=== PATIENT | male | born 1930 | race Caucasian/White ===

== ENCOUNTER → 2016-05-24 | Outpatient (CLI) | payer BC ==
[2016-05-24 13:31] LABS: ESTIMATED AVERAGE GLUCOSE 186 mg/dl; HA1C FLAG Normal (Normal)
== END | disposition home or self-care (01) ==
LOC: C.LABPBG 11:45
PROVIDERS: ATTEND Internal Medicine
DX: E11.9 Type 2 diabetes mellitus without complications (principal)

== ENCOUNTER → 2016-12-04 | Outpatient (CLI) | payer BC ==
[2016-12-04 18:36] LABS: LYME DISEASE AB IGG NEG (NEG); LYME DISEASE AB IGM NEG (NEG)
== END | disposition home or self-care (01) ==
LOC: C.LABPBG 13:01
PROVIDERS: ATTEND Internal Medicine
DX: M79.1 Myalgia (principal)

== ENCOUNTER → 2017-05-14 | Outpatient (CLI) | payer BC ==
[2017-05-14 18:06] LABS: BASO % 0.2 %; BASO ABS # 0.02 K/uL (0-0.2); EOS % 1.2 %; EOS ABS # 0.13 K/uL (0-0.5); HEMOGLOBIN 9.5 g/dL (14.0-18.0); IG# 0.04 K/uL (0.00-0.02); LYMPH % 16.3 %; LYMPH ABS # 1.81 K/uL (1.2-3.4); MEAN CELL VOLUME 82.9 fL (80-100); MEAN CORPUSCULAR HEMOGLOBIN 26.2 pg (25-34); MEAN CORPUSCULAR HGB CONC 31.7 g/dl (32-36); MEAN PLATELET VOLUME 11.5 fL (7.4-10.4); MONO % 10.9 %; MONO ABS # 1.21 K/uL (0.11-0.59); NEUT ABS # 7.92 K/uL (1.4-6.5); PLATELET COUNT 577 K/uL (130-400); RED CELL DISTRIBUTION WIDTH CV 15.7 % (11.5-14.5); RED CELL DISTRIBUTION WIDTH SD 48.1 fL (36.4-46.3); WHITE BLOOD COUNT 11.13 K/uL (4.8-10.8)
[2017-05-14 18:07] LABS: ALBUMIN 2.2 gm/dl (3.4-5.0); ALT/SGPT 36 U/L (12-78); AST/SGOT 30 U/L (15-37); BLOOD UREA NITROGEN 25 mg/dl (7-18); CALCIUM 8.5 mg/dl (8.5-10.1); CARBON DIOXIDE 22 mmol/L (21-32); CHOLESTEROL 91 mg/dl (0-200); CREATININE 1.99 mg/dl (0.60-1.40); GLUCOSE 260 mg/dl (70-99); POTASSIUM 4.5 mmol/L (3.5-5.1); SODIUM 137 mmol/L (136-145)
[2017-05-14 18:17] LABS: ALKALINE PHOSPHATASE 196 U/L (45-117); LDL CHOLESTEROL CALCULATED 6 mg/dl; TOTAL PROTEIN 7.2 gm/dl (6.4-8.2)
[2017-05-14 18:51] LABS: HEMOGLOBIN A1C 10.2 % (4.5-5.6)
== END | disposition home or self-care (01) ==
LOC: C.LABPBG 15:14
PROVIDERS: ATTEND Internal Medicine
DX: E11.22 Type 2 diabetes mellitus with diabetic chronic kidney disease (principal); I12.9 Hypertensive chronic kidney disease with stage 1 through stage 4 chronic kidney disease, or unspecified chronic kidney disease; N18.3 Chronic kidney disease, stage 3 (moderate); E78.5 Hyperlipidemia, unspecified; E03.9 Hypothyroidism, unspecified; N63.0 Unspecified lump in unspecified breast; H91.90 Unspecified hearing loss, unspecified ear

== ENCOUNTER → 2017-05-16 | Outpatient (CLI) | payer BC ==
[2017-05-16 17:24] LABS: BASO % 0.5 %; BASO ABS # 0.06 K/uL (0-0.2); EOS % 1.6 %; EOS ABS # 0.19 K/uL (0-0.5); HEMATOCRIT 30.1 % (42-52); HEMOGLOBIN 9.4 g/dL (14.0-18.0); IG# 0.04 K/uL (0.00-0.02); LYMPH % 21.2 %; LYMPH ABS # 2.58 K/uL (1.2-3.4); MEAN CELL VOLUME 82.9 fL (80-100); MEAN CORPUSCULAR HEMOGLOBIN 25.9 pg (25-34); MEAN CORPUSCULAR HGB CONC 31.2 g/dl (32-36); MEAN PLATELET VOLUME 11.4 fL (7.4-10.4); MONO % 8.6 %; MONO ABS # 1.04 K/uL (0.11-0.59); NEUT % 67.8 %; NEUT ABS # 8.25 K/uL (1.4-6.5); PLATELET COUNT 510 K/uL (130-400); RED CELL DISTRIBUTION WIDTH CV 15.7 % (11.5-14.5); RED CELL DISTRIBUTION WIDTH SD 47.8 fL (36.4-46.3); WHITE BLOOD COUNT 12.16 K/uL (4.8-10.8)
[2017-05-16 17:37] LABS: TRANSFERRIN 264 mg/dl (200-360)
== END | disposition home or self-care (01) ==
LOC: C.LABPBG 13:50
PROVIDERS: ATTEND Internal Medicine
DX: R63.4 Abnormal weight loss (principal); D64.9 Anemia, unspecified; R63.0 Anorexia

== ENCOUNTER → 2017-07-04 | Outpatient (CLI) | payer BC ==
[~2017-07-04] MED LIST: ASPI81TA28 PO; FERR325T18 PO; GLIP5TAB3 PO; LEVO50TA6 PO; LOSA50TA6 PO; LPT40 PO; METF-384 PO; PRLSR20 PO; SITA100T3 PO
[2017-07-04 12:54] LABS: BASO % 0.2 %; BASO ABS # 0.02 K/uL (0-0.2); HEMATOCRIT 28.6 % (42-52); IG# 0.03 K/uL (0.00-0.02); LYMPH % 18.3 %; LYMPH ABS # 1.81 K/uL (1.2-3.4); MEAN CELL VOLUME 80.3 fL (80-100); MEAN CORPUSCULAR HEMOGLOBIN 25.3 pg (25-34); MEAN CORPUSCULAR HGB CONC 31.5 g/dl (32-36); MEAN PLATELET VOLUME 10.9 fL (7.4-10.4); MONO % 11.4 %; MONO ABS # 1.13 K/uL (0.11-0.59); NEUT % 68.8 %; NEUT ABS # 6.81 K/uL (1.4-6.5); PLATELET COUNT 411 K/uL (130-400); RED CELL DISTRIBUTION WIDTH CV 16.1 % (11.5-14.5); RED CELL DISTRIBUTION WIDTH SD 47.5 fL (36.4-46.3)
== END | disposition home or self-care (01) ==
LOC: C.LABPBG 10:54
PROVIDERS: ATTEND Internal Medicine
DX: R63.0 Anorexia (principal); D64.9 Anemia, unspecified

== ENCOUNTER 2017-07-09 13:47 | Inpatient (IN) | payer BC, OTHER ==
[~2017-07-09] VITALS: Ht 182.9 cm; Wt 87.9 kg
--- NOTE | 2017-07-09 14:22 | DIAGNOSTIC IMAGING REPORT ---
SINGLE VIEW CHEST CLINICAL HISTORY: Generalized weakness. FINDINGS: An AP, portable, upright chest radiograph is compared to study dated 11/01/2007. The examination is degraded by portable technique and patient rotation. The heart is enlarged and there is atherosclerotic calcification of the thoracic aorta. There is evidence of congestive failure. Small pleural effusions are identified and there is bibasilar atelectasis. No pneumothorax is seen. The skeletal structures are osteopenic. Advanced arthritic change is seen in the shoulders and thoracic spine. IMPRESSION: 1. Cardiomegaly with evidence of congestive failure. 2. Small pleural effusions. Electronically signed by: Ignacio Cordero M.D. 07/09/2017 2:21 PM Dictated Date/Time: 07/09/2017 2:20 PM
[2017-07-09 14:45] LABS: BASO % 0.2 %; BASO ABS # 0.02 K/uL (0-0.2); EOS % 0.8 %; EOS ABS # 0.08 K/uL (0-0.5); HEMOGLOBIN 8.7 g/dL (14.0-18.0); IG# 0.03 K/uL (0.00-0.02); LYMPH % 14.3 %; LYMPH ABS # 1.41 K/uL (1.2-3.4); MEAN CELL VOLUME 79.6 fL (80-100); MEAN CORPUSCULAR HEMOGLOBIN 25.7 pg (25-34); MEAN CORPUSCULAR HGB CONC 32.2 g/dl (32-36); MEAN PLATELET VOLUME 10.5 fL (7.4-10.4); MONO % 8.1 %; NEUT % 76.3 %; NEUT ABS # 7.54 K/uL (1.4-6.5); PLATELET COUNT 415 K/uL (130-400); RED CELL DISTRIBUTION WIDTH CV 15.9 % (11.5-14.5); RED CELL DISTRIBUTION WIDTH SD 46.8 fL (36.4-46.3); WHITE BLOOD COUNT 9.88 K/uL (4.8-10.8)
[2017-07-09 14:57] LABS: PTT PATIENT 26.9 SECONDS (21.0-31.0)
[2017-07-09] MEDS ORDERED: GLIP5TAB3 PO (15:11)
[2017-07-09] MEDS ORDERED: LPT40 PO (15:11)
[2017-07-09] MEDS ORDERED: ASPI81TA28 PO (15:11)
[2017-07-09] MEDS ORDERED: FERR325T18 PO (15:11)
[2017-07-09 15:13] LABS: ALBUMIN 2.4 gm/dl (3.4-5.0); CALCIUM 8.5 mg/dl (8.5-10.1); CREATININE 2.36 mg/dl (0.60-1.40); POTASSIUM 5.1 mmol/L (3.5-5.1)
[2017-07-09] MEDS ORDERED: METF-384 PO (15:13)
[2017-07-09] MEDS ORDERED: LEVO50TA6 PO (15:13)
[2017-07-09] MEDS ORDERED: PRLSR20 PO (15:13)
[2017-07-09] MEDS ORDERED: LOSA50TA6 PO (15:13)
[2017-07-09] MEDS ORDERED: SITA100T3 PO (15:13)
[2017-07-09] MEDS ORDERED: FUROSEMIDE 40 MG/4 ML VIAL IV STA (16:51)
[2017-07-09] MEDS ORDERED: MAGNESIUM SULFATE 1GM / D5W 1 GM in PREMIXED IN D5W 100 ML IV ONE (17:00)
[2017-07-09] MEDS ORDERED: ACETAMINOPHEN 325 MG TAB PO PRN (17:00)
[2017-07-09] MEDS ORDERED: NITROGLYCERIN 0.4 MG SL PER TAB CHARGE SL PRN (17:00)
[2017-07-09] MEDS ORDERED: POLYETHYLENE (MIRALAX) 17 GM PACK PO PRN (17:00)
[2017-07-09] MEDS ORDERED: MoRPHine SULFATE 2 MG/ML CARP IV PRN (17:00)
[2017-07-09] MEDS ORDERED: ONDANSETRON INJ 2 MG/ML 2 ML VIAL IV PRN (17:00)
[2017-07-09] MEDS ORDERED: ALUMINUM/MAGNESIUM/SIMETH (MAALOX MAX) 30 ML UDC PO PRN (17:00)
[2017-07-09] MEDS ORDERED: MAGNESIUM HYDROXIDE SUSP 30 ML UDC PO PRN (17:00)
[2017-07-09] MEDS ORDERED: HydrALAZINE HCL 20 MG/ML VIAL IV. PRN (17:15)
[2017-07-09] MEDS ORDERED: PHARMACY GLYCEMIC MGMT CONSULT PRN (17:17)
--- NOTE | 2017-07-09 17:19 | History and Physical ---
History & Physical Date & Time of Service: Jul 09, 2017 at 17:03 Chief Complaint: Blood Count Low - Fluid-Kidneys Primary Care Physician: Fred Wilder M.D. History of Present Illness Source: patient, family, clinic records, hospital records Patient is a pleasant 87 y/o male, with PMHx of T2DM, HTN, HLD, hypothyroidism, and GERD, who presented to the ED because of abnormal labs at PCP office. Per patient, he was anemic and his PCP thought he was fluid overloaded. He notes worsening SOB w/ activity and increased bilateral lower extremity edema over the last 1 week. Patient denies any fever, chills, sweats, lightheadedness, dizziness, vision changes, CP, palpitations, wheezing, cough, abdominal pain, nausea, vomiting, diarrhea, urinary symptoms, melena, numbness/tingling, weakness, muscle/joint pain, anxiety/depression, active bleeding, or new skin discoloration/changes. Past Medical/Surgical History HLD T2DM HTN GERD hypothyroidism s/p L hip replacement Family History COPD Social History Smoking Status: Never Smoker Alcohol Use: none Drug Use: none Immunizations History of Influenza Vaccine: Yes Influenza Vaccine Date: May 02, 2007 History of Tetanus Vaccine?: Unknown History of Pneumococcal: Unknown History of Hepatitis B Vaccine: Unknown Allergies Coded Allergies: No Known Allergies (Verified , 07/09/17) Home Medications Scheduled Aspirin (Aspirin Ec), 81 MG PO QAM Atorvastatin (Lipitor), 40 MG PO QAM Ferrous Gluconate (Ferrous Gluconate), 324 MG PO QAM Glipizide (Glucotrol), 5 MG PO BID Levothyroxine Sodium (Levothyroxine Sodium), 1 TAB PO QAM Losartan Potassium (Cozaar), 50 MG PO QAM Metformin Hcl (Glucophage), 1,000 MG PO BID Omeprazole (Prilosec), 40 MG PO QAM Sitagliptin Phosphate (Januvia), 100 MG PO QAM Physical Exam Vital Signs Date Time Temp Pulse Resp B/P (MAP) Pulse Ox O2 Delivery O2 Flow Rate FiO2 07/09/17 16:19 108 18 135/70 97 Room Air 07/09/17 15:08 97 16 95 Room Air 07/09/17 14:43 108 07/09/17 14:39 94 Room Air 07/09/17 13:53 36.5 116 20 161/74 97 Room Air General Appearance: no apparent distress Head: normocephalic, atraumatic Eyes: normal inspection, PERRL ENT: + pertinent finding ([place]) Neck: supple Respiratory/Chest: no respiratory distress, no accessory muscle use, + crackles (bilateral lung bases ) Cardiovascular: regular rate, rhythm Abdomen/GI: normal bowel sounds, non tender, soft Back: normal inspection Extremities/Musculoskelatal: no calf tenderness, + swelling (+1 pitting edema of bilateral lower extremities ) Neurologic/Psych: alert, normal mood/affect, oriented x 3 Skin: normal color, warm/dry, no rash Diagnostics Laboratory Results Results Past 24 Hours Test 07/09/17 14:19 Range/Units White Blood Count 9.88 4.8-10.8 K/uL Red Blood Count 3.39 4.7-6.1 M/uL Hemoglobin 8.7 14.0-18.0 g/dL Hematocrit 27.0 42-52 % Mean Corpuscular Volume 79.6 80-100 fL Mean Corpuscular Hemoglobin 25.7 25-34 pg Mean Corpuscular Hemoglobin Concent 32.2 32-36 g/dl Platelet Count 415 130-400 K/uL Mean Platelet Volume 10.5 7.4-10.4 fL Neutrophils (%) (Auto) 76.3 % Lymphocytes (%) (Auto) 14.3 % Monocytes (%) (Auto) 8.1 % Eosinophils (%) (Auto) 0.8 % Basophils (%) (Auto) 0.2 % Neutrophils # (Auto) 7.54 1.4-6.5 K/uL Lymphocytes # (Auto) 1.41 1.2-3.4 K/uL Monocytes # (Auto) 0.80 0.11-0.59 K/uL Eosinophils # (Auto) 0.08 0-0.5 K/uL Basophils # (Auto) 0.02 0-0.2 K/uL RDW Standard Deviation 46.8 36.4-46.3 fL RDW Coefficient of Variation 15.9 11.5-14.5 % Immature Granulocyte % (Auto) 0.3 % Immature Granulocyte # (Auto) 0.03 0.00-0.02 K/uL Hypochromasia PRESENT Microcytosis PRESENT Prothrombin Time 10.6 9.0-12.0 SECONDS Prothromb Time International Ratio 1.0 0.9-1.1 Activated Partial Thromboplast Time 26.9 21.0-31.0 SECONDS Partial Thromboplastin Ratio 1.0 Sodium Level 133 136-145 mmol/L Potassium Level 5.1 3.5-5.1 mmol/L Chloride Level 101 98-107 mmol/L Carbon Dioxide Level 24 21-32 mmol/L Anion Gap 8.0 3-11 mmol/L Blood Urea Nitrogen 41 7-18 mg/dl Creatinine 2.36 0.60-1.40 mg/dl Est Creatinine Clear Calc Drug Dose 24.0 ml/min Estimated GFR () 27.8 Estimated GFR (Non- 24.0 BUN/Creatinine Ratio 17.3 10-20 Random Glucose 369 70-99 mg/dl Calcium Level 8.5 8.5-10.1 mg/dl Magnesium Level 1.6 1.8-2.4 mg/dl Total Bilirubin 0.4 0.2-1 mg/dl Direct Bilirubin 0.1 0-0.2 mg/dl Aspartate Amino Transf (AST/SGOT) 44 15-37 U/L Alanine Aminotransferase (ALT/SGPT) 45 12-78 U/L Alkaline Phosphatase 177 45-117 U/L Troponin I 0.078 0-0.045 ng/ml Pro-B-Type Natriuretic Peptide 8681 0-1800 pg/ml Total Protein 7.0 6.4-8.2 gm/dl Albumin 2.4 3.4-5.0 gm/dl Lipase 346 73-393 U/L Beta-Hydroxybutyric Acid 1.46 0.2-2.81 mg/dL Thyroid Stimulating Hormone (TSH) 5.560 0.300-4.500 uIu/ml Diagnostic Radiology SINGLE VIEW CHEST CLINICAL HISTORY: Generalized weakness. FINDINGS: An AP, portable, upright chest radiograph is compared to study dated 11/01/2007. The examination is degraded by portable technique and patient rotation. The heart is enlarged and there is atherosclerotic calcification of the thoracic aorta. There is evidence of congestive failure. Small pleural effusions are identified and there is bibasilar atelectasis. No pneumothorax is seen. The skeletal structures are osteopenic. Advanced arthritic change is seen in the shoulders and thoracic spine. IMPRESSION: 1. Cardiomegaly with evidence of congestive failure. 2. Small pleural effusions. Electronically signed by: Ignacio Cordero M.D. 07/09/2017 2:21 PM Dictated Date/Time: 07/09/2017 2:20 PM The status of this report is Signed. Draft = Not yet reviewed or approved by Radiologist. Signed = Reviewed and approved by Radiologist. EKG HANNA ALEXANDRE ID:[id number] 09-JUL-2017 14:39:01 [facility] Sinus tachycardia Nonspecific T wave abnormality Abnormal ECG When compared with ECG of 01-NOV-2007 18:50, Nonspecific T wave abnormality now evident in Lateral leads Confirmed by KENYATTA ORTIZ ([id number]) on 07/09/2017 4:20:30 PM 25mm/s 10mm/mV 150Hz 8.0 SP2 12SL 241 SURAJ: 10 Referred by: Referred Self Confirmed By: KENYATTA De La Vega. rate 109 BPM IA interval 170 ms QRS duration 84 ms QT/QTc 344/463 ms P-R-T axes 82 3 87 1930 (87 yr) Male Room:[facility] Loc:15 Education Reviewer:KYLAH CABRAL Test ind: Impression Assessment and Plan Patient is a pleasant 87 y/o male, with PMHx of T2DM, HTN, HLD, hypothyroidism, and GERD, who presented to the ED because of abnormal labs at PCP office. 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: - IV Lasix as above - Hold nephrotoxic agents and renally dose medications as appropriate - Follow PRP Hyponatremia, likely secondary to fluid overload: IV Lasix as above and follow PRP T2DM- hgbA1c 10.2% in 05/2017: - Hold Glipizide, Metformin and Januvia - Lantus 10 u x1 now - BSG ACHS and ISS - Pharmacy consulted for glycemic management Hypomagnesemia: - IV Mag 1 gm x1 now - Follow mag level and replace PRN Hypothyroidism- TSH 5.5: - Continue Synthroid - Repeat/follow-up outpatient in 6-8 weeks Acute on chronic iron deficient anemia, ?secondary to dilutional: - Follow H&H and transfuse PRN for hgb < 7.0-8.0 - Hold ASA - Continue Iron supplement - B12 and iron panel reviewed from 05/2017 - Check stool Hemoccult HLD: Continue Lipitor GERD: Protonix daily- resume Prilosec at discharge DVT prophylaxis: TEDs/SCDS; hold chemical anticoagulation due to anemia Code status: LEVEL I, FULL Dispo: From home- PT/OT and CM consulted Resuscitation Status VTE Prophylaxis Will order VTE Prophylaxis: Yes
--- NOTE | 2017-07-09 17:22 | Pharmacy Progress Note ---
Glycemic: Assessment & Plan Date of Service Jul 09, 2017. Assessment & Plan REPORTED HOME DIABETES MEDS: * glipizide 5mg po BID * metformin 1g po BID * Januvia 100mg po daily IN-PATIENT DIABETES REGIMEN: * Hold oral home diabetes agents * Basal insulin: Agree with Lantus 10 units x 1, will re-eval 07/10/17 with regards to new orders. * Correctional Insulin: Novolog Correction per scale ACHS Goal Range: Low 140 mg/dL - High 180 mg/dL Correction Factor: 35 mg/dL/unit * Prandial insulin: Per carb ratio of 1 unit per 15 grams CHO consumed Pharmacy will continue to monitor patient daily and write orders per [facility] inpatient glycemic control protocol. Thanks. * Please note that the plan above was derived based on current level of insulin resistance and hospital stress. These recommendations are appropriate for inpatient admission only. Plan of care upon discharge will need to be reassessed to avoid potential outpatient hypo/hyperglycemia.
[2017-07-09 18:00] VITALS: BP 132/80; PULSE 95; TEMP 36.6; BMI 26.8
[2017-07-09] MEDS: INSULIN ASPART 100 UNITS/ML 3 ML PEN SC SCH ×2 (18:42→22:32)
[2017-07-09] MEDS ORDERED: INSULIN GLARGINE SOLOSTAR 100 UNITS/ML 3 ML PEN SC ONE (19:00)
--- NOTE | 2017-07-09 19:13 | EMERGENCY ROOM VISIT NOTE ---
History Report prepared by [place]: Violeta Hernandez Under the Supervision of: Dr. Jovan Byrne M.D. First contact with patient: 13:58 Chief Complaint: REFERRED BY DOCTOR Stated Complaint: BLOOD COUNT LOW - FLUID-KIDNEYS History of Present Illness The patient is a 87 year old male who presents to the Emergency Room with complaints of abnormal labs as he came here at the recommendation of Dr. Jones , his PCP, who he saw today. He had blood work done, and his hemoglobin was at 90 and they were concerned there was fluid build-up. The pt says he feels fine and he has no complaints. His son notes he does not seen as peppy as usual which is abnormal. The swelling in his ankles has lasted for a week. He has never had any swelling in the past. He has had a cough for about three months with brown, green mucus. His son also reports that he was anemic with a level of 8.7. Pt denies LOC, headache, fevers, chills, diaphoresis, visual changes, neck pain, chest pain, breathing difficulties, nausea, vomiting, abdominal pain , back pain, melena, hematochezia, urinary symptoms, numbness, weakness, lymphadenopathy, rash, or other complaints. 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 Jones today Position: other (global) Quality: other (abnormal labs) Associated Symptoms: + cough Review of Systems See HPI for pertinent positives and negatives. A total of ten systems were reviewed and were otherwise negative. Past Medical & Surgical Medical Problems: (1) CHF exacerbation Family History Family history omitted secondary to patient's age. Social History Smoking Status: Unknown if Ever Smoked Smokeless Tobacco Use: Unknown Current/Historical Medications Scheduled Aspirin (Aspirin Ec), 81 MG PO QAM Atorvastatin (Lipitor), 40 MG PO QAM Ferrous Gluconate (Ferrous Gluconate), 324 MG PO QAM Glipizide (Glucotrol), 5 MG PO BID Levothyroxine Sodium (Levothyroxine Sodium), 1 TAB PO QAM Losartan Potassium (Cozaar), 50 MG PO QAM Metformin Hcl (Glucophage), 1,000 MG PO BID Omeprazole (Prilosec), 40 MG PO QAM Sitagliptin Phosphate (Januvia), 100 MG PO QAM Allergies Coded Allergies: No Known Allergies (Verified , 07/09/17) Physical Exam Vital Signs Date Time Temp Pulse Resp B/P (MAP) Pulse Ox O2 Delivery O2 Flow Rate FiO2 07/09/17 16:19 108 18 135/70 97 Room Air 07/09/17 15:08 97 16 95 Room Air 07/09/17 14:43 108 07/09/17 14:39 94 Room Air 07/09/17 13:53 36.5 116 20 161/74 97 Room Air Physical Exam GENERAL: Awake, alert, tired-appearing, in no distress HENT: Normocephalic, atraumatic. Oropharynx unremarkable. EYES: Normal conjunctiva. Sclera non-icteric. NECK: Supple. No nuchal rigidity. FROM. No masses. RESPIRATORY: Clear to auscultation. No wheezes. CARDIAC: Tachycardic rate. Normal rhythm. No murmurs. No rubs. Extremities warm and well perfused. Pulses equal. No JVD. GI: Soft, non-distended. No tenderness to palpation. No rebound or guarding. No masses. RECTAL: Deferred. MUSCULOSKELETAL: Atraumatic. Chest examination reveals no tenderness. The back is symmetrical on inspection without obvious abnormality. There is no CVA tenderness to palpation. No joint edema. LOWER EXTREMITIES: 2+ Lower Extremity edema NEURO: Normal sensorium. No sensory or motor deficits noted. SKIN: No rash or jaundice noted. Medical Decision & Procedures ER Provider Diagnostic Interpretation: Radiology results as stated below per my review and radiologist interpretation: SINGLE VIEW CHEST CLINICAL HISTORY: Generalized weakness. FINDINGS: An AP, portable, upright chest radiograph is compared to study dated 11/01/2007. The examination is degraded by portable technique and patient rotation. The heart is enlarged and there is atherosclerotic calcification of the thoracic aorta. There is evidence of congestive failure. Small pleural effusions are identified and there is bibasilar atelectasis. No pneumothorax is seen. The skeletal structures are osteopenic. Advanced arthritic change is seen in the shoulders and thoracic spine. IMPRESSION: 1. Cardiomegaly with evidence of congestive failure. 2. Small pleural effusions. Electronically signed by: Ignacio Cordero M.D. 07/09/2017 2:21 PM Dictated Date/Time: 07/09/2017 2:20 PM Laboratory Results 07/09/17 14:19 Red Blood Count 3.39, Mean Corpuscular Volume 79.6, Mean Corpuscular Hemoglobin 25.7, Mean Corpuscular Hemoglobin Concent 32.2, Mean Platelet Volume 10.5, Neutrophils (%) (Auto) 76.3, Lymphocytes (%) (Auto) 14.3, Monocytes (%) (Auto) 8.1, Eosinophils (%) (Auto) 0.8, Basophils (%) (Auto) 0.2, Neutrophils # (Auto) 7.54, Lymphocytes # (Auto) 1.41, Monocytes # (Auto) 0.80, Eosinophils # (Auto) 0.08, Basophils # (Auto) 0.02 07/09/17 14:19 Test 07/09/17 14:19 White Blood Count 9.88 K/uL (4.8-10.8) Red Blood Count 3.39 M/uL (4.7-6.1) Hemoglobin 8.7 g/dL (14.0-18.0) Hematocrit 27.0 % (42-52) Mean Corpuscular Volume 79.6 fL (80-100) Mean Corpuscular Hemoglobin 25.7 pg (25-34) Mean Corpuscular Hemoglobin Concent 32.2 g/dl (32-36) Platelet Count 415 K/uL (130-400) Mean Platelet Volume 10.5 fL (7.4-10.4) Neutrophils (%) (Auto) 76.3 % Lymphocytes (%) (Auto) 14.3 % Monocytes (%) (Auto) 8.1 % Eosinophils (%) (Auto) 0.8 % Basophils (%) (Auto) 0.2 % Neutrophils # (Auto) 7.54 K/uL (1.4-6.5) Lymphocytes # (Auto) 1.41 K/uL (1.2-3.4) Monocytes # (Auto) 0.80 K/uL (0.11-0.59) Eosinophils # (Auto) 0.08 K/uL (0-0.5) Basophils # (Auto) 0.02 K/uL (0-0.2) RDW Standard Deviation 46.8 fL (36.4-46.3) RDW Coefficient of Variation 15.9 % (11.5-14.5) Immature Granulocyte % (Auto) 0.3 % Immature Granulocyte # (Auto) 0.03 K/uL (0.00-0.02) Hypochromasia PRESENT Microcytosis PRESENT Prothrombin Time 10.6 SECONDS (9.0-12.0) Prothromb Time International Ratio 1.0 (0.9-1.1) Activated Partial Thromboplast Time 26.9 SECONDS (21.0-31.0) Partial Thromboplastin Ratio 1.0 Anion Gap 8.0 mmol/L (3-11) Est Creatinine Clear Calc Drug Dose 24.0 ml/min Estimated GFR () 27.8 Estimated GFR (Non- 24.0 BUN/Creatinine Ratio 17.3 (10-20) Calcium Level 8.5 mg/dl (8.5-10.1) Magnesium Level 1.6 mg/dl (1.8-2.4) Total Bilirubin 0.4 mg/dl (0.2-1) Direct Bilirubin 0.1 mg/dl (0-0.2) Aspartate Amino Transf (AST/SGOT) 44 U/L (15-37) Alanine Aminotransferase (ALT/SGPT) 45 U/L (12-78) Alkaline Phosphatase 177 U/L (45-117) Troponin I 0.078 ng/ml (0-0.045) Pro-B-Type Natriuretic Peptide 8681 pg/ml (0-1800) Total Protein 7.0 gm/dl (6.4-8.2) Albumin 2.4 gm/dl (3.4-5.0) Lipase 346 U/L (73-393) Beta-Hydroxybutyric Acid 1.46 mg/dL (0.2-2.81) Thyroid Stimulating Hormone (TSH) 5.560 uIu/ml (0.300-4.500) Laboratory results reviewed by me Medications Administered Medications (Trade) Dose Ordered Sig/Bg Route Start Time Stop Time Status Last Admin Dose Admin Furosemide (Lasix Inj) 40 mg NOW STAT IV 07/09/17 16:51 07/09/17 16:52 DC 07/09/17 17:03 40 MG Magnesium Sulfate 1 gm/Prmx 100 ml @ 100 mls/hr NOW ONCE IV 07/09/17 17:00 07/09/17 18:11 DC 07/09/17 18:43 100 MLS/HR ED Course 1500: The patient was evaluated in room A11. A complete history and physical exam was performed. 1625: Discussed the patient's case. The patient will be evaluated for further treatment and disposition by Dr. Leonard [facility] Hospitalist. Medical Decision Triage Nursing notes reviewed. The patient's presentation and history were concerning for leg swelling and anemia Etiologies such as anemia, CHF, metabolic, infection, hypo/hyperglycemia, electrolyte abnormalities, cardiac sources, intracerebral event, toxicologic, neurologic, as well as others were entertained. The patient was evaluated. He had moderate swelling in the lower extremities. Blood work was obtained. He was found to have a worsening anemia. He states outpatient Hemoccult testing was negative. He has not had any black or bloody stools. Patient's chest x-ray was concerning for CHF. His BNP is elevated. He has acute kidney injury. The patient was given a dose of IV Lasix. His troponin is mildly elevated. This is difficult to interpret in light of his renal insufficiency. As this CHF is new onset for him further management in the hospital is appropriate. Consultation was made with internal medicine. The patient was evaluated for further management. Medication Reconcilliation Current Medication List: was personally reviewed by me Blood Pressure Screening Patient's blood pressure: Elevated blood pressure Blood pressure disposition: Referred to PCP Consults Time Called: 1620 Consulting Physician: Dr. Leonard [facility] Hospitalist Returned Call: 1625 He will further evaluate the patient. Impression Primary Impression: CHF (congestive heart failure) Additional Impression: Anemia Scribe Attestation The scribe's documentation has been prepared under my direction and personally reviewed by me in its entirety. I confirm that the note above accurately reflects all work, treatment, procedures, and medical decision making performed by me. Departure Information Dispostion Being Evaluated By Hospitalist (Dr. Leonard, [facility] Hospitalist) Referrals Fred Wilder M.D. (PCP) Patient Instructions My [facility] Problem Qualifiers
[2017-07-09 19:51] LABS: HEMATOCRIT 27.4 % (42-52); HEMOGLOBIN 8.5 g/dL (14.0-18.0)
[2017-07-09] MEDS ORDERED: MAGNESIUM SULFATE 1GM / D5W 1 GM in PREMIXED IN D5W 100 ML IV STA (22:51)
[2017-07-09] MEDS ORDERED: NURSING VERBAL MED ORDER ONE (23:00)
[2017-07-09 23:06] LABS: CALCIUM 8.6 mg/dl (8.5-10.1); CREATININE 2.49 mg/dl (0.60-1.40); POTASSIUM 5.1 mmol/L (3.5-5.1)
[2017-07-09] MEDS: METOPROLOL TARTRATE 25 MG TAB PO SCH (23:12)
[2017-07-09 23:38] VITALS: BP 118/62; PULSE 95; TEMP 36.6; O2SAT 97
[2017-07-10] VITALS (9 sets, daily range): BP systolic 110–133; BP diastolic 65–79; PULSE 69–87; TEMP 36.2–36.5; O2SAT 94–98; Ht 182.9 cm; Wt 87.9 kg
[2017-07-10] MEDS: LEVOTHYROXINE 50 MCG TAB PO SCH (05:58)
[2017-07-10 06:06] LABS: HEMATOCRIT 27.1 % (42-52); HEMOGLOBIN 8.7 g/dL (14.0-18.0); MEAN CORPUSCULAR HEMOGLOBIN 25.4 pg (25-34); MEAN CORPUSCULAR HGB CONC 32.1 g/dl (32-36); MEAN PLATELET VOLUME 10.2 fL (7.4-10.4); PLATELET COUNT 441 K/uL (130-400); RED CELL DISTRIBUTION WIDTH CV 16.1 % (11.5-14.5); RED CELL DISTRIBUTION WIDTH SD 46.6 fL (36.4-46.3); WHITE BLOOD COUNT 11.07 K/uL (4.8-10.8)
[2017-07-10 06:44] LABS: BLOOD UREA NITROGEN 42 mg/dl (7-18); CALCIUM 8.5 mg/dl (8.5-10.1); CARBON DIOXIDE 25 mmol/L (21-32); GLUCOSE 185 mg/dl (70-99); POTASSIUM 5.6 mmol/L (3.5-5.1); SODIUM 134 mmol/L (136-145)
[2017-07-10 06:50] LABS: CKMB 1.8 ng/ml (0.5-3.6)
[2017-07-10] MEDS: METOPROLOL TARTRATE 25 MG TAB PO SCH ×2 (08:32→20:07)
[2017-07-10] MEDS: ATORVASTATIN 40 MG TAB PO SCH (08:33)
[2017-07-10] MEDS: FERROUS GLUCONATE 324 MG TAB PO SCH (08:33)
[2017-07-10] MEDS: PANTOprazole SOD 40 MG TAB PO SCH (08:33)
[2017-07-10] MEDS: INSULIN ASPART 100 UNITS/ML 3 ML PEN SC SCH ×4 (08:36→20:09)
[2017-07-10] MEDS: INSULIN GLARGINE SOLOSTAR 100 UNITS/ML 3 ML PEN SC SCH ×2 (08:37→20:09)
[2017-07-10] MEDS ORDERED: FUROSEMIDE INJ 40 MG in SYRINGE 0 ML IV SCH (09:00)
[2017-07-10] MEDS ORDERED: SODIUM POLYST. SULF SUSP 15G/60ML PO ONE (09:15)
[2017-07-10] MEDS ORDERED: CALCIUM GLUCONATE 10% 1,000 MG in SODIUM CHLORIDE 0.9% 50ML 50 ML IV ONE (09:45)
[2017-07-10] MEDS ORDERED: INSULIN GLARGINE SOLOSTAR 100 UNITS/ML 3 ML PEN SC ONE (12:00)
--- NOTE | 2017-07-10 12:06 | Nephrology Consultation ---
Nephrology Consultation Date & Providers Date of Consultation: Jul 10, 2017. Primary Care Provider: Fred Wilder M.D. Referring Provider: Reason for Consultation Evaluation and management for acute kidney injury with history of chronic kidney disease. History of Present Illness Mr. Lowe is a 87-year-old gentlemen with past medical history significant for stage 3 chronic kidney disease, hypertension, dyslipidemia, diabetes type 2 with history of high grade proteinuria admitted to the hospital with anemia, acute kidney injury and CHF exacerbation. Nephrology consult was requested for further management. Electronic medical records including labs and imaging are reviewed in detail during patient's visit. Patient's son Joe was at bedside during the visit. Recently he was seen by his primary care provider for anemia and had further workup. Yesterday he was advised to come to the emergency room as because of abnormal lab values. He was also having worsening shortness of breath with exertion and bilateral lower extremity edema for last 1 week. Patient denied any prior history of lower extremity edema or problem with fluid overload. He was not on any diuretics at home. He denied any episode of fever, chills, diarrhea, vomiting. Denies any episode of dizziness or lightheadedness. On admission his creatinine was 2.5 which stayed stable on repeat check this morning. Potassium was elevated at 5.6. He was on lisinopril 20 milligram daily at home. He was started on Lasix 40 milligram IV twice a day, shortness of breath and lower extremity edema improve since admission. He has history of iron deficiency anemia, hemoglobin stable, FOBT was ordered for further evaluation. Has stage 3 chronic kidney disease baseline creatinine has been 1.6-1.7, with high-grade proteinuria most likely secondary to diabetic nephropathy. No prior renal ultrasound available. Prior urinalysis showed 3+ proteinuria and microscopic hematuria. Denies any history of nephrolithiasis. Denies any voiding symptoms, dysuria hematuria recently. Denies any chronic pain or NSAID use. He he is a nonsmoker, no family history of chronic kidney disease. Has diabetes, seems to be poorly-controlled. Hypertension, seems well controlled. No history of coronary artery disease or prior history of CHF. Allergies Coded Allergies: No Known Allergies (Verified , 07/09/17) Inpatient Medications Current Inpatient Medications Medications (Trade) Dose Ordered Sig/Bg Route Start Time Stop Time Status Last Admin Dose Admin Acetaminophen (Tylenol Tab) 650 mg Q4H PRN PO 3/5/18 17:00 08/08/17 16:59 Al Hydrox/Mg Hydrox/Simethicone (Maalox Max Susp) 15 ml Q4H PRN PO 07/09/17 17:00 08/08/17 16:59 Magnesium Hydroxide (Milk Of Magnesia Susp) 30 ml Q12H PRN PO 07/09/17 17:00 08/08/17 16:59 Ondansetron HCl (Zofran Inj) 4 mg Q6H PRN IV 07/09/17 17:00 08/08/17 16:59 Nitroglycerin (Nitrostat Tab) 0.4 mg UD PRN SL 07/09/17 17:00 08/08/17 16:59 Morphine Sulfate (MoRPHine SULFATE INJ) 2 mg Q30M PRN IV 07/09/17 17:00 07/23/17 16:59 Polyethylene (Miralax Powder Packet) 17 gm DAILY PRN PO 07/09/17 17:00 08/08/17 16:59 Furosemide 40 mg/ Syringe 4 ml @ 4 mls/min BID17 IV 07/10/17 09:00 08/09/17 08:59 07/10/17 08:32 4 MLS/MIN Atorvastatin Calcium (Lipitor Tab) 40 mg QAM PO 07/10/17 09:00 08/09/17 08:59 07/10/17 08:33 40 MG Ferrous Gluconate (Ferrous Gluconate Tab) 324 mg QAM PO 07/10/17 09:00 08/09/17 08:59 07/10/17 08:33 324 MG Levothyroxine Sodium (Synthroid Tab) 50 mcg DAILYBB PO 07/10/17 06:00 08/09/17 06:59 07/10/17 05:58 50 MCG Pantoprazole Sodium (Protonix Tab) 40 mg QAM PO 07/10/17 09:00 08/09/17 08:59 07/10/17 08:33 40 MG Insulin Aspart (novoLOG ASPART) SLIDING SCALE G... ACHS SC 07/09/17 18:00 08/08/17 17:59 07/10/17 08:36 5 UNITS Miscellaneous Information (Consult Glycemic Management Pharmacy) 1 ea UD PRN N/A 07/09/17 17:17 08/08/17 17:16 Hydralazine HCl (HydrALAZINE INJ) 10 mg Q6H PRN IV. 07/09/17 17:15 08/08/17 17:14 Metoprolol Tartrate (Lopressor Tab) 25 mg BID PO 07/09/17 23:00 08/08/17 22:59 07/10/17 08:32 25 MG Insulin Glargine (Lantus Solostar Pen) 10 units BID SC 07/10/17 09:00 08/09/17 08:59 07/10/17 08:37 10 UNITS Family History No family history chronic kidney disease or end-stage renal disease. Mom had history of nephrolithiasis. Social History Smoking Status: Unknown if Ever Smoked Smokeless Tobacco Use: Unknown Alcohol Use: none Drug Use: none Review of Systems A complete review of systems was performed. Pertinent positives are noted above. All other systems are negative. Physical Exam Date Time Temp Pulse Resp B/P (MAP) Pulse Ox O2 Delivery O2 Flow Rate FiO2 07/10/17 08:00 94 Room Air 07/10/17 07:46 36.3 87 20 127/79 (95) 94 Room Air 07/10/17 04:04 36.2 84 18 122/75 (91) 96 Room Air 07/10/17 04:00 Room Air 07/10/17 00:00 Room Air 07/09/17 23:38 36.6 95 17 118/62 (80) 97 Room Air 07/09/17 20:00 Room Air 07/09/17 18:08 101 18 124/76 96 07/09/17 18:00 36.6 95 16 132/80 Room Air 07/09/17 16:19 108 18 135/70 97 Room Air 07/09/17 15:08 97 16 95 Room Air 07/09/17 14:43 108 07/09/17 14:39 94 Room Air 07/09/17 13:53 36.5 116 20 161/74 97 Room Air GENERAL: Elderly male, AAA x 3, pleasant, healthy-appearing, not in any distress. HEENT: Atraumatic, normocephalic. NECK: Supple, no JVD, no carotid bruit appreciated. ENT: No sinus tenderness MOUTH and THROAT: Moist oral mucosa, no oral ulcer or pharyngeal erythema RESPIRATORY: Normal breathing efforts, no accessory muscle use, clear to auscultation bilaterally, no wheezes or rales. CARDIOVASCULAR: S1, S2 normal, rate rhythm regular. ABDOMEN: Soft, nontender, positive bowel sound. MUSCULOSKELETAL: No CVA tenderness. No joint swelling, erythema or tenderness. Normal range of motion. SKIN: No skin rash EXTREMITY: 1+ bilateral lower extremity edema NEURO: No gross focal neurological deficit, speech fluent. PSYCHIATRY: Normal mood and judgment Laboratory Results Last 24 Hours Test 07/09/17 14:19 07/09/17 18:14 07/09/17 19:43 07/09/17 19:52 White Blood Count 9.88 K/uL Red Blood Count 3.39 M/uL Hemoglobin 8.7 g/dL 8.5 g/dL Hematocrit 27.0 % 27.4 % Mean Corpuscular Volume 79.6 fL Mean Corpuscular Hemoglobin 25.7 pg Mean Corpuscular Hemoglobin Concent 32.2 g/dl Platelet Count 415 K/uL Mean Platelet Volume 10.5 fL Neutrophils (%) (Auto) 76.3 % Lymphocytes (%) (Auto) 14.3 % Monocytes (%) (Auto) 8.1 % Eosinophils (%) (Auto) 0.8 % Basophils (%) (Auto) 0.2 % Neutrophils # (Auto) 7.54 K/uL Lymphocytes # (Auto) 1.41 K/uL Monocytes # (Auto) 0.80 K/uL Eosinophils # (Auto) 0.08 K/uL Basophils # (Auto) 0.02 K/uL RDW Standard Deviation 46.8 fL RDW Coefficient of Variation 15.9 % Immature Granulocyte % (Auto) 0.3 % Immature Granulocyte # (Auto) 0.03 K/uL Hypochromasia PRESENT Microcytosis PRESENT Prothrombin Time 10.6 SECONDS Prothromb Time International Ratio 1.0 Activated Partial Thromboplast Time 26.9 SECONDS Partial Thromboplastin Ratio 1.0 Sodium Level 133 mmol/L Potassium Level 5.1 mmol/L Chloride Level 101 mmol/L Carbon Dioxide Level 24 mmol/L Anion Gap 8.0 mmol/L Blood Urea Nitrogen 41 mg/dl Creatinine 2.36 mg/dl Est Creatinine Clear Calc Drug Dose 24.0 ml/min Estimated GFR () 27.8 Estimated GFR (Non- 24.0 BUN/Creatinine Ratio 17.3 Random Glucose 369 mg/dl Calcium Level 8.5 mg/dl Magnesium Level 1.6 mg/dl Total Bilirubin 0.4 mg/dl Direct Bilirubin 0.1 mg/dl Aspartate Amino Transf (AST/SGOT) 44 U/L Alanine Aminotransferase (ALT/SGPT) 45 U/L Alkaline Phosphatase 177 U/L Troponin I 0.078 ng/ml Pro-B-Type Natriuretic Peptide 8681 pg/ml Total Protein 7.0 gm/dl Albumin 2.4 gm/dl Lipase 346 U/L Beta-Hydroxybutyric Acid 1.46 mg/dL Thyroid Stimulating Hormone (TSH) 5.560 uIu/ml Bedside Glucose 344 mg/dl 303 mg/dl Test 07/09/17 21:46 07/09/17 22:57 07/10/17 05:57 07/10/17 06:56 Sodium Level 135 mmol/L 134 mmol/L Potassium Level 5.1 mmol/L 5.6 mmol/L Chloride Level 102 mmol/L 102 mmol/L Carbon Dioxide Level 25 mmol/L 25 mmol/L Anion Gap 8.0 mmol/L 7.0 mmol/L Blood Urea Nitrogen 43 mg/dl 42 mg/dl Creatinine 2.49 mg/dl 2.50 mg/dl Est Creatinine Clear Calc Drug Dose 23.4 ml/min 23.3 ml/min Estimated GFR () 26.1 26.0 Estimated GFR (Non- 22.5 22.4 BUN/Creatinine Ratio 17.2 16.9 Random Glucose 206 mg/dl 185 mg/dl Calcium Level 8.6 mg/dl 8.5 mg/dl Magnesium Level 2.0 mg/dl 2.2 mg/dl Creatine Kinase MB 2.0 ng/ml 1.8 ng/ml Creatine Kinase MB Ratio Troponin I 0.082 ng/ml 0.076 ng/ml Urine Color YELLOW Urine Appearance CLEAR Urine pH 5.5 Urine Specific [place] 1.010 Urine Protein 2+ Urine Glucose (UA) 1+ Urine Ketones NEG Urine Occult Blood 3+ Urine Nitrite NEG Urine Bilirubin NEG Urine Urobilinogen NEG Urine Leukocyte Esterase NEG Urine WBC (Auto) 1-5 /hpf Urine RBC (Auto) >30 /hpf Urine Hyaline Casts (Auto) 1-5 /lpf Urine Epithelial Cells (Auto) 10-20 /lpf Urine Bacteria (Auto) NEG White Blood Count 11.07 K/uL Red Blood Count 3.43 M/uL Hemoglobin 8.7 g/dL Hematocrit 27.1 % Mean Corpuscular Volume 79.0 fL Mean Corpuscular Hemoglobin 25.4 pg Mean Corpuscular Hemoglobin Concent 32.1 g/dl RDW Standard Deviation 46.6 fL RDW Coefficient of Variation 16.1 % Platelet Count 441 K/uL Mean Platelet Volume 10.2 fL Bedside Glucose 192 mg/dl Test 07/10/17 11:24 07/10/17 11:49 Bedside Glucose 253 mg/dl Impression (1) Acute kidney injury (2) CKD stage 3 due to type 2 diabetes mellitus (3) Proteinuria (4) Hyperkalemia (5) Anemia (6) Microscopic hematuria Mr. lowe is a 87-year-old gentlemen with past medical history significant for hypertension, diabetes, stage 3 chronic kidney disease and high-grade proteinuria admitted to the hospital with anemia, acute kidney injury and volume overload possibly due to CHF exacerbation. He has baseline stage 3 chronic kidney disease baseline creatinine 1.6-1.7 with high-grade proteinuria secondary to diabetic nephropathy. On admission creatinine was 5.6 which remained stable. Also has hyperkalemia, was on lisinopril which was on hold. Started on Lasix 40 IV twice a day and lower extremity edema improved. Has history of iron deficiency before, hemoglobin stable, currently FOBT pending. Recommendations --continue to hold lisinopril for now, repeat potassium this afternoon --renal diet --will get renal ultrasound --monitor renal function with daily renal panel --suggest switching Lasix to 40 milligram orally twice a day as creatinine currently off baseline and volume status seems to have rapidly improved with IV diuretics --start on Venofer 200 milligram IV for total 5 doses while patient is getting GI evaluation for iron deficiency anemia Thank you for allowing me to participate in your patient's care. It was a pleasure to see Mr. Lowe
[2017-07-10] MEDS ORDERED: IRON SUCROSE INJ 200 MG in SODIUM CHLORIDE 0.9% 100ML 100 ML IV SCH (12:30)
--- NOTE | 2017-07-10 12:52 | ECHOCARDIOGRAM REPORT ---
*NOTICE TO RECEIVING DEMOCRAT AGENCY This information is strictly Confidential and protected under [place] law. [place] law prohibits you from making any further disclosure of this information unless further disclosure is expressly permitted by the written consent of the person to whom it pertains or is authorized by law. A general authorization for the release of medical or other information is not sufficient for this purpose. Hospital accepts no responsibility if the information is made available to any other person, INCLUDING THE PATIENT. Interpretation Summary * Name: HANNA ALEXANDRE Study Date: 07/10/2017 07:02 AM BP: 127/79 mmHg * Patient Location: C.2T\S\E217\S\1 HR: 87 * : 1930 (M/d/yyyy) Gender: Male Height: 72 in * Age: 87 yrs Ethnicity: CA Weight: 166 lb * Ordering Physician: Jena Villegas * Referring Physician: Self, Referred * Performed By: Stephanie Cabrera RDCS * * Reason For Study: CHF * BSA: 2.0 m2 * -- Conclusions -- * Left ventricular systolic function is normal. * No regional wall motion abnormalities noted. * Ejection Fraction = 55-60%. * Moderate left ventricular hypertrophy. * Type 1 diastolic dysfunction. * There is mild mitral regurgitation. * There is mild tricuspid regurgitation. Procedure Details * A complete two-dimensional transthoracic echocardiogram was performed (2D, M-mode, Doppler and color flow Doppler). * A contrast injection of Definity was performed to improve assessment of LV function. * Contrast was injected into an intravenous site in the left arm. * One vial of Definity ultrasound contrast was diluted in normal saline to a total volume of 10 ml. A total of '1' ml of solution was administered during imaging. * Lot # [id number] of Definity utilized for procedure. * Expiration date 1 JUN 25. * The attending nurse who injected the contrast agent was DONAL MARTIN RN. Left Ventricle * The left ventricle is normal in size. * There is moderate concentric left ventricular hypertrophy. * Ejection Fraction = 55-60%. * Left ventricular systolic function is normal. * No regional wall motion abnormalities noted. Right Ventricle * The right ventricle is not well visualized. * The right ventricular systolic function is normal as assessed by tricuspid annular plane systolic excursion (TAPSE) (normal >1.5 cm). Atria * The left atrium is mildly dilated. * Right atrium not well visualized. * No ASD detected; PFO is not assessed. Mitral Valve * The mitral valve is grossly normal. * There is no mitral valve stenosis. * There is mild mitral regurgitation. Tricuspid Valve * The tricuspid valve is not well visualized, but is grossly normal. * There is no tricuspid stenosis. * There is mild tricuspid regurgitation. Aortic Valve * The aortic valve is not well visualized. * The aortic valve opens well. * Aortic valve sclerosis mild, without significant aortic valvular stenosis. * There is no significant aortic regurgitation. Pulmonic Valve * The pulmonary valve is not well seen, but the Doppler examination is normal without significant regurgitation or stenosis. Great Vessels * Borderline aortic root dilatation. * The pulmonary is not well visualized. Pericardium/Pleural * There is no pericardial effusion. Great Vessels * Normal inferior vena cava size and collapsability with sniff indicates a normal right atrial pressure of 3 mmHg Left Ventricular Diastolic Function * Grade I diastolic dysfunction, (abnormal relaxation pattern). MMode 2D Measurements and Calculations IVSd 1.1 cm IVSs 1.8 cm LVIDd 4.5 cm LVIDs 3.2 cm LVPWd 1.3 cm LVPWs 1.8 cm IVS/LVPW 0.79 FS 28.8 % EDV(Teich) 91.9 ml ESV(Teich) 40.8 ml EF(Teich) 55.6 % EDV(cubed) 90.4 ml ESV(cubed) 32.6 ml EF(cubed) 64.0 % % IVS thick 64.9 % % LVPW thick 35.8 % LV mass(C)d 198.2 grams LV mass(C)dI 100.7 grams/m\S\2 LV mass(C)s 232.0 grams LV mass(C)sI 117.9 grams/m\S\2 SV(Teich) 51.1 ml SI(Teich) 26.0 ml/m\S\2 SV(cubed) 57.9 ml SI(cubed) 29.4 ml/m\S\2 LVAd ap4 35.7 cm\S\2 LVLd ap4 9.5 cm EDV(MOD-sp4) 111.2 ml EDV(sp4-el) 114.5 ml LVAs ap4 22.5 cm\S\2 LVLs ap4 7.7 cm ESV(MOD-sp4) 56.4 ml ESV(sp4-el) 55.9 ml EF(MOD-sp4) 49.3 % EF(sp4-el) 51.2 % LVAd ap2 32.8 cm\S\2 LVLd ap2 8.9 cm EDV(MOD-sp2) 95.9 ml EDV(sp2-el) 102.3 ml LVAs ap2 20.5 cm\S\2 LVLs ap2 7.2 cm ESV(MOD-sp2) 48.5 ml ESV(sp2-el) 49.8 ml EF(MOD-sp2) 49.4 % EF(sp2-el) 51.3 % LVLd %diff -6.20 % EDV(MOD-bp) 104.9 ml LVLs %diff -7.15 % ESV(MOD-bp) 53.3 ml EF(MOD-bp) 49.2 % SV(MOD-sp4) 54.8 ml SI(MOD-sp4) 27.8 ml/m\S\2 SV(MOD-sp2) 47.4 ml SI(MOD-sp2) 24.1 ml/m\S\2 SV(MOD-bp) 51.6 ml SI(MOD-bp) 26.2 ml/m\S\2 SV(sp4-el) 58.6 ml SI(sp4-el) 29.7 ml/m\S\2 SV(sp2-el) 52.5 ml SI(sp2-el) 26.7 ml/m\S\2 Doppler Measurements and Calculations MV E max jefferson 94.9 cm/sec MV A max jefferson 55.5 cm/sec MV E/A 1.7 MV dec time 0.19 sec Ao V2 max 92.9 cm/sec Ao max PG 3.4 mmHg Ao max PG (full) 1.3 mmHg LV V1 max PG 2.2 mmHg LV V1 max 73.4 cm/sec TR max jefferson 303.6 cm/sec
[2017-07-10 13:00] LABS: CREATININE 2.55 mg/dl (0.60-1.40); POTASSIUM 5.4 mmol/L (3.5-5.1)
--- NOTE | 2017-07-10 13:28 | Pharmacy Progress Note ---
Pharmacy Glycemic Short Note 2 Date of Service Jul 10, 2017. OUTPATIENT ANTIDIABETIC REGIMEN: * glipizide 5 mg PO BID, metformin 1 gm PO BID, Januvia 100 mg PO qAM * HbA1C = 10.2% on 05/14/17 ASSESSMENT: * Mr Menjivar is an 87 y/o M with a PMH of HTN, HLD, GERD, hypothyroidism, and poorly controlled type 2 diabetes (according to Elements of Diabetes Care Scoring Scale Mr Menjivar's goal HbA1C is 7.6-8.0%). Mr Menjivar is admitted for new onset CHF. His blood sugar on admission was 369 mg/dL. He was given Novolog and 10 units of Lantus. * This morning the patient's blood sugar was 192 mg/dL. Initiated patient on weight-based stress of 1-2 Lantus or 10 units twice daily (approximately 0.2 units/kg) plus weight-based stress of ~2 Novolog dosing. Gave patient additional 10 units this morning for total of 20 units of Lantus in order to "load" Lantus for patient. This will achieve steady state faster and allow for more rapid titration without the risk for hypoglycemia. Utilized goal of 110- 140 mg/dL current but okay with blood sugars closer to 150-160 mg/dL for this patient based upon A1C. * Pt is maintained on oral antidiabetic agents as an outpatient * Oral agents are not recommended for inpatient use d/t drug interactions, changing PO intake, and difficulty titrating for acute hyper/hypoglycemia. ADA recommends re-initiating outpatient oral agents 1-2 days prior to discharge if/ when appropriate if they were held on admission. * Will hold oral agents for admission and utilize SQ basal bolus insulin regimen which is the recommended regimen for inpatient glycemic control. * Will initiate weight based insulin dosing for insulin sam patient and titrate based on BSG trends. PLAN FOR INPATIENT GLYCEMIC CONTROL: * Hold outpatient oral diabetes medications * Basal insulin * Lantus 10 units SQ BID (gave 20 units this morning) * Bolus insulin * NovoLog per scale ACHS or Q6hrs while NPO * Goal Range: Low 110 mg/dL - High 140 mg/dL * Correction Factor: 25 mg/dL/unit * Nutritional / Prandial insulin per carb ratio of 1 unit per 8 grams CHO consumed
--- NOTE | 2017-07-10 13:31 | CARDIOLOGY CONSULTATION ---
DATE OF CONSULTATION: 07/10/2017 PERTINENT HISTORY: Mr. Menjivar is an 87-year-old white male admitted yesterday with decompensated congestive heart failure. This consultation was ordered to assist in his management. The patient was in his usual state of health until approximately 1 week prior to admission. The patient began to note exertional dyspnea and progressive lower extremity edema. At no time did he experience PND or orthopnea. He also denies palpitations and exertional chest pain. The patient presented to Dr. Sauer's office and was sent directly to the Emergency Room for further care. The patient admits to noncompliance with a low salt diet. He "eats lots of canned soup." The patient has never known of a cardiac event. 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 Currently, the patient is resting comfortably in bed without complaints. PAST MEDICAL HISTORY: 1. Diastolic CHF - July 2017. 2. Hypertension. 3. Moderate left ventricular hypertrophy. 4. Diastolic dysfunction. 5. Mild mitral regurgitation. 6. Mild tricuspid regurgitation. 7. Hypertension. 8. Hypercholesterolemia. 9. Diabetes mellitus. 10. Chronic renal failure. 11. GERD. 12. Left total hip replacement. 13. Hypothyroidism. MEDICATIONS: 1. Lopressor 25 mg b.i.d. 2. Lasix 40 mg IV b.i.d. 3. Lipitor 40 mg at bedtime. 4. Synthroid 0.05 mg daily. 5. Protonix 40 mg per day. 6. Iron sulfate 324 mg daily. 7. Lantus 10 units b.i.d. ALLERGIES: None. SOCIAL HISTORY: The patient is and lives with his . He is the primary caregiver as she has Alzheimer disease. Does not use tobacco or alcohol. FAMILY HISTORY: Mother at 96 from "old age." Father at age 68 from emphysema. No early coronary artery disease. REVIEW OF SYSTEMS: A 10-point review of systems was negative except for that described above. PHYSICAL EXAMINATION: GENERAL: This is a well-developed, well-nourished white male, in no acute distress. VITAL SIGNS: Blood pressure is 115/68 with a regular pulse of 77. Respiratory rate is 20. The patient is afebrile at 36.3 degrees Celsius. Saturations 94% on room air. HEENT: Negative. NECK: Supple with full carotid upstrokes. There are no carotid bruits. Jugular venous pressure is 10 cm water at 90 degrees. There is no thyromegaly. CARDIOVASCULAR: Reveals a regular rhythm with normal S1, S2. Heart sounds are distant. No obvious murmurs. LUNGS: Note decreased breath sounds at the bases but no rales, rhonchi, or wheezes. ABDOMEN: Benign without bruits. EXTREMITIES: Reveal intact radial artery pulses bilaterally. 2+ pitting edema is seen to the knees bilaterally. DATA: CBC notes hemoglobin of 8.7, hematocrit 27.1, white count 11.07, and platelet count 441,000. Electrolytes note a sodium of 134, potassium 5.6, chloride 102, bicarb 25, BUN 42, creatinine 2.5, glucose 185. Magnesium level normal at 2.0. Troponin I level mildly elevated at 0.078 with followup values of 0.082 and 0.076. BNP is elevated at 8681. TSH level is elevated at 5.56. Echocardiogram notes normal left ventricular systolic function with an ejection fraction of 55-60%. There are no wall motion abnormalities. There is evidence of moderate left ventricular hypertrophy and diastolic dysfunction. There is mild mitral and tricuspid regurgitation. EKG notes normal sinus rhythm and nonspecific T-wave abnormality. Chest x-ray notes cardiomegaly and evidence of congestive heart failure. IMPRESSION: Mr. Tay was admitted with acute diastolic congestive heart failure. Suspect this may be secondary to dietary indiscretion with salt in the face of his moderate left ventricular hypertrophy and diastolic dysfunction. We have discussed the importance of a salt-restricted diet. Agree with aggressive diuresis at this time. PLAN: 1. Agree with intravenous diuretics. 2. Continue other cardiac medications. 3. Further recommendations depending on his clinical course.
[2017-07-10] MEDS ORDERED: SODIUM POLYST. SULF SUSP 15G/60ML PO STA (13:56)
--- NOTE | 2017-07-10 15:25 | Progress Note ---
Subjective Date of Service: Jul 10, 2017. Subjective Pt evaluation today including: conversation w/ patient, conversation w/ family , physical exam, lab review, review of studies, conversation w/ admissions consultant, review of inpatient medication list Pain: no pain PO Intake: adequate Voiding: no voiding problems patient feeling better, breathing well, wanted to go home updated son at the bedside discussed the case with Dr. Rankin and Dr. Morris reviewed echo results, normal EF, diastolic dysfunction reviewed labs, Cr up to 2.55 from 2.5, K was 5.6 this AM, down to 5.4 this afternoon Problem List Medical Problems: (1) Anemia Status: Acute (2) CHF (congestive heart failure) Status: Acute Review of Systems Constitutional: + weakness, + fatigue Cardiac: + edema All Other Systems: Reviewed and Negative Medications Current Inpatient Medications Medications (Trade) Dose Ordered Sig/Bg Route Start Time Stop Time Status Last Admin Dose Admin Acetaminophen (Tylenol Tab) 650 mg Q4H PRN PO 07/09/17 17:00 08/08/17 16:59 Al Hydrox/Mg Hydrox/Simethicone (Maalox Max Susp) 15 ml Q4H PRN PO 07/09/17 17:00 08/08/17 16:59 Magnesium Hydroxide (Milk Of Magnesia Susp) 30 ml Q12H PRN PO 07/09/17 17:00 08/08/17 16:59 Ondansetron HCl (Zofran Inj) 4 mg Q6H PRN IV 07/09/17 17:00 08/08/17 16:59 Nitroglycerin (Nitrostat Tab) 0.4 mg UD PRN SL 07/09/17 17:00 08/08/17 16:59 Morphine Sulfate (MoRPHine SULFATE INJ) 2 mg Q30M PRN IV 07/09/17 17:00 07/23/17 16:59 Polyethylene (Miralax Powder Packet) 17 gm DAILY PRN PO 07/09/17 17:00 08/08/17 16:59 Furosemide 40 mg/ Syringe 4 ml @ 4 mls/min BID17 IV 07/10/17 09:00 08/09/17 08:59 07/10/17 08:32 4 MLS/MIN Atorvastatin Calcium (Lipitor Tab) 40 mg QAM PO 07/10/17 09:00 08/09/17 08:59 07/10/17 08:33 40 MG Ferrous Gluconate (Ferrous Gluconate Tab) 324 mg QAM PO 07/10/17 09:00 08/09/17 08:59 07/10/17 08:33 324 MG Levothyroxine Sodium (Synthroid Tab) 50 mcg DAILYBB PO 07/10/17 06:00 08/09/17 06:59 07/10/17 05:58 50 MCG Pantoprazole Sodium (Protonix Tab) 40 mg QAM PO 07/10/17 09:00 08/09/17 08:59 07/10/17 08:33 40 MG Insulin Aspart (novoLOG ASPART) SLIDING SCALE G... ACHS SC 07/09/17 18:00 08/08/17 17:59 07/10/17 13:24 8 UNITS Miscellaneous Information (Consult Glycemic Management Pharmacy) 1 ea UD PRN N/A 07/09/17 17:17 08/08/17 17:16 Hydralazine HCl (HydrALAZINE INJ) 10 mg Q6H PRN IV. 07/09/17 17:15 08/08/17 17:14 Metoprolol Tartrate (Lopressor Tab) 25 mg BID PO 07/09/17 23:00 08/08/17 22:59 07/10/17 08:32 25 MG Insulin Glargine (Lantus Solostar Pen) 10 units BID SC 07/10/17 09:00 08/09/17 08:59 07/10/17 08:37 10 UNITS Insulin Aspart (novoLOG ASPART) SLIDING SCALE G... TODAY@0200 [place] 07/11/17 02:00 07/11/17 02:01 Iron Sucrose 200 mg/Sodium Chloride 110 ml @ 420 mls/hr Q2D@0900 IV 07/10/17 12:30 07/18/17 09:16 07/10/17 13:24 420 MLS/HR Objective Vital Signs Date Time Temp Pulse Resp B/P (MAP) Pulse Ox O2 Delivery O2 Flow Rate FiO2 07/10/17 12:00 95 Room Air 07/10/17 11:52 36.3 77 20 115/68 (84) 94 Room Air 07/10/17 08:00 94 Room Air 07/10/17 07:46 36.3 87 20 127/79 (95) 94 Room Air 07/10/17 04:04 36.2 84 18 122/75 (91) 96 Room Air 07/10/17 04:00 Room Air 07/10/17 00:00 Room Air 07/09/17 23:38 36.6 95 17 118/62 (80) 97 Room Air 07/09/17 20:00 Room Air 07/09/17 18:08 101 18 124/76 96 07/09/17 18:00 36.6 95 16 132/80 Room Air 07/09/17 16:19 108 18 135/70 97 Room Air Physical Exam General Appearance: WD/WN, no apparent distress Eyes: normal inspection, EOMI, sclerae normal ENT: normal ENT inspection, hearing grossly normal, pharynx normal Neck: supple, no adenopathy, no JVD, trachea midline Respiratory/Chest: chest non-tender, lungs clear, normal breath sounds, no respiratory distress, no accessory muscle use Cardiovascular: regular rate, rhythm, no gallop, no JVD, no murmur Abdomen: normal bowel sounds, non tender, soft, no organomegaly Extremities: normal range of motion, non-tender, normal inspection, no calf tenderness, normal capillary refill, pelvis stable, + pedal edema 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, no motor/sensory deficits, alert, normal mood/affect, oriented x 3 Skin: normal color, warm/dry, no rash Laboratory Results Last 24 Hours Test 07/09/17 18:14 07/09/17 19:43 07/09/17 19:52 07/09/17 21:46 Bedside Glucose 344 mg/dl 303 mg/dl Hemoglobin 8.5 g/dL Hematocrit 27.4 % Sodium Level 135 mmol/L Potassium Level 5.1 mmol/L Chloride Level 102 mmol/L Carbon Dioxide Level 25 mmol/L Anion Gap 8.0 mmol/L Blood Urea Nitrogen 43 mg/dl Creatinine 2.49 mg/dl Est Creatinine Clear Calc Drug Dose 23.4 ml/min Estimated GFR () 26.1 Estimated GFR (Non- 22.5 BUN/Creatinine Ratio 17.2 Random Glucose 206 mg/dl Calcium Level 8.6 mg/dl Magnesium Level 2.0 mg/dl Creatine Kinase MB 2.0 ng/ml Creatine Kinase MB Ratio Troponin I 0.082 ng/ml Test 07/09/17 22:57 07/10/17 05:57 07/10/17 06:56 07/10/17 11:24 Urine Color YELLOW Urine Appearance CLEAR Urine pH 5.5 Urine Specific Watson 1.010 Urine Protein 2+ Urine Glucose (UA) 1+ Urine Ketones NEG Urine Occult Blood 3+ Urine Nitrite NEG Urine Bilirubin NEG Urine Urobilinogen NEG Urine Leukocyte Esterase NEG Urine WBC (Auto) 1-5 /hpf Urine RBC (Auto) >30 /hpf Urine Hyaline Casts (Auto) 1-5 /lpf Urine Epithelial Cells (Auto) 10-20 /lpf Urine Bacteria (Auto) NEG White Blood Count 11.07 K/uL Red Blood Count 3.43 M/uL Hemoglobin 8.7 g/dL Hematocrit 27.1 % Mean Corpuscular Volume 79.0 fL Mean Corpuscular Hemoglobin 25.4 pg Mean Corpuscular Hemoglobin Concent 32.1 g/dl RDW Standard Deviation 46.6 fL RDW Coefficient of Variation 16.1 % Platelet Count 441 K/uL Mean Platelet Volume 10.2 fL Sodium Level 134 mmol/L Potassium Level 5.6 mmol/L Chloride Level 102 mmol/L Carbon Dioxide Level 25 mmol/L Anion Gap 7.0 mmol/L Blood Urea Nitrogen 42 mg/dl Creatinine 2.50 mg/dl Est Creatinine Clear Calc Drug Dose 23.3 ml/min Estimated GFR () 26.0 Estimated GFR (Non- 22.4 BUN/Creatinine Ratio 16.9 Random Glucose 185 mg/dl Calcium Level 8.5 mg/dl Magnesium Level 2.2 mg/dl Creatine Kinase MB 1.8 ng/ml Creatine Kinase MB Ratio Troponin I 0.076 ng/ml Bedside Glucose 192 mg/dl 253 mg/dl Test 07/10/17 11:49 07/10/17 12:10 Sodium Level 132 mmol/L Potassium Level 5.4 mmol/L Chloride Level 101 mmol/L Carbon Dioxide Level 23 mmol/L Anion Gap 8.0 mmol/L Blood Urea Nitrogen 45 mg/dl Creatinine 2.55 mg/dl Est Creatinine Clear Calc Drug Dose 22.8 ml/min Estimated GFR () 25.4 Estimated GFR (Non- 21.9 BUN/Creatinine Ratio 17.8 Random Glucose 255 mg/dl Calcium Level 9.0 mg/dl Stool Occult Blood NEGATIVE Assessment and Plan Patient is a pleasant 87 y/o male, with PMHx of T2DM, HTN, HLD, hypothyroidism, and GERD, who presented to the ED because of abnormal labs at PCP office. Acute on chronic diastolic heart failure improved with diureses, breathing well on room air still with a lot of peripheral edema, but no JVD, no hepatojugular reflex Cr up slightly to 2.55, will change Lasix to 40mg PO BID from IV appreciate recommendations from Dr. 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 consulted Dr. Rankin, appreciate recommendations holding Lisinopril continue Lasix 40mg PO BID Hyperkalemia: up to 5.6 this AM from 5.1, likely from poor renal function treat with Lasix, Kayexalate and Calcium gluconate receiving insulin due to hyperglycemia which will also help repeat in the AM, keep on tele Hyponatremia, stable at 132, will continue to monitor T2DM- hgbA1c 10.2% in 05/2017: - Hold Glipizide, Metformin and Januvia due to MARGY on CKD continue Lantus and Novolog SS sugars better controlled but not great, will tighten coverage Hypomagnesemia: resolved with IV replacement Hypothyroidism- TSH 5.5: - Continue Synthroid - Repeat/follow-up outpatient in 6-8 weeks Acute on chronic iron deficient anemia, ?secondary to dilutional: Hb low but stable, no need for transfusion treating with Venofer could be due to CKD as well HLD: Continue Lipitor GERD: Protonix daily- resume Prilosec at discharge DVT prophylaxis: TEDs/SCDS; hold chemical anticoagulation due to anemia Code status: LEVEL I, FULL PT/OT consults keep on tele, repeat labs tomorrow
--- NOTE | 2017-07-10 15:40 | DIAGNOSTIC IMAGING REPORT ---
(RENAL)RETROPERITON COMP HISTORY: Hematuria fish, hematuria COMPARISON: None. FINDINGS: Horseshoe kidney. Maximum dimension 17 x 6 cm. No evidence for hydronephrosis. Several small cysts in the right lateral aspect of the kidney, with a dominant 14 x 7 cm cyst or cystic structure in the region of the left flank. Note is made of multiple hypoechoic nodules within the liver highly suggestive of metastatic change. IMPRESSION: 1. Horseshoe kidney. 2. Multiple renal cysts with a large septated cyst within the left flank measuring 14 x 7 cm. 3. Multiple liver nodules highly suspect for metastatic disease. The above report was generated using voice recognition software. It may contain grammatical, syntax or spelling errors. Electronically signed by: Tera Liu M.D. 07/10/2017 3:39 PM Dictated Date/Time: 07/10/2017 3:36 PM
[2017-07-10] MEDS: FUROSEMIDE 40 MG TAB PO SCH (17:19)
[2017-07-11] MEDS ORDERED: INSULIN ASPART 100 UNITS/ML 3 ML PEN SC SCH (02:00)
[2017-07-11 02:50] VITALS: BP 123/67; PULSE 86; TEMP 36.3; O2SAT 97
[2017-07-11] MEDS: LEVOTHYROXINE 50 MCG TAB PO SCH (06:01)
[2017-07-11 06:08] LABS: HEMATOCRIT 28.2 % (42-52); MEAN CELL VOLUME 78.3 fL (80-100); MEAN CORPUSCULAR HGB CONC 31.9 g/dl (32-36); PLATELET COUNT 510 K/uL (130-400); RED CELL DISTRIBUTION WIDTH CV 16.2 % (11.5-14.5); RED CELL DISTRIBUTION WIDTH SD 46.6 fL (36.4-46.3); WHITE BLOOD COUNT 11.72 K/uL (4.8-10.8)
[2017-07-11 06:46] LABS: CALCIUM 8.7 mg/dl (8.5-10.1); CREATININE 2.68 mg/dl (0.60-1.40); POTASSIUM 4.4 mmol/L (3.5-5.1)
[2017-07-11 07:18] VITALS: BP 140/85; PULSE 90; TEMP 36.5; O2SAT 98
[2017-07-11] MEDS: METOPROLOL TARTRATE 25 MG TAB PO SCH (07:46)
[2017-07-11] MEDS: PANTOprazole SOD 40 MG TAB PO SCH (07:46)
[2017-07-11] MEDS: FUROSEMIDE 40 MG TAB PO SCH (07:47)
[2017-07-11] MEDS: ATORVASTATIN 40 MG TAB PO SCH (07:47)
[2017-07-11] MEDS: INSULIN GLARGINE SOLOSTAR 100 UNITS/ML 3 ML PEN SC SCH (08:03)
[2017-07-11] MEDS: INSULIN ASPART 100 UNITS/ML 3 ML PEN SC SCH (08:04)
[2017-07-11] MEDS: FERROUS GLUCONATE 324 MG TAB PO SCH (09:09)
[2017-07-11] MEDS ORDERED: SITA50TA3 PO (10:12)
[2017-07-11] MEDS ORDERED: LPR25 PO (10:12)
[2017-07-11] MEDS ORDERED: FURO-85 PO (10:12)
[2017-07-11 10:14] VITALS: BP 140/85; PULSE 90; TEMP 36.5; O2SAT 98
--- NOTE | 2017-07-11 10:20 | Discharge Instructions ---
Discharge Instructions Date of Service Jul 11, 2017. Admission Reason for Admission: Acute renal failure on CKD, acute diastolic HF Discharge Discharge Diagnosis / Problem: Acute renal failure on CKD, acute diastolic HF Discharge Goals Goal(s): Decrease discomfort, Improve function, Diagnostic testing (CT scan chest and abdomen/pelvis) Activity Recommendations Activity Limitations: resume your previous activity . Instructions / Follow-Up Instructions / Follow-Up Medications: - METOPROLOL: take 25mg twice a day, this is for blood pressure control since Losartan stopped - LASIX: 20mg once daily, to help you urinate - JANUVIA: dose decreased to 50mg due to renal function Metformin, Glipizide, Losartan stopped because of worsening kidney function Acute renal failure on chronic kidney disease as we discussed, your kidney numbers are higher than they had been in the past Cr today is 2.68, up from 2.[address] Rankin (kidney doctor) recommends taking Lasix 20mg daily you need to get lab work on Sunday and then next Sunday with results to Dr. Wilder and Dr. Rankin Acute diastolic heart failure: resolved with Lasix Dr. Morris recommends metoprolol for blood pressure control Liver nodules: as we discussed, you were found to have liver nodules on renal ultrasound findings are concerning for cancer ideally you need to have a CT scan of the chest, abdomen and pelvis test would be better if you could have IV contrast, renal function needs to be better for that follow up with Dr. Wilder to discuss getting a CT scan as outpatient for further evaluation FOLLOW UP - Dr. Wilder next week, my nurse navigator Patti will help you schedule this appointment, will contact you need lab work on Sunday and then Sunday, take script with you Current Hospital Diet Patient's current hospital diet: Diabetes Type 2 Diet, Low Sodium Diet (2gm Na) , Low Potassium Diet (2g K) Discharge Diet Recommended Diet: Diabetes Type 2 Diet Pending Studies Studies pending at discharge: no Laboratory Results Hemoglobin A1c Test 05/14/17 15:23 Range/Units Estimated Average Glucose 246 mg/dl Hemoglobin A1c 10.2 H 4.5-5.6 % Lipid Panel Test 05/14/17 15:23 Range/Units Triglycerides Level 140 0-150 mg/dl Cholesterol Level 91 0-200 mg/dl HDL Cholesterol 57 mg/dl Cholesterol/HDL Ratio 1.6 LDL Cholesterol, Calculated 6 mg/dl Medical Emergencies . Who to Call and When: Medical Emergencies: If at any time you feel your situation is an emergency, please call 911 immediately. . Non-Emergent Contact Non-Emergency issues call your: Primary Care Provider Call Non-Emergent contact if: you have any medication questions . . "Provider Documentation" section prepared by Da Ron. . [place] Drug Monitoring Program Search Results: no issues identified
--- NOTE | 2017-07-11 10:42 | CARDIOLOGY PROGRESS NOTE ---
DATE: 07/11/2017 SUBJECTIVE: Mr. Menjivar is resting comfortably at the bedside without complaints of chest pain or dyspnea. He is anxious for hospital discharge. His cardiac condition was discussed at length with his son who was at the bedside. OBJECTIVE: VITAL SIGNS: Blood pressure 140/85 with a regular pulse of 90. Respiratory rate is 20 and the patient is afebrile at 36.5 degrees centigrade. Saturation 90% on room air. NECK: Supple with full carotid upstrokes. No obvious bruits. Jugular venous pressure is approximately 8 cm of water at 90 degrees. CARDIOVASCULAR: Reveals a regular rhythm with normal S1 and S2. Heart sounds are distant. No obvious murmurs. No S3. LUNGS: Decreased breath sounds at the bases but no rales, rhonchi, or wheeze. ABDOMEN: Soft without bruits. EXTREMITIES: Reveal intact radial artery pulse bilaterally. 1+ pretibial edema is noted. LABORATORY DATA: CBC notes hemoglobin of 9.7, hematocrit 28.2, white count 11.72, platelet count 510,000. Electrolytes note a sodium of 136, potassium 4.4, chloride 103, bicarbonate 23, BUN 49, creatinine 2.68, glucose 98. Renal ultrasound noted a horseshoe kidney. There are multiple renal cysts. Liver had numerous nodules suspicious for metastatic disease. IMPRESSION AND PLAN: 1. Acute on chronic diastolic congestive heart failure -- has improved with the use of intravenous diuretics. May be transitioned to oral dosing as per Dr. Rankin. 2. Hypertension -- with moderate left ventricular hypertrophy and evidence of diastolic dysfunction. 3. Valvular heart disease -- with mild mitral and tricuspid regurgitation. 4. Hypercholesterolemia. 5. Diabetes mellitus. 6. Chronic renal insufficiency -- per Dr. Rankin. 7. Liver abnormality -- workup per Dr. Ron.
--- NOTE | 2017-07-11 10:50 | Nephrology Progress Note ---
Nephrology Progress Note Date of Service Jul 11, 2017. Chief Complaint F/U for acute kidney injury with history of chronic kidney disease. Subjective Mr. lowe was seen and examined in his room this morning. Has been otherwise feeling fine and just wants to go home. Denies any shortness of breath or chest pain. Continues to have some lower extremity edema. His hemoglobin remained low at 9.0. Creatinine worsened to 2.7. Had ultrasound yesterday showing horseshoe kidney, no postrenal obstruction however there was concerning of nodularity in liver suggestive of metastatic disease. Review of Systems A complete review of systems was performed. Pertinent positives are noted above. All other systems are negative. Vital Signs Last 8 Hrs Date Time Temp Pulse Resp B/P (MAP) Pulse Ox O2 Delivery O2 Flow Rate FiO2 07/11/17 07:18 36.5 90 20 140/85 (103) 98 Room Air 07/11/17 07:00 Room Air 07/11/17 04:00 Room Air 07/11/17 02:50 36.3 86 20 123/67 (85) 97 Room Air Last Recorded Weight Weight (Kilograms): 87.900 Physical Exam GENERAL: Elderly male , AAA x 3, pleasant, healthy-appearing, not in any distress. NECK: Supple, no JVD. RESPIRATORY: Normal breathing efforts, no accessory muscle use, clear to auscultation bilaterally, no wheezes or rales. CARDIOVASCULAR: S1, S2 normal, rate rhythm regular. EXTREMITY: 1+ lower extremity edema NEURO: speech fluent. PSYCHIATRY: Normal mood and judgment Family History No family history chronic kidney disease or end-stage renal disease. Mom had history of nephrolithiasis. Social History Smokeless Tobacco Use: Unknown Alcohol Use: none Drug Use: none Laboratory Results Past 24 Hours 07/11/17 05:59 07/10/17 11:49 07/11/17 05:59 Test 07/10/17 11:24 07/10/17 11:49 07/10/17 12:10 07/10/17 16:21 Bedside Glucose 253 mg/dl (70-99) 229 mg/dl (70-99) Anion Gap 8.0 mmol/L (3-11) Est Creatinine Clear Calc Drug Dose 22.8 ml/min Estimated GFR () 25.4 Estimated GFR (Non- 21.9 BUN/Creatinine Ratio 17.8 (10-20) Calcium Level 9.0 mg/dl (8.5-10.1) Stool Occult Blood NEGATIVE (NEGATIVE) Test 07/10/17 20:05 07/11/17 02:53 07/11/17 05:59 07/11/17 06:30 Bedside Glucose 235 mg/dl (70-99) 112 mg/dl (70-99) 106 mg/dl (70-99) Red Blood Count 3.60 M/uL (4.7-6.1) Mean Corpuscular Volume 78.3 fL (80-100) Mean Corpuscular Hemoglobin 25.0 pg (25-34) Mean Corpuscular Hemoglobin Concent 31.9 g/dl (32-36) RDW Standard Deviation 46.6 fL (36.4-46.3) RDW Coefficient of Variation 16.2 % (11.5-14.5) Mean Platelet Volume 10.0 fL (7.4-10.4) Anion Gap 10.0 mmol/L (3-11) Est Creatinine Clear Calc Drug Dose 21.7 ml/min Estimated GFR () 23.9 Estimated GFR (Non- 20.6 BUN/Creatinine Ratio 18.4 (10-20) Calcium Level 8.7 mg/dl (8.5-10.1) Allergies Coded Allergies: No Known Allergies (Verified , 07/09/17) Medications Current Inpatient Medications Medications (Trade) Dose Ordered Sig/Bg Route Start Time Stop Time Status Last Admin Dose Admin Acetaminophen (Tylenol Tab) 650 mg Q4H PRN PO 07/09/17 17:00 08/08/17 16:59 Al Hydrox/Mg Hydrox/Simethicone (Maalox Max Susp) 15 ml Q4H PRN PO 07/09/17 17:00 08/08/17 16:59 Magnesium Hydroxide (Milk Of Magnesia Susp) 30 ml Q12H PRN PO 07/09/17 17:00 08/08/17 16:59 Ondansetron HCl (Zofran Inj) 4 mg Q6H PRN IV 07/09/17 17:00 08/08/17 16:59 Nitroglycerin (Nitrostat Tab) 0.4 mg UD PRN SL 07/09/17 17:00 08/08/17 16:59 Morphine Sulfate (MoRPHine SULFATE INJ) 2 mg Q30M PRN IV 07/09/17 17:00 07/23/17 16:59 Polyethylene (Miralax Powder Packet) 17 gm DAILY PRN PO 07/09/17 17:00 08/08/17 16:59 Atorvastatin Calcium (Lipitor Tab) 40 mg QAM PO 07/10/17 09:00 08/09/17 08:59 07/11/17 07:47 40 MG Ferrous Gluconate (Ferrous Gluconate Tab) 324 mg QAM PO 07/10/17 09:00 08/09/17 08:59 07/10/17 08:33 324 MG Levothyroxine Sodium (Synthroid Tab) 50 mcg DAILYBB PO 07/10/17 06:00 08/09/17 06:59 07/11/17 06:01 50 MCG Pantoprazole Sodium (Protonix Tab) 40 mg QAM PO 07/10/17 09:00 08/09/17 08:59 07/11/17 07:46 40 MG Insulin Aspart (novoLOG ASPART) SLIDING SCALE G... ACHS SC 07/09/17 18:00 08/08/17 17:59 07/11/17 08:04 4 UNITS Miscellaneous Information (Consult Glycemic Management Pharmacy) 1 ea UD PRN N/A 07/09/17 17:17 08/08/17 17:16 Hydralazine HCl (HydrALAZINE INJ) 10 mg Q6H PRN IV. 07/09/17 17:15 08/08/17 17:14 Metoprolol Tartrate (Lopressor Tab) 25 mg BID PO 07/09/17 23:00 08/08/17 22:59 07/11/17 07:46 25 MG Insulin Glargine (Lantus Solostar Pen) 10 units BID SC 07/10/17 09:00 08/09/17 08:59 07/11/17 08:03 10 UNITS Iron Sucrose 200 mg/Sodium Chloride 110 ml @ 420 mls/hr Q2D@0900 IV 07/10/17 12:30 07/18/17 09:16 07/10/17 13:24 420 MLS/HR Furosemide (Lasix Tab) 40 mg BID17 PO 07/10/17 17:00 08/09/17 16:59 07/11/17 07:47 40 MG Impression (1) Acute kidney injury (2) CKD stage 3 due to type 2 diabetes mellitus (3) Proteinuria (4) Hyperkalemia (5) Anemia (6) Microscopic hematuria Mr. lowe is a 87-year-old gentlemen with past medical history significant for hypertension, diabetes, stage 3 chronic kidney disease and high-grade proteinuria admitted to the hospital with anemia, acute kidney injury and volume overload possibly due to CHF exacerbation. He has baseline stage 3 chronic kidney disease baseline creatinine 1.6-1.7 with high-grade proteinuria secondary to diabetic nephropathy. On admission creatinine was 5.6 which remained stable. Also has hyperkalemia, was on lisinopril which was on hold. Started on Lasix 40 IV twice a day and lower extremity edema improved. Has history of iron deficiency before, hemoglobin stable, currently FOBT pending. Recommendations --Renal function slightly worsened today, electrolyte remain acceptable --discontinue IV Lasix, start on Lasix 20 milligram orally once a day --patient will need workup at least noncontrast CT chest abdomen pelvis for further evaluation for any possible primary malignancy. And also since renal function worsening and he will need further workup for GI recommended patient continue to stay in hospital but patient clearly expressed that he just wants to go home. Talked to Dr. Ron will try to discuss with patient about staying in hospital --will follow while in hospital however if patient gets discharged he will need close monitoring of his renal function, at least renal panel in next 1-2 days
--- NOTE | 2017-07-11 13:04 | Pharmacy Progress Note ---
Pharmacy Glycemic Short Note 2 Date of Service Jul 11, 2017. OUTPATIENT ANTIDIABETIC REGIMEN: * glipizide 5 mg PO BID, metformin 1 gm PO BID, Januvia 100 mg PO qAM * HbA1C = 10.2% on 05/14/17 ASSESSMENT: * Mr Menjivar is an 87 y/o M with a PMH of HTN, HLD, GERD, hypothyroidism, and poorly controlled type 2 diabetes (according to Elements of Diabetes Care Scoring Scale Mr Menjivar's goal HbA1C is 7.6-8.0%). Mr Menjivar is admitted for new onset CHF. Yesterday, the patient's blood sugars were [phone] and at 0200 112 mg/dL. The patient received 56 units of insulin with 30 units of basal (patient was "loaded" on Lantus yesterday morning). Expect patient to require around 45-50 units per day. * This morning the patient's blood sugar was 106 mg/dL. Continue current regimen. Blood sugars trended downwards yesterday throughout the day slightly. Loosen Novolog to between weight-based stress of 1 and 2. * Pt is maintained on oral antidiabetic agents as an outpatient * Oral agents are not recommended for inpatient use d/t drug interactions, changing PO intake, and difficulty titrating for acute hyper/hypoglycemia. ADA recommends re-initiating outpatient oral agents 1-2 days prior to discharge if/ when appropriate if they were held on admission. * Will hold oral agents for admission and utilize SQ basal bolus insulin regimen which is the recommended regimen for inpatient glycemic control. * Will initiate weight based insulin dosing for insulin sam patient and titrate based on BSG trends. PLAN FOR INPATIENT GLYCEMIC CONTROL: * Hold outpatient oral diabetes medications (patient also in MARGY) * Basal insulin * Lantus 10 units SQ BID * Bolus insulin * NovoLog per scale ACHS or Q6hrs while NPO * Goal Range: Low 110 mg/dL - High 140 mg/dL * Correction Factor: 30 mg/dL/unit * Nutritional / Prandial insulin per carb ratio of 1 unit per 10 grams CHO consumed RECOMMENDATIONS FOR DISCHARGE * Mr Menjivar has poorly controlled diabetes on three oral agents. Recommend initiation of insulin * Lantus 10 units twice daily or 20 units daily * d/c glipizide (not recommended in renal dysfunction, elderly, and those on insulin due to increased risk of hypoglycemcia) * d/c metformin with eGFR below 30 mL/min * can continue Januvia but requires renal dose adjustment - 25 mg daily for eGFR below 30 mL/min
--- NOTE | 2017-07-12 08:50 | Discharge Summary ---
Discharge Summary Date of Service Jul 11, 2017. Discharge Summary Admission Date: Jul 09, 2017 at 17:03 Discharge Date: Jul 11, 2017 Discharge Disposition: Home Principal Diagnosis: MARGY on CKD stage III Problems/Secondary Diagnoses: Acute on chronic diastolic heart failure Liver nodules DM type II with hyperglycemia Immunizations: Have You Had Influenza Vaccine: Yes Influenza Vaccine Date: May 02, 2007 History of Tetanus Vaccine?: Unknown History of Pneumococcal: Unknown History of Hepatitis B Vaccine: Unknown Procedures: none Consultations: Nephrology Cardiology Medication Reconciliation New Medications: Furosemide (Lasix) 20 Mg Tab 1 TAB PO DAILY for 30 Days, #30 TAB 3 Refills Sitagliptin (Januvia) 50 Mg Tab 50 MG PO DAILY for 30 Days, #30 TAB 1 Refill Metoprolol Tartrate (Lopressor) 25 Mg Tab 25 MG PO BID, #60 TAB 1 Refill Continued Medications: Aspirin (Aspirin Ec) 81 Mg Tab 81 MG PO QAM Atorvastatin (Lipitor) 40 Mg Tab 40 MG PO QAM Ferrous Gluconate (Ferrous Gluconate) 324 Mg Tab 324 MG PO QAM Levothyroxine Sodium (Levothyroxine Sodium) 50 Mcg Tab 1 TAB PO QAM Omeprazole (Prilosec) 20 Mg Capcr 40 MG PO QAM Discontinued Medications: Glipizide (Glucotrol) 5 Mg Tab 5 MG PO BID Losartan Potassium (Cozaar) 50 Mg Tab 50 MG PO QAM Metformin Hcl (Glucophage) 1,000 Mg Tab 1000 MG PO BID Sitagliptin Phosphate (Januvia) 100 Mg Tab 100 MG PO QAM Discharge Exam Patient anxious to leave, did not want to stay any longer, shouting from his room in the morning. Dr. Rankin discussed with he and his son that his renal function was worse and that he should stay for further monitoring, but he refused. I had a long discussion with he and his son about his renal function and also the finding of liver nodules on the renal US. I discussed that he should have further imaging with a CT scan of his chest and abdomen/pelvis but would be ideal to be done with contrast which he cannot do right now due to renal function. He was eating well, breathing comfortably. I reviewed labs, Hb stable. Stressed the importance of following up with Dr. Wilder for repeat lab work and to discuss CT scan of chest and A/P. His son was present for the conversation, said he would help make sure his father followed up. Review of Systems: Constitutional: No fever, No chills, No sweats, No weight loss, No weakness , No fatigue, No problem reported Eyes: No worsening of vision, No eye pain, No redness, No discharge, No diplopia, No problem reported ENT: No hearing loss, No unusual epistaxis, No nasal symptoms, No sore throat, No tinnitus, No dental problems, No trouble swallowing, No problem reported Respiratory: No cough, No sputum, No wheezing, No shortness of breath, No dyspnea on exertion, No dyspnea at rest, No hemoptysis, No problem reported Cardiovascular: + edema (mild edema), No chest pain, No orthopnea, No PND, No claudication, No palpitations, No problem reported Abdomen: No pain, No nausea, No vomiting, No diarrhea, No constipation, No GI bleeding, No problem reported Musculoskeletal: No joint pain, No muscle pain, No swelling, No calf pain, No problem reported Genitourinary - Male: No hematuria, No dysuria, No urinary frequency, No urinary urgency Neurologic: No memory loss, No paralysis, No weakness, No numbness/tingling , No vertigo, No balance problems, No problem reported Psychiatric: No depression symptoms, No anhedonism, No anxiety, No insomnia , No substance abuse, No problem reported Endocrine: No fatigue, No excessive thirst, No excessive urination, No problem reported Hematologic / Lymphatic: No abnormal bleeding/bruising, No clotting problems , No swollen lymph nodes, No night sweats, No problem reported Integumentary: No rash, No itch, No new/changing skin lesions, No color change, No bleeding, No problem reported Physical Exam: General Appearance: WD/WN, no apparent distress Eyes: normal inspection, EOMI, sclerae normal ENT: normal ENT inspection, hearing grossly normal, pharynx normal Neck: supple, no adenopathy, no JVD, trachea midline Respiratory/Chest: chest non-tender, lungs clear, normal breath sounds, no respiratory distress, no accessory muscle use Cardiovascular: regular rate, rhythm, no gallop, no JVD, no murmur, normal peripheral pulses Abdomen / GI: normal bowel sounds, non tender, soft, no organomegaly Extremities: normal inspection, no calf tenderness, normal capillary refill , normal range of motion, non-tender, pelvis stable, + pedal edema (bilaterally , mild) 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 Acute on chronic diastolic heart failure resolved with diuresis, breathing well on room air for two days still with mild peripheral edema, but no JVD, no hepatojugular reflex Cr up to 2.68, will change Lasix to 20mg daily per nephrology recommendation appreciate recommendations from Dr. Morris echo shows preserved EF, + diastolic dysfunction monitor weights and I/O's patient will follow up with Dr. 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 Rankin recommends repeating BMP on Sunday and Sunday results will go to Dr. Wilder and Dr. Rankin stopped Losartan stopped Metformin, Glipizide and adjusted Januvia Hyperkalemia: resolved with Lasix and Kayexalate K was 4.4 on the day of discharge no longer taking Losartan which will help prevent K from rising on Lasix 20mg daily Liver nodules: found incidentally on renal US radiologist stated that these were concerning for metastatic disease patient has not had any weight loss he has never had a colonoscopy for screening purposes, denies changes in bowels, dark stools recommend that patient get a CT chest and abdomen/pelvis for work up ideally this would be with IV contrast which he cannot have currently if renal function would not improve then he could have CT without contrast instructed patient and his son to follow up closely with Dr. Wilder to discuss this finding and further work up Hyponatremia, resolved at 136 T2DM- hgbA1c 10.2% in 05/2017: - Hold Glipizide and Metformin due to MARGY on CKD will continue Januvia at 50mg instructed patient to follow low carb diet he was not interested in taking insulin Hypomagnesemia: resolved with IV replacement Hypothyroidism- TSH 5.5: - Continue Synthroid - Repeat/follow-up outpatient in 6-8 weeks Acute on chronic iron deficient anemia, ?secondary to dilutional: Hb low but stable, actually trending up at 9.0 treated with two doses of Venofer while here continue Ferrous Sulfate d/c to home with labs on Thursday 07/13 and Sunday 07/16, follow up next week with Dr. Wilder Total Time Spent: Greater than 30 minutes This includes examination of the patient, discharge planning, medication reconciliation, and communication with other providers. Discharge Instructions Please refer to the electronic Patient Visit Report (Discharge Instructions) for additional information. Follow-Up Dr. Fred Wilder next week Dr. Rankin in [address] Morris in 4 weeks Additional Copies To Dru Morris M.D.; Fred Wilder M.D.; Ciara Rankin MD
== END 2017-07-11 10:45 | disposition home or self-care (01) | DRG 291 ==
LOC: C.EDB 13:49 → C.2T 17:03 → ENRESERV 17:27
PROVIDERS: ADMIT Internal Medicine Sports Medicine; ATTEND Internal Medicine
DX: I13.0 Hypertensive heart and chronic kidney disease with heart failure and stage 1 through stage 4 chronic kidney disease, or unspecified chronic kidney disease (principal); I50.31 Acute diastolic (congestive) heart failure; N17.9 Acute kidney failure, unspecified; N18.4 Chronic kidney disease, stage 4 (severe); E87.1 Hypo-osmolality and hyponatremia; E83.42 Hypomagnesemia; D64.9 Anemia, unspecified; E11.9 Type 2 diabetes mellitus without complications; E03.9 Hypothyroidism, unspecified; E78.5 Hyperlipidemia, unspecified; Z96.642 Presence of left artificial hip joint; Z79.82 Long term (current) use of aspirin

== ENCOUNTER → 2017-07-13 | Outpatient (CLI) | payer BC ==
[~2017-07-13] MED LIST changes: +AMIO200T4 PO; +APIX1TAB PO; +B-COCAP20 PO; +CRD200 PO; +DEXAMETHASONE SOD INJ 4 MG/ML VIAL ONE; +ELQ25 PO; +FENTANYL CITRATE INJ 50 MCG/1 ML 2 ML VIAL ONE; +FURO-85 PO; -GLIP5TAB3 PO; +GLYCOPYRROLATE INJ 0.2 MG/ML VIAL ONE; +INSDGIPEN SC; +INSUMIS14 SUBD; +LIDOCAINE HCL 2% 2 ML VIAL (20MG/ML) ONE; -LOSA50TA6 PO; +LPR25 PO; +LSX20 PO; +MCRK20 PO; -METF-384 PO; +METO25TA56 PO; +NEOSTIGMINE METHYLSULFATE 5 MG/5 ML SYR ONE; +ONDANSETRON INJ 2 MG/ML 2 ML VIAL ONE; +PHEN-1043 PO; +POTA20TA16 PO; +PROPOFOL IV EMULSION 10 MG/ML 20 ML VIAL IV ONE; +ROCURONIUM BROMIDE 10 MG/ML 5 ML VIAL IV ONE; -SITA100T3 PO; +SITA50TA3 PO; +SUCCINYLCHOLINE CHLORIDE 20 MG/ML 10 ML VIAL IV ONE; +VANC5CAP PO
[2017-07-13 16:56] LABS: HEMATOCRIT 28.1 % (42-52); HEMOGLOBIN 8.9 g/dL (14.0-18.0); MEAN CELL VOLUME 79.8 fL (80-100); MEAN CORPUSCULAR HEMOGLOBIN 25.3 pg (25-34); MEAN CORPUSCULAR HGB CONC 31.7 g/dl (32-36); PLATELET COUNT 488 K/uL (130-400); RED CELL DISTRIBUTION WIDTH CV 16.5 % (11.5-14.5); RED CELL DISTRIBUTION WIDTH SD 47.6 fL (36.4-46.3); WHITE BLOOD COUNT 14.63 K/uL (4.8-10.8)
[2017-07-13 17:30] LABS: BLOOD UREA NITROGEN 59 mg/dl (7-18); CALCIUM 8.2 mg/dl (8.5-10.1); CARBON DIOXIDE 22 mmol/L (21-32); CREATININE 3.25 mg/dl (0.60-1.40); GLUCOSE 492 mg/dl (70-99); PHOSPHORUS 3.9 mg/dl (2.5-4.9); POTASSIUM 4.7 mmol/L (3.5-5.1); SODIUM 127 mmol/L (136-145)
== END | disposition home or self-care (01) ==
LOC: C.LABPBG 14:09
PROVIDERS: ATTEND Internal Medicine
DX: N17.9 Acute kidney failure, unspecified (principal); N18.9 Chronic kidney disease, unspecified; D64.9 Anemia, unspecified

== ENCOUNTER 2017-07-15 07:54 | Inpatient (IN) | payer BC, OTHER ==
[~2017-07-15] VITALS: Ht 182.9 cm; Wt 95.3 kg
[~2017-07-15 07:54] MED LIST changes: -AMIO200T4 PO; -APIX1TAB PO; -B-COCAP20 PO; -CRD200 PO; -DEXAMETHASONE SOD INJ 4 MG/ML VIAL ONE; -ELQ25 PO; -FENTANYL CITRATE INJ 50 MCG/1 ML 2 ML VIAL ONE; -GLYCOPYRROLATE INJ 0.2 MG/ML VIAL ONE; -INSDGIPEN SC; -INSUMIS14 SUBD; -LIDOCAINE HCL 2% 2 ML VIAL (20MG/ML) ONE; -LSX20 PO; -MCRK20 PO; -METO25TA56 PO; -NEOSTIGMINE METHYLSULFATE 5 MG/5 ML SYR ONE; -ONDANSETRON INJ 2 MG/ML 2 ML VIAL ONE; -PHEN-1043 PO; -POTA20TA16 PO; -PROPOFOL IV EMULSION 10 MG/ML 20 ML VIAL IV ONE; -ROCURONIUM BROMIDE 10 MG/ML 5 ML VIAL IV ONE; -SUCCINYLCHOLINE CHLORIDE 20 MG/ML 10 ML VIAL IV ONE; -VANC5CAP PO
[2017-07-15] MEDS ORDERED: ONDANSETRON INJ 2 MG/ML 2 ML VIAL IV PRN (10:00)
[2017-07-15] MEDS ORDERED: ACETAMINOPHEN 325 MG TAB PO PRN (10:00)
[2017-07-15] MEDS ORDERED: INSULIN ASPART 100 UNITS/ML 3 ML PEN SC SCH (11:00)
[2017-07-15 12:34] LABS: BASO % 0.1 %; BASO ABS # 0.01 K/uL (0-0.2); EOS % 0.1 %; EOS ABS # 0.01 K/uL (0-0.5); HEMATOCRIT 26.6 % (42-52); HEMOGLOBIN 8.7 g/dL (14.0-18.0); IG# 0.04 K/uL (0.00-0.02); LYMPH % 6.4 %; LYMPH ABS # 0.94 K/uL (1.2-3.4); MEAN CORPUSCULAR HEMOGLOBIN 25.5 pg (25-34); MEAN CORPUSCULAR HGB CONC 32.7 g/dl (32-36); MEAN PLATELET VOLUME 10.1 fL (7.4-10.4); MONO % 11.7 %; MONO ABS # 1.72 K/uL (0.11-0.59); NEUT % 81.4 %; NEUT ABS # 11.98 K/uL (1.4-6.5); PLATELET COUNT 376 K/uL (130-400); RED CELL DISTRIBUTION WIDTH CV 16.8 % (11.5-14.5); RED CELL DISTRIBUTION WIDTH SD 45.2 fL (36.4-46.3)
[2017-07-15] MEDS ORDERED: GLUCOSE 10 TABS/TUBE PO PRN (12:45)
[2017-07-15] MEDS ORDERED: GLUCOSE 40% GEL 15 GM TUBE PO PRN (12:45)
[2017-07-15] MEDS ORDERED: GLUCAGON FOR INJ 1 MG VIAL SQ PRN (12:45)
[2017-07-15] MEDS ORDERED: DEXTROSE 50% 50 ML SYR IV PRN (12:45)
[2017-07-15] MEDS ORDERED: METOPROLOL TARTRATE 1 MG/ML VIAL IV STA (12:49)
[2017-07-15] MEDS ORDERED: METOPROLOL TARTRATE 25 MG TAB PO STA (12:49)
[2017-07-15] MEDS ORDERED: SODIUM CHLORIDE 0.9% 500ML 500 ML IV SCH (13:00)
[2017-07-15] MEDS ORDERED: INSULIN PROTOCOL GOAL RANGE ONE (13:00)
[2017-07-15] MEDS ORDERED: MODERATE STRESS LEVEL ONE (13:00)
[2017-07-15 13:07] LABS: INR 1.1 (0.9-1.1); PTT PATIENT 29.4 SECONDS (21.0-31.0)
[2017-07-15] MEDS ORDERED: INSULIN IV INFUSION PROTOCOL STA (13:10)
[2017-07-15 13:25] LABS: BLOOD UREA NITROGEN 49 mg/dl (7-18); CREATININE 2.66 mg/dl (0.60-1.40)
[2017-07-15 13:26] LABS: CALCIUM 8.4 mg/dl (8.5-10.1); CARBON DIOXIDE 23 mmol/L (21-32); POTASSIUM 4.3 mmol/L (3.5-5.1); SODIUM 129 mmol/L (136-145)
[2017-07-15 13:27] LABS: GLUCOSE 513 mg/dl (70-99)
[2017-07-15 13:42] LABS: PHOSPHORUS 2.5 mg/dl (2.5-4.9)
[2017-07-15] MEDS: INSULIN ASPART 100 UNITS/ML 3 ML PEN SC SCH ×3 (13:52→21:00)
[2017-07-15] MEDS ORDERED: INSULIN HUMAN REGULAR IV BOLUS 2 UNIT in SYRINGE 0 ML IV ONE (14:00)
[2017-07-15] MEDS ORDERED: NURSING VERBAL MED ORDER ONE ×2 (14:00→18:45)
[2017-07-15] MEDS ORDERED: NURSING DECISION MEDICATION ORDER SCH (14:00)
[2017-07-15 14:01] VITALS: BP 135/81; PULSE 110; TEMP 36.8; O2SAT 96; BMI 26.9
[2017-07-15] MEDS: INSULIN REGULAR 250 UNITS in SODIUM CHLORIDE 0.9% 250ML 250 ML IV SCH ×6 (14:07→21:14)
[2017-07-15 14:19] VITALS: BP 117/65; PULSE 123
[2017-07-15] MEDS: NSS + 20MEQ KCL 1000ML 1,000 ML IV SCH (15:06)
[2017-07-15] MEDS: HEPARIN 25,000 UNIT/500ML D5W 500 ML IV PRN (16:12)
[2017-07-15 16:22] LABS: INR 1.1 (0.9-1.1); PTT PATIENT 29.5 SECONDS (21.0-31.0)
[2017-07-15 16:34] LABS: CREATININE 2.89 mg/dl (0.60-1.40); POTASSIUM 4.4 mmol/L (3.5-5.1)
[2017-07-15 16:35] LABS: CALCIUM 8.2 mg/dl (8.5-10.1)
--- NOTE | 2017-07-15 17:45 | Nephrology Consultation ---
Nephrology Consultation Date & Providers Date of Consultation: Jul 15, 2017. Primary Care Provider: Fred Wilder M.D. Referring Provider: Reason for Consultation MARGY/CKD History of Present Illness Mr. Jasvir Menjivar is an 87-year-old male with CKD. Baseline creatinine has been approximately 1.7 mg/dL. Mr. Menjivar was recently admitted to [facility] from July 07 - with acute on chronic diastolic CHF and MARGY. Medial history is notable for diabetes mellitus, hypothyroidism, hypertension and CKD. 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 Mr. Menjivar initially presented to his PCP on July 09 with anemia and edema. He noted high dietary sodium intake. The patient was admitted and placed on IV diuretics. Creatinine was 2.3 mg/dL on admission. 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 Multiple liver nodules suspicious for metastatic disease were also appreciated. UA revealed 2+ protein, >30 RBC and no WBC's. TTE documented diastolic dysfunction without significant valvular heart disease. The patient responded well to IV diuretics. He was discharged with a creatinine of 2.6 mg/dL. Losartan was held at the time of discharge. The patient returned home. He noted decreased appetite. He was feeling weak. Repeat laboratory studies revealed worsening renal function. He was readmitted. Mr. Menjivar denies any urinary complaints. Plan of care was discussed with Dr. Ron. Records from the inpatient and outpatient EHR were reviewed in detail. On admission, laboratory studies are notable for a creatinine of 2.6 mg/dL, hyponatremia and significant hyperglycemia. Past Medical/Surgical History Medical: DM, hemoglobin A1c 10.2 in May. Maintained on Januvia and glipizide as outpatient. Hypothyroidism Hypertension CKD III-IV (baseline creatinine 1.7 mg/dL) Diastolic CHF Chronic anemia Surgical: None reported Allergies Coded Allergies: No Known Allergies (Verified , 07/09/17) Inpatient Medications Current Inpatient Medications Medications (Trade) Dose Ordered Sig/Bg Route Start Time Stop Time Status Last Admin Dose Admin Acetaminophen (Tylenol Tab) 650 mg Q4H PRN PO 07/15/17 10:00 08/14/17 09:59 Ondansetron HCl (Zofran Inj) 4 mg Q6H PRN IV 07/15/17 10:00 08/14/17 09:59 Aspirin (Ecotrin Tab) 81 mg QAM PO 07/16/17 09:00 08/15/17 08:59 Atorvastatin Calcium (Lipitor Tab) 40 mg QAM PO 07/16/17 09:00 08/15/17 08:59 Ferrous Gluconate (Ferrous Gluconate Tab) 324 mg QAM PO 07/16/17 09:00 08/15/17 08:59 Levothyroxine Sodium (Synthroid Tab) 50 mcg DAILYBB PO 07/16/17 06:30 08/15/17 06:29 Metoprolol Tartrate (Lopressor Tab) 25 mg BID PO 07/15/17 21:00 08/14/17 20:59 Pantoprazole Sodium (Protonix Tab) 40 mg QAM PO 07/16/17 09:00 08/15/17 08:59 Glucose (Glucose 40% Gel) 15-30 GRAMS 15 GRAMS... UD PRN PO 07/15/17 12:45 08/14/17 12:44 Glucose (Glucose Chew Tab) 4-8 Tablets 4 Tabl... UD PRN PO 07/15/17 12:45 08/14/17 12:44 Dextrose (Dextrose 50% 50ML Syringe) 25-50ML OF 50% DW IV FOR... UD PRN IV 07/15/17 12:45 08/14/17 12:44 Glucagon (Glucagon Inj) 1 mg UD PRN SQ 07/15/17 12:45 08/14/17 12:44 Insulin Aspart (novoLOG ASPART) SLIDING SCALE [facility] 07/15/17 13:00 08/14/17 12:59 07/15/17 13:52 3 UNITS Insulin Human Regular 250 units/ Sodium Chloride 252.5 ml @ 0 mls/hr Q24H IV 07/15/17 14:00 08/14/17 13:59 07/15/17 16:13 3.1 MLS/HR Potassium Chloride/Sodium Chloride 1,000 ml @ 100 mls/hr Q10H IV 07/15/17 14:15 08/14/17 14:14 07/15/17 15:06 100 MLS/HR Metoprolol Tartrate (Lopressor Iv) 5 mg Q6H PRN IV 07/15/17 15:30 08/14/17 15:29 Heparin Sodium/ Dextrose 500 ml @ 30 mls/hr [id number] PRN IV 07/15/17 15:45 4/10/18 15:44 07/15/17 16:12 30 MLS/HR Social History Smoking Status: Unknown if Ever Smoked Drug Use: none Review of Systems A complete review of systems was performed. Pertinent positives are noted above. All other systems are negative. Physical Exam Date Time Temp Pulse Resp B/P (MAP) Pulse Ox O2 Delivery O2 Flow Rate FiO2 07/15/17 16:00 Room Air 07/15/17 14:19 123 117/65 (82) 07/15/17 14:01 36.8 110 18 135/81 96 Room Air 07/15/17 13:17 142 141/90 General Appearance: WD/WN, no apparent distress Head: normocephalic, atraumatic Eyes: normal inspection, sclerae normal ENT: normal ENT inspection, pharynx normal Neck: supple, no JVD Respiratory/Chest: lungs clear, no respiratory distress, no accessory muscle use Cardiovascular: no gallop, + tachycardia Abdomen/GI: non tender, soft Extremities/Musculoskelatal: normal inspection, no pedal edema Neurologic/Psych: alert, normal mood/affect Skin: normal color Laboratory Results Last 24 Hours Test 07/15/17 12:24 07/15/17 12:28 07/15/17 12:30 07/15/17 12:46 White Blood Count 14.70 K/uL Red Blood Count 3.41 M/uL Hemoglobin 8.7 g/dL Hematocrit 26.6 % Mean Corpuscular Volume 78.0 fL Mean Corpuscular Hemoglobin 25.5 pg Mean Corpuscular Hemoglobin Concent 32.7 g/dl Platelet Count 376 K/uL Mean Platelet Volume 10.1 fL Neutrophils (%) (Auto) 81.4 % Lymphocytes (%) (Auto) 6.4 % Monocytes (%) (Auto) 11.7 % Eosinophils (%) (Auto) 0.1 % Basophils (%) (Auto) 0.1 % Neutrophils # (Auto) 11.98 K/uL Lymphocytes # (Auto) 0.94 K/uL Monocytes # (Auto) 1.72 K/uL Eosinophils # (Auto) 0.01 K/uL Basophils # (Auto) 0.01 K/uL RDW Standard Deviation 45.2 fL RDW Coefficient of Variation 16.8 % Immature Granulocyte % (Auto) 0.3 % Immature Granulocyte # (Auto) 0.04 K/uL Hypersegmented Polys OCCASIONAL Red Blood Cell Morphology Unremarkable Sodium Level 129 mmol/L Potassium Level 4.3 mmol/L Chloride Level 96 mmol/L Carbon Dioxide Level 23 mmol/L Anion Gap 10.3 mmol/L Blood Urea Nitrogen 49 mg/dl Creatinine 2.66 mg/dl Estimated GFR () 24.1 Estimated GFR (Non- 20.8 BUN/Creatinine Ratio 18.4 Random Glucose 513 mg/dl Calcium Level 8.4 mg/dl Phosphorus Level 2.5 mg/dl Magnesium Level 1.9 mg/dl Troponin I 0.116 ng/ml Beta-Hydroxybutyric Acid 2.57 mg/dL Bedside Glucose 531 mg/dl 568 mg/dl Prothrombin Time 11.6 SECONDS Prothromb Time International Ratio 1.1 Activated Partial Thromboplast Time 29.4 SECONDS Partial Thromboplastin Ratio 1.1 Test 07/15/17 15:03 07/15/17 16:00 07/15/17 16:06 Bedside Glucose 491 mg/dl 431 mg/dl Prothrombin Time 11.8 SECONDS Prothromb Time International Ratio 1.1 Activated Partial Thromboplast Time 29.5 SECONDS Partial Thromboplastin Ratio 1.1 Sodium Level 131 mmol/L Potassium Level 4.4 mmol/L Chloride Level 96 mmol/L Carbon Dioxide Level 27 mmol/L Anion Gap 8.0 mmol/L Blood Urea Nitrogen 50 mg/dl Creatinine 2.89 mg/dl Est Creatinine Clear Calc Drug Dose 20.1 ml/min Estimated GFR () 21.8 Estimated GFR (Non- 18.8 BUN/Creatinine Ratio 17.3 Random Glucose 414 mg/dl Calcium Level 8.2 mg/dl Beta-Hydroxybutyric Acid 1.05 mg/dL Impression (1) Acute kidney injury (2) CKD stage 3 due to type 2 diabetes mellitus (3) Anemia (4) Proteinuria (5) Microscopic hematuria (6) CHF exacerbation (7) Hyperglycemia Mr. Jasvir Menjivar is an 87-year-old male with CKD, diabetes mellitus, hypertension, hypothyroidism and diastolic CHF. Jasvir was admitted with hyperglycemia and MARGY. He was recently admitted to [facility] with acute diastolic CHF. Metabolic profile is notable for hyponatremia related to his hyperosmolar state. He is being treated with IV insulin gtt. ARB is being held. Creatinine has improved since Sunday. Metabolic profile is otherwise acceptable. Renal US was reviewed today. Follow up non contrast CT scan has been ordered. 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 Anemia is notable for stable hemoglobin and no signs of active blood loss. Iron profile will be checked with AM labs. Recommendations MARGY: -- Consistent with underlying ATN with early signs of renal recovery -- Document I/O's -- Hold Losartan -- Maintain even to slightly negative fluid balance -- Repeat metabolic profile tomorrow AM -- Repeat UA/microscopy -- BP and volume status currently acceptable Hyponatremia: -- Secondary to hyperglycemia Hyperglycemia: -- Insulin gtt and management per primary service Microscopic hematuria: -- Non contrast CT pending -- Repeat urine studies CKD: -- Outpatient follow up with Dr. Rankin Diastolic CHF: -- Volume status currently acceptable -- Furosemide as needed to maintain even to slightly negative fluid balance
[2017-07-15] MEDS: METOPROLOL TARTRATE 1 MG/ML VIAL IV PRN (18:51)
[2017-07-15] MEDS: METOPROLOL TARTRATE 25 MG TAB PO SCH (18:52)
[2017-07-15 20:05] VITALS: BP 106/66; PULSE 104; TEMP 36.6; O2SAT 98
[2017-07-15] MEDS ORDERED: HEPARIN SOD 5000 UNIT/0.5 ML CARP SQ SCH (21:00)
--- NOTE | 2017-07-15 22:06 | History and Physical ---
History & Physical Date & Time of Service: Jul 15, 2017 at 15:20 Chief Complaint: Acute Kidney Injury, Hyperglycemia Primary Care Physician: Fred Wilder M.D. History of Present Illness Source: patient, family, hospital records 87 yo male with history of CKD stage III (previous baseline 1.7) as well as DM type II, chronic diastolic heart failure, anemia who was just discharged to home on 07/11/17 after hospitalization for acute on chronic diastolic heart failure and worsening renal function with Cr up to 2.68. He also had hyperglycemia initially on that admission, likely from poor compliance. A renal US showed normal kidneys but incidentally showed liver nodules. Patient wanted to go home on 07/11/17 despite the advice to stay in the hospital due to worsening renal function. He agreed to get labs as outpatient. On 07/13 he had routine labs that showed his Cr was up to 3.2 and Na was 127, glucose was 490. I reviewed results in the AM on 07/14 and called the patient's son to ask him to return to the hospital. The patient agreed to come in on 07/15 for further treatment and work up. Since leaving the hospital he has been eating and drinking well. Only complaint was some vague abdominal pain this morning, so he did not eat breakfast and did not take his medications. No shortness of breath, no chest pain. His initial vitals showed a HR of 130-140's. He denied palpitations. EKG showed atrial fibrillation with RVR. He and his son denied a history of atrial fibrillation. He had not noticed any palpitations. He did not recall any polyuria or polydipsia since leaving the hospital. Reviewed labs and EKG at time of admission. Discussed plan with pharmacy. Discussed findings and plan with patient's family Past Medical/Surgical History HLD T2DM HTN GERD hypothyroidism CKD stage III s/p L hip replacement Family History COPD DM Social History Smoking Status: Unknown if Ever Smoked Alcohol Use: none Drug Use: none Marital Status: Housing status: lives with family Occupational Status: retired Immunizations History of Influenza Vaccine: Yes Influenza Vaccine Date: May 02, 2007 History of Tetanus Vaccine?: Unknown History of Pneumococcal: Unknown History of Hepatitis B Vaccine: Unknown Allergies Coded Allergies: No Known Allergies (Verified , 07/09/17) Home Medications Scheduled Aspirin (Aspirin Ec), 81 MG PO QAM Atorvastatin (Lipitor), 40 MG PO QAM Ferrous Gluconate (Ferrous Gluconate), 324 MG PO QAM Furosemide (Lasix), 1 TAB PO DAILY Levothyroxine Sodium (Levothyroxine Sodium), 1 TAB PO QAM Metoprolol Tartrate (Lopressor), 25 MG PO BID Omeprazole (Prilosec), 40 MG PO QAM Sitagliptin (Januvia), 50 MG PO DAILY Review of Systems Constitutional: + weakness, + fatigue, No fever, No chills, No sweats, No weight loss Eyes: No worsening of vision, No eye pain, No redness, No discharge, No diplopia, No problem reported ENT: No hearing loss, No unusual epistaxis, No nasal symptoms, No sore throat, No tinnitus, No dental problems, No trouble swallowing, No problem reported Respiratory: No cough, No sputum, No wheezing, No shortness of breath, No dyspnea on exertion, No dyspnea at rest, No hemoptysis, No problem reported Cardiovascular: + edema, No chest pain, No orthopnea, No PND, No claudication, No palpitations, No problem reported Abdomen: + pain (vague), No nausea, No vomiting, No diarrhea, No constipation, No GI bleeding, No problem reported Musculoskeletal: No joint pain, No muscle pain, No swelling, No calf pain, No problem reported Genitourinary - Male: No hematuria, No dysuria, No urinary frequency, No urinary urgency, No urinary hesitancy, No urinary retention Neurologic: + weakness, No memory loss, No paralysis, No numbness/tingling, No vertigo, No balance problems, No problem reported Psychiatric: No depression symptoms, No anhedonism, No anxiety, No insomnia, No substance abuse, No problem reported Endocrine: No fatigue, No excessive thirst, No excessive urination, No problem reported Hematologic / Lymphatic: No abnormal bleeding/bruising, No clotting problems, No swollen lymph nodes, No night sweats, No problem reported Integumentary: No rash, No itch, No new/changing skin lesions, No color change , No bleeding, No problem reported Allergic / Immunologic: No environmental allergies, No seasonal allergies, No pet sensitivities, No food allergies, No hives, No frequent infections, No poor healing, No prolonged convalescence, No problem reported Physical Exam Vital Signs Date Time Temp Pulse Resp B/P (MAP) Pulse Ox O2 Delivery O2 Flow Rate FiO2 07/15/17 14:19 123 117/65 (82) 07/15/17 14:01 36.8 110 18 135/81 96 Room Air 07/15/17 13:17 142 141/90 General Appearance: WD/WN, no apparent distress Head: normocephalic, atraumatic Eyes: normal inspection, EOMI, sclerae normal ENT: normal ENT inspection, pharynx normal, + pertinent finding (hard of hearing) Neck: supple, no adenopathy, no JVD, trachea midline Respiratory/Chest: chest non-tender, lungs clear, normal breath sounds, no respiratory distress, no accessory muscle use Cardiovascular: no gallop, no JVD, no murmur, normal peripheral pulses, + tachycardia, + irregularly irregular Abdomen/GI: normal bowel sounds, non tender, soft, no organomegaly Back: normal inspection, no CVA tenderness, no muscle spasm, normal range of motion Extremities/Musculoskelatal: normal inspection, no calf tenderness, normal capillary refill, normal range of motion, pelvis stable, + pedal edema Neurologic/Psych: thermal cutter helper II-XII nml as tested, no motor/sensory deficits, alert, normal mood/affect, normal reflexes, oriented x 3 Skin: normal color, warm/dry, no rash Diagnostics Laboratory Results Results Past 24 Hours Test 07/15/17 12:24 07/15/17 12:28 07/15/17 12:30 07/15/17 12:46 Range/Units White Blood Count 14.70 4.8-10.8 K/uL Red Blood Count 3.41 4.7-6.1 M/uL Hemoglobin 8.7 14.0-18.0 g/dL Hematocrit 26.6 42-52 % Mean Corpuscular Volume 78.0 80-100 fL Mean Corpuscular Hemoglobin 25.5 25-34 pg Mean Corpuscular Hemoglobin Concent 32.7 32-36 g/dl Platelet Count 376 130-400 K/uL Mean Platelet Volume 10.1 7.4-10.4 fL Neutrophils (%) (Auto) 81.4 % Lymphocytes (%) (Auto) 6.4 % Monocytes (%) (Auto) 11.7 % Eosinophils (%) (Auto) 0.1 % Basophils (%) (Auto) 0.1 % Neutrophils # (Auto) 11.98 1.4-6.5 K/uL Lymphocytes # (Auto) 0.94 1.2-3.4 K/uL Monocytes # (Auto) 1.72 0.11-0.59 K/uL Eosinophils # (Auto) 0.01 0-0.5 K/uL Basophils # (Auto) 0.01 0-0.2 K/uL RDW Standard Deviation 45.2 36.4-46.3 fL RDW Coefficient of Variation 16.8 11.5-14.5 % Immature Granulocyte % (Auto) 0.3 % Immature Granulocyte # (Auto) 0.04 0.00-0.02 K/uL Hypersegmented Polys OCCASIONAL Red Blood Cell Morphology Unremarkable Sodium Level 129 136-145 mmol/L Potassium Level 4.3 3.5-5.1 mmol/L Chloride Level 96 98-107 mmol/L Carbon Dioxide Level 23 21-32 mmol/L Anion Gap 10.3 3-11 mmol/L Blood Urea Nitrogen 49 7-18 mg/dl Creatinine 2.66 0.60-1.40 mg/dl Estimated GFR () 24.1 Estimated GFR (Non- 20.8 BUN/Creatinine Ratio 18.4 10-20 Random Glucose 513 70-99 mg/dl Calcium Level 8.4 8.5-10.1 mg/dl Phosphorus Level 2.5 2.5-4.9 mg/dl Magnesium Level 1.9 1.8-2.4 mg/dl Troponin I 0.116 0-0.045 ng/ml Beta-Hydroxybutyric Acid 2.57 0.2-2.81 mg/dL Bedside Glucose 531 568 70-99 mg/dl Prothrombin Time 11.6 9.0-12.0 SECONDS Prothromb Time International Ratio 1.1 0.9-1.1 Activated Partial Thromboplast Time 29.4 21.0-31.0 SECONDS Partial Thromboplastin Ratio 1.1 Test 07/15/17 15:03 Range/Units Bedside Glucose 491 70-99 mg/dl EKG atrial fibrillation with RVR, no ST or TW changes to suggest ischemia Impression Assessment and Plan 87 yo male with MARGY on CKD, DM type II with hyperglycemia, no DKA, new onset atrial fibrillation with RVR - New onset atrial fibrillation with RVR asymptomatic when HR in the 140's HR improved with Lopressor 5mg IV and Lopressor 25mg PO x 1 continue Lopressor 25mg BID, with 5mg IV q6 PRN for HR >120 echo was performed on 07/10 that showed normal EF, no structural disease will anticoagulate with heparin drip with renal function, cannot use Lovenox, Eliquis 2.5mg BID could be considered on discharge however, has h/o anemia, never had colonoscopy in his life want to make sure he does not bleed before committing to Eliquis consult cardiology - DM type II with hyperglycemia, no DKA treat with insulin infusion today, plan to convert to Lantus and Novolog per pharmacy discussed with patient and family that Metformin, Glipizide and Januvia will likely no longer be options with renal function will need to prepare to use insulin on discharge NSS with 20mEq K at 100cc/hr - MARGY on CKD stage III (1.7 baseline) Cr is 2.6 today, actually a little better than 3.2 two days ago consult nephrology renal US last admission showed normal kidneys electrolytes stable - Pseudohyponatremia: due to hyperglycemia, should resolve with correction of sugars - Chronic diastolic HF: holding on Lasix 20mg PO daily slightly dry from the hyperglycemia NSS at 100cc/hr, monitor for volume overload - Liver nodules: found incidentally on renal US from last admission will check a non-contrast CT chest and abd/pelvis tomorrow AM - Leukocytosis: 14K today, has been at 14K for a few days no signs of infection, continue to monitor perhaps related to liver nodules if lymphoma is diagnosis? - Anemia, iron deficiency continue Ferrous sulfate patient has never had a screening colonoscopy, no h/o melena DVT prophylaxis: on heparin gtt 60 minutes spent on this admission Advanced Directives Existing Living Will: Yes Existing Power of Roofer: Yes Resuscitation Status Full Code VTE Prophylaxis Will order VTE Prophylaxis: Yes Social Service Consult >80 yr.& Lives Alone Additional Copies To Fred Wilder M.D.
[2017-07-15 22:39] LABS: PTT PATIENT 39.4 SECONDS (21.0-31.0)
[2017-07-15 23:31] VITALS: BP 117/62; PULSE 114; TEMP 36.8; O2SAT 93
[2017-07-16] VITALS (8 sets, daily range): BP systolic 109–121; BP diastolic 52–86; PULSE 96–132; TEMP 36.4–37; O2SAT 94–96; BMI 27.0
[2017-07-16] MEDS ORDERED: HEPARIN IV BOLUS 7,000 UNIT in SYRINGE 0 ML IV ONE (00:30)
[2017-07-16] MEDS: HEPARIN 25,000 UNIT/500ML D5W 500 ML IV PRN ×3 (00:36→23:19)
[2017-07-16] MEDS: NSS + 20MEQ KCL 1000ML 1,000 ML IV SCH ×3 (00:38→21:03)
[2017-07-16] MEDS: INSULIN REGULAR 250 UNITS in SODIUM CHLORIDE 0.9% 250ML 250 ML IV SCH ×8 (03:57→15:05)
[2017-07-16] MEDS: METOPROLOL TARTRATE 1 MG/ML VIAL IV PRN (05:05)
[2017-07-16] MEDS: LEVOTHYROXINE 50 MCG TAB PO SCH (05:26)
[2017-07-16 06:54] LABS: BASO % 0.2 %; BASO ABS # 0.02 K/uL (0-0.2); EOS % 0.6 %; EOS ABS # 0.07 K/uL (0-0.5); HEMOGLOBIN 8.8 g/dL (14.0-18.0); IG# 0.03 K/uL (0.00-0.02); LYMPH % 11.3 %; LYMPH ABS # 1.36 K/uL (1.2-3.4); MEAN CELL VOLUME 79.2 fL (80-100); MEAN CORPUSCULAR HEMOGLOBIN 25.8 pg (25-34); MEAN CORPUSCULAR HGB CONC 32.6 g/dl (32-36); MEAN PLATELET VOLUME 10.7 fL (7.4-10.4); MONO % 10.8 %; NEUT % 76.9 %; NEUT ABS # 9.29 K/uL (1.4-6.5); PLATELET COUNT 407 K/uL (130-400); WHITE BLOOD COUNT 12.07 K/uL (4.8-10.8)
[2017-07-16 07:11] LABS: CALCIUM 8.3 mg/dl (8.5-10.1); CREATININE 2.6 mg/dl (0.60-1.40); POTASSIUM 4.3 mmol/L (3.5-5.1)
[2017-07-16 07:16] LABS: PHOSPHORUS 2.8 mg/dl (2.5-4.9)
[2017-07-16 07:23] LABS: PTT PATIENT 61.9 SECONDS (21.0-31.0)
[2017-07-16 08:03] LABS: HEMOGLOBIN A1C 10.1 % (4.5-5.6)
[2017-07-16] MEDS: METOPROLOL TARTRATE 25 MG TAB PO SCH ×2 (08:12→21:11)
[2017-07-16] MEDS: PANTOprazole SOD 40 MG TAB PO SCH (08:13)
[2017-07-16] MEDS: ATORVASTATIN 40 MG TAB PO SCH (08:13)
[2017-07-16] MEDS: INSULIN ASPART 100 UNITS/ML 3 ML PEN SC SCH ×4 (08:13→21:08)
[2017-07-16] MEDS: FERROUS GLUCONATE 324 MG TAB PO SCH (08:13)
[2017-07-16] MEDS: ASPIRIN 81 MG ECTAB PO SCH (08:13)
--- NOTE | 2017-07-16 09:53 | DIAGNOSTIC IMAGING REPORT ---
(CHEST) THORAX WITHOUT CT DOSE: HISTORY: Liver nodules Liver nodules on US, work up etiology TECHNIQUE: Multiaxial CT images of the chest were performed without contrast. A dose lowering technique was utilized adhering to the principles of ALARA. COMPARISON: Ultrasound 07/10/2017 FINDINGS: Limited study due to the absence of intravenous contrast enhancement. Pleural effusion. Small left pleural effusion. Atherosclerotic change thoracic aorta. Possible right infrahilar nodularity. Minimal interstitial change at both lung bases. Multinodular appearing liver. IMPRESSION: 1. Limited study due to the absence of intravenous contrast enhancement. 2. Bilateral pleural effusions. 3. Potential right infrahilar nodularity/mass. 4. Multinodular liver The above report was generated using voice recognition software. It may contain grammatical, syntax or spelling errors. Electronically signed by: Tera Liu M.D. 07/16/2017 9:51 AM Dictated Date/Time: 07/16/2017 9:46 AM
--- NOTE | 2017-07-16 10:03 | DIAGNOSTIC IMAGING REPORT ---
CT OF THE ABDOMEN AND PELVIS WITHOUT CONTRAST CLINICAL HISTORY: Liver nodules on US. Acute kidney injury. COMPARISON STUDY: Renal ultrasound July 10, 2017. TECHNIQUE: Axial images of the abdomen and pelvis were obtained without IV contrast. Images were reviewed in the axial, sagittal, and coronal planes. A dose lowering technique was utilized adhering to the principles of ALARA. FINDINGS: The chest CT will be reported separately. Moderate to large and small left pleural effusions are noted with 4 cm masslike right lower lobe density shown on image 30 of 481. There are hyperdensities within the right lower lobe. Evaluation of the abdomen and pelvis suboptimal on this unenhanced examination. There are innumerable hypodense bilobar hepatic lesions. An index left hepatic lobe lesion measures approximately 4.1 cm. Liver surface is slightly nodular. There is trace perihepatic ascites. There is generalized anasarca. There is no evidence for a bowel obstruction. 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 There is marked atrophy of this renal moiety. Note is made of an indeterminate 1 cm intermediate attenuation nodule lateral to the right kidney. There is no evidence for a bowel obstruction. A left hip resurfacing is noted. There are fluid and fat-containing bilateral inguinal hernias. No pneumatosis, free air or portal venous gas is present. No pathologically enlarged abdominal or pelvic lymph nodes are noted. Note is made of numerous sclerotic skeletal lesions. An index 2.9 cm left iliac bone lesion is noted. There is no pathologic fracture. Sensitivity for detection mucosal lesions is diminished given CT technique. IMPRESSION: 1. Innumerable bilobar hepatic lesions highly suggestive of metastatic disease. Primary liver malignancy with satellite lesions could appear similar. 2. Numerous sclerotic bone metastases. 3. Indeterminate 4 cm mass-like right lower lobe density. 4. Moderate to large right and small left pleural effusions. 5. 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 Electronically signed by: Ian Owusu M.D. 07/16/2017 10:02 AM Dictated Date/Time: 07/16/2017 9:49 AM
[2017-07-16] MEDS ORDERED: PHARMACY GLYCEMIC MGMT CONSULT PRN (10:20)
--- NOTE | 2017-07-16 10:20 | CARDIOLOGY PROGRESS NOTE ---
DATE: 07/16/2017 SUBJECTIVE: Mr. Menjivar is resting comfortably in bed without complaints of chest pain, dyspnea, or palpitations. His son is at the bedside. We have discussed several options for managing his new onset atrial fibrillation. OBJECTIVE: VITAL SIGNS: Blood pressure 117/76 with an irregular pulse of 100-120. Respiratory rate is 20 and the patient is afebrile at 36.7 degrees Celsius. Saturation is 94% on room air. NECK: Supple with full carotid upstrokes. No carotid bruits. Jugular venous pressure is flat at 90 degrees. No thyromegaly. CARDIOVASCULAR: Reveals an irregular regular rhythm with distant heart sounds. No obvious murmurs. LUNGS: Clear without rales, rhonchi, or wheeze. ABDOMEN: Soft and nontender without bruits. EXTREMITIES: Reveal intact radial pulse bilaterally. Trace to 1+ pretibial edema is noted bilaterally. LABORATORY DATA: CBC notes hemoglobin 8.8, hematocrit 27.0, white count 12.07, and platelet count 407,000. Electrolytes note sodium 133, potassium 4.0, chloride 100, bicarbonate 23, BUN 49, creatinine 2.6, and glucose 143. Troponin I level mildly elevated at 0.116. Magnesium level normal at 1.8. PTT is 61.9. IMPRESSION AND PLAN: 1. New onset atrial fibrillation -- likely occurred following hospital discharge on July 11. All things considered, may be best to proceed with intravenous amiodarone to control heart rate and hopefully convert him to sinus rhythm. 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 2. Chronic diastolic congestive heart failure -- was admitted from July 09 through the with an acute exacerbation. Compensated at this time. 3. Hypertension -- with moderate LVH and diastolic dysfunction. 4. Mild mitral regurgitation. 5. Mild tricuspid regurgitation. 6. Hypercholesterolemia. 7. Diabetes mellitus. 8. Chronic renal failure. 9. Hypothyroidism. 10. Hepatic abnormality -- suspect metastatic lesions. Workup in progress.
[2017-07-16] MEDS ORDERED: INSULIN PROTOCOL GOAL RANGE ONE (10:30)
--- NOTE | 2017-07-16 10:51 | Nephrology Progress Note ---
Nephrology Progress Note Date of Service Jul 16, 2017. Chief Complaint MARGY/CKD Subjective Mr. Menjivar was resting comfortably in bed this morning. His son is at the bedside. Plan of care was discussed with the bedside nurse and with Dr. Morris. Blood noted in stool this morning. GI has been consulted. The patient feels well. He is tolerating IVF. Rate control for atrial fibrillation. Mr. Menjivar denies chest pain or palpitations. Review of Systems A complete review of systems was performed. Pertinent positives are noted above. All other systems are negative. Vital Signs Last 8 Hrs Date Time Temp Pulse Resp B/P (MAP) Pulse Ox O2 Delivery O2 Flow Rate FiO2 07/16/17 08:00 94 Room Air 07/16/17 07:02 36.7 129 20 117/76 (90) 94 Room Air 07/16/17 05:05 136 125/68 07/16/17 04:15 37.0 127 18 120/67 (84) 94 Room Air 07/16/17 04:00 Room Air Last Recorded Weight Weight (Kilograms): 90.400 Physical Exam General Appearance: no apparent distress, + thin, + pertinent finding (frail) Head: normocephalic, atraumatic Eyes: normal inspection, sclerae normal ENT: normal ENT inspection, pharynx normal Neck: supple, no JVD Respiratory/Chest: lungs clear, no respiratory distress, no accessory muscle use Cardiovascular: + tachycardia, + irregularly irregular Abdomen/GI: non tender, soft Extremities/Musculoskelatal: normal inspection, no pedal edema Neurologic/Psych: alert, normal mood/affect Social History Alcohol Use: none Drug Use: none Marital Status: Housing Status: lives with family Occupation: retired Laboratory Results Past 24 Hours 07/15/17 12:24 Red Blood Count 3.41, Mean Corpuscular Volume 78.0, Mean Corpuscular Hemoglobin 25.5, Mean Corpuscular Hemoglobin Concent 32.7, Mean Platelet Volume 10.1, Neutrophils (%) (Auto) 81.4, Lymphocytes (%) (Auto) 6.4, Monocytes (%) (Auto) 11.7, Eosinophils (%) (Auto) 0.1, Basophils (%) (Auto) 0.1, Neutrophils # (Auto ) 11.98, Lymphocytes # (Auto) 0.94, Monocytes # (Auto) 1.72, Eosinophils # (Auto ) 0.01, Basophils # (Auto) 0.01 07/16/17 06:30 Red Blood Count 3.41, Mean Corpuscular Volume 79.2, Mean Corpuscular Hemoglobin 25.8, Mean Corpuscular Hemoglobin Concent 32.6, Mean Platelet Volume 10.7, Neutrophils (%) (Auto) 76.9, Lymphocytes (%) (Auto) 11.3, Monocytes (%) (Auto) 10.8, Eosinophils (%) (Auto) 0.6, Basophils (%) (Auto) 0.2, Neutrophils # (Auto ) 9.29, Lymphocytes # (Auto) 1.36, Monocytes # (Auto) 1.30, Eosinophils # (Auto ) 0.07, Basophils # (Auto) 0.02 07/15/17 12:24 07/15/17 16:00 07/16/17 06:30 Test 07/15/17 12:24 07/15/17 12:28 07/15/17 12:30 07/15/17 12:46 White Blood Count 14.70 K/uL (4.8-10.8) Red Blood Count 3.41 M/uL (4.7-6.1) Hemoglobin 8.7 g/dL (14.0-18.0) Hematocrit 26.6 % (42-52) Mean Corpuscular Volume 78.0 fL (80-100) Mean Corpuscular Hemoglobin 25.5 pg (25-34) Mean Corpuscular Hemoglobin Concent 32.7 g/dl (32-36) Platelet Count 376 K/uL (130-400) Mean Platelet Volume 10.1 fL (7.4-10.4) Neutrophils (%) (Auto) 81.4 % Lymphocytes (%) (Auto) 6.4 % Monocytes (%) (Auto) 11.7 % Eosinophils (%) (Auto) 0.1 % Basophils (%) (Auto) 0.1 % Neutrophils # (Auto) 11.98 K/uL (1.4-6.5) Lymphocytes # (Auto) 0.94 K/uL (1.2-3.4) Monocytes # (Auto) 1.72 K/uL (0.11-0.59) Eosinophils # (Auto) 0.01 K/uL (0-0.5) Basophils # (Auto) 0.01 K/uL (0-0.2) RDW Standard Deviation 45.2 fL (36.4-46.3) RDW Coefficient of Variation 16.8 % (11.5-14.5) Immature Granulocyte % (Auto) 0.3 % Immature Granulocyte # (Auto) 0.04 K/uL (0.00-0.02) Hypersegmented Polys OCCASIONAL Red Blood Cell Morphology Unremarkable Anion Gap 10.3 mmol/L (3-11) Estimated GFR () 24.1 Estimated GFR (Non- 20.8 BUN/Creatinine Ratio 18.4 (10-20) Calcium Level 8.4 mg/dl (8.5-10.1) Phosphorus Level 2.5 mg/dl (2.5-4.9) Magnesium Level 1.9 mg/dl (1.8-2.4) Troponin I 0.116 ng/ml (0-0.045) Beta-Hydroxybutyric Acid 2.57 mg/dL (0.2-2.81) Bedside Glucose 531 mg/dl (70-99) 568 mg/dl (70-99) Prothrombin Time 11.6 SECONDS (9.0-12.0) Prothromb Time International Ratio 1.1 (0.9-1.1) Activated Partial Thromboplast Time 29.4 SECONDS (21.0-31.0) Partial Thromboplastin Ratio 1.1 Test 07/15/17 15:03 07/15/17 16:00 07/15/17 16:06 07/15/17 17:00 Bedside Glucose 491 mg/dl (70-99) 431 mg/dl (70-99) 357 mg/dl (70-99) Prothrombin Time 11.8 SECONDS (9.0-12.0) Prothromb Time International Ratio 1.1 (0.9-1.1) Activated Partial Thromboplast Time 29.5 SECONDS (21.0-31.0) Partial Thromboplastin Ratio 1.1 Anion Gap 8.0 mmol/L (3-11) Est Creatinine Clear Calc Drug Dose 20.1 ml/min Estimated GFR () 21.8 Estimated GFR (Non- 18.8 BUN/Creatinine Ratio 17.3 (10-20) Calcium Level 8.2 mg/dl (8.5-10.1) Beta-Hydroxybutyric Acid 1.05 mg/dL (0.2-2.81) Test 07/15/17 17:59 07/15/17 18:58 07/15/17 20:01 07/15/17 21:01 Bedside Glucose 365 mg/dl (70-99) 316 mg/dl (70-99) 268 mg/dl (70-99) 210 mg/dl (70-99) Test 07/15/17 21:55 07/15/17 21:59 07/15/17 23:03 07/15/17 23:40 Activated Partial Thromboplast Time 39.4 SECONDS (21.0-31.0) Partial Thromboplastin Ratio 1.5 Bedside Glucose 180 mg/dl (70-99) 124 mg/dl (70-99) 123 mg/dl (70-99) Test 07/16/17 00:50 07/16/17 02:18 07/16/17 02:52 07/16/17 03:07 Bedside Glucose 123 mg/dl (70-99) 98 mg/dl (70-99) 121 mg/dl (70-99) 122 mg/dl (70-99) Test 07/16/17 03:42 07/16/17 04:59 07/16/17 06:30 07/16/17 06:47 Bedside Glucose 150 mg/dl (70-99) 164 mg/dl (70-99) 146 mg/dl (70-99) White Blood Count 12.07 K/uL (4.8-10.8) Red Blood Count 3.41 M/uL (4.7-6.1) Hemoglobin 8.8 g/dL (14.0-18.0) Hematocrit 27.0 % (42-52) Mean Corpuscular Volume 79.2 fL (80-100) Mean Corpuscular Hemoglobin 25.8 pg (25-34) Mean Corpuscular Hemoglobin Concent 32.6 g/dl (32-36) Platelet Count 407 K/uL (130-400) Mean Platelet Volume 10.7 fL (7.4-10.4) Neutrophils (%) (Auto) 76.9 % Lymphocytes (%) (Auto) 11.3 % Monocytes (%) (Auto) 10.8 % Eosinophils (%) (Auto) 0.6 % Basophils (%) (Auto) 0.2 % Neutrophils # (Auto) 9.29 K/uL (1.4-6.5) Lymphocytes # (Auto) 1.36 K/uL (1.2-3.4) Monocytes # (Auto) 1.30 K/uL (0.11-0.59) Eosinophils # (Auto) 0.07 K/uL (0-0.5) Basophils # (Auto) 0.02 K/uL (0-0.2) RDW Standard Deviation 48.0 fL (36.4-46.3) RDW Coefficient of Variation 17.0 % (11.5-14.5) Immature Granulocyte % (Auto) 0.2 % Immature Granulocyte # (Auto) 0.03 K/uL (0.00-0.02) Hypersegmented Polys OCCASIONAL Large Platelets 1+ Activated Partial Thromboplast Time 61.9 SECONDS (21.0-31.0) Partial Thromboplastin Ratio 2.4 Anion Gap 10.0 mmol/L (3-11) Est Creatinine Clear Calc Drug Dose 22.4 ml/min Estimated GFR () 24.8 Estimated GFR (Non- 21.4 BUN/Creatinine Ratio 18.7 (10-20) Estimated Average Glucose 243 mg/dl Hemoglobin A1c 10.1 % (4.5-5.6) Calcium Level 8.3 mg/dl (8.5-10.1) Phosphorus Level 2.8 mg/dl (2.5-4.9) Magnesium Level 1.8 mg/dl (1.8-2.4) Iron Level 16 mcg/dl (35-175) Total Iron Binding Capacity 281 mcg/dl (250-450) Transferrin 207 mg/dl (200-360) Transferrin % Saturation 6 % (20-50) Ferritin 112.7 ng/ml (8.0-388.0) Test 07/16/17 08:00 07/16/17 08:47 07/16/17 10:02 07/16/17 10:05 Bedside Glucose 156 mg/dl (70-99) 150 mg/dl (70-99) 165 mg/dl (70-99) Stool Occult Blood NEGATIVE (NEGATIVE) Allergies Coded Allergies: No Known Allergies (Verified , 07/09/17) Medications Current Inpatient Medications Medications (Trade) Dose Ordered Sig/Bg Route Start Time Stop Time Status Last Admin Dose Admin Acetaminophen (Tylenol Tab) 650 mg Q4H PRN PO 07/15/17 10:00 08/14/17 09:59 Ondansetron HCl (Zofran Inj) 4 mg Q6H PRN IV 07/15/17 10:00 08/14/17 09:59 Aspirin (Ecotrin Tab) 81 mg QAM PO 07/16/17 09:00 08/15/17 08:59 07/16/17 08:13 81 MG Atorvastatin Calcium (Lipitor Tab) 40 mg QAM PO 07/16/17 09:00 08/15/17 08:59 07/16/17 08:13 40 MG Ferrous Gluconate (Ferrous Gluconate Tab) 324 mg QAM PO 07/16/17 09:00 08/15/17 08:59 07/16/17 08:13 324 MG Levothyroxine Sodium (Synthroid Tab) 50 mcg DAILYBB PO 07/16/17 06:30 08/15/17 06:29 Metoprolol Tartrate (Lopressor Tab) 25 mg BID PO 07/15/17 21:00 08/14/17 20:59 07/16/17 08:12 25 MG Pantoprazole Sodium (Protonix Tab) 40 mg QAM PO 07/16/17 09:00 08/15/17 08:59 07/16/17 08:13 40 MG Glucose (Glucose 40% Gel) 15-30 GRAMS 15 GRAMS... UD PRN PO 07/15/17 12:45 08/14/17 12:44 Glucose (Glucose Chew Tab) 4-8 Tablets 4 Tabl... UD PRN PO 07/15/17 12:45 08/14/17 12:44 Dextrose (Dextrose 50% 50ML Syringe) 25-50ML OF 50% DW IV FOR... UD PRN IV 07/15/17 12:45 08/14/17 12:44 Glucagon (Glucagon Inj) 1 mg UD PRN SQ 07/15/17 12:45 08/14/17 12:44 Insulin Aspart (novoLOG ASPART) SLIDING SCALE PCHS SC 07/15/17 13:00 08/14/17 12:59 07/15/17 17:17 5 UNITS Insulin Human Regular 250 units/ Sodium Chloride 252.5 ml @ 0 mls/hr Q24H IV 07/15/17 14:00 08/14/17 13:59 07/16/17 10:05 1 MLS/HR Potassium Chloride/Sodium Chloride 1,000 ml @ 100 mls/hr Q10H IV 07/15/17 14:15 08/14/17 14:14 07/16/17 10:09 100 MLS/HR Metoprolol Tartrate (Lopressor Iv) 5 mg Q6H PRN IV 07/15/17 15:30 08/14/17 15:29 07/16/17 05:05 5 MG Heparin Sodium/ Dextrose 500 ml @ 37 mls/hr [id number] PRN IV 07/15/17 15:45 08/14/17 15:44 07/16/17 08:11 37 MLS/HR Miscellaneous Information (Consult Glycemic Management Pharmacy) 1 ea UD PRN N/A 07/16/17 10:20 08/15/17 10:19 Impression (1) Acute kidney injury (2) CKD stage 3 due to type 2 diabetes mellitus (3) Anemia (4) Proteinuria (5) Microscopic hematuria (6) CHF exacerbation (7) Hyperglycemia Mr. Jasvir Menjivar is an 87-year-old male with CKD, diabetes mellitus, hypertension, hypothyroidism and diastolic CHF. Jasvir was admitted with hyperglycemia and MARGY. He was recently admitted to [facility] with acute diastolic CHF. Metabolic profile is notable for hyponatremia related to his hyperosmolar state. He has rapid atrial fibrillation and anemia with possible hematochezia. ARB is being held. Creatinine is stable at 2.6 mg/dL. Metabolic profile is otherwise acceptable. Renal US was reviewed today. Follow up non contrast CT scan has been ordered. 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 Iron profile consistent with DAMIAN. Venofer will be provided. Recommendations MARGY: -- Consistent with underlying ATN with early signs of renal recovery -- Document I/O's -- Hold Losartan -- Maintain even to slightly negative fluid balance -- Repeat metabolic profile tomorrow AM -- Repeat UA/microscopy pending -- BP and volume status currently acceptable Hyponatremia: -- Secondary to hyperglycemia and decreased EAV -- Improving Hyperglycemia: -- Insulin gtt and management per primary service Microscopic hematuria: -- Non contrast CT reviewed this AM -- Repeat urine studies pending CKD: -- Outpatient follow up with Dr. Rankin Diastolic CHF: -- Volume status currently acceptable -- May stop NaCl infusion when volume status appropriate -- Amiodarone started per cards for rhythm control Anemia: -- Iron deficiency noted -- If no plan for transfusion, consider starting venofer
[2017-07-16] MEDS ORDERED: INSULIN GLARGINE SOLOSTAR 100 UNITS/ML 3 ML PEN SC ONE (11:00)
--- NOTE | 2017-07-16 11:05 | Pharmacy Progress Note ---
Glycemic Control Intl Consult Date of Service Jul 16, 2017. Scope Glycemic Pharmacist consulted by Dr Leonard on 07/16/17 for glycemic control and to write orders per [facility] inpatient glycemic control protocol Objective Weight (Kilograms): 90.400 Accuchecks BSG (last 24hrs): Test 07/15/17 12:24 07/15/17 12:28 07/15/17 12:30 07/15/17 15:03 Random Glucose 513 mg/dl (70-99) Bedside Glucose 531 mg/dl (70-99) 568 mg/dl (70-99) 491 mg/dl (70-99) Test 07/15/17 16:00 07/15/17 16:06 07/15/17 17:00 07/15/17 17:59 Random Glucose 414 mg/dl (70-99) Bedside Glucose 431 mg/dl (70-99) 357 mg/dl (70-99) 365 mg/dl (70-99) Test 07/15/17 18:58 07/15/17 20:01 07/15/17 21:01 07/15/17 21:59 Bedside Glucose 316 mg/dl (70-99) 268 mg/dl (70-99) 210 mg/dl (70-99) 180 mg/dl (70-99) Test 07/15/17 23:03 07/15/17 23:40 07/16/17 00:50 07/16/17 02:18 Bedside Glucose 124 mg/dl (70-99) 123 mg/dl (70-99) 123 mg/dl (70-99) 98 mg/dl (70-99) Test 07/16/17 02:52 07/16/17 03:07 07/16/17 03:42 07/16/17 04:59 Bedside Glucose 121 mg/dl (70-99) 122 mg/dl (70-99) 150 mg/dl (70-99) 164 mg/dl (70-99) Test 07/16/17 06:30 07/16/17 06:47 07/16/17 08:00 07/16/17 08:47 Random Glucose 143 mg/dl (70-99) Bedside Glucose 146 mg/dl (70-99) 156 mg/dl (70-99) 150 mg/dl (70-99) Test 07/16/17 10:05 Bedside Glucose 165 mg/dl (70-99) Laboratory Data (last 24hrs) Test 07/15/17 12:24 07/15/17 16:00 07/16/17 06:30 Anion Gap 10.3 mmol/L 8.0 mmol/L 10.0 mmol/L BUN/Creatinine Ratio 18.4 17.3 18.7 Blood Urea Nitrogen 49 mg/dl 50 mg/dl 49 mg/dl Creatinine 2.66 mg/dl 2.89 mg/dl 2.60 mg/dl Potassium Level 4.3 mmol/L 4.4 mmol/L 4.3 mmol/L Sodium Level 129 mmol/L 131 mmol/L 133 mmol/L White Blood Count 14.70 K/uL 12.07 K/uL Red Blood Count 3.41 M/uL 3.41 M/uL Hemoglobin 8.7 g/dL 8.8 g/dL Hematocrit 26.6 % 27.0 % Mean Corpuscular Volume 78.0 fL 79.2 fL Mean Corpuscular Hemoglobin 25.5 pg 25.8 pg Mean Corpuscular Hemoglobin Concent 32.7 g/dl 32.6 g/dl Platelet Count 376 K/uL 407 K/uL Mean Platelet Volume 10.1 fL 10.7 fL Neutrophils (%) (Auto) 81.4 % 76.9 % Lymphocytes (%) (Auto) 6.4 % 11.3 % Monocytes (%) (Auto) 11.7 % 10.8 % Eosinophils (%) (Auto) 0.1 % 0.6 % Basophils (%) (Auto) 0.1 % 0.2 % Neutrophils # (Auto) 11.98 K/uL 9.29 K/uL Lymphocytes # (Auto) 0.94 K/uL 1.36 K/uL Monocytes # (Auto) 1.72 K/uL 1.30 K/uL Eosinophils # (Auto) 0.01 K/uL 0.07 K/uL Basophils # (Auto) 0.01 K/uL 0.02 K/uL Hemoglobin A1c 10.1 % HbA1c Test 07/16/17 06:30 Hemoglobin A1c 10.1 % (4.5-5.6) H Recent Pertinent Medications Outpatient Anti-diabetic Regimen: * Januvia 50mg PO daily * Was on 3 oral agents (Januvia, metformin, & glipizide) but regimen was changed at discharge on 07/13/17 secondary to renal function. Metformin & glipizide were stopped and dose of Januvia cut in half. No insulin started for stopped agents. The patient is currently receiving: * IV insulin infusion per protocol * Stable/average drip rate ~ 1 unit/hr this morning Assessment & Plan ASSESSMENT: * 87yo T2DM male with severe hyperglycemia on admission secondary to poor outpatient control and decreased outpatient antidiabetic regimen. * Pt initiated on IV insulin infusion per protocol on admission. Hyperglycemia resolved. Criteria met for transition to SQ basal bolus. * Stable IV insulin infusion rate is ~ 1 unit/hr. Pt NPO. Therefore, this dosing equates to estimated total basal dose. * Pt will need insulin at d/c for A1c >10% PLAN FOR INPATIENT GLYCEMIC CONTROL: * Transition off of IV insulin infusion per protocol * 1. Lower Goal Range from 150-250 mg/dl to 140 - 180 mg/dl * 2. Administer long acting basal insulin with Lantus 25 units SQ x 1 dose * 3. D/C IV Insulin Infusion when held per calculator or 6 hrs after first Lantus dose given, whichever happens sooner. * Holding outpatient oral diabetes medications * Basal insulin * Start daily dosing of Lantus 20-25 units SQ daily tomorrow AM. * Bolus insulin * NovoLog per scale ACHS or Q6hrs while NPO * Goal Range: Low 120 mg/dL - High 150 mg/dL * Correction Factor: 25 mg/dL/unit * Nutritional / Prandial insulin per carb ratio of 1 unit per 9 grams CHO consumed Looking ahead to discharge: * A1c = 10.1% 07/16/17 * Two of 3 oral agents stopped at last admission secondary to decreased renal function. Sq insulin will be needed at d/c to replace those oral agents * Goal A1c ~ 8-8.5% based on age/comorbidities per the elements of diabetes care scoring scale. * Pt may be able to continue Januvia 25 mg PO daily + once daily basal insulin {dose TBD based off of inpatient trends} * Please note that the plan above was derived based on current level of insulin resistance and hospital stress. These recommendations are appropriate for inpatient admission only. Plan of care upon discharge will need to be reassessed to avoid potential outpatient hypo/hyperglycemia. Thank you.
--- NOTE | 2017-07-16 11:08 | Progress Note ---
Subjective Date of Service: Jul 16, 2017. Subjective Pt evaluation today including: conversation w/ patient, conversation w/ family Was called by nrse as patient may have had blood in his stool. Patient is very pleasant, state that he is SOB and fatigued. [facility] and he was updated on his father's clinical picture. Patient of course was updated as well. Problem List Medical Problems: (1) Anemia Status: Acute (2) CHF (congestive heart failure) Status: Acute Review of Systems Constitutional: No fever, No chills Eyes: No worsening of vision ENT: + hearing loss Respiratory: + shortness of breath, No cough Cardiac: No chest pain Abdomen: No pain Neurologic: + memory loss Psychiatric: No depression symptoms Heme: + abnormal bleeding/bruising Endo: + fatigue Skin: No itch All Other Systems: Reviewed and Negative Objective Vital Signs Date Time Temp Pulse Resp B/P (MAP) Pulse Ox O2 Delivery O2 Flow Rate FiO2 07/16/17 08:00 94 Room Air 07/16/17 07:02 36.7 129 20 117/76 (90) 94 Room Air 07/16/17 05:05 136 125/68 07/16/17 04:15 37.0 127 18 120/67 (84) 94 Room Air 07/16/17 04:00 Room Air 07/16/17 00:05 Room Air 07/15/17 23:31 36.8 114 16 117/62 (80) 93 Room Air 07/15/17 20:05 Room Air 07/15/17 20:05 36.6 104 20 106/66 (79) 98 Room Air 07/15/17 18:51 156 113/70 07/15/17 16:00 Room Air 07/15/17 14:19 123 117/65 (82) 07/15/17 14:01 36.8 110 18 135/81 96 Room Air 07/15/17 13:17 142 141/90 Physical Exam Comments: General Appearance: WD/WN, no apparent distress Head: normocephalic, atraumatic Eyes: normal inspection, EOMI, sclerae normal ENT: normal ENT inspection, pharynx normal, + pertinent finding (hard of hearing) Neck: supple, no adenopathy, no JVD, trachea midline Respiratory/Chest: chest non-tender,bibasilar rales, normal breath sounds, no respiratory distress, no accessory muscle use Cardiovascular: no gallop, no JVD, no murmur, normal peripheral pulses, + tachycardia, + irregularly irregular Abdomen/GI: normal bowel sounds, non tender, soft, no organomegaly Back: normal inspection, no CVA tenderness, no muscle spasm, normal range of motion Extremities/Musculoskelatal: normal inspection, no calf tenderness, normal capillary refill, normal range of motion, pelvis stable, + pedal edema Neurologic/Psych: type mapper II-XII nml as tested, no motor/sensory deficits, alert, normal mood/affect, normal reflexes, oriented x 3 Skin: normal color, warm/dry, no rash Laboratory Results Last 24 Hours Test 07/15/17 12:24 07/15/17 12:28 07/15/17 12:30 07/15/17 12:46 White Blood Count 14.70 K/uL Red Blood Count 3.41 M/uL Hemoglobin 8.7 g/dL Hematocrit 26.6 % Mean Corpuscular Volume 78.0 fL Mean Corpuscular Hemoglobin 25.5 pg Mean Corpuscular Hemoglobin Concent 32.7 g/dl Platelet Count 376 K/uL Mean Platelet Volume 10.1 fL Neutrophils (%) (Auto) 81.4 % Lymphocytes (%) (Auto) 6.4 % Monocytes (%) (Auto) 11.7 % Eosinophils (%) (Auto) 0.1 % Basophils (%) (Auto) 0.1 % Neutrophils # (Auto) 11.98 K/uL Lymphocytes # (Auto) 0.94 K/uL Monocytes # (Auto) 1.72 K/uL Eosinophils # (Auto) 0.01 K/uL Basophils # (Auto) 0.01 K/uL RDW Standard Deviation 45.2 fL RDW Coefficient of Variation 16.8 % Immature Granulocyte % (Auto) 0.3 % Immature Granulocyte # (Auto) 0.04 K/uL Hypersegmented Polys OCCASIONAL Red Blood Cell Morphology Unremarkable Sodium Level 129 mmol/L Potassium Level 4.3 mmol/L Chloride Level 96 mmol/L Carbon Dioxide Level 23 mmol/L Anion Gap 10.3 mmol/L Blood Urea Nitrogen 49 mg/dl Creatinine 2.66 mg/dl Estimated GFR () 24.1 Estimated GFR (Non- 20.8 BUN/Creatinine Ratio 18.4 Random Glucose 513 mg/dl Calcium Level 8.4 mg/dl Phosphorus Level 2.5 mg/dl Magnesium Level 1.9 mg/dl Troponin I 0.116 ng/ml Beta-Hydroxybutyric Acid 2.57 mg/dL Bedside Glucose 531 mg/dl 568 mg/dl Prothrombin Time 11.6 SECONDS Prothromb Time International Ratio 1.1 Activated Partial Thromboplast Time 29.4 SECONDS Partial Thromboplastin Ratio 1.1 Test 07/15/17 15:03 07/15/17 16:00 07/15/17 16:06 07/15/17 17:00 Bedside Glucose 491 mg/dl 431 mg/dl 357 mg/dl Prothrombin Time 11.8 SECONDS Prothromb Time International Ratio 1.1 Activated Partial Thromboplast Time 29.5 SECONDS Partial Thromboplastin Ratio 1.1 Sodium Level 131 mmol/L Potassium Level 4.4 mmol/L Chloride Level 96 mmol/L Carbon Dioxide Level 27 mmol/L Anion Gap 8.0 mmol/L Blood Urea Nitrogen 50 mg/dl Creatinine 2.89 mg/dl Est Creatinine Clear Calc Drug Dose 20.1 ml/min Estimated GFR () 21.8 Estimated GFR (Non- 18.8 BUN/Creatinine Ratio 17.3 Random Glucose 414 mg/dl Calcium Level 8.2 mg/dl Beta-Hydroxybutyric Acid 1.05 mg/dL Test 07/15/17 17:59 07/15/17 18:58 07/15/17 20:01 07/15/17 21:01 Bedside Glucose 365 mg/dl 316 mg/dl 268 mg/dl 210 mg/dl Test 07/15/17 21:55 07/15/17 21:59 07/15/17 23:03 07/15/17 23:40 Activated Partial Thromboplast Time 39.4 SECONDS Partial Thromboplastin Ratio 1.5 Bedside Glucose 180 mg/dl 124 mg/dl 123 mg/dl Test 07/16/17 00:50 07/16/17 02:18 07/16/17 02:52 07/16/17 03:07 Bedside Glucose 123 mg/dl 98 mg/dl 121 mg/dl 122 mg/dl Test 07/16/17 03:42 07/16/17 04:59 07/16/17 06:30 07/16/17 06:47 Bedside Glucose 150 mg/dl 164 mg/dl 146 mg/dl White Blood Count 12.07 K/uL Red Blood Count 3.41 M/uL Hemoglobin 8.8 g/dL Hematocrit 27.0 % Mean Corpuscular Volume 79.2 fL Mean Corpuscular Hemoglobin 25.8 pg Mean Corpuscular Hemoglobin Concent 32.6 g/dl Platelet Count 407 K/uL Mean Platelet Volume 10.7 fL Neutrophils (%) (Auto) 76.9 % Lymphocytes (%) (Auto) 11.3 % Monocytes (%) (Auto) 10.8 % Eosinophils (%) (Auto) 0.6 % Basophils (%) (Auto) 0.2 % Neutrophils # (Auto) 9.29 K/uL Lymphocytes # (Auto) 1.36 K/uL Monocytes # (Auto) 1.30 K/uL Eosinophils # (Auto) 0.07 K/uL Basophils # (Auto) 0.02 K/uL RDW Standard Deviation 48.0 fL RDW Coefficient of Variation 17.0 % Immature Granulocyte % (Auto) 0.2 % Immature Granulocyte # (Auto) 0.03 K/uL Hypersegmented Polys OCCASIONAL Large Platelets 1+ Activated Partial Thromboplast Time 61.9 SECONDS Partial Thromboplastin Ratio 2.4 Sodium Level 133 mmol/L Potassium Level 4.3 mmol/L Chloride Level 100 mmol/L Carbon Dioxide Level 23 mmol/L Anion Gap 10.0 mmol/L Blood Urea Nitrogen 49 mg/dl Creatinine 2.60 mg/dl Est Creatinine Clear Calc Drug Dose 22.4 ml/min Estimated GFR () 24.8 Estimated GFR (Non- 21.4 BUN/Creatinine Ratio 18.7 Random Glucose 143 mg/dl Estimated Average Glucose 243 mg/dl Hemoglobin A1c 10.1 % Calcium Level 8.3 mg/dl Phosphorus Level 2.8 mg/dl Magnesium Level 1.8 mg/dl Iron Level 16 mcg/dl Total Iron Binding Capacity 281 mcg/dl Transferrin 207 mg/dl Transferrin % Saturation 6 % Ferritin 112.7 ng/ml Test 07/16/17 08:00 07/16/17 08:47 07/16/17 10:02 07/16/17 10:05 Bedside Glucose 156 mg/dl 150 mg/dl 165 mg/dl Stool Occult Blood NEGATIVE Assessment and Plan 87 yo male with MARGY on CKD, DM type II with hyperglycemia, no DKA, new onset atrial fibrillation with RVR - New onset atrial fibrillation with RVR HR has been in the 90s to 110. Improved with beta tato continue Lopressor 25mg BID, with 5mg IV q6 PRN for HR >120 echo was performed on 07/10 that showed normal EF, no structural disease will anticoagulate with heparin drip with renal function, cannot use Lovenox, Eliquis 2.5mg BID could be considered on discharge however, has h/o anemia, never had colonoscopy in his life want to make sure he does not bleed before committing to Eliquis Awaiting cardiology input Anemia in the setting of possible GI bleed as patient had possible bloody stool. Patient has never had colonscopy. Patient also has spots on liver which may be metastatic cancer. consulted GI. Updated son and patient. will monitor H and H in afternoon. - DM type II with hyperglycemia, no DKA Converted drip to insulin long acting. discussed with patient and family that Metformin, Glipizide and Januvia will likely no longer be options with renal function will need to prepare to use insulin on discharge NSS with 20mEq K at 100cc/hr - MARGY on CKD stage III (1.7 baseline) Creatinine did not significantly change consulted nephrology renal US last admission showed normal kidneys electrolytes stable - Pseudohyponatremia: due to hyperglycemia, improved. - Chronic diastolic HF: holding on Lasix 20mg PO daily slightly dry from the hyperglycemia NSS at 100cc/hr, monitor for volume overload - Liver nodules:as statd above. likley metastatic disease. awaiting input from GI. - Leukocytosis: WBC improved to 12k. will monitor. - Anemia, iron deficiency continue Ferrous sulfate patient has never had a screening colonoscopy, no h/o melena Spent 50 minutes with patient.
[2017-07-16] MEDS ORDERED: IRON SUCROSE INJ 100 MG in SODIUM CHLORIDE 0.9% 100ML 100 ML IV SCH (13:00)
[2017-07-16 16:04] LABS: HEMATOCRIT 28.1 % (42-52)
[2017-07-16] MEDS ORDERED: DC IV INSULIN INFUSION ONE (17:00)
[2017-07-16 17:37] LABS: TOTAL PROTEIN 6.6 gm/dl (6.4-8.2)
--- NOTE | 2017-07-16 20:31 | GASTROINTESTINAL CONSULTATION ---
DATE OF CONSULTATION: 07/16/2017 REASON FOR CONSULTATION: Abdominal pain and liver lesion suggesting metastatic disease. HISTORY: The patient is an 87-year-old male who was recently hospitalized and discharged on 07/11/2017 after being hospitalized for renal insufficiency and heart failure. He had an ultrasound that showed some nodules in his liver and the patient insisted on going home but only to return when he had severe abdominal pain. CT scan noncontrast shows possible 4-5 cm mass in the left lobe of the liver, also maybe some lesions in his kidneys. The patient reports no rectal bleeding. He has never had a colonoscopy. GI consultation has been requested for colonoscopy. PAST MEDICAL HISTORY: Remarkable for hyperlipidemia, type 2 diabetes, hypertension, esophageal reflux, hypothyroidism, stage III kidney disease and left hip replacement. FAMILY HISTORY: Remarkable for COPD and diabetes. SOCIAL HISTORY: The patient is , lives with family, is retired. MEDICATIONS: Baby aspirin, Lipitor, iron gluconate, Lasix, levothyroxine, Lopressor, Prilosec and Januvia. ALLERGIES: None. REVIEW OF SYSTEMS: Remarkable for weakness, fatigue, hard of hearing, abdominal pain; the remainder is negative. PHYSICAL EXAMINATION: GENERAL: The patient is lying in bed, in no acute distress. VITAL SIGNS: Blood pressure is 117/65, pulse 100, O2 saturation on room air is 96%, temperature is 36.8. HEENT: Normal. LUNGS: Clear. HEART: Shows irregularly irregular rhythm. ABDOMEN: Shows an enlarged left lobe of the liver which is only slightly tender. LABORATORY STUDIES: Show white count of 14.7, hemoglobin 8.7, platelets 376,000. BUN 49, creatinine 2.66. IMPRESSION: The patient has an enlarged left lobe with possible metastatic disease. He has never had a colonoscopy. Plan on getting a liver profile and a CEA and scheduling him for a colonoscopy tomorrow for further evaluation. Dr. Turner will be covering tomorrow.
[2017-07-16] MEDS: LAVAGE SOLUTION 4000ML PO SCH (20:58)
[2017-07-17] VITALS (7 sets, daily range): BP systolic 106–139; BP diastolic 66–87; PULSE 102–123; TEMP 36.3–36.7; O2SAT 91–96; Ht 182.9 cm; Wt 95.3 kg
[2017-07-17] MEDS: NSS + 20MEQ KCL 1000ML 1,000 ML IV SCH ×2 (05:20→19:17)
[2017-07-17] MEDS: LEVOTHYROXINE 50 MCG TAB PO SCH (05:21)
[2017-07-17 07:02] LABS: PTT PATIENT 57.3 SECONDS (21.0-31.0)
[2017-07-17] MEDS: INSULIN ASPART 100 UNITS/ML 3 ML PEN SC SCH ×4 (07:53→20:56)
[2017-07-17] MEDS: LAVAGE SOLUTION 4000ML PO SCH (07:54)
[2017-07-17] MEDS: ATORVASTATIN 40 MG TAB PO SCH (07:54)
[2017-07-17] MEDS: PANTOprazole SOD 40 MG TAB PO SCH (07:54)
[2017-07-17] MEDS: ASPIRIN 81 MG ECTAB PO SCH (07:55)
[2017-07-17] MEDS: METOPROLOL TARTRATE 25 MG TAB PO SCH ×2 (07:55→21:47)
[2017-07-17] MEDS: FERROUS GLUCONATE 324 MG TAB PO SCH (07:55)
[2017-07-17] MEDS ORDERED: INSULIN GLARGINE SOLOSTAR 100 UNITS/ML 3 ML PEN SC SCH ×2 (08:00→09:00)
[2017-07-17 08:54] LABS: CALCIUM 8.2 mg/dl (8.5-10.1); CREATININE 2.49 mg/dl (0.60-1.40); PHOSPHORUS 3.2 mg/dl (2.5-4.9); POTASSIUM 4.2 mmol/L (3.5-5.1)
--- NOTE | 2017-07-17 09:18 | CARDIOLOGY PROGRESS NOTE ---
DATE: 07/17/2017 SUBJECTIVE: Mr. Menjivar is resting comfortably in bed without complaints of chest pain, dyspnea, or palpitations. OBJECTIVE: VITAL SIGNS: Blood pressure is 113/84 with an irregular pulse of 100-120. Respiratory rate is 18. The patient is afebrile at 36.3 degrees centigrade. Saturation 95% on room air. NECK: Supple with full carotid upstrokes. There are no carotid bruits. Jugular venous pressure is flat at 90 degrees. There is no thyromegaly. CARDIOVASCULAR: Reveals an irregularly irregular rhythm with distant heart sounds. No obvious murmurs. LUNGS: Clear without rales, rhonchi, or wheezes. ABDOMEN: Soft, nontender without bruits. EXTREMITIES: Reveal intact radial artery pulse bilaterally. Trace to 1+ pretibial edema is noted. LABORATORY DATA: Electrolytes note a sodium of 134, potassium 4.2, chloride 102, bicarb 23, BUN 48, creatinine 2.49, glucose 106. Telemetry monitoring notes atrial fibrillation with a rapid ventricular response. IMPRESSION AND PLAN: 1. New onset atrial fibrillation -- will start amiodarone loading hoping to at least control his ventricular response if not to convert him to sinus rhythm. 2. Chronic diastolic congestive heart failure -- seems compensated at this time. 3. Hypertension -- with moderate LVH and diastolic dysfunction. 4. Mild mitral regurgitation. 5. Mild tricuspid regurgitation. 6. Hypercholesterolemia. 7. Diabetes mellitus. 8. Chronic renal failure. 9. Hypothyroidism. 10. Hepatic abnormality -- suspect metastatic lesions. GI plans a colonoscopy for today.
--- NOTE | 2017-07-17 09:29 | Nephrology Progress Note ---
Nephrology Progress Note Date of Service Jul 17, 2017. Chief Complaint MARGY/CKD Subjective No acute events overnight. Jasvir feels well this morning. He denies shortness of breath. He denies chest pain or palpitations. He denies lightheadedness of dizziness. He is prepping for colonoscopy. No urinary complaints noted. Urine microscopy documented gross hematuria. Jasvir denies any gross hematuria or passage of clots. Review of Systems A complete review of systems was performed. Pertinent positives are noted above. All other systems are negative. Vital Signs Last 8 Hrs Date Time Temp Pulse Resp B/P (MAP) Pulse Ox O2 Delivery O2 Flow Rate FiO2 07/17/17 08:10 Room Air 07/17/17 07:48 36.3 122 18 113/84 (94) 95 07/17/17 04:23 36.5 118 24 106/66 (79) 91 Room Air 07/17/17 04:00 Room Air Last Recorded Weight Weight (Kilograms): 93.800 Physical Exam General Appearance: WD/WN, no apparent distress Head: normocephalic, atraumatic Eyes: normal inspection, sclerae normal ENT: normal ENT inspection, pharynx normal Neck: supple, no JVD Respiratory/Chest: lungs clear, no respiratory distress, no accessory muscle use Cardiovascular: + tachycardia, + irregularly irregular Abdomen/GI: non tender, soft Extremities/Musculoskelatal: normal inspection, no pedal edema Neurologic/Psych: alert, normal mood/affect Social History Alcohol Use: none Drug Use: none Marital Status: Housing Status: lives with family Occupation: retired Laboratory Results Past 24 Hours 07/16/17 15:41 07/17/17 06:14 Test 07/16/17 10:02 07/16/17 10:05 07/16/17 11:00 07/16/17 11:56 Stool Occult Blood NEGATIVE (NEGATIVE) Bedside Glucose 165 mg/dl (70-99) 153 mg/dl (70-99) 160 mg/dl (70-99) Test 07/16/17 14:03 07/16/17 15:00 07/16/17 16:00 07/16/17 16:48 Bedside Glucose 138 mg/dl (70-99) 123 mg/dl (70-99) 128 mg/dl (70-99) Total Bilirubin 0.5 mg/dl (0.2-1) Direct Bilirubin 0.2 mg/dl (0-0.2) Aspartate Amino Transf (AST/SGOT) 29 U/L (15-37) Alanine Aminotransferase (ALT/SGPT) 29 U/L (12-78) Alkaline Phosphatase 157 U/L (45-117) Total Protein 6.6 gm/dl (6.4-8.2) Albumin 2.0 gm/dl (3.4-5.0) Carcinoembryonic Antigen 1.1 ng/ml (0-2.5) Test 07/16/17 17:07 07/16/17 18:09 07/16/17 20:00 07/16/17 20:45 Bedside Glucose 130 mg/dl (70-99) 202 mg/dl (70-99) 154 mg/dl (70-99) Urine Color ORANGE Urine Appearance CLOUDY (CLEAR) Urine pH 5.0 (4.5-7.5) Urine Specific [place] 1.012 (1.000-1.030) Urine Protein 3+ (NEG) Urine Glucose (UA) TRACE (NEG) Urine Ketones NEG (NEG) Urine Occult Blood 3+ (NEG) Urine Nitrite NEG (NEG) Urine Bilirubin NEG (NEG) Urine Urobilinogen NEG (NEG) Urine Leukocyte Esterase SMALL (NEG) Urine WBC (Auto) 10-30 /hpf (0-5) Urine RBC (Auto) >30 /hpf (0-4) Urine Hyaline Casts (Auto) 1-5 /lpf (0-5) Urine Epithelial Cells (Auto) >30 /lpf (0-5) Urine Bacteria (Auto) 1+ (NEG) Urine Renal Epithelial Cells /lpf (0-5) Urine Pathogenic Casts 5-10 GRANULAR CASTS /lpf (0) Urine Yeast (Auto) (NONE PRSENT) Test 07/17/17 06:14 07/17/17 07:25 Activated Partial Thromboplast Time 57.3 SECONDS (21.0-31.0) Partial Thromboplastin Ratio 2.2 Anion Gap 9.0 mmol/L (3-11) Est Creatinine Clear Calc Drug Dose 25.3 ml/min Estimated GFR () 26.1 Estimated GFR (Non- 22.5 BUN/Creatinine Ratio 19.2 (10-20) Calcium Level 8.2 mg/dl (8.5-10.1) Phosphorus Level 3.2 mg/dl (2.5-4.9) Albumin 2.0 gm/dl (3.4-5.0) Bedside Glucose 106 mg/dl (70-99) Allergies Coded Allergies: No Known Allergies (Verified , 07/09/17) Medications Current Inpatient Medications Medications (Trade) Dose Ordered Sig/Bg Route Start Time Stop Time Status Last Admin Dose Admin Acetaminophen (Tylenol Tab) 650 mg Q4H PRN PO 07/15/17 10:00 08/14/17 09:59 Ondansetron HCl (Zofran Inj) 4 mg Q6H PRN IV 07/15/17 10:00 08/14/17 09:59 Aspirin (Ecotrin Tab) 81 mg QAM PO 07/16/17 09:00 08/15/17 08:59 07/17/17 07:55 81 MG Atorvastatin Calcium (Lipitor Tab) 40 mg QAM PO 07/16/17 09:00 08/15/17 08:59 07/17/17 07:54 40 MG Ferrous Gluconate (Ferrous Gluconate Tab) 324 mg QAM PO 07/16/17 09:00 08/15/17 08:59 07/17/17 07:55 324 MG Levothyroxine Sodium (Synthroid Tab) 50 mcg DAILYBB PO 07/16/17 06:30 08/15/17 06:29 07/17/17 05:21 50 MCG Metoprolol Tartrate (Lopressor Tab) 25 mg BID PO 07/15/17 21:00 08/14/17 20:59 07/17/17 07:55 25 MG Pantoprazole Sodium (Protonix Tab) 40 mg QAM PO 07/16/17 09:00 08/15/17 08:59 07/17/17 07:54 40 MG Glucose (Glucose 40% Gel) 15-30 GRAMS 15 GRAMS... UD PRN PO 07/15/17 12:45 08/14/17 12:44 Glucose (Glucose Chew Tab) 4-8 Tablets 4 Tabl... UD PRN PO 07/15/17 12:45 08/14/17 12:44 Dextrose (Dextrose 50% 50ML Syringe) 25-50ML OF 50% DW IV FOR... UD PRN IV 07/15/17 12:45 08/14/17 12:44 Glucagon (Glucagon Inj) 1 mg UD PRN SQ 07/15/17 12:45 08/14/17 12:44 Potassium Chloride/Sodium Chloride 1,000 ml @ 100 mls/hr Q10H IV 07/15/17 14:15 08/14/17 14:14 07/17/17 05:20 100 MLS/HR Metoprolol Tartrate (Lopressor Iv) 5 mg Q6H PRN IV 07/15/17 15:30 08/14/17 15:29 07/16/17 05:05 5 MG Heparin Sodium/ Dextrose 500 ml @ 37 mls/hr [id number] PRN IV 07/15/17 15:45 08/14/17 15:44 07/16/17 23:19 37 MLS/HR Miscellaneous Information (Consult Glycemic Management Pharmacy) 1 ea UD PRN N/A 07/16/17 10:20 08/15/17 10:19 Insulin Aspart (novoLOG ASPART) SLIDING SCALE If CARB RA... ACHS SC 07/16/17 11:00 08/15/17 10:59 07/16/17 21:08 1 UNITS Polyethylene Glycol/ Electrolytes (Golytely Soln) 8 dose TODAY@0800,2000 PO 07/16/17 20:00 07/17/17 11:00 07/17/17 07:54 8 DOSE Insulin Glargine (Lantus Solostar Pen) 15 units Tu@0800 SC 07/17/17 08:00 07/17/17 12:00 07/17/17 08:50 15 UNITS Insulin Glargine (Lantus Solostar Pen) 20 units DAILY SC 07/18/17 09:00 08/17/17 08:59 Amiodarone HCl (Cordarone Tab) 200 mg QID PO 07/17/17 09:00 08/16/17 08:59 UNV Impression (1) Acute kidney injury (2) CKD stage 3 due to type 2 diabetes mellitus (3) Anemia (4) Proteinuria (5) Microscopic hematuria (6) CHF exacerbation (7) Hyperglycemia Mr. Jasvir Menjivar is an 87-year-old male with CKD, diabetes mellitus, hypertension, hypothyroidism and diastolic CHF. Jasvir was admitted with hyperglycemia and MARGY. He was recently admitted to [facility] with acute diastolic CHF. He has rapid atrial fibrillation and anemia with possible hematochezia. ARB is being held. Creatinine is stable at 2.5 mg/dL. Metabolic profile is otherwise acceptable. 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 Follow up non contrast CT also reviewed. 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 Iron profile consistent with DAMIAN. Venofer will be provided. Recommendations MARGY: -- Consistent with underlying ATN (granular cast on microscopy) -- Document I/O's -- Hold Losartan -- Maintain even to slightly negative fluid balance -- Repeat metabolic profile tomorrow AM -- UA/micro reviewed this morning -- BP and volume status currently acceptable Hyponatremia: -- Secondary to hyperglycemia and decreased EAV -- Improving Hyperglycemia: -- Improved Hematuria: -- Non contrast CT reviewed this AM -- Will require urology follow up at discharge CKD: -- Outpatient follow up with Dr. Rankin Diastolic CHF: -- Volume status currently acceptable -- Management of atrial fibrillation per cardiology Anemia: -- Iron deficiency noted -- Venofer 200 mg daily x 5 days
--- NOTE | 2017-07-17 09:50 | Pharmacy Progress Note ---
Pharmacy Glycemic Short Note 2 Date of Service Jul 17, 2017. Outpatient Anti-diabetic Regimen: * Januvia 50mg PO daily * Was on 3 oral agents (Januvia, metformin, & glipizide) but regimen was changed at discharge on 07/13/17 secondary to renal function. Metformin & glipizide were stopped and dose of Januvia cut in half. No insulin started for stopped agents. Item Value Date Time Bedside Glucose 123 mg/dl H 07/16/17 0050 Bedside Glucose 98 mg/dl 07/16/17 0218 Bedside Glucose 121 mg/dl H 07/16/17 0252 Bedside Glucose 122 mg/dl H 07/16/17 0307 Bedside Glucose 150 mg/dl H 07/16/17 0342 Bedside Glucose 164 mg/dl H 07/16/17 0459 Bedside Glucose 146 mg/dl H 07/16/17 0647 Bedside Glucose 156 mg/dl H 07/16/17 0800 Bedside Glucose 150 mg/dl H 07/16/17 0847 Bedside Glucose 165 mg/dl H 07/16/17 1005 Bedside Glucose 153 mg/dl H 07/16/17 1100 Bedside Glucose 160 mg/dl H 07/16/17 1156 Bedside Glucose 138 mg/dl H 07/16/17 1403 Bedside Glucose 123 mg/dl H 07/16/17 1500 Bedside Glucose 128 mg/dl H 07/16/17 1600 Bedside Glucose 130 mg/dl H 07/16/17 1707 Bedside Glucose 202 mg/dl H 07/16/17 1809 Bedside Glucose 154 mg/dl H 07/16/17 2000 Item Value Date Time Bedside Glucose 106 mg/dl H 07/17/17 0725 ASSESSMENT: * 87yo T2DM male with severe hyperglycemia on admission secondary to poor outpatient control and decreased outpatient antidiabetic regimen after last admission/discharge. * Pt initiated on IV insulin infusion per protocol on admission and transitioned to SQ basal bolus insulin regimen when hyperglycemia resolved/ criteria met. * Based on IV insulin infusion rates while NPO, Pt was given Lantus 25 units SQ x 1 to transition off of insulin infusion. * BSGs adequate controlled yesterday with dosing. BSGs 123-202 mg/dl after Lantus * AM fasting BSG is 106 mg/dl this AM. This is slightly below goal range for patient based on age/co-morbidities. Will decrease basal insulin dosing to prevent hypo with repeated dosing. * Pt NPO therefore, have not been able to evaluate currently ordered carb coverage. Carb covered ordered is consistent with weight based dosing, therefore , will continue for now and titrate based on BSG trends. * Pt will need insulin at d/c for A1c >10% PLAN FOR INPATIENT GLYCEMIC CONTROL: * Hold outpatient oral diabetes medications * Basal insulin: Decrease dosing for below goal AM fasting BSG * Lantus 15 units SQ x 1 dose this AM while NPO for colonoscopy, then, * Lantus 20 units SQ daily starting tomorrow. * Bolus insulin: no change * NovoLog per scale ACHS or Q6hrs while NPO * Goal Range: Low 120 mg/dL - High 150 mg/dL * Correction Factor: 25 mg/dL/unit * Nutritional / Prandial insulin per carb ratio of 1 unit per 9 grams CHO consumed Looking ahead to discharge: * A1c = 10.1% 07/16/17 * Two of 3 oral agents stopped at last admission secondary to decreased renal function. Sq insulin will be needed at d/c to replace those oral agents * Goal A1c ~8.5% (eAG ~ 197 mg/dl) based on age/comorbidities per the elements of diabetes care scoring scale. * Pt may be able to continue Januvia 25 mg PO daily + once daily basal insulin {dose TBD based off of inpatient trends} to maintain BSG 150-250 mg/dl.
[2017-07-17] MEDS: AMIODARONE 200 MG TAB PO SCH ×4 (10:01→21:46)
[2017-07-17] MEDS ORDERED: NURSING VERBAL MED ORDER ONE ×2 (11:00→13:00)
[2017-07-17] MEDS: IRON SUCROSE INJ 200 MG in SODIUM CHLORIDE 0.9% 100ML 100 ML IV SCH (12:45)
[2017-07-17] MEDS: HEPARIN 25,000 UNIT/500ML D5W 500 ML IV PRN ×2 (16:39→22:06)
[2017-07-17 21:19] LABS: PTT PATIENT 71.4 SECONDS (21.0-31.0)
--- NOTE | 2017-07-17 22:25 | Progress Note ---
Subjective Date of Service: Jul 17, 2017. Subjective Pt evaluation today including: conversation w/ patient, physical exam Patient reports feeling well, no chest pain, nausea, vomiting, chest pain. Problem List Medical Problems: (1) Anemia Status: Acute (2) CHF (congestive heart failure) Status: Acute Review of Systems Constitutional: No fever, No chills ENT: No hearing loss Respiratory: No cough Cardiac: No chest pain Abdomen: No pain Musculoskeletal: No joint pain Neurologic: No memory loss Psychiatric: No depression symptoms Heme: No abnormal bleeding/bruising Endo: No fatigue Skin: No rash All Other Systems: Reviewed and Negative Medications Current Inpatient Medications Medications (Trade) Dose Ordered Sig/Bg Route Start Time Stop Time Status Last Admin Dose Admin Acetaminophen (Tylenol Tab) 650 mg Q4H PRN PO 07/15/17 10:00 08/14/17 09:59 Ondansetron HCl (Zofran Inj) 4 mg Q6H PRN IV 07/15/17 10:00 08/14/17 09:59 Aspirin (Ecotrin Tab) 81 mg QAM PO 07/16/17 09:00 08/15/17 08:59 07/17/17 07:55 81 MG Atorvastatin Calcium (Lipitor Tab) 40 mg QAM PO 07/16/17 09:00 08/15/17 08:59 07/17/17 07:54 40 MG Ferrous Gluconate (Ferrous Gluconate Tab) 324 mg QAM PO 07/16/17 09:00 08/15/17 08:59 07/17/17 07:55 324 MG Levothyroxine Sodium (Synthroid Tab) 50 mcg DAILYBB PO 07/16/17 06:30 08/15/17 06:29 07/17/17 05:21 50 MCG Metoprolol Tartrate (Lopressor Tab) 25 mg BID PO 07/15/17 21:00 08/14/17 20:59 07/17/17 21:47 25 MG Pantoprazole Sodium (Protonix Tab) 40 mg QAM PO 07/16/17 09:00 08/15/17 08:59 07/17/17 07:54 40 MG Glucose (Glucose 40% Gel) 15-30 GRAMS 15 GRAMS... UD PRN PO 07/15/17 12:45 08/14/17 12:44 Glucose (Glucose Chew Tab) 4-8 Tablets 4 Tabl... UD PRN PO 07/15/17 12:45 08/14/17 12:44 Dextrose (Dextrose 50% 50ML Syringe) 25-50ML OF 50% DW IV FOR... UD PRN IV 07/15/17 12:45 08/14/17 12:44 Glucagon (Glucagon Inj) 1 mg UD PRN SQ 07/15/17 12:45 08/14/17 12:44 Potassium Chloride/Sodium Chloride 1,000 ml @ 100 mls/hr Q10H IV 07/15/17 14:15 08/14/17 14:14 07/17/17 19:17 100 MLS/HR Metoprolol Tartrate (Lopressor Iv) 5 mg Q6H PRN IV 07/15/17 15:30 08/14/17 15:29 07/16/17 05:05 5 MG Heparin Sodium/ Dextrose 500 ml @ 35 mls/hr [id number] PRN IV 07/15/17 15:45 08/14/17 15:44 Future Hold 07/17/17 22:06 35 MLS/HR Miscellaneous Information (Consult Glycemic Management Pharmacy) 1 ea UD PRN N/A 07/16/17 10:20 08/15/17 10:19 Insulin Aspart (novoLOG ASPART) SLIDING SCALE If CARB RA... ACHS SC 07/16/17 11:00 08/15/17 10:59 07/17/17 17:49 10 UNITS Insulin Glargine (Lantus Solostar Pen) 20 units DAILY SC 07/18/17 09:00 08/17/17 08:59 Amiodarone HCl (Cordarone Tab) 200 mg QID PO 07/17/17 09:00 08/16/17 08:59 07/17/17 21:46 200 MG Iron Sucrose 200 mg/Sodium Chloride 110 ml @ 420 mls/hr DAILY@1300 IV 07/17/17 13:00 07/21/17 13:16 07/17/17 12:45 420 MLS/HR Objective Vital Signs Date Time Temp Pulse Resp B/P (MAP) Pulse Ox O2 Delivery O2 Flow Rate FiO2 07/17/17 20:22 36.3 117 20 139/79 (99) 94 Room Air 07/17/17 15:44 36.3 123 18 127/87 (100) 96 07/17/17 12:05 Room Air 07/17/17 08:10 Room Air 07/17/17 07:48 36.3 122 18 113/84 (94) 95 07/17/17 04:23 36.5 118 24 106/66 (79) 91 Room Air 07/17/17 04:00 Room Air 07/17/17 00:15 36.7 102 20 120/74 (89) 96 Room Air 07/17/17 00:00 Room Air Physical Exam Comments: General Appearance: WD/WN, no apparent distress Head: normocephalic, atraumatic Eyes: normal inspection, EOMI, sclerae normal ENT: normal ENT inspection, pharynx normal, + pertinent finding (hard of hearing) Neck: supple, no adenopathy, no JVD, trachea midline Respiratory/Chest: chest non-tender,bibasilar rales, normal breath sounds, no respiratory distress, no accessory muscle use Cardiovascular: no gallop, no JVD, no murmur, normal peripheral pulses, + tachycardia, + irregularly irregular Abdomen/GI: normal bowel sounds, non tender, soft, no organomegaly Back: normal inspection, no CVA tenderness, no muscle spasm, normal range of motion Extremities/Musculoskelatal: normal inspection, no calf tenderness, normal capillary refill, normal range of motion, pelvis stable, + pedal edema Neurologic/Psych: bog worker II-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 nml as tested, no motor/sensory deficits, alert, normal mood/affect, normal reflexes, oriented x 3 Skin: normal color, warm/dry, no rash Laboratory Results Last 24 Hours Test 07/17/17 06:14 07/17/17 07:25 07/17/17 11:43 07/17/17 16:25 Activated Partial Thromboplast Time 57.3 SECONDS Partial Thromboplastin Ratio 2.2 Sodium Level 134 mmol/L Potassium Level 4.2 mmol/L Chloride Level 102 mmol/L Carbon Dioxide Level 23 mmol/L Anion Gap 9.0 mmol/L Blood Urea Nitrogen 48 mg/dl Creatinine 2.49 mg/dl Est Creatinine Clear Calc Drug Dose 25.3 ml/min Estimated GFR () 26.1 Estimated GFR (Non- 22.5 BUN/Creatinine Ratio 19.2 Random Glucose 91 mg/dl Calcium Level 8.2 mg/dl Phosphorus Level 3.2 mg/dl Albumin 2.0 gm/dl Bedside Glucose 106 mg/dl 102 mg/dl 208 mg/dl Test 07/17/17 19:27 07/17/17 20:46 07/17/17 21:40 Activated Partial Thromboplast Time 71.4 SECONDS Partial Thromboplastin Ratio 2.7 Bedside Glucose 125 mg/dl Assessment and Plan 87 yo male with MARGY on CKD, DM type II with hyperglycemia, no DKA, new onset atrial fibrillation with RVR - New onset atrial fibrillation with RVR HR has remained tachycardic at rest. Will place on amiodarone Improved with beta tato continue Lopressor 25mg BID, with 5mg IV q6 PRN for HR >120 echo was performed on 07/10 that showed normal EF, no structural disease will anticoagulate with heparin drip with renal function, cannot use Lovenox, Eliquis 2.5mg BID could be considered on discharge however, has h/o anemia, never had colonoscopy in his life want to make sure he does not bleed before committing to Eliquis Awaiting cardiology input Anemia in the setting of possible GI bleed as patient had possible bloody stool. Patient has never had colonscopy. Patient also has spots on liver which may be metastatic cancer. consulted GI. Updated son and patient. will monitor H and H in afternoon. - DM type II with hyperglycemia, no DKA Converted drip to insulin long acting. discussed with patient and family that Metformin, Glipizide and Januvia will likely no longer be options with renal function will need to prepare to use insulin on discharge NSS with 20mEq K at 100cc/hr - MARGY on CKD stage III (1.7 baseline) Creatinine did not significantly change Consistent with underlying ATN (granular cast on microscopy) Hold losartan Maintain even to slightly negative fluid balance - Chronic diastolic HF: holding on Lasix 20mg PO daily slightly dry from the hyperglycemia NSS at 100cc/hr, monitor for volume overload - Liver nodules:as statd above. likley metastatic disease. Will get liver profile and a CEA will also obtain a colonscopy Hematuria: -- Non contrast CT reviewed this AM -- Will require urology follow up at discharge - Leukocytosis: WBC improved to 12k. will monitor. - Anemia, iron deficiency continue Ferrous sulfate patient has never had a screening colonoscopy, no h/o melena
--- NOTE | 2017-07-17 22:43 | GASTROENTEROLOGY PROGRESS NOTE ---
DATE: 07/17/2017 SUBJECTIVE: The chart reviewed, patient examined. The patient's family was present in the room today. The patient had initially been scheduled for colonoscopy today by Dr. Skaggs for me to do. However anesthesia had canceled the case because of respiratory issues and for a rapid heart rate. This is currently being treated. The patient did undergo a colonoscopy prep and has been maintained on a liquid diet. LABORATORY STUDIES: Show a CEA of 1.1 and except for an alkaline phosphatase of 157, the remainder of liver tests are normal. His CBC today shows a hemoglobin of 9, which is slightly up from yesterday. His MCV is low at 79. Stool occult blood on July 16 was negative and his PTT is 57.3 this morning. INR on admission was 1.1. The chart reviewed and patient was examined. ALLERGIES: He has no known drug allergies. CURRENT MEDICATIONS: Include insulin, iron sucrose, amiodarone, aspirin, atorvastatin, ferrous gluconate, pantoprazole, levothyroxine, Lopressor. REVIEW OF SYSTEMS: Otherwise noncontributory based on 13-point exam except for mentioned above. The patient's imaging studies on 07/16/2017 suggests a 4 cm mass-like right lower lobe density. There is a left hepatic lobe lesion of 4.1 cm with a slightly nodular liver surface. The concern is innumerable bilobar hepatic lesions suggestive of metastatic disease, although a primary liver malignancy with satellite lesions is possible. PHYSICAL EXAMINATION: VITAL SIGNS: At the present time show a blood pressure 127/87, respirations 18, 96% room air, heart rate 123, temperature 36.3. GENERAL: The patient is awake, alert and oriented x3. Sclerae are anicteric, conjunctiva moist. HEENT: Oral mucosa moist. HEART: Normal S1, S2. LUNGS: Clear to auscultation without rales, rhonchi or wheezes. HEART: Slightly tachycardic. ABDOMEN: Soft, nontender, nondistended with positive bowel sounds. EXTREMITIES: Without clubbing, cyanosis. There is trace to +1 edema bilaterally. RECTAL: Deferred. IMPRESSION AND PLAN: The patient with a concern for metastatic liver lesions with a sizable primary lesion in the left lobe of the liver along with a pulmonary process. The patient has never had a colonoscopy, although CEA level was normal at 1.1. I would obtain an alpha-fetoprotein if not recently performed. At the present time because of his tachycardia and other cardiopulmonary aspects, I believe it is reasonable to optimize the patient for an additional 24 hours with plans to perform a colonoscopy on . Therefore, heparin can be resumed and stopped 4-6 hours before the endoscopy time on . He can have a full meal tonight (regular diet) but would anticipate going to full liquids and clear liquids tomorrow with a repeat formal bowel preparation Sunday. N.p.o. after midnight except meds on Sunday into . Alpha-fetoprotein level should be checked and this was ordered. Depending on the findings of colonoscopy, it is possible that endoscopic ultrasound may be able to access these lesions in the liver, particularly the left-sided lesion and this can be considered if colonoscopy is unrevealing. All questions answered for the patient and his family.
[2017-07-18] VITALS (8 sets, daily range): BP systolic 112–150; BP diastolic 70–91; PULSE 86–118; TEMP 36.2–36.7; O2SAT 94–98
[2017-07-18] MEDS: LEVOTHYROXINE 50 MCG TAB PO SCH (06:08)
[2017-07-18 06:49] LABS: HEMATOCRIT 29.7 % (42-52); HEMOGLOBIN 9.6 g/dL (14.0-18.0); MEAN CELL VOLUME 81.6 fL (80-100); MEAN CORPUSCULAR HEMOGLOBIN 26.4 pg (25-34); MEAN CORPUSCULAR HGB CONC 32.3 g/dl (32-36); MEAN PLATELET VOLUME 10.7 fL (7.4-10.4); PLATELET COUNT 550 K/uL (130-400); RED CELL DISTRIBUTION WIDTH CV 17.6 % (11.5-14.5); RED CELL DISTRIBUTION WIDTH SD 50.9 fL (36.4-46.3); WHITE BLOOD COUNT 10.54 K/uL (4.8-10.8)
[2017-07-18 06:57] LABS: PTT PATIENT 35.1 SECONDS (21.0-31.0)
[2017-07-18 07:27] LABS: ALBUMIN 2.2 gm/dl (3.4-5.0); CALCIUM 8.6 mg/dl (8.5-10.1); CREATININE 2.56 mg/dl (0.60-1.40); POTASSIUM 4.6 mmol/L (3.5-5.1)
[2017-07-18 07:31] LABS: PHOSPHORUS 4.2 mg/dl (2.5-4.9)
[2017-07-18] MEDS: INSULIN GLARGINE SOLOSTAR 100 UNITS/ML 3 ML PEN SC SCH (08:00)
[2017-07-18] MEDS: ATORVASTATIN 40 MG TAB PO SCH (08:00)
[2017-07-18] MEDS: INSULIN ASPART 100 UNITS/ML 3 ML PEN SC SCH ×4 (08:00→21:00)
[2017-07-18] MEDS: AMIODARONE 200 MG TAB PO SCH ×4 (08:00→21:00)
[2017-07-18] MEDS: FERROUS GLUCONATE 324 MG TAB PO SCH (08:00)
[2017-07-18] MEDS: PANTOprazole SOD 40 MG TAB PO SCH (08:00)
[2017-07-18] MEDS: METOPROLOL TARTRATE 25 MG TAB PO SCH ×2 (08:00→21:00)
[2017-07-18] MEDS: ASPIRIN 81 MG ECTAB PO SCH (08:01)
--- NOTE | 2017-07-18 09:17 | CARDIOLOGY PROGRESS NOTE ---
DATE: 07/18/2017 SUBJECTIVE: Mr. Menjivar is resting comfortably at the bedside without complaints of chest pain, dyspnea, or palpitations. OBJECTIVE: VITAL SIGNS: Blood pressure 140/80 with an irregular pulse of 100. Respiratory rate is 18. The patient is afebrile at 36.4 degrees centigrade. Saturation 94% on room air. NECK: Supple with full carotid upstrokes. No obvious bruits. Jugular venous pressure is flat at 90 degrees. There is no thyromegaly. CARDIOVASCULAR: Reveals an irregularly regular rhythm with distant heart sounds. A 1/6 basal systolic ejection murmur is noted. LUNGS: Clear without rales, rhonchi, or wheeze. ABDOMEN: Soft without bruits. EXTREMITIES: Reveal intact radial pulse bilaterally. 1+ pedal and pretibial edema is noted. LABORATORY DATA: CBC notes hemoglobin of 9.6, hematocrit 29.7, white count 10.5, and platelet count 550,000. Electrolytes note a sodium of 135, potassium 4.6, chloride 103, bicarbonate 22, BUN 46, creatinine 2.56, glucose 107. 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 Somewhat improved since starting amiodarone yesterday. IMPRESSION AND PLAN: 1. New onset atrial fibrillation -- tolerating amiodarone loading without difficulty. Hopefully, this will control ventricular response if not convert to sinus rhythm. 2. Chronic diastolic congestive heart failure -- compensated at this time. 3. Hypertension -- with moderate LVH and evidence of diastolic dysfunction. 4. Mild mitral regurgitation. 5. Mild tricuspid regurgitation. 6. Hypercholesterolemia. 7. Diabetes mellitus. 8. Chronic renal failure. 9. Hypothyroidism. 10. Hepatic abnormality, metastatic lesion suspected. GI workup in progress.
[2017-07-18] MEDS ORDERED: NURSING VERBAL MED ORDER ONE (10:15)
[2017-07-18 10:41] LABS: PTT PATIENT 33.6 SECONDS (21.0-31.0)
[2017-07-18] MEDS: HEPARIN 25,000 UNIT/500ML D5W 500 ML IV PRN ×2 (11:10→20:01)
[2017-07-18] MEDS ORDERED: HEPARIN IV BOLUS 7,000 UNIT in SYRINGE 0 ML IV ONE (11:15)
[2017-07-18] MEDS: IRON SUCROSE INJ 200 MG in SODIUM CHLORIDE 0.9% 100ML 100 ML IV SCH ×2 (12:59→13:14)
--- NOTE | 2017-07-18 16:46 | Nephrology Progress Note ---
Nephrology Progress Note Date of Service Jul 18, 2017. Chief Complaint MARGY/CKD Subjective No acute events overnight. Jasvir was seen and evaluated this morning. His son remains at the bedside. The patient feels well and has no complaints. Appetite is good. He is breathing comfortably. He denies chest pain or palpitations. He denies any melena or hematochezia this morning. Review of Systems A complete review of systems was performed. Pertinent positives are noted above. All other systems are negative. Vital Signs Last 8 Hrs Date Time Temp Pulse Resp B/P (MAP) Pulse Ox O2 Delivery O2 Flow Rate FiO2 07/18/17 14:54 36.2 98 18 112/70 (84) 95 Room Air 07/18/17 12:00 Room Air 07/18/17 11:49 36.4 86 18 115/76 (89) 95 Room Air I & O 24-Hour Column 07/19/17 08:00 Intake Total 1869 ml Output Total 350 ml Balance 1519 ml Last Recorded Weight Weight (Kilograms): 94.600 Physical Exam General Appearance: WD/WN, no apparent distress Head: normocephalic, atraumatic Eyes: normal inspection, sclerae normal ENT: normal ENT inspection Neck: supple, no JVD Respiratory/Chest: lungs clear, no respiratory distress, no accessory muscle use Cardiovascular: regular rate, rhythm, no gallop Abdomen/GI: non tender, soft Extremities/Musculoskelatal: normal inspection, no pedal edema Neurologic/Psych: alert, normal mood/affect Social History Alcohol Use: none Drug Use: none Marital Status: Housing Status: lives with family Occupation: retired Laboratory Results Past 24 Hours 07/18/17 06:21 07/18/17 06:21 Test 07/17/17 19:27 07/17/17 20:46 07/18/17 06:21 07/18/17 07:50 Activated Partial Thromboplast Time 71.4 SECONDS (21.0-31.0) 35.1 SECONDS (21.0-31.0) Partial Thromboplastin Ratio 2.7 1.4 Bedside Glucose 125 mg/dl (70-99) 116 mg/dl (70-99) Red Blood Count 3.64 M/uL (4.7-6.1) Mean Corpuscular Volume 81.6 fL (80-100) Mean Corpuscular Hemoglobin 26.4 pg (25-34) Mean Corpuscular Hemoglobin Concent 32.3 g/dl (32-36) RDW Standard Deviation 50.9 fL (36.4-46.3) RDW Coefficient of Variation 17.6 % (11.5-14.5) Mean Platelet Volume 10.7 fL (7.4-10.4) Anion Gap 10.0 mmol/L (3-11) Est Creatinine Clear Calc Drug Dose 24.7 ml/min Estimated GFR () 25.2 Estimated GFR (Non- 21.8 BUN/Creatinine Ratio 17.8 (10-20) Calcium Level 8.6 mg/dl (8.5-10.1) Phosphorus Level 4.2 mg/dl (2.5-4.9) Albumin 2.2 gm/dl (3.4-5.0) Test 07/18/17 10:25 07/18/17 11:32 07/18/17 16:31 Activated Partial Thromboplast Time 33.6 SECONDS (21.0-31.0) Partial Thromboplastin Ratio 1.3 Bedside Glucose 112 mg/dl (70-99) 106 mg/dl (70-99) Allergies Coded Allergies: No Known Allergies (Verified , 07/09/17) Medications Current Inpatient Medications Medications (Trade) Dose Ordered Sig/Bg Route Start Time Stop Time Status Last Admin Dose Admin Acetaminophen (Tylenol Tab) 650 mg Q4H PRN PO 07/15/17 10:00 08/14/17 09:59 Ondansetron HCl (Zofran Inj) 4 mg Q6H PRN IV 07/15/17 10:00 08/14/17 09:59 Aspirin (Ecotrin Tab) 81 mg QAM PO 07/16/17 09:00 08/15/17 08:59 07/18/17 08:01 81 MG Atorvastatin Calcium (Lipitor Tab) 40 mg QAM PO 07/16/17 09:00 08/15/17 08:59 07/18/17 08:00 40 MG Ferrous Gluconate (Ferrous Gluconate Tab) 324 mg QAM PO 07/16/17 09:00 08/15/17 08:59 07/18/17 08:00 324 MG Levothyroxine Sodium (Synthroid Tab) 50 mcg DAILYBB PO 07/16/17 06:30 08/15/17 06:29 07/18/17 06:08 50 MCG Metoprolol Tartrate (Lopressor Tab) 25 mg BID PO 07/15/17 21:00 08/14/17 20:59 07/18/17 08:00 25 MG Pantoprazole Sodium (Protonix Tab) 40 mg QAM PO 07/16/17 09:00 08/15/17 08:59 07/18/17 08:00 40 MG Glucose (Glucose 40% Gel) 15-30 GRAMS 15 GRAMS... UD PRN PO 07/15/17 12:45 08/14/17 12:44 Glucose (Glucose Chew Tab) 4-8 Tablets 4 Tabl... UD PRN PO 07/15/17 12:45 08/14/17 12:44 Dextrose (Dextrose 50% 50ML Syringe) 25-50ML OF 50% DW IV FOR... UD PRN IV 07/15/17 12:45 08/14/17 12:44 Glucagon (Glucagon Inj) 1 mg UD PRN SQ 07/15/17 12:45 08/14/17 12:44 Potassium Chloride/Sodium Chloride 1,000 ml @ 100 mls/hr Q10H IV 07/15/17 14:15 08/14/17 14:14 Future Hold 07/17/17 19:17 100 MLS/HR Metoprolol Tartrate (Lopressor Iv) 5 mg Q6H PRN IV 07/15/17 15:30 08/14/17 15:29 07/16/17 05:05 5 MG Heparin Sodium/ Dextrose 500 ml @ 30 mls/hr [id number] PRN IV 07/15/17 15:45 08/14/17 15:44 Future Hold 07/18/17 11:10 30 MLS/HR Miscellaneous Information (Consult Glycemic Management Pharmacy) 1 ea UD PRN N/A 07/16/17 10:20 08/15/17 10:19 Insulin Aspart (novoLOG ASPART) SLIDING SCALE If CARB RA... ACHS SC 07/16/17 11:00 08/15/17 10:59 07/18/17 13:00 4 UNITS Insulin Glargine (Lantus Solostar Pen) 20 units DAILY SC 07/18/17 09:00 08/17/17 08:59 07/18/17 08:00 20 UNITS Amiodarone HCl (Cordarone Tab) 200 mg QID PO 07/17/17 09:00 08/16/17 08:59 07/18/17 12:58 200 MG Iron Sucrose 200 mg/Sodium Chloride 110 ml @ 420 mls/hr DAILY@1300 IV 07/17/17 13:00 07/21/17 13:16 07/18/17 13:14 420 MLS/HR Miscellaneous (Stop Order) 1 ea ONE ONCE N/A 07/19/17 03:00 07/19/17 03:01 Impression (1) Acute kidney injury (2) CKD stage 3 due to type 2 diabetes mellitus (3) Anemia (4) Proteinuria (5) Microscopic hematuria (6) CHF exacerbation (7) Hyperglycemia Mr. Jasvir Menjivar is an 87-year-old male with CKD, diabetes mellitus, hypertension, hypothyroidism and diastolic CHF. Jasvir was admitted with hyperglycemia and MARGY. He was recently admitted to [facility] with acute diastolic CHF. He had rapid atrial fibrillation being managed with amiodarone. He had anemia with possible hematochezia. ARB is being held. Creatinine is stable at 2.5 mg/dL. Metabolic profile is otherwise acceptable. 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 Follow up non contrast CT also reviewed. 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 Iron profile consistent with DAMIAN. Venofer will be provided. Colonoscopy is scheduled for tomorrow. Recommendations MARGY: -- Consistent with underlying ATN (granular cast on microscopy) -- Document I/O's -- Hold Losartan -- Maintain even to slightly negative fluid balance -- Repeat metabolic profile tomorrow AM -- UA/micro reviewed showing persistent microscopic hematuria -- BP and volume status currently acceptable Hematuria: -- Non contrast CT reviewed -- Will require urology follow up at discharge CKD: -- Outpatient follow up with Dr. Rankin Diastolic CHF: -- Volume status currently acceptable -- Management of atrial fibrillation per cardiology Anemia: -- Iron deficiency noted -- Venofer 200 mg daily x 5 days
[2017-07-18 17:57] LABS: PTT PATIENT 178.1 SECONDS (21.0-31.0)
[2017-07-18] MEDS ORDERED: LAVAGE SOLUTION 4000ML PO SCH (18:30)
--- NOTE | 2017-07-18 18:35 | GASTROENTEROLOGY PROGRESS NOTE ---
DATE: 07/18/2017 GASTROENTEROLOGY INPATIENT PROGRESS NOTE SUBJECTIVE: Chart reviewed, the patient examined. The patient has a supratherapeutic PTT, at this point this is being discontinued. The patient is to start his bowel prep tonight for colonoscopy which was delayed yesterday because of a tachyarrhythmia. The patient feels well without abdominal pain, nausea or vomiting. LABORATORY STUDIES: Today - white count 10.5, hemoglobin 9.6 which is stable, MCV 81, and platelets 550,000. Serum chemistries - glucose 106. Stools are negative. Alpha-fetoprotein level is pending at this time. PTT 178. REVIEW OF SYSTEMS: Otherwise noncontributory based on 13-point exam except for mentioned above. PHYSICAL EXAMINATION: VITAL SIGNS: Today, blood pressure is 112/70, heart rate 98, respirations 18, temperature 36.2 and 95% on room air. GENERAL: The patient is awake, alert and oriented x3, accompanied by his family. HEENT: Oral mucosa moist. HEART: Normal S1, S2. LUNGS: Clear to auscultation. ABDOMEN: Soft, flat, nontender, nondistended. Good bowel sounds. EXTREMITIES: Without clubbing, cyanosis or edema. RECTAL: Deferred. IMPRESSION AND PLAN: The tentative plans for colonoscopy tomorrow with heparin off at least 6 hours before, although this may be turned off at this time given his supratherapeutic PTT. Bowel prep to begin tonight. The colonoscopy will be tentatively in the mid afternoon tomorrow. Depending on its findings and sampling of the liver lesion, may be prudent by endoscopic ultrasound. We will await alpha-fetoprotein level. All questions answered.
--- NOTE | 2017-07-18 22:45 | Progress Note ---
Subjective Date of Service: Jul 18, 2017. Subjective Patient denies any complaints today. Is anxiously waiting for his colonoscopy Problem List Medical Problems: (1) Anemia Status: Acute (2) CHF (congestive heart failure) Status: Acute Review of Systems Constitutional: No fever Eyes: No worsening of vision Respiratory: No cough Cardiac: No chest pain Abdomen: No pain Musculoskeletal: No joint pain Neurologic: No memory loss Psychiatric: No depression symptoms Heme: No abnormal bleeding/bruising Endo: + fatigue Skin: No rash All Other Systems: Reviewed and Negative Objective Vital Signs Date Time Temp Pulse Resp B/P (MAP) Pulse Ox O2 Delivery O2 Flow Rate FiO2 07/18/17 20:00 Room Air 07/18/17 19:59 36.4 113 18 150/91 (110) 98 Room Air 07/18/17 16:00 95 Room Air 07/18/17 14:54 36.2 98 18 112/70 (84) 95 Room Air 07/18/17 12:00 Room Air 07/18/17 11:49 36.4 86 18 115/76 (89) 95 Room Air 07/18/17 08:00 Room Air 07/18/17 07:44 36.4 111 18 142/88 (106) 94 Room Air 07/18/17 04:00 Room Air 07/18/17 04:00 36.3 118 16 124/89 (101) 96 Room Air 07/18/17 00:19 36.7 96 20 117/72 (87) 94 Room Air 07/18/17 00:00 96 Room Air Physical Exam Comments: General Appearance: WD/WN, no apparent distress Head: normocephalic, atraumatic Eyes: normal inspection, EOMI, sclerae normal ENT: normal ENT inspection, pharynx normal, + pertinent finding (hard of hearing) Neck: supple, no adenopathy, no JVD, trachea midline Respiratory/Chest: chest non-tender,bibasilar rales, normal breath sounds, no respiratory distress, no accessory muscle use Cardiovascular: no gallop, no JVD, no murmur, normal peripheral pulses, + tachycardia, + irregularly irregular Abdomen/GI: normal bowel sounds, non tender, soft, no organomegaly Back: normal inspection, no CVA tenderness, no muscle spasm, normal range of motion Extremities/Musculoskelatal: normal inspection, no calf tenderness, normal capillary refill, normal range of motion, pelvis stable, + pedal edema Neurologic/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: 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 as tested, no motor/sensory deficits, alert, normal mood/affect, normal reflexes, oriented x 3 Skin: normal color, warm/dry, no rash Laboratory Results Last 24 Hours Test 07/18/17 06:21 07/18/17 07:50 07/18/17 10:25 07/18/17 11:32 White Blood Count 10.54 K/uL Red Blood Count 3.64 M/uL Hemoglobin 9.6 g/dL Hematocrit 29.7 % Mean Corpuscular Volume 81.6 fL Mean Corpuscular Hemoglobin 26.4 pg Mean Corpuscular Hemoglobin Concent 32.3 g/dl RDW Standard Deviation 50.9 fL RDW Coefficient of Variation 17.6 % Platelet Count 550 K/uL Mean Platelet Volume 10.7 fL Activated Partial Thromboplast Time 35.1 SECONDS 33.6 SECONDS Partial Thromboplastin Ratio 1.4 1.3 Sodium Level 135 mmol/L Potassium Level 4.6 mmol/L Chloride Level 103 mmol/L Carbon Dioxide Level 22 mmol/L Anion Gap 10.0 mmol/L Blood Urea Nitrogen 46 mg/dl Creatinine 2.56 mg/dl Est Creatinine Clear Calc Drug Dose 24.7 ml/min Estimated GFR () 25.2 Estimated GFR (Non- 21.8 BUN/Creatinine Ratio 17.8 Random Glucose 107 mg/dl Calcium Level 8.6 mg/dl Phosphorus Level 4.2 mg/dl Albumin 2.2 gm/dl Bedside Glucose 116 mg/dl 112 mg/dl Test 07/18/17 16:31 07/18/17 17:07 07/18/17 18:46 07/18/17 20:45 Bedside Glucose 106 mg/dl 71 mg/dl Activated Partial Thromboplast Time 178.1 SECONDS 77.0 SECONDS Partial Thromboplastin Ratio 6.9 3.0 Assessment and Plan 87 yo male with MARGY on CKD, DM type II with hyperglycemia, no DKA, new onset atrial fibrillation with RVR - New onset atrial fibrillation with RVR HR has remained tachycardic at rest. Ranging from 86 to 110s Was placed on amiodarone Improved with beta tato continue Lopressor 25mg BID, with 5mg IV q6 PRN for HR >120 echo was performed on 07/10 that showed normal EF, no structural disease will hold heparin drip due to colonoscopy tomorrow with renal function, cannot use Lovenox, Eliquis 2.5mg BID could be considered on discharge however, has h/o anemia, never had colonoscopy in his life want to make sure he does not bleed before committing to Eliquis - Anemia in the setting of possible GI bleed as patient had possible bloody stool. Patient has never had colonoscopy. Patient also has spots on liver which may be metastatic cancer. consulted GI. Updated son and patient. Colonoscopy was postponed due to anesthesia. will do tomorrow. - DM type II with hyperglycemia, no DKA Converted drip to insulin long acting. discussed with patient and family that Metformin, Glipizide and Januvia will likely no longer be options with renal function will need to prepare to use insulin on discharge - MARGY on CKD stage III (1.7 baseline) Creatinine did not significantly change Consistent with underlying ATN (granular cast on microscopy) Hold losartan Maintain even to slightly negative fluid balance - Chronic diastolic HF: holding on Lasix 20mg PO daily slightly dry from the hyperglycemia Off fluids - Liver nodules:as statd above. likley metastatic disease. awaiting colonscopy. CEA negative Hematuria: -- Non contrast CT reviewed this AM -- Will require urology follow up at discharge - Leukocytosis: resolved - Anemia, iron deficiency continue Ferrous sulfate patient has never had a screening colonoscopy, no h/o melena Continued [facility] stay due to: multiple IV medications needed Discharge planning: uncertain
[2017-07-19] VITALS (9 sets, daily range): BP systolic 110–144; BP diastolic 71–81; PULSE 98–114; TEMP 36.3–36.9; O2SAT 95–99
[2017-07-19] MEDS ORDERED: [UNRECOGNIZED DRUG - REMARK] ONE (03:00)
[2017-07-19] MEDS: LEVOTHYROXINE 50 MCG TAB PO SCH (05:22)
[2017-07-19 05:46] LABS: PTT PATIENT 34.8 SECONDS (21.0-31.0)
[2017-07-19 06:02] LABS: ALBUMIN 2.3 gm/dl (3.4-5.0); CALCIUM 8.4 mg/dl (8.5-10.1); CREATININE 2.53 mg/dl (0.60-1.40); PHOSPHORUS 4.4 mg/dl (2.5-4.9); POTASSIUM 4.9 mmol/L (3.5-5.1)
[2017-07-19] MEDS: INSULIN ASPART 100 UNITS/ML 3 ML PEN SC SCH ×4 (06:30→20:57)
[2017-07-19] MEDS: INSULIN GLARGINE SOLOSTAR 100 UNITS/ML 3 ML PEN SC SCH (07:41)
[2017-07-19] MEDS: PANTOprazole SOD 40 MG TAB PO SCH (08:09)
[2017-07-19] MEDS: FERROUS GLUCONATE 324 MG TAB PO SCH (08:09)
[2017-07-19] MEDS: ATORVASTATIN 40 MG TAB PO SCH (08:09)
[2017-07-19] MEDS: ASPIRIN 81 MG ECTAB PO SCH (08:09)
[2017-07-19] MEDS: AMIODARONE 200 MG TAB PO SCH ×4 (08:09→20:57)
[2017-07-19] MEDS: METOPROLOL TARTRATE 25 MG TAB PO SCH ×2 (08:10→20:57)
[2017-07-19] MEDS ORDERED: INSULIN GLARGINE SOLOSTAR 100 UNITS/ML 3 ML PEN SC SCH (09:00)
--- NOTE | 2017-07-19 09:45 | CARDIOLOGY PROGRESS NOTE ---
DATE: 07/19/2017 SUBJECTIVE: Mr. Menjivar is resting comfortably at the bedside without complaints of chest pain, dyspnea, or palpitations. He is currently n.p.o. for colonoscopy scheduled for 3:00 p.m. today. OBJECTIVE: VITAL SIGNS: Blood pressure is 130/74 with an irregular pulse of 100. Respiratory rate is 20. The patient is afebrile at 36.4 degrees centigrade. Saturations 95% on 2 liters nasal cannula. NECK: Supple with full carotid upstrokes. There are no carotid bruits. Jugular venous pressure is flat at 90 degrees. There is no thyromegaly. CARDIOVASCULAR: Reveals an irregularly irregular rhythm with distant heart sounds. A 1/6 basal systolic ejection murmur is noted. LUNGS: Clear without rales, rhonchi, or wheezes. ABDOMEN: Soft and nontender without bruits. EXTREMITIES: Reveal intact radial artery pulses bilaterally. Trace to 1+ pedal and pretibial edema is noted. DATA: Electrolytes note a sodium of 136, potassium 4.9, chloride 105, bicarbonate 24, BUN 42, creatinine 2.5, glucose 80. 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 IMPRESSION AND PLAN: 1. New onset atrial fibrillation -- patient is tolerating amiodarone without difficulty. Hopefully, this will control his ventricular response to the atrial fibrillation; if not, convert him back to sinus rhythm. 2. Chronic diastolic congestive heart failure -- compensated. 3. Hypertension -- with moderate left ventricular hypertrophy and evidence of diastolic dysfunction. 4. Mild mitral regurgitation. 5. Mild tricuspid regurgitation. 6. Hypercholesterolemia. 7. Diabetes mellitus. 8. Chronic renal failure. 9. Hypothyroidism. 10. Hepatic abnormality -- metastatic lesions suspected. Gastrointestinal workup in progress.
--- NOTE | 2017-07-19 11:35 | Nephrology Progress Note ---
Nephrology Progress Note Date of Service Jul 19, 2017. Chief Complaint MARGY/CKD Subjective No acute events overnight. Jasvir feels well this morning. His son remains at the bedside. Jasvir is breathing comfortably. He has not noticed any increase in lower extremity edema. He has not been ambulating. He completed his bowel prep. Colonoscopy is scheduled for this afternoon. He denies any additional melena or hematochezia. Review of Systems A complete review of systems was performed. Pertinent positives are noted above. All other systems are negative. Vital Signs Last 8 Hrs Date Time Temp Pulse Resp B/P (MAP) Pulse Ox O2 Delivery O2 Flow Rate FiO2 07/19/17 08:00 Room Air 07/19/17 07:41 36.4 105 20 133/74 (93) 95 Nasal Cannula 2.0 07/19/17 07:40 36.4 114 18 124/81 (95) 96 Room Air 07/19/17 04:15 36.3 107 18 144/78 (100) 97 Room Air 07/19/17 04:00 Room Air Last Recorded Weight Weight (Kilograms): 95.300 Physical Exam General Appearance: WD/WN, no apparent distress Head: normocephalic, atraumatic Eyes: normal inspection, sclerae normal ENT: normal ENT inspection, pharynx normal Neck: supple, no JVD Respiratory/Chest: lungs clear, no respiratory distress, no accessory muscle use Cardiovascular: regular rate, rhythm, no gallop Abdomen/GI: non tender, soft Extremities/Musculoskelatal: normal inspection, + pedal edema Neurologic/Psych: alert, normal mood/affect (+2 pitting BL LE edema) Social History Alcohol Use: none Drug Use: none Marital Status: Housing Status: lives with family Occupation: retired Laboratory Results Past 24 Hours 07/19/17 05:22 Test 07/18/17 11:32 07/18/17 16:31 07/18/17 17:07 07/18/17 18:46 Bedside Glucose 112 mg/dl (70-99) 106 mg/dl (70-99) Activated Partial Thromboplast Time 178.1 SECONDS (21.0-31.0) 77.0 SECONDS (21.0-31.0) Partial Thromboplastin Ratio 6.9 3.0 Test 07/18/17 20:45 07/19/17 05:22 07/19/17 07:25 Bedside Glucose 71 mg/dl (70-99) 81 mg/dl (70-99) Activated Partial Thromboplast Time 34.8 SECONDS (21.0-31.0) Partial Thromboplastin Ratio 1.3 Anion Gap 8.0 mmol/L (3-11) Est Creatinine Clear Calc Drug Dose 25.0 ml/min Estimated GFR () 25.6 Estimated GFR (Non- 22.1 BUN/Creatinine Ratio 16.6 (10-20) Calcium Level 8.4 mg/dl (8.5-10.1) Phosphorus Level 4.4 mg/dl (2.5-4.9) Albumin 2.3 gm/dl (3.4-5.0) Allergies Coded Allergies: No Known Allergies (Verified , 07/09/17) Medications Current Inpatient Medications Medications (Trade) Dose Ordered Sig/Bg Route Start Time Stop Time Status Last Admin Dose Admin Acetaminophen (Tylenol Tab) 650 mg Q4H PRN PO 07/15/17 10:00 08/14/17 09:59 Ondansetron HCl (Zofran Inj) 4 mg Q6H PRN IV 07/15/17 10:00 08/14/17 09:59 Aspirin (Ecotrin Tab) 81 mg QAM PO 07/16/17 09:00 08/15/17 08:59 07/19/17 08:09 81 MG Atorvastatin Calcium (Lipitor Tab) 40 mg QAM PO 07/16/17 09:00 08/15/17 08:59 07/19/17 08:09 40 MG Ferrous Gluconate (Ferrous Gluconate Tab) 324 mg QAM PO 07/16/17 09:00 08/15/17 08:59 07/19/17 08:09 324 MG Levothyroxine Sodium (Synthroid Tab) 50 mcg DAILYBB PO 07/16/17 06:30 08/15/17 06:29 07/18/17 06:08 50 MCG Metoprolol Tartrate (Lopressor Tab) 25 mg BID PO 07/15/17 21:00 08/14/17 20:59 07/19/17 08:10 25 MG Pantoprazole Sodium (Protonix Tab) 40 mg QAM PO 07/16/17 09:00 08/15/17 08:59 07/19/17 08:09 40 MG Glucose (Glucose 40% Gel) 15-30 GRAMS 15 GRAMS... UD PRN PO 07/15/17 12:45 08/14/17 12:44 Glucose (Glucose Chew Tab) 4-8 Tablets 4 Tabl... UD PRN PO 07/15/17 12:45 08/14/17 12:44 Dextrose (Dextrose 50% 50ML Syringe) 25-50ML OF 50% DW IV FOR... UD PRN IV 07/15/17 12:45 08/14/17 12:44 Glucagon (Glucagon Inj) 1 mg UD PRN SQ 07/15/17 12:45 08/14/17 12:44 Potassium Chloride/Sodium Chloride 1,000 ml @ 100 mls/hr Q10H IV 07/15/17 14:15 08/14/17 14:14 Future Hold 07/17/17 19:17 100 MLS/HR Metoprolol Tartrate (Lopressor Iv) 5 mg Q6H PRN IV 07/15/17 15:30 08/14/17 15:29 07/16/17 05:05 5 MG Heparin Sodium/ Dextrose 500 ml @ 25 mls/hr Q20H PRN IV 07/15/17 15:45 08/14/17 15:44 Future Hold 07/18/17 20:01 25 MLS/HR Miscellaneous Information (Consult Glycemic Management Pharmacy) 1 ea UD PRN N/A 07/16/17 10:20 08/15/17 10:19 Insulin Aspart (novoLOG ASPART) SLIDING SCALE If CARB RA... ACHS SC 07/16/17 11:00 08/15/17 10:59 07/18/17 18:20 5 UNITS Amiodarone HCl (Cordarone Tab) 200 mg QID PO 07/17/17 09:00 08/16/17 08:59 07/19/17 08:09 200 MG Iron Sucrose 200 mg/Sodium Chloride 110 ml @ 420 mls/hr DAILY@1300 IV 07/17/17 13:00 07/21/17 13:16 07/18/17 13:14 420 MLS/HR Insulin Glargine (Lantus Solostar Pen) 10 units DAILY SC 07/19/17 09:00 08/18/17 08:59 07/19/17 08:05 10 UNITS Impression (1) Acute kidney injury (2) CKD stage 3 due to type 2 diabetes mellitus (3) Anemia (4) Proteinuria (5) Microscopic hematuria (6) CHF exacerbation (7) Hyperglycemia Mr. Jasvir Menjivar is an 87-year-old male with CKD, diabetes mellitus, hypertension, hypothyroidism and diastolic CHF. aJsvir was admitted with hyperglycemia and MARGY. He was recently admitted to [facility] with acute diastolic CHF. He had rapid atrial fibrillation being managed with amiodarone. He had anemia and hematochezia. ARB is being held. Creatinine is stable at 2.5 mg/dL. Metabolic profile is otherwise acceptable. 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 Follow up non contrast CT also reviewed. 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 Iron profile consistent with DAMIAN. Venofer is being provided. Colonoscopy is scheduled for tomorrow. Recommendations MARGY: -- Consistent with underlying ATN (granular cast on microscopy) -- Document I/O's -- Hold Losartan -- Maintain even to slightly negative fluid balance -- Repeat metabolic profile tomorrow AM -- UA/micro reviewed showing persistent microscopic hematuria -- BP and volume status currently acceptable -- Consider restarting furosemide today Hematuria: -- Non contrast CT reviewed -- Will require urology follow up at discharge CKD: -- Outpatient follow up with Dr. Rankin Diastolic CHF: -- Volume status currently acceptable -- Management of atrial fibrillation per cardiology -- Suggest restarting furosemide 40 mg daily today Anemia: -- Venofer 200 mg daily x 5 days
--- NOTE | 2017-07-19 13:52 | Pharmacy Progress Note ---
Pharmacy Glycemic Short Note 2 Date of Service Jul 19, 2017. Outpatient Anti-diabetic Regimen: * Januvia 50mg PO daily * Was on 3 oral agents (Januvia, metformin, & glipizide) but regimen was changed at discharge on 07/13/17 secondary to renal function. Metformin & glipizide were stopped and dose of Januvia cut in half. No insulin started for stopped agents. ASSESSMENT: * 87yo T2DM male with severe hyperglycemia on admission secondary to poor outpatient control and decreased outpatient antidiabetic regimen after last admission/discharge. * Pt initiated on IV insulin infusion per protocol on admission and transitioned to SQ basal bolus insulin regimen when hyperglycemia resolved/ criteria met. * BSGs have been well-controlled for the past 24+ hours. * Lantus dose reduced this morning for BSGs 71,82 and NPO status. Will re- evaluate as diet is resumed post-procedure (colonoscopy today). * Pt will need insulin at d/c for A1c >10% PLAN FOR INPATIENT GLYCEMIC CONTROL: * Hold outpatient oral diabetes medications * Basal insulin: Decrease dosing for below goal AM fasting BSG and NPO * Lantus 10 units SQ daily * Bolus insulin: no change * NovoLog per scale ACHS or Q6hrs while NPO * Goal Range: Low 120 mg/dL - High 150 mg/dL * Correction Factor: 25 mg/dL/unit * Nutritional / Prandial insulin per carb ratio of 1 unit per 9 grams CHO consumed Looking ahead to discharge: * A1c = 10.1% 07/16/17 * Two of 3 oral agents stopped at last admission secondary to decreased renal function. Sq insulin will be needed at d/c to replace those oral agents * Goal A1c ~8.5% (eAG ~ 197 mg/dl) based on age/comorbidities per the elements of diabetes care scoring scale. * Pt may be able to continue Januvia 25 mg PO daily + once daily basal insulin {dose TBD based off of inpatient trends} to maintain BSG 150-250 mg/dl. * Recommend follow up with PCP GEREMIAS after discharge to work towards maximizing A1c.
--- NOTE | 2017-07-19 15:10 | History & Physical Bridge Note ---
H&P Re-Evaluation Bridge Note: I have examined the patient, reviewed the History & Physical and in the interval since the performance of the History & Physical I have noted the following changes of clinical significance: No changes noted
[2017-07-19] MEDS ORDERED: PROPOFOL IV EMULSION 10 MG/ML 20 ML VIAL IV ONE (15:32)
[2017-07-19] MEDS ORDERED: PHENYLEPHRINE 100MCG/ML 5ML SYR ONE (15:32)
[2017-07-19] MEDS ORDERED: LIDOCAINE HCL 2% 2 ML VIAL (20MG/ML) ONE (15:32)
--- NOTE | 2017-07-19 16:21 | Anesthesiology Progress Note ---
Anesthesia Post Op Note Date & Time Jul 19, 2017 at 16:21 Vital Signs Pain Intensity: 0 Vital Signs Past 12 Hours Date Time Temp Pulse Resp B/P (MAP) Pulse Ox O2 Delivery O2 Flow Rate FiO2 07/19/17 15:55 100 98 113/79 (90) 98 Room Air 07/19/17 15:40 106 18 94/83 (87) 97 Room Air 07/19/17 14:05 36.4 106 20 121/85 (97) 97 Room Air 07/19/17 12:00 Room Air 07/19/17 11:51 36.5 105 18 110/75 (87) 95 Room Air 07/19/17 08:00 Room Air 07/19/17 07:41 36.4 105 20 133/74 (93) 95 Nasal Cannula 2.0 07/19/17 07:40 36.4 114 18 124/81 (95) 96 Room Air Notes Mental Status: alert / awake / arousable, participated in evaluation Pt Amnestic to Procedure: Yes Nausea / Vomiting: adequately controlled Pain: adequately controlled Airway Patency, RR, SpO2: stable & adequate BP & HR: stable & adequate Hydration State: stable & adequate Anesthetic Complications: no major complications apparent
[2017-07-19 17:32] LABS: PTT PATIENT 33.7 SECONDS (21.0-31.0)
[2017-07-19] MEDS ORDERED: NURSING VERBAL MED ORDER ONE (18:00)
[2017-07-19] MEDS ORDERED: HEPARIN IV BOLUS 7,000 UNIT in SYRINGE 0 ML IV ONE (18:15)
[2017-07-19] MEDS: HEPARIN 25,000 UNIT/500ML D5W 500 ML IV PRN (18:40)
--- NOTE | 2017-07-19 19:27 | GASTROENTEROLOGY PROGRESS NOTE ---
DATE: 07/19/2017 GASTROENTEROLOGY INPATIENT UPDATE NOTE SUBJECTIVE: The patient underwent colonoscopy this afternoon. This was extended into the terminal ileum and only notable findings were scattered diverticular disease, particularly in the left side of the colon. There were no masses, ulcerations or sizable polyps. The prep was fair. The patient's alpha fetoprotein level is normal at 1.6 and CEA has been normal at 1.1. The source of the suspected lesions in the liver do not appear to be of colonic or terminal ileal origin. At this point, a tissue diagnosis has not been achieved. It may be reasonable for the patient to undergo EGD to exclude an upper gastrointestinal source for this as well as possibly endoscopic ultrasound to investigate the liver and take samples, particularly the lesion in the left lobe of the liver, if identifiable. I had attempted to arrange this through the OR tomorrow; however, the charge person would not commit to a time and there are no available spots. This would be an add-on case and can occur at any time. Therefore, if the patient is to be discharged tomorrow and upper endoscopy and endoscopic ultrasound can be set up as an outpatient, at the patient's earliest convenience. Anticoagulation if needed will need to be held a few days prior to the recommended endoscopies for sampling purposes. We will follow with you. SHRUTI
--- NOTE | 2017-07-19 22:18 | Progress Note ---
Subjective Date of Service: Jul 19, 2017. Subjective Pt evaluation today including: conversation w/ patient Patient reports feeling well. He reports breathing better and does not have shortness of breath today. Problem List Medical Problems: (1) Anemia Status: Acute (2) CHF (congestive heart failure) Status: Acute Review of Systems Constitutional: No fever ENT: No hearing loss Respiratory: No sputum Cardiac: No chest pain Musculoskeletal: No joint pain Neurologic: No memory loss, No paralysis Psychiatric: No depression symptoms Endo: No fatigue Skin: No rash All Other Systems: Reviewed and Negative Medications Current Inpatient Medications Medications (Trade) Dose Ordered Sig/Bg Route Start Time Stop Time Status Last Admin Dose Admin Acetaminophen (Tylenol Tab) 650 mg Q4H PRN PO 07/15/17 10:00 08/14/17 09:59 Ondansetron HCl (Zofran Inj) 4 mg Q6H PRN IV 07/15/17 10:00 08/14/17 09:59 Aspirin (Ecotrin Tab) 81 mg QAM PO 07/16/17 09:00 08/15/17 08:59 07/19/17 08:09 81 MG Atorvastatin Calcium (Lipitor Tab) 40 mg QAM PO 07/16/17 09:00 08/15/17 08:59 07/19/17 08:09 40 MG Ferrous Gluconate (Ferrous Gluconate Tab) 324 mg QAM PO 07/16/17 09:00 08/15/17 08:59 07/19/17 08:09 324 MG Levothyroxine Sodium (Synthroid Tab) 50 mcg DAILYBB PO 07/16/17 06:30 08/15/17 06:29 07/18/17 06:08 50 MCG Metoprolol Tartrate (Lopressor Tab) 25 mg BID PO 07/15/17 21:00 08/14/17 20:59 07/19/17 20:57 25 MG Pantoprazole Sodium (Protonix Tab) 40 mg QAM PO 07/16/17 09:00 08/15/17 08:59 07/19/17 08:09 40 MG Glucose (Glucose 40% Gel) 15-30 GRAMS 15 GRAMS... UD PRN PO 07/15/17 12:45 08/14/17 12:44 Glucose (Glucose Chew Tab) 4-8 Tablets 4 Tabl... UD PRN PO 07/15/17 12:45 08/14/17 12:44 Dextrose (Dextrose 50% 50ML Syringe) 25-50ML OF 50% DW IV FOR... UD PRN IV 07/15/17 12:45 08/14/17 12:44 Glucagon (Glucagon Inj) 1 mg UD PRN SQ 07/15/17 12:45 08/14/17 12:44 Potassium Chloride/Sodium Chloride 1,000 ml @ 100 mls/hr Q10H IV 07/15/17 14:15 08/14/17 14:14 Future Hold 07/17/17 19:17 100 MLS/HR Metoprolol Tartrate (Lopressor Iv) 5 mg Q6H PRN IV 07/15/17 15:30 08/14/17 15:29 07/16/17 05:05 5 MG Heparin Sodium/ Dextrose 500 ml @ 32 mls/hr [id number] PRN IV 07/15/17 15:45 08/14/17 15:44 Future hold 07/19/17 18:40 32 MLS/HR Miscellaneous Information (Consult Glycemic Management Pharmacy) 1 ea UD PRN N/A 07/16/17 10:20 08/15/17 10:19 Insulin Aspart (novoLOG ASPART) SLIDING SCALE If CARB RA... ACHS SC 07/16/17 11:00 08/15/17 10:59 07/19/17 20:57 10 UNITS Amiodarone HCl (Cordarone Tab) 200 mg QID PO 07/17/17 09:00 08/16/17 08:59 07/19/17 20:57 200 MG Iron Sucrose 200 mg/Sodium Chloride 110 ml @ 420 mls/hr DAILY@1300 IV 07/17/17 13:00 07/21/17 13:16 07/18/17 13:14 420 MLS/HR Insulin Glargine (Lantus Solostar Pen) 10 units DAILY SC 07/19/17 09:00 08/18/17 08:59 07/19/17 08:05 10 UNITS Objective Vital Signs Date Time Temp Pulse Resp B/P (MAP) Pulse Ox O2 Delivery O2 Flow Rate FiO2 07/19/17 21:21 36.3 109 20 120/73 (89) 95 Room Air 07/19/17 20:28 98 Room Air 07/19/17 17:07 36.3 105 18 117/71 (86) 96 Room Air 07/19/17 16:30 36.9 104 19 128/79 (95) 99 Room Air 07/19/17 16:30 98 Room Air 07/19/17 15:55 100 98 113/79 (90) 98 Room Air 07/19/17 15:40 106 18 94/83 (87) 97 Room Air 07/19/17 14:05 36.4 106 20 121/85 (97) 97 Room Air 07/19/17 12:00 Room Air 07/19/17 11:51 36.5 105 18 110/75 (87) 95 Room Air 07/19/17 08:00 Room Air 07/19/17 07:41 36.4 105 20 133/74 (93) 95 Nasal Cannula 2.0 07/19/17 07:40 36.4 114 18 124/81 (95) 96 Room Air 07/19/17 04:15 36.3 107 18 144/78 (100) 97 Room Air 07/19/17 04:00 Room Air 07/19/17 00:05 36.4 98 20 118/73 (88) 95 Room Air 07/19/17 00:00 Room Air Physical Exam Comments: General Appearance: WD/WN, no apparent distress Head: normocephalic, atraumatic Eyes: normal inspection, EOMI, sclerae normal ENT: normal ENT inspection, pharynx normal, + pertinent finding (hard of hearing) Neck: supple, no adenopathy, no JVD, trachea midline Respiratory/Chest: chest non-tender,bibasilar rales, normal breath sounds, no respiratory distress, no accessory muscle use Cardiovascular: no gallop, no JVD, no murmur, normal peripheral pulses, + tachycardia, + irregularly irregular Abdomen/GI: normal bowel sounds, non tender, soft, no organomegaly Back: normal inspection, no CVA tenderness, no muscle spasm, normal range of motion Extremities/Musculoskelatal: normal inspection, no calf tenderness, normal capillary refill, normal range of motion, pelvis stable, + pedal edema Neurologic/Psych: marketing operations specialist II-XII nml as tested, no motor/sensory deficits, alert, normal mood/affect, normal reflexes, oriented x 3 Skin: normal color, warm/dry, no rash Laboratory Results Last 24 Hours Test 07/19/17 05:22 07/19/17 07:25 07/19/17 11:34 07/19/17 16:54 Activated Partial Thromboplast Time 34.8 SECONDS Partial Thromboplastin Ratio 1.3 Sodium Level 136 mmol/L Potassium Level 4.9 mmol/L Chloride Level 105 mmol/L Carbon Dioxide Level 24 mmol/L Anion Gap 8.0 mmol/L Blood Urea Nitrogen 42 mg/dl Creatinine 2.53 mg/dl Est Creatinine Clear Calc Drug Dose 25.0 ml/min Estimated GFR () 25.6 Estimated GFR (Non- 22.1 BUN/Creatinine Ratio 16.6 Random Glucose 80 mg/dl Calcium Level 8.4 mg/dl Phosphorus Level 4.4 mg/dl Albumin 2.3 gm/dl Bedside Glucose 81 mg/dl 123 mg/dl 130 mg/dl Test 07/19/17 17:11 07/19/17 20:52 Activated Partial Thromboplast Time 33.7 SECONDS Partial Thromboplastin Ratio 1.3 Bedside Glucose 210 mg/dl Assessment and Plan 87 yo male with MARGY on CKD, DM type II with hyperglycemia, no DKA, new onset atrial fibrillation with RVR - New onset atrial fibrillation with RVR HR has remained tachycardic at rest. Heart Rate has been in low 100s Was placed on amiodarone Improved with beta tato continue Lopressor 25mg BID, with 5mg IV q6 PRN for HR >120 echo was performed on 07/10 that showed normal EF, no structural disease will resume heparin. may use eliquis on discharge awaiting colonscopy results - Anemia in the setting of possible GI bleed as patient had possible bloody stool. Patient has never had colonoscopy. Patient also has spots on liver which may be metastatic cancer. consulted GI. Updated son and patient. Awaiting colonscopy results - DM type II with hyperglycemia, no DKA Converted drip to insulin long acting. discussed with patient and family that Metformin, Glipizide and Januvia will likely no longer be options with renal function will need to prepare to use insulin on discharge - MARGY on CKD stage III (1.7 baseline) Creatinine did not significantly change Consistent with underlying ATN (granular cast on microscopy) Hold losartan Maintain even to slightly negative fluid balance - Chronic diastolic HF: will resume Lasix 20mg PO daily slightly dry from the hyperglycemia Off fluids - Liver nodules:as statd above. likley metastatic disease. awaiting colonoscopy results CEA negative Hematuria: -- Will require urology follow up at discharge - Leukocytosis: resolved - Anemia, iron deficiency continue Ferrous sulfate patient has never had a screening colonoscopy, no h/o melena Update 21:00 colonoscopy was negative. May need upper GI endoscopy to firther study these nodules in the liver. Unsure if this will be done inpatient or outpatient. Continued [facility] stay due to: multiple IV medications needed Discharge planning: uncertain
[2017-07-20 00:18] VITALS: BP 94/55; PULSE 92; TEMP 36.2; O2SAT 94
[2017-07-20 01:18] LABS: PTT PATIENT 112.7 SECONDS (21.0-31.0)
[2017-07-20] MEDS: HEPARIN 25,000 UNIT/500ML D5W 500 ML IV PRN ×2 (02:26→10:53)
[2017-07-20 05:30] VITALS: BP 96/60; PULSE 100; TEMP 36.3; O2SAT 97
[2017-07-20] MEDS: LEVOTHYROXINE 50 MCG TAB PO SCH (06:11)
[2017-07-20 07:40] VITALS: BP 93/57; PULSE 95; TEMP 36.2; O2SAT 95
[2017-07-20] MEDS: FERROUS GLUCONATE 324 MG TAB PO SCH (07:40)
[2017-07-20] MEDS: ATORVASTATIN 40 MG TAB PO SCH (07:40)
[2017-07-20] MEDS: METOPROLOL TARTRATE 25 MG TAB PO SCH (07:41)
[2017-07-20] MEDS: PANTOprazole SOD 40 MG TAB PO SCH (07:41)
[2017-07-20] MEDS: AMIODARONE 200 MG TAB PO SCH ×2 (07:41→12:17)
[2017-07-20] MEDS: ASPIRIN 81 MG ECTAB PO SCH (07:42)
[2017-07-20] MEDS: INSULIN ASPART 100 UNITS/ML 3 ML PEN SC SCH ×2 (08:18→12:17)
--- NOTE | 2017-07-20 08:21 | Nephrology Progress Note ---
Nephrology Progress Note Date of Service Jul 20, 2017. Chief Complaint MARGY/CKD Subjective No acute events overnight. No complaints this morning. Jasvir feels well. He hopes that he can be discharged home soon. No additional melena or hematochezia. Appetite is good. He is breathing comfortably and denies dyspnea. He denies chest pain or palpitations. Review of Systems A complete review of systems was performed. Pertinent positives are noted above. All other systems are negative. Vital Signs Last 8 Hrs Date Time Temp Pulse Resp B/P (MAP) Pulse Ox O2 Delivery O2 Flow Rate FiO2 07/20/17 07:40 36.2 95 18 93/57 (69) 95 Room Air 07/20/17 05:30 36.3 100 19 96/60 (72) 97 Room Air 07/20/17 00:18 36.2 92 19 94/55 (68) 94 Room Air Last Recorded Weight Weight (Kilograms): 95.300 Physical Exam General Appearance: WD/WN, no apparent distress, + thin Head: normocephalic, atraumatic Eyes: normal inspection, sclerae normal ENT: normal ENT inspection, pharynx normal Neck: supple, no JVD Respiratory/Chest: no respiratory distress, no accessory muscle use, + rales ( few basilar) Cardiovascular: no gallop, + irregularly irregular Abdomen/GI: non tender, soft Extremities/Musculoskelatal: normal inspection, no pedal edema Neurologic/Psych: alert, normal mood/affect Social History Alcohol Use: none Drug Use: none Marital Status: Housing Status: lives with family Occupation: retired Laboratory Results Past 24 Hours Test 07/19/17 11:34 07/19/17 16:54 07/19/17 17:11 07/19/17 20:52 Bedside Glucose 123 mg/dl (70-99) 130 mg/dl (70-99) 210 mg/dl (70-99) Activated Partial Thromboplast Time 33.7 SECONDS (21.0-31.0) Partial Thromboplastin Ratio 1.3 Test 07/20/17 00:39 07/20/17 04:44 Activated Partial Thromboplast Time 112.7 SECONDS (21.0-31.0) Partial Thromboplastin Ratio 4.3 Allergies Coded Allergies: No Known Allergies (Verified , 07/09/17) Medications Current Inpatient Medications Medications (Trade) Dose Ordered Sig/Bg Route Start Time Stop Time Status Last Admin Dose Admin Acetaminophen (Tylenol Tab) 650 mg Q4H PRN PO 07/15/17 10:00 08/14/17 09:59 Ondansetron HCl (Zofran Inj) 4 mg Q6H PRN IV 07/15/17 10:00 08/14/17 09:59 Aspirin (Ecotrin Tab) 81 mg QAM PO 07/16/17 09:00 08/15/17 08:59 07/20/17 07:42 81 MG Atorvastatin Calcium (Lipitor Tab) 40 mg QAM PO 07/16/17 09:00 08/15/17 08:59 07/20/17 07:40 40 MG Ferrous Gluconate (Ferrous Gluconate Tab) 324 mg QAM PO 07/16/17 09:00 08/15/17 08:59 07/20/17 07:40 324 MG Levothyroxine Sodium (Synthroid Tab) 50 mcg DAILYBB PO 07/16/17 06:30 08/15/17 06:29 07/20/17 06:11 50 MCG Metoprolol Tartrate (Lopressor Tab) 25 mg BID PO 07/15/17 21:00 08/14/17 20:59 07/19/17 20:57 25 MG Pantoprazole Sodium (Protonix Tab) 40 mg QAM PO 07/16/17 09:00 08/15/17 08:59 07/20/17 07:41 40 MG Glucose (Glucose 40% Gel) 15-30 GRAMS 15 GRAMS... UD PRN PO 07/15/17 12:45 08/14/17 12:44 Glucose (Glucose Chew Tab) 4-8 Tablets 4 Tabl... UD PRN PO 07/15/17 12:45 08/14/17 12:44 Dextrose (Dextrose 50% 50ML Syringe) 25-50ML OF 50% DW IV FOR... UD PRN IV 07/15/17 12:45 08/14/17 12:44 Glucagon (Glucagon Inj) 1 mg UD PRN SQ 07/15/17 12:45 08/14/17 12:44 Potassium Chloride/Sodium Chloride 1,000 ml @ 100 mls/hr Q10H IV 07/15/17 14:15 08/14/17 14:14 Future Hold 07/17/17 19:17 100 MLS/HR Metoprolol Tartrate (Lopressor Iv) 5 mg Q6H PRN IV 07/15/17 15:30 08/14/17 15:29 07/16/17 05:05 5 MG Heparin Sodium/ Dextrose 500 ml @ 27 mls/hr [id number] PRN IV 07/15/17 15:45 08/14/17 15:44 Future hold 07/20/17 02:26 27 MLS/HR Miscellaneous Information (Consult Glycemic Management Pharmacy) 1 ea UD PRN N/A 07/16/17 10:20 08/15/17 10:19 Insulin Aspart (novoLOG ASPART) SLIDING SCALE If CARB RA... ACHS SC 07/16/17 11:00 08/15/17 10:59 07/19/17 20:57 10 UNITS Amiodarone HCl (Cordarone Tab) 200 mg QID PO 07/17/17 09:00 08/16/17 08:59 07/20/17 07:41 200 MG Iron Sucrose 200 mg/Sodium Chloride 110 ml @ 420 mls/hr DAILY@1300 IV 07/17/17 13:00 07/21/17 13:16 07/18/17 13:14 420 MLS/HR Furosemide (Lasix Tab) 20 mg QAM PO 07/20/17 09:00 08/19/17 08:59 07/20/17 07:44 20 MG Insulin Glargine (Lantus Solostar Pen) 20 units DAILY SC 07/20/17 09:00 08/19/17 08:59 Impression (1) Acute kidney injury (2) CKD stage 3 due to type 2 diabetes mellitus (3) Anemia (4) Proteinuria (5) Microscopic hematuria (6) CHF exacerbation (7) Hyperglycemia Mr. Jasvir Menjivar is an 87-year-old male with CKD, diabetes mellitus, hypertension, hypothyroidism and diastolic CHF. Jasvir was admitted with hyperglycemia and MARGY. He was recently admitted to [facility] with acute diastolic CHF. He had rapid atrial fibrillation being managed with amiodarone. He had anemia and hematochezia. ARB is being held. Creatinine is stable at 2.5 mg/dL. Metabolic profile is otherwise acceptable. Mr. Menjivar remains on an amiodarone infusion for atrial fibrillation. 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 Follow up non contrast CT also reviewed. 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 Iron profile consistent with DAMIAN. Venofer is being provided. Colonoscopy was completed yesterday. 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 Upper endoscopy and endoscopic US as outpatient. Recommendations MARGY: -- Consistent with underlying ATN (granular cast on microscopy) -- Document I/O's -- Hold Losartan -- Maintain even to slightly negative fluid balance -- Furosemide 40 mg daily restarted today -- Continue to monitor metabolic profile daily while inpatient -- UA/micro reviewed showing persistent microscopic hematuria -- BP and volume status currently acceptable Hematuria: -- Non contrast CT reviewed -- Will require urology follow up at discharge CKD: -- Outpatient follow up with Dr. Rankin Diastolic CHF: -- Volume status currently acceptable -- Furosemide restarted now that patient has completed colon prep -- Management of atrial fibrillation per cardiology Anemia: -- Venofer 200 mg daily x 5 days
--- NOTE | 2017-07-20 08:52 | CARDIOLOGY PROGRESS NOTE ---
DATE: 07/20/2017 SUBJECTIVE: Mr. Menjivar is resting comfortably in bed without complaints of chest pain, dyspnea, palpitations. He is anxious for hospital discharge. His unremarkable colonoscopy was reviewed in detail. OBJECTIVE: VITAL SIGNS: Blood pressure is 100/60 with an irregular pulse of 90-100. Respiratory rate is 18. The patient is afebrile at 36.2 degree Celsius. Saturations 95% on room air. NECK: Supple with full carotid upstrokes. There are no carotid bruits. Jugular venous pressure is flat at 90 degrees. There is no thyromegaly. CARDIOVASCULAR: Reveals an irregularly irregular rhythm with distant heart sounds. 1/6 basal systolic ejection murmur is noted. No S3. LUNGS: Clear without rales, rhonchi, or wheezes. ABDOMEN: Soft and nontender without bruits. EXTREMITIES: Reveal intact radial artery pulses bilaterally. Trace-1+ pedal and pretibial edema is noted. LABORATORY DATA: CBC and electrolytes are pending. doors prefitter notes atrial fibrillation with a ventricular response, mainly below 100. IMPRESSION AND PLAN: 1. New onset atrial fibrillation -- patient is tolerating amiodarone without difficulty. At time of hospital discharge, would reduce the dose to 200 mg b.i.d. until seen in the outpatient setting. Remains on intravenous heparin at this time. Will need to convert to either warfarin or one of the newer agents for discharge. 2. Chronic diastolic congestive heart failure -- compensated at this time. 3. Hypertension -- with mild LVH and diastolic dysfunction. 4. Mild mitral regurgitation. 5. Mild tricuspid regurgitation. 6. Hypercholesterolemia. 7. Diabetes mellitus. 8. Chronic renal failure. 9. Hypothyroidism. 10. Hepatic abnormality -- metastatic lesion suspected. Workup in progress.
[2017-07-20 08:55] LABS: HEMATOCRIT 30.3 % (42-52); HEMOGLOBIN 9.4 g/dL (14.0-18.0); MEAN CORPUSCULAR HEMOGLOBIN 25.1 pg (25-34); MEAN PLATELET VOLUME 10.3 fL (7.4-10.4); PLATELET COUNT 500 K/uL (130-400); RED CELL DISTRIBUTION WIDTH CV 18.2 % (11.5-14.5); RED CELL DISTRIBUTION WIDTH SD 51.1 fL (36.4-46.3); WHITE BLOOD COUNT 8.77 K/uL (4.8-10.8)
[2017-07-20] MEDS ORDERED: INSULIN GLARGINE SOLOSTAR 100 UNITS/ML 3 ML PEN SC SCH (09:00)
[2017-07-20] MEDS ORDERED: FUROSEMIDE 20 MG TAB PO SCH ×2 (09:00)
[2017-07-20 09:16] LABS: PTT PATIENT 98.2 SECONDS (21.0-31.0)
[2017-07-20 09:25] LABS: ALBUMIN 2.3 gm/dl (3.4-5.0); CALCIUM 8.2 mg/dl (8.5-10.1); CREATININE 2.75 mg/dl (0.60-1.40); PHOSPHORUS 4.2 mg/dl (2.5-4.9); POTASSIUM 4.7 mmol/L (3.5-5.1)
[2017-07-20 11:53] VITALS: BP 99/66; PULSE 110; TEMP 36.3; O2SAT 95
[2017-07-20] MEDS: IRON SUCROSE INJ 200 MG in SODIUM CHLORIDE 0.9% 100ML 100 ML IV SCH (13:00)
--- NOTE | 2017-07-20 13:47 | GASTROENTEROLOGY PROGRESS NOTE ---
DATE: 07/20/2017 GASTROINTESTINAL INPATIENT PROGRESS NOTE SUBJECTIVE: Cart reviewed, the patient examined. The patient did well following his colonoscopy yesterday and tentatively is for discharge today. There were no findings in the colon to suggest a source of the lesions identified in the liver. I believe it is prudent as an outpatient for the patient to undergo upper endoscopy and endoscopic ultrasound with possible FNA of the liver lesions should they be identified and in reach of a needle sampling. We will arrange for this as an outpatient, either towards the latter part of next week or the following week. The patient should continue to eat as he tolerates. The patient plans to be started on Eliquis and this will need to be held 2-3 days prior to scheduling of any appointment date for endoscopy. VITAL SIGNS: The patient's vital signs today - the patient is afebrile 36.3, blood pressure 199/66, pulse 110, respirations 18, 95% on room air. CURRENT MEDICATIONS: Include insulin, furosemide, iron sucrose, amiodarone, aspirin, atorvastatin, ferrous gluconate, pantoprazole, levothyroxine, and metoprolol. REVIEW OF SYSTEMS: Otherwise noncontributory based on 13-point exam except for mentioned above. PHYSICAL EXAMINATION: GENERAL: The patient awake, alert and oriented x3. HEENT: Sclerae are anicteric, conjunctiva moist. Oral mucosa moist. HEART: Normal S1, S2. LUNGS: Clear to auscultation. ABDOMEN: Soft, flat, nontender, nondistended with good bowel sounds. EXTREMITIES: Without clubbing, cyanosis or edema. RECTAL: Deferred. IMPRESSION AND PLAN: Recommend upper endoscopy and EUS sometime next week with any oral anticoagulants being held for 2-3 days or 4-5 days of Coumadin as is planned. This would be to assess for the patient's anemia as well as proximal sources of GI lesion that may reflect the real liver lesions now. All questions answered. My office will arrange for the EUS today. Thank you for allowing for me to participate in this the patient's care.
--- NOTE | 2017-07-20 13:51 | Discharge Instructions ---
Discharge Instructions Date of Service Jul 20, 2017. Admission Reason for Admission: Acute Kidney Injury, Hyperglycemia Discharge Discharge Diagnosis / Problem: ACUTE KIDNEY INJURY/ HYPERGLYCEMIA Discharge Goals Goal(s): Decrease discomfort, Improve function Activity Recommendations Activity Limitations: resume your previous activity . Instructions / Follow-Up Instructions / Follow-Up Primary Care: Sunday, 07/23 at 1:30pm with Dr. Lisette Wilder. [facility] location [phone] Cardiology: 07/26 at 2:45pm with Dr. Morris [facility] location [phone] Nephrology: 08/07 at 2:00pm with Dr. Phelps. [address] [place] [address] location [phone] GASTRO WILL SCHEDULE ENDOSCOPY NEXT WEEK PLEASE HOLD ELIQUIS 2 DAYS BEFORE ENDOSCOPY Current Hospital Diet Patient's current hospital diet: Diabetes Type 2 Diet Discharge Diet Recommended Diet: Diabetes Type 2 Diet Procedures Procedures Performed: COLONOSCOPY Pending Studies Studies pending at discharge: no Laboratory Results Hemoglobin A1c Test 07/16/17 06:30 Range/Units Estimated Average Glucose 243 mg/dl Hemoglobin A1c 10.1 H 4.5-5.6 % Lipid Panel Test 05/14/17 15:23 Range/Units Triglycerides Level 140 0-150 mg/dl Cholesterol Level 91 0-200 mg/dl HDL Cholesterol 57 mg/dl Cholesterol/HDL Ratio 1.6 LDL Cholesterol, Calculated 6 mg/dl Medical Emergencies . Who to Call and When: Medical Emergencies: If at any time you feel your situation is an emergency, please call 911 immediately. . Non-Emergent Contact Non-Emergency issues call your: Primary Care Provider Call Non-Emergent contact if: you have any medication questions . . "Provider Documentation" section prepared by [place] [facility]. .
[2017-07-20] MEDS ORDERED: LSX20 PO (13:54)
[2017-07-20] MEDS ORDERED: MCRK20 PO (13:54)
[2017-07-20] MEDS ORDERED: CRD200 PO (13:54)
[2017-07-20] MEDS ORDERED: INSDGIPEN SC (13:57)
[2017-07-20] MEDS ORDERED: INSUMIS14 SUBD (13:59)
[2017-07-20] MEDS ORDERED: ELQ25 PO (14:07)
[2017-07-20 14:09] VITALS: BP 99/66; PULSE 110; TEMP 36.3; O2SAT 95
[2017-07-21] MEDS ORDERED: POTA20TA16 PO (20:12)
[2017-07-21] MEDS ORDERED: METO25TA56 PO (20:12)
[2017-07-21] MEDS ORDERED: AMIO200T4 PO (20:12)
[2017-07-21] MEDS ORDERED: INSDGIPEN SC (20:12)
[2017-07-21] MEDS ORDERED: APIX1TAB PO (20:12)
[2017-07-21] MEDS ORDERED: SITA50TA3 PO (20:12)
[2017-07-21] MEDS ORDERED: FURO-85 PO (20:12)
--- NOTE | 2017-07-23 14:18 | GI REPORT ---
Procedure Date: 07/19/2017 3:09 PM Procedure: Colonoscopy Indications: Personal history of digestive disease, Liver lesion without primary source. Medicines: Propofol per Anesthesia Complications: No immediate complications. Estimated blood loss: None. Estimated Blood Loss: Estimated blood loss: none. Procedure: Pre-Anesthesia Assessment: - Prior to the procedure, a History and Physical was performed, and patient medications and allergies were reviewed. The patient's tolerance of previous anesthesia was also reviewed. The risks and benefits of the procedure and the sedation options and risks were discussed with the patient. All questions were answered, and informed consent was obtained. Prior Anticoagulants: The patient has taken no previous anticoagulant or antiplatelet agents. ASA Grade Assessment: III - A patient with severe systemic disease. After reviewing the risks and benefits, the patient was deemed in satisfactory condition to undergo the procedure. After I obtained informed consent, the scope was passed under direct vision. Throughout the procedure, the patient's blood pressure, pulse, and oxygen saturations were monitored continuously. The On-site loaner was introduced through the anus and advanced to the terminal ileum, with identification of the appendiceal orifice and IC valve. The colonoscopy was performed without difficulty. The patient tolerated the procedure well. The quality of the bowel preparation was fair. Findings: The perianal and digital rectal examinations were normal. Pertinent negatives include normal sphincter tone, no palpable rectal lesions and no anal lesion or abnormality was detected. Many small-mouthed diverticula were found in the sigmoid colon. The terminal ileum appeared normal. The exam was otherwise without abnormality. The retroflexed view of the distal rectum and anal verge was normal and showed no anal or rectal abnormalities. Impression: - Preparation of the colon was fair. - Diverticulosis in the sigmoid colon. - The examined portion of the ileum was normal. - The examination was otherwise normal. - The distal rectum and anal verge are normal on retroflexion view. - No specimens collected. Recommendation: - [facility]. - Advance diet as tolerated. - Continue present medications. - Repeat colonoscopy is not recommended. - A source for the liver lesion is not identified. EGD may be helpful to assess for a proximal gastric source. Ultimately EUS may be needed to assess liver and sample liver lesions or abnormal LNs. These can be arrange as an outpt if pt is to be discharged. MD Andrew Flor MD 07/23/2017 2:17:48 PM This report has been signed electronically. Note Initiated On: 07/19/2017 3:09 PM I attest to the content of the Intraoperative Record and orders documented therein, exceptions below
== END 2017-07-20 14:51 | disposition home health service (06) | DRG 308 ==
LOC: C.MED 12:03
PROVIDERS: ADMIT Internal Medicine; ATTEND Internal Medicine Sports Medicine
PROC: 0DJD8ZZ Inspection of Lower Intestinal Tract, Via Natural or Artificial Opening Endoscopic (ICD-10-PCS; principal; 2017-07-19 13:56)
DX: I48.91 Unspecified atrial fibrillation (principal); N17.0 Acute kidney failure with tubular necrosis; E87.1 Hypo-osmolality and hyponatremia; I13.0 Hypertensive heart and chronic kidney disease with heart failure and stage 1 through stage 4 chronic kidney disease, or unspecified chronic kidney disease; I50.32 Chronic diastolic (congestive) heart failure; K76.9 Liver disease, unspecified; E11.22 Type 2 diabetes mellitus with diabetic chronic kidney disease; N18.3 Chronic kidney disease, stage 3 (moderate); E11.65 Type 2 diabetes mellitus with hyperglycemia; R31.29 Other microscopic hematuria; E03.9 Hypothyroidism, unspecified; D50.9 Iron deficiency anemia, unspecified; R54 Age-related physical debility; I08.1 Rheumatic disorders of both mitral and tricuspid valves; D72.829 Elevated white blood cell count, unspecified; E78.00 Pure hypercholesterolemia, unspecified; Z79.899 Other long term (current) drug therapy; Z79.82 Long term (current) use of aspirin

== ENCOUNTER 2017-07-21 19:10 | Inpatient (IN) | payer BC, OTHER ==
[~2017-07-21] VITALS: Ht 182.9 cm; Wt 90.7 kg
[~2017-07-21 19:10] MED LIST changes: +CRD200 PO; +ELQ25 PO; -FURO-85 PO; +INSDGIPEN SC; +INSUMIS14 SUBD; +LSX20 PO; +MCRK20 PO
--- NOTE | 2017-07-21 19:44 | EMERGENCY ROOM VISIT NOTE ---
History Report prepared by [place]: Larry Varela Under the Supervision of: Dr. Loki Sotelo M.D. First contact with patient: 19:30 Chief Complaint: SWELLING TO EXTREMITY Stated Complaint: FLUID BUILD UP IN LUNGS AND LEGS-DISCHARGED 07/20 History of Present Illness The patient is a 87 year old male who presents to the Emergency Room with family complaints of severe, constant swelling in his ankles and feet beginning several months ago. The patient's family states that the patient's swelling is chronic and notes that the patient currently takes a water pill to treat the swelling. The patient's family reports that the patient is diabetic and has been admitted to the hospital several times in the past few weeks due to his diabetic symptoms. The patient's family reports that the patient was discharged from the hospital yesterday after being admitted on Sunday for sugar levels of 535. The patient's family notes that the patient fell this morning by sliding off of his couch; the patient did not sustain any injuries secondary to the fall. The patient's family notes that the patient has been very weak today. The patient's son reports that the patient's sugar levels were 217 at 0700 and were 272 at 1700. He also notes that the patient weighed 213 lbs today. The patient denies any chest pain, but notes shortness of breath since early this afternoon. Source of History: patient, family Onset: several months ago Position: leg (bilateral), ankle (bilateral), foot (bilateral) Symptom Intensity: severe Quality: other (swelling) Timing: constant Associated Symptoms: + SOB, No chest pain Note: Associated Symptoms: Hyperglycemia. Review of Systems As above. All other systems reviewed were negative unless otherwise stated in history. At least 10 were reviewed Past Medical & Surgical Medical Problems: (1) Acute kidney injury (2) Acute on chronic renal failure (3) Anemia (4) CHF exacerbation (5) CKD stage 3 due to type 2 diabetes mellitus (6) Hyperglycemia (7) Hyperkalemia (8) Microscopic hematuria (9) Proteinuria (10) Tachycardia Old medical records were reviewed. Nurse's notes were reviewed and I agree with. Family History FHx: COPD (chronic obstructive pulmonary disease) FHx: diabetes mellitus Social History Smoking Status: Never Smoker Drug Use: none Marital Status: Occupation Status: retired Current/Historical Medications Scheduled Amiodarone Hcl (Cordarone), 200 MG PO BID Apixaban (Eliquis), 2.5 MG PO BID Aspirin (Aspirin Ec), 81 MG PO QAM Atorvastatin (Lipitor), 40 MG PO QAM Ferrous Gluconate (Ferrous Gluconate), 324 MG PO QAM Furosemide (Lasix), 40 MG PO QAM Insulin Glargine (Lantus Solostar), 15 UNITS SC DAILY Levothyroxine Sodium (Levothyroxine Sodium), 1 TAB PO QAM Metoprolol Tartrate (Lopressor) (Lopressor), 25 MG PO BID Omeprazole (Prilosec), 40 MG PO QAM Potassium Ext Rel (Klor-Con), 20 MEQ PO HS Sitagliptin (Januvia), 50 MG PO HS Allergies Coded Allergies: No Known Allergies (Verified , 07/21/17) Physical Exam Vital Signs Date Time Temp Pulse Resp B/P (MAP) Pulse Ox O2 Delivery O2 Flow Rate FiO2 07/21/17 22:30 93 20 124/87 97 Room Air 07/21/17 22:01 89 07/21/17 21:30 83 20 133/77 97 Room Air 07/21/17 19:30 97 Room Air 07/21/17 19:12 36.5 64 22 112/64 99 Room Air Physical Exam General: Chronically-ill appearing older male in no acute distress. Sleepy but easily arousable. HEENT: Normal cephalic atraumatic. Pupils are equal round and reactive to light. Extraocular movements are intact. Oropharynx is pink with moist mucous membranes. No swelling of the mouth lips or tongue. Neck: Supple with a midline trachea. No meningeal signs or stiffness, no JVD or bruits. No Stridor. Chest: Clear to auscultation bilaterally. No wheezes or rhonchi. No increased work of breathing. Heart: regular rate and rhythm. Lungs: Upper respiratory wheezing Abdomen: Soft nontender, nondistended without rebound guarding or rigidity. Extremities: No cyanosis clubbing or edema. No calf tenderness or assymetry. 2+ pitting edema of bilateral lower extremities Spine/Back. Non tender to palpation. No CVA tenderness Skin: Good turgor without rashes. Neurologic exam: Cranial nerves two through 12 are intact. Motor and sensation are intact and symmetrical throughout. Medical Decision & Procedures ER Provider Diagnostic Interpretation: Chest x-ray per my interpretation reveals no pneumothorax, failure, or infiltrate. CHEST ONE VIEW PORTABLE CLINICAL HISTORY: CHEST PAIN dyspnea COMPARISON STUDY: 07/09/2017 FINDINGS: Increased pulmonary vasculature. Slight increase in bilateral pleural effusions. IMPRESSION: Developing and/or slightly progressive congestive heart failure. The above report was generated using voice recognition software. It may contain grammatical, syntax or spelling errors. Electronically signed by: Tera Liu M.D. 07/21/2017 8:55 PM Dictated Date/Time: 07/21/2017 8:54 PM Laboratory Results 07/21/17 21:37 Red Blood Count 3.57, Mean Corpuscular Volume 81.0, Mean Corpuscular Hemoglobin 25.8, Mean Corpuscular Hemoglobin Concent 31.8, Mean Platelet Volume 10.6, Neutrophils (%) (Auto) 79.7, Lymphocytes (%) (Auto) 8.8, Monocytes (%) (Auto) 10.8, Eosinophils (%) (Auto) 0.4, Basophils (%) (Auto) 0.1, Neutrophils # (Auto ) 9.18, Lymphocytes # (Auto) 1.02, Monocytes # (Auto) 1.25, Eosinophils # (Auto ) 0.05, Basophils # (Auto) 0.01 07/21/17 21:37 Test 07/21/17 21:37 White Blood Count 11.53 K/uL (4.8-10.8) Red Blood Count 3.57 M/uL (4.7-6.1) Hemoglobin 9.2 g/dL (14.0-18.0) Hematocrit 28.9 % (42-52) Mean Corpuscular Volume 81.0 fL (80-100) Mean Corpuscular Hemoglobin 25.8 pg (25-34) Mean Corpuscular Hemoglobin Concent 31.8 g/dl (32-36) Platelet Count 506 K/uL (130-400) Mean Platelet Volume 10.6 fL (7.4-10.4) Neutrophils (%) (Auto) 79.7 % Lymphocytes (%) (Auto) 8.8 % Monocytes (%) (Auto) 10.8 % Eosinophils (%) (Auto) 0.4 % Basophils (%) (Auto) 0.1 % Neutrophils # (Auto) 9.18 K/uL (1.4-6.5) Lymphocytes # (Auto) 1.02 K/uL (1.2-3.4) Monocytes # (Auto) 1.25 K/uL (0.11-0.59) Eosinophils # (Auto) 0.05 K/uL (0-0.5) Basophils # (Auto) 0.01 K/uL (0-0.2) RDW Standard Deviation 53.5 fL (36.4-46.3) RDW Coefficient of Variation 19.0 % (11.5-14.5) Immature Granulocyte % (Auto) 0.2 % Immature Granulocyte # (Auto) 0.02 K/uL (0.00-0.02) Prothrombin Time 11.7 SECONDS (9.0-12.0) Prothromb Time International Ratio 1.1 (0.9-1.1) Activated Partial Thromboplast Time 30.1 SECONDS (21.0-31.0) Partial Thromboplastin Ratio 1.2 Anion Gap 8.0 mmol/L (3-11) Estimated GFR () 17.4 Estimated GFR (Non- 15.0 BUN/Creatinine Ratio 15.5 (10-20) Calcium Level 7.6 mg/dl (8.5-10.1) Total Bilirubin 0.4 mg/dl (0.2-1) Direct Bilirubin 0.2 mg/dl (0-0.2) Aspartate Amino Transf (AST/SGOT) 24 U/L (15-37) Alanine Aminotransferase (ALT/SGPT) 23 U/L (12-78) Alkaline Phosphatase 183 U/L (45-117) Troponin I 0.046 ng/ml (0-0.045) Pro-B-Type Natriuretic Peptide 75179 pg/ml (0-1800) Total Protein 6.7 gm/dl (6.4-8.2) Albumin 2.3 gm/dl (3.4-5.0) Lipase 352 U/L (73-393) Laboratory studies as stated above per my review. ECG Per My Interpretation Indication: SOB/dyspnea Rate (beats per minute): 70 Rhythm: atrial fibrillation Findings: no acute ischemic change Comparison ECG Date: July 15 2017 Change: Compared to previous EKG, rate has decreased ED Course 1931: Past medical records reviewed. The patient was evaluated in room B7, and a complete history and physical examination were performed. 2017: I reevaluated the patient, he is resting comfortably. 2119: I reevaluated the patient, he is receiving IV treatment. 2131: I discussed the patient's case with Dr. Sohan WEBB, he will evaluate the patient for further treatment and care. Medical Decision Differential diagnoses include:CHF, renal insufficiency, cardiac disease, infection, electrolyte or metabolic abnormality This patient comes in as described above. He was just discharged in the hospital yesterday after having a prolonged stay of about a week. He has been having trouble with A. fib as well as CHF and renal insufficiency it has been a delicate balance. The felt that he is much more weak today when home nursing saw him he has increasing peripheral edema and felt short of breath although not necessarily new. IV access established. EKG, chest x-ray, and multiple blood testing was obtained. On exam he does have peripheral edema that is significant. His chest x-ray shows some mild congestive changes as well. EKG shows atrial fibrillation that is rate controlled without ischemia. Troponin is minimally elevated. Of concern however his BUN and creatinine are significantly elevated compared to yesterday. His BUN is 54 up from 43 and his creatinine is 3.5 up from 2.7. It may be that he is over diuresed and feeling weak because of this. It is also possible that he is intravascularly dry but over loaded with interstitial fluid. He does have baseline anemia. He does have a white count but no fever to suggest infection. He does need to be re- admitted to the hospital for further treatment and evaluation. Medication Reconcilliation Current Medication List: was personally reviewed by me Blood Pressure Screening Patient's blood pressure: Normal blood pressure Consults Time Called: 2127 Consulting Physician: Dr. Sohan Flores [facility] Returned Call: 2131 I discussed the patient's case with Dr. Sohan OLMOS, he will evaluate the patient for further treatment and care. Impression Primary Impression: Renal failure Additional Impressions: CHF (congestive heart failure) Weakness Scribe Attestation The scribe's documentation has been prepared under my direction and personally reviewed by me in its entirety. I confirm that the note above accurately reflects all work, treatment, procedures, and medical decision making performed by me. Departure Information Dispostion Being Evaluated By Hospitalist Referrals Fred Wilder M.D. (PCP) Patient Instructions My [facility] Problem Qualifiers
[2017-07-21] MEDS ORDERED: APIX1TAB PO (20:12)
[2017-07-21] MEDS ORDERED: SITA50TA3 PO (20:12)
[2017-07-21] MEDS ORDERED: FURO-85 PO (20:12)
[2017-07-21] MEDS ORDERED: POTA20TA16 PO (20:12)
[2017-07-21] MEDS ORDERED: METO25TA56 PO (20:12)
[2017-07-21] MEDS ORDERED: INSDGIPEN SC (20:12)
[2017-07-21] MEDS ORDERED: AMIO200T4 PO (20:12)
--- NOTE | 2017-07-21 20:56 | DIAGNOSTIC IMAGING REPORT ---
CHEST ONE VIEW PORTABLE CLINICAL HISTORY: CHEST PAIN dyspnea COMPARISON STUDY: 07/09/2017 FINDINGS: Increased pulmonary vasculature. Slight increase in bilateral pleural effusions. IMPRESSION: Developing and/or slightly progressive congestive heart failure. The above report was generated using voice recognition software. It may contain grammatical, syntax or spelling errors. Electronically signed by: Tera Liu M.D. 07/21/2017 8:55 PM Dictated Date/Time: 07/21/2017 8:54 PM
[2017-07-21 21:59] LABS: BASO % 0.1 %; BASO ABS # 0.01 K/uL (0-0.2); EOS % 0.4 %; EOS ABS # 0.05 K/uL (0-0.5); HEMATOCRIT 28.9 % (42-52); HEMOGLOBIN 9.2 g/dL (14.0-18.0); IG# 0.02 K/uL (0.00-0.02); LYMPH % 8.8 %; LYMPH ABS # 1.02 K/uL (1.2-3.4); MEAN CORPUSCULAR HEMOGLOBIN 25.8 pg (25-34); MEAN CORPUSCULAR HGB CONC 31.8 g/dl (32-36); MEAN PLATELET VOLUME 10.6 fL (7.4-10.4); MONO % 10.8 %; MONO ABS # 1.25 K/uL (0.11-0.59); NEUT % 79.7 %; NEUT ABS # 9.18 K/uL (1.4-6.5); PLATELET COUNT 506 K/uL (130-400); RED CELL DISTRIBUTION WIDTH SD 53.5 fL (36.4-46.3); WHITE BLOOD COUNT 11.53 K/uL (4.8-10.8)
[2017-07-21 22:04] LABS: INR 1.1 (0.9-1.1); PTT PATIENT 30.1 SECONDS (21.0-31.0)
[2017-07-21 22:18] LABS: ALBUMIN 2.3 gm/dl (3.4-5.0); ALT/SGPT 23 U/L (12-78); BLOOD UREA NITROGEN 54 mg/dl (7-18); CALCIUM 7.6 mg/dl (8.5-10.1); CARBON DIOXIDE 22 mmol/L (21-32); CREATININE 3.48 mg/dl (0.60-1.40); GLUCOSE 276 mg/dl (70-99); LIPASE 352 U/L (73-393); SODIUM 134 mmol/L (136-145)
[2017-07-21 22:33] LABS: ALKALINE PHOSPHATASE 183 U/L (45-117); AST/SGOT 24 U/L (15-37); TOTAL PROTEIN 6.7 gm/dl (6.4-8.2)
[2017-07-21] MEDS ORDERED: ACETAMINOPHEN 325 MG TAB PO PRN (23:15)
[2017-07-21] MEDS ORDERED: POLYETHYLENE (MIRALAX) 17 GM PACK PO PRN (23:15)
[2017-07-21] MEDS ORDERED: MoRPHine SULFATE 2 MG/ML CARP IV PRN (23:15)
[2017-07-21] MEDS ORDERED: MAGNESIUM HYDROXIDE SUSP 30 ML UDC PO PRN (23:15)
[2017-07-21] MEDS ORDERED: ONDANSETRON INJ 2 MG/ML 2 ML VIAL IV PRN (23:15)
[2017-07-21] MEDS ORDERED: ALUMINUM/MAGNESIUM/SIMETH (MAALOX MAX) 30 ML UDC PO PRN (23:15)
--- NOTE | 2017-07-21 23:44 | History and Physical ---
History & Physical Date & Time of Service: Jul 21, 2017 at 22:44 Chief Complaint: Fluid Build Up In Lungs And Legs-Discharged 07/20 Primary Care Physician: Fred Wilder M.D. History of Present Illness Source: patient, hospital records 87 y/o M Hx diastolic CHF, CKD IV, chronic AF, hypothyroidism, HTN, HPL, DM II, anemia, suspected metastatic CA. Multiple recent admissions for volume overload and worsening renal function. The pt was DCd from the hospital one day prior and returns with progressive SOB and weakness. His CHF has been challenging to manage as his renal function tends to worsen when additional diuresis is provided for volume overload. He is maintaining an adequate saturation on admission but is noticeably tachypneic. He denies CP, N/V, dysuria, fevers. Past Medical/Surgical History 1) DM II - poorly controlled - HbA1c 10.2 05/24. 2) Chronic diastolic CHF 3) Hypertension 4) CKD III-IV - recent baseline creatinine 2.5 5) Diastolic CHF 6) Anemia of chronic disease - baseline Hb 9.0 7) Chronic atrial fibrillation 8) Protein malnutrition 9) Recent incidental finding of multiple liver lesions on CT 07/16/17- suspected metastatic disease - a colonoscopy was undertaken due to these findings which was clean 10) Potential right infrahilar nodularity/mass on CT 07/16/17 11) Chronic hematuria and proteinuria 12) Pleural effusions Family History FHx: COPD (chronic obstructive pulmonary disease) FHx: diabetes mellitus Social History Smoking Status: Never Smoker Drug Use: none Marital Status: Housing status: lives with family Occupational Status: retired Immunizations History of Influenza Vaccine: Yes Influenza Vaccine Date: May 02, 2007 History of Tetanus Vaccine?: Unknown History of Pneumococcal: Unknown History of Hepatitis B Vaccine: Unknown Allergies Coded Allergies: No Known Allergies (Verified , 07/21/17) Home Medications Scheduled Amiodarone Hcl (Cordarone), 200 MG PO BID Apixaban (Eliquis), 2.5 MG PO BID Aspirin (Aspirin Ec), 81 MG PO QAM Atorvastatin (Lipitor), 40 MG PO QAM Ferrous Gluconate (Ferrous Gluconate), 324 MG PO QAM Furosemide (Lasix), 40 MG PO QAM Insulin Glargine (Lantus Solostar), 15 UNITS SC DAILY Levothyroxine Sodium (Levothyroxine Sodium), 1 TAB PO QAM Metoprolol Tartrate (Lopressor) (Lopressor), 25 MG PO BID Omeprazole (Prilosec), 40 MG PO QAM Potassium Ext Rel (Klor-Con), 20 MEQ PO HS Sitagliptin (Januvia), 50 MG PO HS Review of Systems Constitutional: + weakness, No fever, No chills, No sweats Eyes: No worsening of vision ENT: No hearing loss, No unusual epistaxis, No nasal symptoms Respiratory: + wheezing, + shortness of breath, + dyspnea on exertion, + dyspnea at rest, No cough, No sputum Cardiovascular: No chest pain, No orthopnea, No PND Abdomen: No pain, No nausea, No vomiting Musculoskeletal: No joint pain Genitourinary - Male: No hematuria, No dysuria Neurologic: + weakness, No memory loss, No paralysis Psychiatric: No depression symptoms Endocrine: + fatigue Hematologic / Lymphatic: No abnormal bleeding/bruising Integumentary: No rash Allergic / Immunologic: No environmental allergies Physical Exam Vital Signs Date Time Temp Pulse Resp B/P (MAP) Pulse Ox O2 Delivery O2 Flow Rate FiO2 07/21/17 22:01 89 07/21/17 21:30 83 20 133/77 97 Room Air 07/21/17 19:12 36.5 64 22 112/64 99 Room Air General Appearance: + pertinent finding (Pleasant elderly male - AAO - hard of hearing - tachypneic - no distress) Head: normocephalic Eyes: normal inspection ENT: normal ENT inspection, pharynx normal Neck: supple, + pertinent finding (There is minimal JVD) Respiratory/Chest: chest non-tender, + pertinent finding (Poor air movement, no air entry at bases, end expiratory wheezing appears to be originating form large airway) Cardiovascular: regular rate, rhythm, no edema, no gallop Abdomen/GI: normal bowel sounds, non tender, soft Back: normal inspection, no CVA tenderness Extremities/Musculoskelatal: + pertinent finding (2+ BL edema - pulses (+)) Neurologic/Psych: + pertinent finding (The pt is lethargic, oriented - no focal signs) Skin: normal color Diagnostics Laboratory Results Results Past 24 Hours Test 07/21/17 21:37 Range/Units White Blood Count 11.53 4.8-10.8 K/uL Red Blood Count 3.57 4.7-6.1 M/uL Hemoglobin 9.2 14.0-18.0 g/dL Hematocrit 28.9 42-52 % Mean Corpuscular Volume 81.0 80-100 fL Mean Corpuscular Hemoglobin 25.8 25-34 pg Mean Corpuscular Hemoglobin Concent 31.8 32-36 g/dl Platelet Count 506 130-400 K/uL Mean Platelet Volume 10.6 7.4-10.4 fL Neutrophils (%) (Auto) 79.7 % Lymphocytes (%) (Auto) 8.8 % Monocytes (%) (Auto) 10.8 % Eosinophils (%) (Auto) 0.4 % Basophils (%) (Auto) 0.1 % Neutrophils # (Auto) 9.18 1.4-6.5 K/uL Lymphocytes # (Auto) 1.02 1.2-3.4 K/uL Monocytes # (Auto) 1.25 0.11-0.59 K/uL Eosinophils # (Auto) 0.05 0-0.5 K/uL Basophils # (Auto) 0.01 0-0.2 K/uL RDW Standard Deviation 53.5 36.4-46.3 fL RDW Coefficient of Variation 19.0 11.5-14.5 % Immature Granulocyte % (Auto) 0.2 % Immature Granulocyte # (Auto) 0.02 0.00-0.02 K/uL Prothrombin Time 11.7 9.0-12.0 SECONDS Prothromb Time International Ratio 1.1 0.9-1.1 Activated Partial Thromboplast Time 30.1 21.0-31.0 SECONDS Partial Thromboplastin Ratio 1.2 Sodium Level 134 136-145 mmol/L Potassium Level 5.0 3.5-5.1 mmol/L Chloride Level 104 98-107 mmol/L Carbon Dioxide Level 22 21-32 mmol/L Anion Gap 8.0 3-11 mmol/L Blood Urea Nitrogen 54 7-18 mg/dl Creatinine 3.48 0.60-1.40 mg/dl Estimated GFR () 17.4 Estimated GFR (Non- 15.0 BUN/Creatinine Ratio 15.5 10-20 Random Glucose 276 70-99 mg/dl Calcium Level 7.6 8.5-10.1 mg/dl Total Bilirubin 0.4 0.2-1 mg/dl Direct Bilirubin 0.2 0-0.2 mg/dl Aspartate Amino Transf (AST/SGOT) 24 15-37 U/L Alanine Aminotransferase (ALT/SGPT) 23 12-78 U/L Alkaline Phosphatase 183 45-117 U/L Troponin I 0.046 0-0.045 ng/ml Pro-B-Type Natriuretic Peptide 48652 0-1800 pg/ml Total Protein 6.7 6.4-8.2 gm/dl Albumin 2.3 3.4-5.0 gm/dl Lipase 352 73-393 U/L Diagnostic Radiology CXR 07/21 Increased vascular marking and increased size of pleural effusions CT abdomen 07/16/17 - Innumerable bilobar hepatic lesions highly suggestive of metastatic disease. Primary liver malignancy with satellite lesions could appear similar. - Numerous sclerotic bone metastases. - Indeterminate 4 cm mass-like right lower lobe density. - Moderate to large right and small left pleural effusions. - Horseshoe type kidney with marked hydronephrosis and cortical atrophy of the left renal moiety. CT chest 07/16/17 - R infrahilar mass EKG AF - rate controlled - no morphological change from previous Impression Assessment and Plan 87 y/o M Hx diastolic CHF, CKD IV, chronic AF, hypothyroidism, HTN, HPL, DM II, anemia, suspected metastatic CA. Multiple recent admissions for volume overload and worsening renal function. The pt was DCd from the hospital one day prior and returns with progressive SOB and weakness. His CHF has been challenging to manage as his renal function tends to worsen when additional diuresis is provided for volume overload. He is maintaining an adequate saturation on admission but is noticeably tachypneic. He denies CP, N/V, dysuria, fevers. 1) SOB and weakness - CHF exacerbation - exam and imaging indicate a degree of volume overload. Despite his worsening renal function, we will need to provide diuretics. We will start IV Bumex, however, additional doses will be held pending AM labs and clinical reassessment. His bander hand will be consulted. Will continue Metoprolol. NTG applied overnight. 02 protocol. I/O, daily weight requested. 2) CKD III - IV - acute on chronic RF - we will consult nephrology. BMP will be trended following administration of diuretics 3) AF - rate is controlled - cont Amio, Apixaban, Metoprolol 4) DM II - placed on sliding scale 5) Anemia - Hb at baseline - cont Iron 6) HTN/HPL - cont statin, Metoprolol 7) Trop is elevated - on review of labs, this is chronic and currently below baseline value. 8) Hypothyroid - cont Synthroid 9) Suspicion of met CA - considering his multiple acute issues which do not appear to be improving, it would be reasonable to discontinue any further workup at present. He would not be a candidate for chemotherapy or major surgery and the disease does not appear to be causing any significant discomfort in itself. I have discussed this with family. Regarding his disposition, if he is unable to respond to diuretics or his renal function worsens, he is not a good candidate for dialysis. It may be prudent to broach the topic of palliative care with family if he does not respond well to current treatment. We did begin this discussion with them at the tome of admission. Full code - Apixaban prophylaxis Total time for this admit including review of labs, meds, imaging, EKG, records - discussion with pt family, ER attending - 48 min Resuscitation Status VTE Prophylaxis Will order VTE Prophylaxis: Yes
[2017-07-21] MEDS ORDERED: DEXTROSE 50% 50 ML SYR IV PRN (23:45)
[2017-07-21] MEDS ORDERED: GLUCAGON FOR INJ 1 MG VIAL SQ PRN (23:45)
[2017-07-21] MEDS ORDERED: GLUCOSE 10 TABS/TUBE PO PRN (23:45)
[2017-07-21] MEDS ORDERED: GLUCOSE 40% GEL 15 GM TUBE PO PRN (23:45)
[2017-07-21] MEDS ORDERED: ALBUTEROL 0.083% NEBU SOLN 3 ML VIAL INH STA (23:48)
[2017-07-21] MEDS ORDERED: NITROGLYCERIN 2% OINTMENT 30GM TUBE EXT STA (23:52)
[2017-07-22] VITALS (10 sets, daily range): BP systolic 107–129; BP diastolic 69–90; PULSE 77–98; TEMP 36.2–37; O2SAT 94–99; BMI 28.8
[2017-07-22] MEDS ORDERED: BUMETANIDE SOLN 1 MG/4 ML VIAL IV ONE
[2017-07-22] MEDS ORDERED: BUMETANIDE IV 1 MG in SYRINGE 0 ML IV ONE ×2 (00:30→07:45)
[2017-07-22] MEDS: INSULIN ASPART 100 UNITS/ML 3 ML PEN SC SCH ×5 (00:36→20:19)
[2017-07-22 05:59] LABS: HEMATOCRIT 26.9 % (42-52); HEMOGLOBIN 8.4 g/dL (14.0-18.0); MEAN CELL VOLUME 80.8 fL (80-100); MEAN CORPUSCULAR HEMOGLOBIN 25.2 pg (25-34); MEAN CORPUSCULAR HGB CONC 31.2 g/dl (32-36); MEAN PLATELET VOLUME 10.3 fL (7.4-10.4); PLATELET COUNT 455 K/uL (130-400); RED CELL DISTRIBUTION WIDTH SD 54.1 fL (36.4-46.3); WHITE BLOOD COUNT 9.93 K/uL (4.8-10.8)
[2017-07-22] MEDS: LEVOTHYROXINE 50 MCG TAB PO SCH (06:00)
[2017-07-22 06:13] LABS: CREATININE 3.41 mg/dl (0.60-1.40); POTASSIUM 4.6 mmol/L (3.5-5.1)
[2017-07-22 06:14] LABS: PHOSPHORUS 3.2 mg/dl (2.5-4.9)
[2017-07-22] MEDS: AMIODARONE 200 MG TAB PO SCH ×2 (08:36→20:11)
[2017-07-22] MEDS: ATORVASTATIN 40 MG TAB PO SCH (08:37)
[2017-07-22] MEDS: APIXABAN 2.5 MG TAB PO SCH ×2 (08:37→20:11)
[2017-07-22] MEDS: ASPIRIN 81 MG ECTAB PO SCH (08:37)
[2017-07-22] MEDS: FERROUS GLUCONATE 324 MG TAB PO SCH (08:37)
[2017-07-22] MEDS: PANTOprazole SOD 40 MG TAB PO SCH (08:38)
[2017-07-22] MEDS: METOPROLOL TARTRATE 25 MG TAB PO SCH ×2 (08:38→20:11)
[2017-07-22] MEDS: INSULIN GLARGINE SOLOSTAR 100 UNITS/ML 3 ML PEN SC SCH (08:41)
[2017-07-22] MEDS ORDERED: FUROSEMIDE 20 MG TAB PO SCH (09:00)
[2017-07-22] MEDS ORDERED: NURSING VERBAL MED ORDER ONE ×2 (10:15)
--- NOTE | 2017-07-22 13:56 | Nephrology Consultation ---
Nephrology Consultation Date & Providers Date of Consultation: Jul 22, 2017. Primary Care Provider: Fred Wilder M.D. Referring Provider: Reason for Consultation Acute on chronic kidney injury History of Present Illness Mr. Menjivar is an 87 year old white male who is seen at the request of Dr. Parry. Medical records in the hospital EMR were reviewed today and are summarized as follows: Mr. Menjivar has CKD stage IV w/ baseline creatinine 1.7 (EGFR 38 cc/min) , horseshoe kidney, AODM, hypothyroidism, HTN and chronic anemia. Mr. Menjivar was hospitalized 07/09 - 07/11 due to diastolic CHF. He was started on Furosemide 40 mg daily and his weight at time of discharge was 88kg. Mr. Menjivar was readmitted 07/15 - 07/20 with new onset atrial fibrillation, anemia and hematochezia. His rate was controlled w/ Metoprolol. He was started on Amiodarone and Eliquis. He developed anemia and hematochezia. Abdominal CT revealed multiple liver lesions concerning for metastatic disease. Colonoscopy was negative for colon cancer. Mr. Menjivar was scheduled for outpatient for FNA of his liver lesions. At the time of discharge creatinine had stabilized at 2.7. Mr. Menjivar reports that upon returning home yesterday he developed progressive ankle edema, weakness and dyspnea. He was brought back by his family for reevaluation. CXR is c/w mild CHF. Hgb has dropped to 8.4 and creatinine has risen further to 3.4. Past Medical/Surgical History Medical: # AODM # Hypothyroidism # HTN # CKD III-IV (baseline creatinine 1.7 mg/dL) # Diastolic CHF (Echocardiogram 07/09/17: LVEF 55% w/ moderate LVH) # Chronic anemia Allergies Coded Allergies: No Known Allergies (Verified , 07/21/17) Inpatient Medications Current Inpatient Medications Medications (Trade) Dose Ordered Sig/Bg Route Start Time Stop Time Status Last Admin Dose Admin Amiodarone HCl (Cordarone Tab) 200 mg BID PO 07/22/17 09:00 08/21/17 08:59 07/22/17 08:36 200 MG Apixaban (Eliquis Tab) 2.5 mg BID PO 07/22/17 09:00 08/21/17 08:59 07/22/17 08:37 2.5 MG Aspirin (Ecotrin Tab) 81 mg QAM PO 07/22/17 09:00 08/21/17 08:59 07/22/17 08:37 81 MG Atorvastatin Calcium (Lipitor Tab) 40 mg QAM PO 07/22/17 09:00 08/21/17 08:59 07/22/17 08:37 40 MG Ferrous Gluconate (Ferrous Gluconate Tab) 324 mg QAM PO 07/22/17 09:00 08/21/17 08:59 07/22/17 08:37 324 MG Insulin Glargine (Lantus Solostar Pen) 15 units DAILY SC 07/22/17 09:00 08/21/17 08:59 07/22/17 08:41 15 UNITS Levothyroxine Sodium (Synthroid Tab) 50 mcg DAILYBB PO 07/22/17 06:00 08/21/17 05:59 07/22/17 06:00 50 MCG Metoprolol Tartrate (Lopressor Tab) 25 mg BID PO 07/22/17 09:00 08/21/17 08:59 07/22/17 08:38 25 MG Pantoprazole Sodium (Protonix Tab) 40 mg QAM PO 07/22/17 09:00 08/21/17 08:59 07/22/17 08:38 40 MG Insulin Aspart (novoLOG ASPART) SLIDING SCALE G... ACHS SC 07/22/17 07:00 08/21/17 06:59 07/22/17 12:01 6 UNITS Acetaminophen (Tylenol Tab) 650 mg Q4H PRN PO 07/21/17 23:15 08/20/17 23:14 Al Hydrox/Mg Hydrox/Simethicone (Maalox Max Susp) 15 ml Q4H PRN PO 07/21/17 23:15 08/20/17 23:14 Magnesium Hydroxide (Milk Of Magnesia Susp) 30 ml Q12H PRN PO 07/21/17 23:15 08/20/17 23:14 Ondansetron HCl (Zofran Inj) 4 mg Q6H PRN IV 07/21/17 23:15 08/20/17 23:14 Morphine Sulfate (MoRPHine SULFATE INJ) 2 mg Q30M PRN IV 07/21/17 23:15 08/04/17 23:14 Polyethylene (Miralax Powder Packet) 17 gm DAILY PRN PO 07/21/17 23:15 08/20/17 23:14 Glucose (Glucose 40% Gel) 15-30 GRAMS 15 GRAMS... UD PRN PO 07/21/17 23:45 08/20/17 23:44 Glucose (Glucose Chew Tab) 4-8 Tablets 4 Tabl... UD PRN PO 07/21/17 23:45 08/20/17 23:44 Dextrose (Dextrose 50% 50ML Syringe) 25-50ML OF 50% DW IV FOR... UD PRN IV 07/21/17 23:45 08/20/17 23:44 Glucagon (Glucagon Inj) 1 mg UD PRN SQ 07/21/17 23:45 08/20/17 23:44 Albuterol/ Ipratropium (Duoneb) 3 ml Q6R INH 07/22/17 15:00 08/21/17 14:59 Albuterol/ Ipratropium (Duoneb) 3 ml Q2H PRN INH 07/22/17 10:15 08/21/17 10:14 Family History Family history was reviewed; no changes noted. Negative for CKD / ESRD Social History Smoking Status: Never Smoker Drug Use: none Marital Status: Housing Status: lives with family Occupation: retired . Retired. Never a smoker Review of Systems Constitutional: No fever Cardiovascular: No chest pain Abdomen: No pain, No diarrhea Genitourinary - Male: No hematuria A complete review of systems was performed. Pertinent positives are noted above. All other systems are negative. Physical Exam Date Time Temp Pulse Resp B/P (MAP) Pulse Ox O2 Delivery O2 Flow Rate FiO2 07/22/17 12:00 36.4 81 20 121/76 (91) 97 Room Air 07/22/17 12:00 Room Air 07/22/17 08:13 37.0 98 18 110/69 (83) 96 07/22/17 08:00 Room Air 07/22/17 04:00 Room Air 07/22/17 03:24 36.8 98 17 110/78 (89) 96 Room Air 07/22/17 00:25 89 20 Room Air 95 07/22/17 00:00 36.4 90 20 123/90 98 Room Air 07/21/17 23:30 92 18 122/75 97 Room Air 07/21/17 22:30 93 20 124/87 97 Room Air 07/21/17 22:01 89 07/21/17 21:30 83 20 133/77 97 Room Air 07/21/17 19:30 97 Room Air 07/21/17 19:12 36.5 64 22 112/64 99 Room Air General Appearance: no apparent distress Head: normocephalic, atraumatic Eyes: PERRL, EOMI Neck: no adenopathy Respiratory/Chest: + rales, + wheezing Cardiovascular: + irregularly irregular Abdomen/GI: normal bowel sounds, non tender, soft Extremities/Musculoskelatal: + swelling (2+ pretibial pitting edema) Neurologic/Psych: alert, oriented x 3 Laboratory Results Last 24 Hours Test 07/21/17 21:37 07/22/17 00:02 07/22/17 05:22 07/22/17 11:11 White Blood Count 11.53 K/uL 9.93 K/uL Red Blood Count 3.57 M/uL 3.33 M/uL Hemoglobin 9.2 g/dL 8.4 g/dL Hematocrit 28.9 % 26.9 % Mean Corpuscular Volume 81.0 fL 80.8 fL Mean Corpuscular Hemoglobin 25.8 pg 25.2 pg Mean Corpuscular Hemoglobin Concent 31.8 g/dl 31.2 g/dl Platelet Count 506 K/uL 455 K/uL Mean Platelet Volume 10.6 fL 10.3 fL Neutrophils (%) (Auto) 79.7 % Lymphocytes (%) (Auto) 8.8 % Monocytes (%) (Auto) 10.8 % Eosinophils (%) (Auto) 0.4 % Basophils (%) (Auto) 0.1 % Neutrophils # (Auto) 9.18 K/uL Lymphocytes # (Auto) 1.02 K/uL Monocytes # (Auto) 1.25 K/uL Eosinophils # (Auto) 0.05 K/uL Basophils # (Auto) 0.01 K/uL RDW Standard Deviation 53.5 fL 54.1 fL RDW Coefficient of Variation 19.0 % 19.0 % Immature Granulocyte % (Auto) 0.2 % Immature Granulocyte # (Auto) 0.02 K/uL Prothrombin Time 11.7 SECONDS Prothromb Time International Ratio 1.1 Activated Partial Thromboplast Time 30.1 SECONDS Partial Thromboplastin Ratio 1.2 Sodium Level 134 mmol/L 136 mmol/L Potassium Level 5.0 mmol/L 4.6 mmol/L Chloride Level 104 mmol/L 105 mmol/L Carbon Dioxide Level 22 mmol/L 23 mmol/L Anion Gap 8.0 mmol/L 9.0 mmol/L Blood Urea Nitrogen 54 mg/dl 53 mg/dl Creatinine 3.48 mg/dl 3.41 mg/dl Estimated GFR () 17.4 17.8 Estimated GFR (Non- 15.0 15.4 BUN/Creatinine Ratio 15.5 15.6 Random Glucose 276 mg/dl 211 mg/dl Calcium Level 7.6 mg/dl 8.0 mg/dl Total Bilirubin 0.4 mg/dl Direct Bilirubin 0.2 mg/dl Aspartate Amino Transf (AST/SGOT) 24 U/L Alanine Aminotransferase (ALT/SGPT) 23 U/L Alkaline Phosphatase 183 U/L Troponin I 0.046 ng/ml Pro-B-Type Natriuretic Peptide 61337 pg/ml 63174 pg/ml Total Protein 6.7 gm/dl Albumin 2.3 gm/dl Lipase 352 U/L Bedside Glucose 304 mg/dl 238 mg/dl Est Creatinine Clear Calc Drug Dose 18.7 ml/min Phosphorus Level 3.2 mg/dl Magnesium Level 1.8 mg/dl Thyroid Stimulating Hormone (TSH) 4.410 uIu/ml Impression (1) Acute kidney injury (2) CKD stage 3 due to type 2 diabetes mellitus (3) Diastolic CHF (4) Liver masses (5) Atrial fibrillation (6) Iron deficiency anemia (7) Diabetes Recommendations ACUTE KIDNEY INJURY: -- Clinically suspect congestive kidney failure on the basis of diastolic CHF -- 07/22 Renal US report reviewed: Horseshoe kidney w/ multiple simple cysts, no hydronephrosis -- Will obtain urinalysis w/ microscopy -- Patient appears clinically volume overloaded. Start Furosemide 40 mg IV BID. EDW previously set at 88 kg. Monitor UO, wt and kidney function CHRONIC KIDNEY DISEASE: -- Baseline creatinine 1.7 ANEMIA: -- Iron saturation < 30% w/ Ferritin < 200. Will start Venofer 100 mg IV daily x 10 days -- Monitor H&H GI: -- Outpatient FNA of liver lesions...possible metastatic disease CV: -- On Amiodarone and Eliquis
[2017-07-22] MEDS: ALBUT/IPRATROP 3MG/0.5MG NEB 3 ML VIAL INH SCH ×2 (14:13→19:06)
--- NOTE | 2017-07-22 14:37 | Progress Note ---
Subjective Date of Service: Jul 22, 2017. 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/ wealth management consultant, review of inpatient medication list Generally feeling much better, better shortness of breath, better wheezing, sole lower extremity swelling is better too Problem List Medical Problems: (1) Anemia Status: Acute (2) CHF (congestive heart failure) Status: Acute (3) CHF (congestive heart failure) Status: Acute (4) Renal failure Status: Acute (5) Weakness Status: Acute Review of Systems Constitutional: + weakness, + fatigue, No fever, No chills, No sweats, No weight loss, No problem reported Eyes: No worsening of vision, No eye pain, No redness, No discharge, No diplopia ENT: No hearing loss, No unusual epistaxis, No nasal symptoms, No sore throat, No tinnitus, No dental problems, No trouble swallowing Respiratory: + cough, + wheezing, + shortness of breath, No sputum, No dyspnea on exertion, No dyspnea at rest, No hemoptysis Cardiac: + edema, No chest pain, No orthopnea, No PND, No claudication, No palpitations Abdomen: No pain, No nausea, No vomiting, No diarrhea, No constipation Musculoskeletal: + swelling, No joint pain, No muscle pain, No calf pain Male : No dysuria, No urinary frequency, No incontinence, No nocturia more than once/night, No slowing stream, No hematuria Neurologic: No memory loss, No paralysis, No weakness, No numbness/tingling, No vertigo, No balance problems Psychiatric: No depression symptoms, No anhedonism, No anxiety, No insomnia, No substance abuse Heme: No abnormal bleeding/bruising, No clotting problems, No swollen lymph nodes, No night sweats Endo: No fatigue, No excessive thirst, No excessive urination Skin: No rash, No itch, No new/changing skin lesions, No color change, No bleeding Objective Vital Signs Date Time Temp Pulse Resp B/P (MAP) Pulse Ox O2 Delivery O2 Flow Rate FiO2 07/22/17 14:13 83 20 Room Air 95 07/22/17 12:00 36.4 81 20 121/76 (91) 97 Room Air 07/22/17 12:00 Room Air 07/22/17 08:13 37.0 98 18 110/69 (83) 96 07/22/17 08:00 Room Air 07/22/17 04:00 Room Air 07/22/17 03:24 36.8 98 17 110/78 (89) 96 Room Air 07/22/17 00:25 89 20 Room Air 95 07/22/17 00:00 36.4 90 20 123/90 98 Room Air 07/21/17 23:30 92 18 122/75 97 Room Air 07/21/17 22:30 93 20 124/87 97 Room Air 07/21/17 22:01 89 07/21/17 21:30 83 20 133/77 97 Room Air 07/21/17 19:30 97 Room Air 07/21/17 19:12 36.5 64 22 112/64 99 Room Air Physical Exam General Appearance: WD/WN, no apparent distress, + pertinent finding (Pleasant conversational) Eyes: normal inspection, PERRL, EOMI, sclerae normal ENT: normal ENT inspection, hearing grossly normal, pharynx normal Neck: supple, no adenopathy, thyroid normal, no JVD, no carotid bruits, trachea midline Respiratory/Chest: chest non-tender, normal breath sounds, no respiratory distress, no accessory muscle use, + decreased breath sounds, + wheezing Cardiovascular: regular rate, rhythm, no edema, no gallop, no JVD, no murmur, + pertinent finding (2+ edema) Abdomen: normal bowel sounds, non tender, soft, no organomegaly, no pulsatile mass Extremities: normal range of motion, non-tender, normal inspection, no pedal edema, no calf tenderness, normal capillary refill, pelvis stable, + swelling (2 -3+ edema) Neurologic/Psychiatric: grader patrol II-XII nml as tested, no motor/sensory deficits, alert, normal mood/affect, oriented x 3 Skin: normal color, warm/dry, no rash Lymphatic: no adenopathy Laboratory Results Last 24 Hours Test 07/21/17 21:37 07/22/17 00:02 07/22/17 05:22 07/22/17 11:11 White Blood Count 11.53 K/uL 9.93 K/uL Red Blood Count 3.57 M/uL 3.33 M/uL Hemoglobin 9.2 g/dL 8.4 g/dL Hematocrit 28.9 % 26.9 % Mean Corpuscular Volume 81.0 fL 80.8 fL Mean Corpuscular Hemoglobin 25.8 pg 25.2 pg Mean Corpuscular Hemoglobin Concent 31.8 g/dl 31.2 g/dl Platelet Count 506 K/uL 455 K/uL Mean Platelet Volume 10.6 fL 10.3 fL Neutrophils (%) (Auto) 79.7 % Lymphocytes (%) (Auto) 8.8 % Monocytes (%) (Auto) 10.8 % Eosinophils (%) (Auto) 0.4 % Basophils (%) (Auto) 0.1 % Neutrophils # (Auto) 9.18 K/uL Lymphocytes # (Auto) 1.02 K/uL Monocytes # (Auto) 1.25 K/uL Eosinophils # (Auto) 0.05 K/uL Basophils # (Auto) 0.01 K/uL RDW Standard Deviation 53.5 fL 54.1 fL RDW Coefficient of Variation 19.0 % 19.0 % Immature Granulocyte % (Auto) 0.2 % Immature Granulocyte # (Auto) 0.02 K/uL Prothrombin Time 11.7 SECONDS Prothromb Time International Ratio 1.1 Activated Partial Thromboplast Time 30.1 SECONDS Partial Thromboplastin Ratio 1.2 Sodium Level 134 mmol/L 136 mmol/L Potassium Level 5.0 mmol/L 4.6 mmol/L Chloride Level 104 mmol/L 105 mmol/L Carbon Dioxide Level 22 mmol/L 23 mmol/L Anion Gap 8.0 mmol/L 9.0 mmol/L Blood Urea Nitrogen 54 mg/dl 53 mg/dl Creatinine 3.48 mg/dl 3.41 mg/dl Estimated GFR () 17.4 17.8 Estimated GFR (Non- 15.0 15.4 BUN/Creatinine Ratio 15.5 15.6 Random Glucose 276 mg/dl 211 mg/dl Calcium Level 7.6 mg/dl 8.0 mg/dl Total Bilirubin 0.4 mg/dl Direct Bilirubin 0.2 mg/dl Aspartate Amino Transf (AST/SGOT) 24 U/L Alanine Aminotransferase (ALT/SGPT) 23 U/L Alkaline Phosphatase 183 U/L Troponin I 0.046 ng/ml Pro-B-Type Natriuretic Peptide 37828 pg/ml 14850 pg/ml Total Protein 6.7 gm/dl Albumin 2.3 gm/dl Lipase 352 U/L Bedside Glucose 304 mg/dl 238 mg/dl Est Creatinine Clear Calc Drug Dose 18.7 ml/min Phosphorus Level 3.2 mg/dl Magnesium Level 1.8 mg/dl Thyroid Stimulating Hormone (TSH) 4.410 uIu/ml Assessment and Plan 87 y/o M readmitted because of fluid overload and CHF exacerbation was discharged from the hospital one day prior and returns with progressive SOB and weakness. CHF exacerbation with worsening SOB, lower extremity swelling and weakness volume overload. Acute on chronic CKD III - IV, likely secondary to congestive heart failure renal function improved on diuretic Continue IV Lasix, follow-up electrolytes and renal function, continue metoprolol, avoid KADE inhibitor or ARB now because of acute on chronic kidney failure AF: rate is controlled - cont Amio, Apixaban, Metoprolo DM II, Anemia, HTN, HPL - cont statin, Metoprolol, follow-up H&H level Minimal elevated Trop, this is chronic and currently below baseline value. Hypothyroid - cont Synthroid Suspicion of met CA ,patient and family agree to not have further evacuation now , need to follow-up with PCP Verify with patient's son patient is DNR Continued [facility] stay due to: multiple IV medications needed Discharge planning: home
[2017-07-22] MEDS: FUROSEMIDE INJ 40 MG in SYRINGE 0 ML IV SCH ×2 (14:38→20:10)
--- NOTE | 2017-07-22 16:47 | CARDIOLOGY CONSULTATION ---
DATE OF CONSULTATION: 07/22/2017 TIME: 16:01 p.m. CONSULTING PHYSICIAN: Dr. Parry. REASON FOR CONSULTATION: CHF. PRIMARY COMMUNITY HEALTH ADVISOR: Dr. Dru Morris. HISTORY OF PRESENT ILLNESS: Mr. Menjivar is a pleasant 87-year-old gentleman who was discharged from [facility] on 07/20/2017 when he was treated for acute kidney injury, diastolic CHF, atrial fibrillation and hyperglycemia. He states that he felt reasonable and he was discharged on 07/20/2017 with the next day, yesterday, he was evaluated by home health nurses in the morning. Later that day, he developed increasing edema and shortness of breath. They called the home nurse to return to his home and she then recommended that he be transferred to the Emergency Department for evaluation. He had been taking his Lasix as prescribed 40 mg daily. He maintained a low sodium diet. He states that his symptoms basically are dyspnea with exertion with increased edema. He denies chest pain, syncope, near syncope, orthopnea, PND, palpitations or bleeding such as melena, hematochezia or hematuria. His symptoms have already improved after some diuresis since admission, but he is not yet back to baseline. Last hospitalization, he was found to be in atrial fibrillation with rapid ventricular response. He was seen by Dr. Morris, who started amiodarone therapy with the hopes of not only rate control but rhythm control. He was also started on anticoagulation therapy. During the hospitalization, there was also concern for metastatic carcinoma as incidentally there was found to be multiple liver lesions on a CT scan on 07/16/2017 with the suspicion for metastatic disease. He did underwent a colonoscopy, which was reportedly unremarkable in that regard. REVIEW OF SYSTEMS: As above. Review of systems is otherwise negative/unremarkable. PAST MEDICAL HISTORY: 1. Type 2 diabetes. 2. Diastolic CHF. 3. Hypertension. 4. CKD. 5. Anemia. 6. Atrial fibrillation - diagnosed on July of 2017. 7. Protein malnutrition. 8. Liver lesions concerning for metastatic carcinoma, found on July 2017. 9. Potential right infrahilar nodularity/mass on July [address] scan. 10. Chronic hematuria and proteinuria. 11. Pleural effusions. 12. Dyslipidemia. 13. Hypothyroidism. CURRENT MEDICATIONS: Include Eliquis 2.5 mg p.o. b.i.d., amiodarone 200 mg p.o. b.i.d., aspirin 81 mg daily, atorvastatin 40 mg daily, Lasix 40 mg IV b.i.d. He also received Bumex 1 mg IV x2, levothyroxine 50 mcg daily, metoprolol tartrate 25 mg p.o. b.i.d., and Protonix 40 mg daily. ALLERGIES: No known drug allergies. SOCIAL HISTORY: Denies tobacco, alcohol or drug abuse. He is . His has Alzheimer disease and he helps take care of her. He has 2 sons and 2 daughters. His daughter, Eli, and her Asaf, present at the bedside. One of his sons presented to the bedside as well. FAMILY HISTORY: No known premature CAD. PHYSICAL EXAMINATION: VITAL SIGNS: Temperature 36.3 degrees, heart rate 86 beats per minute, respiration rate 20, blood pressure 129/72 mmHg, oxygen saturation 95% on room air. I's and O's negative 975 mL so far today. Weight is 96.2 kg. GENERAL: In no acute distress. He is alert and oriented. HEENT: Anicteric sclerae. NECK: JVD to the mandible. No bruits. Normal carotid upstrokes bilaterally. CARDIAC EXAMINATION: PMI was nonpalpable. There was no ventricular heave, irregularly irregular. No audible murmurs, rubs or gallops. LUNGS: Expiratory wheezing throughout, otherwise clear. ABDOMEN: Soft, nontender, nondistended. Normoactive bowel sounds. There is trace to 1+ pitting edema in the flanks of his abdomen. EXTREMITIES: 2+ radial pulses bilaterally. 1+ dorsalis pedis pulses bilaterally. No cyanosis. 3+ pitting edema in distal lower extremities bilaterally to the knees and then 1+ to the hips. PSYCHIATRIC: Affect appears appropriate. LABORATORY DATA: White blood cell count is 9.93, hemoglobin 8.4, and platelets 455. Sodium 136, potassium 4.6, BUN 53; creatinine 3.41, down from 3.48; magnesium 1.8. ProBNP initially 20,309. TSH 4.41. INR 1.1. IMAGING DATA: Chest x-ray reported as increased pulmonary vasculature and bilateral pleural effusions. Chest x-ray image personally reviewed. No obvious infiltrate. Most recent echocardiogram, 07/10/2017 reported normal left ventricular systolic function and wall motion. EF 55-60%. Moderate LVH. Type 1 diastolic dysfunction. Mild MR and mild TR. Telemetry personally reviewed. Atrial fibrillation. ECG personally reviewed from 07/21/2017 - atrial fibrillation at 87 beats per minute, no significant change from 07/15/2017. ASSESSMENT AND PLAN: 1. Acute on chronic diastolic congestive heart failure: He appears to be significantly hypervolemic. Agree with diuresis. Lasix 40 mg IV b.i.d. was initiated by nephrology. Can further adjust diuretics as necessary. Would try to diurese 1-2 liters net negative balance, today if possible. Low sodium diet. Check daily weights and strict I's and O's. 2. Atrial fibrillation: Rate controlled. He has been on amiodarone since earlier this month. Continue anticoagulation if no contraindications with his estimated GFR, if there is any worsening of his renal function, would avoid Eliquis. Could consider Coumadin if his renal function continues to fluctuate. Monitor very closely. 3. Hypertension: Blood pressure adequately controlled. No changes made today. 4. Disposition: Dr. Morris, his primary bus inspector, will resume his cardiology care tomorrow. Thank you for allowing me to participate in care of Mr. Menjivar. SHRUTI
[2017-07-23] VITALS (11 sets, daily range): BP systolic 107–134; BP diastolic 52–71; PULSE 70–93; TEMP 36.3–36.8; O2SAT 93–98; BMI 29.0
[2017-07-23] MEDS: ALBUT/IPRATROP 3MG/0.5MG NEB 3 ML VIAL INH SCH ×4 (01:14→21:00)
[2017-07-23] MEDS: LEVOTHYROXINE 50 MCG TAB PO SCH (05:54)
[2017-07-23 06:18] LABS: BASO % 0.2 %; BASO ABS # 0.02 K/uL (0-0.2); EOS % 0.6 %; EOS ABS # 0.07 K/uL (0-0.5); HEMATOCRIT 27.1 % (42-52); HEMOGLOBIN 8.6 g/dL (14.0-18.0); IG# 0.05 K/uL (0.00-0.02); LYMPH % 11.7 %; LYMPH ABS # 1.47 K/uL (1.2-3.4); MEAN CELL VOLUME 80.9 fL (80-100); MEAN CORPUSCULAR HEMOGLOBIN 25.7 pg (25-34); MEAN CORPUSCULAR HGB CONC 31.7 g/dl (32-36); MEAN PLATELET VOLUME 10.1 fL (7.4-10.4); MONO % 13.8 %; MONO ABS # 1.73 K/uL (0.11-0.59); NEUT % 73.3 %; PLATELET COUNT 461 K/uL (130-400); RED CELL DISTRIBUTION WIDTH CV 19.2 % (11.5-14.5); RED CELL DISTRIBUTION WIDTH SD 55.5 fL (36.4-46.3); WHITE BLOOD COUNT 12.54 K/uL (4.8-10.8)
[2017-07-23 06:40] LABS: CALCIUM 8.2 mg/dl (8.5-10.1); CREATININE 3.63 mg/dl (0.60-1.40); POTASSIUM 4.9 mmol/L (3.5-5.1)
--- NOTE | 2017-07-23 09:21 | CARDIOLOGY PROGRESS NOTE ---
DATE: 07/23/2017 SUBJECTIVE: Mr. Menjivar is resting comfortably in bed without complaints of chest pain or dyspnea. Also, denies palpitations. OBJECTIVE: VITAL SIGNS: Blood pressure is 120/50 with an irregular pulse of 80. Respiratory rate is 18. The patient is afebrile at 36.5 degrees centigrade. Saturation 93% on room air. NECK: Supple with full carotid upstrokes. No obvious bruits. Jugular venous pressure is elevated to the angle of the jaw at 45 degrees. No thyromegaly. CARDIOVASCULAR: Reveals a regular rhythm with distant heart sounds. No obvious murmurs. No S3. LUNGS: Note decreased breath sounds at the bases but no rales, rhonchi, or wheezes. ABDOMEN: Soft without bruits. EXTREMITIES: Reveal 2+ pitting edema to the knees bilaterally. LABORATORY DATA: CBC notes hemoglobin 8.6, hematocrit 27.1, white count 12.5, platelet count 461,000. Electrolytes note a sodium of 133, potassium 4.9, chloride 102, bicarbonate 21, BUN 59, creatinine 3.63, glucose 195. BNP was 20,822. TSH level normal at 4.41. cardiac monitor notes atrial fibrillation with a controlled ventricular response. IMPRESSION AND PLAN: 1. Acute on chronic diastolic congestive heart failure -- renal dysfunction has progressed. He is diuresing with use of intravenous furosemide at [address] Morataya assisting with diuretic management. 2. Atrial fibrillation diagnosed earlier this month. Rate now better controlled with the use of amiodarone at 200 mg b.i.d. Remains on low dose Eliquis as his anticoagulant. 2. Hypertension -- with mild left ventricular hypertrophy and diastolic dysfunction. 3. Mild mitral regurgitation. 4. Mild tricuspid regurgitation. 5. Hypercholesterolemia. 6. Diabetes mellitus. 7. Acute on chronic renal failure -- per Dr. Morataya. 8. Hypothyroidism. 9. Hepatic abnormality -- metastatic lesion suspected. Workup in progress.
[2017-07-23] MEDS: FUROSEMIDE INJ 40 MG in SYRINGE 0 ML IV SCH ×2 (09:30→17:02)
[2017-07-23] MEDS: APIXABAN 2.5 MG TAB PO SCH ×2 (09:31→21:39)
[2017-07-23] MEDS: FERROUS GLUCONATE 324 MG TAB PO SCH (09:31)
[2017-07-23] MEDS: AMIODARONE 200 MG TAB PO SCH ×2 (09:31→21:40)
[2017-07-23] MEDS: ATORVASTATIN 40 MG TAB PO SCH (09:31)
[2017-07-23] MEDS: METOPROLOL TARTRATE 25 MG TAB PO SCH ×2 (09:31→21:40)
[2017-07-23] MEDS: PANTOprazole SOD 40 MG TAB PO SCH (09:32)
[2017-07-23] MEDS: ASPIRIN 81 MG ECTAB PO SCH (09:32)
[2017-07-23] MEDS: INSULIN ASPART 100 UNITS/ML 3 ML PEN SC SCH ×4 (09:39→21:46)
[2017-07-23] MEDS: INSULIN GLARGINE SOLOSTAR 100 UNITS/ML 3 ML PEN SC SCH (09:40)
[2017-07-23] MEDS: IRON SUCROSE INJ 100 MG in SODIUM CHLORIDE 0.9% 100ML 100 ML IV SCH (09:41)
[2017-07-23] MEDS ORDERED: MAGNESIUM OXIDE 400 MG TAB PO ONE (09:45)
--- NOTE | 2017-07-23 13:33 | Progress Note ---
Subjective Date of Service: Jul 23, 2017. Subjective Pt evaluation today including: conversation w/ patient, conversation w/ family (son), physical exam, lab review, conversation w/ internet sales consultant, review of inpatient medication list Pain: no pain PO Intake: adequate Voiding: no voiding problems patient breathing better, diuresing well, 1700cc out thus far reviewed labs, Cr up to 1.6, Hb down slightly discussed with Dr. Morataya, laying ground work with patient and family for possible dialysis anticipates that Cr will go up with diuresis patient in good spirits, no specific complaints, wants to go home Problem List Medical Problems: (1) Anemia Status: Acute (2) CHF (congestive heart failure) Status: Acute (3) CHF (congestive heart failure) Status: Acute (4) Renal failure Status: Acute (5) Weakness Status: Acute Review of Systems Constitutional: + weakness, + fatigue Respiratory: + dyspnea on exertion Cardiac: + edema All Other Systems: Reviewed and Negative Medications Current Inpatient Medications Medications (Trade) Dose Ordered Sig/Bg Route Start Time Stop Time Status Last Admin Dose Admin Amiodarone HCl (Cordarone Tab) 200 mg BID PO 07/22/17 09:00 08/21/17 08:59 07/23/17 09:31 200 MG Apixaban (Eliquis Tab) 2.5 mg BID PO 07/22/17 09:00 08/21/17 08:59 07/23/17 09:31 2.5 MG Aspirin (Ecotrin Tab) 81 mg QAM PO 07/22/17 09:00 08/21/17 08:59 07/23/17 09:32 81 MG Atorvastatin Calcium (Lipitor Tab) 40 mg QAM PO 07/22/17 09:00 08/21/17 08:59 07/23/17 09:31 40 MG Ferrous Gluconate (Ferrous Gluconate Tab) 324 mg QAM PO 07/22/17 09:00 08/21/17 08:59 07/23/17 09:31 324 MG Insulin Glargine (Lantus Solostar Pen) 15 units DAILY SC 07/22/17 09:00 08/21/17 08:59 07/23/17 09:40 15 UNITS Levothyroxine Sodium (Synthroid Tab) 50 mcg DAILYBB PO 07/22/17 06:00 08/21/17 05:59 07/23/17 05:54 50 MCG Metoprolol Tartrate (Lopressor Tab) 25 mg BID PO 07/22/17 09:00 08/21/17 08:59 07/23/17 09:31 25 MG Pantoprazole Sodium (Protonix Tab) 40 mg QAM PO 07/22/17 09:00 08/21/17 08:59 07/23/17 09:32 40 MG Insulin Aspart (novoLOG ASPART) SLIDING SCALE G... ACHS SC 07/22/17 07:00 08/21/17 06:59 07/23/17 11:59 10 UNITS Acetaminophen (Tylenol Tab) 650 mg Q4H PRN PO 07/21/17 23:15 08/20/17 23:14 Al Hydrox/Mg Hydrox/Simethicone (Maalox Max Susp) 15 ml Q4H PRN PO 07/21/17 23:15 08/20/17 23:14 Magnesium Hydroxide (Milk Of Magnesia Susp) 30 ml Q12H PRN PO 07/21/17 23:15 08/20/17 23:14 Ondansetron HCl (Zofran Inj) 4 mg Q6H PRN IV 07/21/17 23:15 08/20/17 23:14 Morphine Sulfate (MoRPHine SULFATE INJ) 2 mg Q30M PRN IV 07/21/17 23:15 08/04/17 23:14 Polyethylene (Miralax Powder Packet) 17 gm DAILY PRN PO 07/21/17 23:15 08/20/17 23:14 Glucose (Glucose 40% Gel) 15-30 GRAMS 15 GRAMS... UD PRN PO 07/21/17 23:45 08/20/17 23:44 Glucose (Glucose Chew Tab) 4-8 Tablets 4 Tabl... UD PRN PO 07/21/17 23:45 08/20/17 23:44 Dextrose (Dextrose 50% 50ML Syringe) 25-50ML OF 50% DW IV FOR... UD PRN IV 07/21/17 23:45 08/20/17 23:44 Glucagon (Glucagon Inj) 1 mg UD PRN SQ 07/21/17 23:45 08/20/17 23:44 Albuterol/ Ipratropium (Duoneb) 3 ml Q6R INH 07/22/17 15:00 4/17/18 14:59 07/23/17 07:03 3 ML Albuterol/ Ipratropium (Duoneb) 3 ml Q2H PRN INH 07/22/17 10:15 08/21/17 10:14 Iron Sucrose 100 mg/Sodium Chloride 105 ml @ 420 mls/hr Q24H IV 07/23/17 09:00 08/01/17 09:14 07/23/17 09:41 420 MLS/HR Furosemide 40 mg/ Syringe 4 ml @ 4 mls/min BID17 IV 07/22/17 15:00 08/21/17 14:59 07/23/17 09:30 4 MLS/MIN Objective Vital Signs Date Time Temp Pulse Resp B/P (MAP) Pulse Ox O2 Delivery O2 Flow Rate FiO2 07/23/17 12:00 Room Air 07/23/17 11:57 36.6 93 19 125/65 (85) 94 Room Air 07/23/17 08:20 36.5 87 18 119/52 (74) 93 Room Air 07/23/17 08:00 Room Air 07/23/17 07:04 87 20 Room Air 96 07/23/17 04:00 Room Air 07/23/17 03:08 36.4 87 19 134/71 (92) 98 Room Air 07/23/17 00:00 Room Air 07/22/17 23:20 36.4 91 17 127/69 (88) 94 Room Air 07/22/17 20:00 Room Air 07/22/17 19:19 36.2 90 18 107/77 (87) 99 Room Air 07/22/17 19:06 77 20 Room Air 97 07/22/17 16:00 Room Air 07/22/17 15:16 36.3 86 20 129/72 (91) 95 Room Air 07/22/17 14:13 83 20 Room Air 95 Physical Exam General Appearance: WD/WN, no apparent distress Eyes: normal inspection, EOMI, sclerae normal ENT: normal ENT inspection, hearing grossly normal, pharynx normal Neck: supple, no adenopathy, no JVD, trachea midline Respiratory/Chest: chest non-tender, lungs clear, normal breath sounds, no respiratory distress, no accessory muscle use Cardiovascular: no gallop, no JVD, no murmur, + irregularly irregular Abdomen: normal bowel sounds, non tender, soft, no organomegaly Extremities: normal range of motion, non-tender, normal inspection, no calf tenderness, pelvis stable, + pedal edema (2+ pitting bilaterally) Neurologic/Psychiatric: qc analyst II-XII nml as tested, no motor/sensory deficits, alert, normal mood/affect, oriented x 3 Skin: normal color, warm/dry, no rash Lymphatic: no adenopathy Laboratory Results Last 24 Hours Test 07/22/17 15:02 07/22/17 16:05 07/22/17 16:16 07/22/17 20:07 Pro-B-Type Natriuretic Peptide 36986 pg/ml Urine Color ORANGE Urine Appearance CLOUDY Urine pH 5.0 Urine Specific [place] 1.010 Urine Protein 2+ Urine Glucose (UA) NEG Urine Ketones NEG Urine Occult Blood 3+ Urine Nitrite NEG Urine Bilirubin NEG Urine Urobilinogen NEG Urine Leukocyte Esterase SMALL Urine WBC (Auto) 5-10 /hpf Urine RBC (Auto) >30 /hpf Urine Hyaline Casts (Auto) 1-5 /lpf Urine Epithelial Cells (Auto) 5-10 /lpf Urine Bacteria (Auto) NEG Urine Random Creatinine 33.1 mg/dl Urine Random Total Protein 93.6 mg/dl Urine Protein/Creatinine Ratio 2.8 Bedside Glucose 227 mg/dl 241 mg/dl Test 07/23/17 06:00 07/23/17 06:48 07/23/17 11:26 White Blood Count 12.54 K/uL Red Blood Count 3.35 M/uL Hemoglobin 8.6 g/dL Hematocrit 27.1 % Mean Corpuscular Volume 80.9 fL Mean Corpuscular Hemoglobin 25.7 pg Mean Corpuscular Hemoglobin Concent 31.7 g/dl Platelet Count 461 K/uL Mean Platelet Volume 10.1 fL Neutrophils (%) (Auto) 73.3 % Lymphocytes (%) (Auto) 11.7 % Monocytes (%) (Auto) 13.8 % Eosinophils (%) (Auto) 0.6 % Basophils (%) (Auto) 0.2 % Neutrophils # (Auto) 9.20 K/uL Lymphocytes # (Auto) 1.47 K/uL Monocytes # (Auto) 1.73 K/uL Eosinophils # (Auto) 0.07 K/uL Basophils # (Auto) 0.02 K/uL RDW Standard Deviation 55.5 fL RDW Coefficient of Variation 19.2 % Immature Granulocyte % (Auto) 0.4 % Immature Granulocyte # (Auto) 0.05 K/uL Anisocytosis PRESENT Sodium Level 133 mmol/L Potassium Level 4.9 mmol/L Chloride Level 102 mmol/L Carbon Dioxide Level 21 mmol/L Anion Gap 10.0 mmol/L Blood Urea Nitrogen 59 mg/dl Creatinine 3.63 mg/dl Est Creatinine Clear Calc Drug Dose 17.6 ml/min Estimated GFR () 16.5 Estimated GFR (Non- 14.3 BUN/Creatinine Ratio 16.4 Random Glucose 202 mg/dl Calcium Level 8.2 mg/dl Magnesium Level 1.7 mg/dl Bedside Glucose 195 mg/dl 288 mg/dl Assessment and Plan 87 y/o M readmitted because of fluid overload and CHF exacerbation - Acute on chronic diastolic heart failure, due to atrial fibrillation as well as CKD stage III/IV improved, breathing better, diuresed 1700cc already continue Lasix BID monitor weights, Cr prior echo shows normal EF - Dyspnea: resolved with diuresis never had hypoxia - Atrial fibrillation: rates controlled on Amiodarone, continue anticoagulated on Eliquis - MARGY on CKD stage III/IV: Cr getting worse, up to 3.68 anticipated that Cr would go up with diuresis d/w Dr. Morataya, patient could require HD he discussed this with patient and his son, they are open to this possibility - Hypomagnesemia: give mag oxide 400mg daily - DM type II: continue Lantus and Novolog, diabetic diet - Hypothyroid: Synthroid - Anemia: follow daily, no need for transfusion - Liver nodules: suspicious for malignancy, colonoscopy was negative last admission could consider biopsy as outpatient DNR Continued [facility] stay due to: multiple IV medications needed Discharge planning: home
--- NOTE | 2017-07-23 14:31 | Nephrology Progress Note ---
Nephrology Progress Note Date of Service Jul 23, 2017. Chief Complaint Acute on chronic kidney injury Subjective Mr. Menjivar was seen & examined in the ICU this morning. He reports brisk diuresis in response to IV Furosemide therapy. He is tolerating IV Venofer without side effect. His ankles remain swollen Review of Systems Constitutional: No fever Cardiovascular: No chest pain Respiratory: No dyspnea at rest Abdomen: No pain, No nausea, No vomiting Extremities: + leg edema A complete review of systems was performed. Pertinent positives are noted above. All other systems are negative. Vital Signs Last 8 Hrs Date Time Temp Pulse Resp B/P (MAP) Pulse Ox O2 Delivery O2 Flow Rate FiO2 07/23/17 14:08 70 20 Room Air 96 07/23/17 12:00 Room Air 07/23/17 11:57 36.6 93 19 125/65 (85) 94 Room Air 07/23/17 08:20 36.5 87 18 119/52 (74) 93 Room Air 07/23/17 08:00 Room Air 07/23/17 07:04 87 20 Room Air 96 Last Recorded Weight Weight (Kilograms): 97.100 Physical Exam General Appearance: no apparent distress Head: normocephalic, atraumatic Eyes: PERRL, EOMI Neck: no adenopathy Respiratory/Chest: lungs clear Cardiovascular: regular rate, rhythm Abdomen/GI: normal bowel sounds, non tender, soft Extremities/Musculoskelatal: + swelling (2+ pretibial pitting edema) Neurologic/Psych: alert, oriented x 3 Family History FHx: COPD (chronic obstructive pulmonary disease) FHx: diabetes mellitus Negative for CKD / ESRD Social History Drug Use: none Marital Status: Housing Status: lives with family Occupation: retired . Retired. Never a smoker Laboratory Results Past 24 Hours 07/23/17 06:00 Red Blood Count 3.35, Mean Corpuscular Volume 80.9, Mean Corpuscular Hemoglobin 25.7, Mean Corpuscular Hemoglobin Concent 31.7, Mean Platelet Volume 10.1, Neutrophils (%) (Auto) 73.3, Lymphocytes (%) (Auto) 11.7, Monocytes (%) (Auto) 13.8, Eosinophils (%) (Auto) 0.6, Basophils (%) (Auto) 0.2, Neutrophils # (Auto ) 9.20, Lymphocytes # (Auto) 1.47, Monocytes # (Auto) 1.73, Eosinophils # (Auto ) 0.07, Basophils # (Auto) 0.02 07/23/17 06:00 Test 07/22/17 15:02 07/22/17 16:05 07/22/17 16:16 07/22/17 20:07 Pro-B-Type Natriuretic Peptide 53768 pg/ml (0-1800) Urine Color ORANGE Urine Appearance CLOUDY (CLEAR) Urine pH 5.0 (4.5-7.5) Urine Specific [place] 1.010 (1.000-1.030) Urine Protein 2+ (NEG) Urine Glucose (UA) NEG (NEG) Urine Ketones NEG (NEG) Urine Occult Blood 3+ (NEG) Urine Nitrite NEG (NEG) Urine Bilirubin NEG (NEG) Urine Urobilinogen NEG (NEG) Urine Leukocyte Esterase SMALL (NEG) Urine WBC (Auto) 5-10 /hpf (0-5) Urine RBC (Auto) >30 /hpf (0-4) Urine Hyaline Casts (Auto) 1-5 /lpf (0-5) Urine Epithelial Cells (Auto) 5-10 /lpf (0-5) Urine Bacteria (Auto) NEG (NEG) Urine Random Creatinine 33.1 mg/dl Urine Random Total Protein 93.6 mg/dl (0-11.9) Urine Protein/Creatinine Ratio 2.8 (0-0.2) Bedside Glucose 227 mg/dl (70-99) 241 mg/dl (70-99) Test 07/23/17 06:00 07/23/17 06:48 07/23/17 11:26 White Blood Count 12.54 K/uL (4.8-10.8) Red Blood Count 3.35 M/uL (4.7-6.1) Hemoglobin 8.6 g/dL (14.0-18.0) Hematocrit 27.1 % (42-52) Mean Corpuscular Volume 80.9 fL (80-100) Mean Corpuscular Hemoglobin 25.7 pg (25-34) Mean Corpuscular Hemoglobin Concent 31.7 g/dl (32-36) Platelet Count 461 K/uL (130-400) Mean Platelet Volume 10.1 fL (7.4-10.4) Neutrophils (%) (Auto) 73.3 % Lymphocytes (%) (Auto) 11.7 % Monocytes (%) (Auto) 13.8 % Eosinophils (%) (Auto) 0.6 % Basophils (%) (Auto) 0.2 % Neutrophils # (Auto) 9.20 K/uL (1.4-6.5) Lymphocytes # (Auto) 1.47 K/uL (1.2-3.4) Monocytes # (Auto) 1.73 K/uL (0.11-0.59) Eosinophils # (Auto) 0.07 K/uL (0-0.5) Basophils # (Auto) 0.02 K/uL (0-0.2) RDW Standard Deviation 55.5 fL (36.4-46.3) RDW Coefficient of Variation 19.2 % (11.5-14.5) Immature Granulocyte % (Auto) 0.4 % Immature Granulocyte # (Auto) 0.05 K/uL (0.00-0.02) Anisocytosis PRESENT Anion Gap 10.0 mmol/L (3-11) Est Creatinine Clear Calc Drug Dose 17.6 ml/min Estimated GFR () 16.5 Estimated GFR (Non- 14.3 BUN/Creatinine Ratio 16.4 (10-20) Calcium Level 8.2 mg/dl (8.5-10.1) Magnesium Level 1.7 mg/dl (1.8-2.4) Bedside Glucose 195 mg/dl (70-99) 288 mg/dl (70-99) Allergies Coded Allergies: No Known Allergies (Verified , 07/21/17) Medications Current Inpatient Medications Medications (Trade) Dose Ordered Sig/Bg Route Start Time Stop Time Status Last Admin Dose Admin Amiodarone HCl (Cordarone Tab) 200 mg BID PO 07/22/17 09:00 08/21/17 08:59 07/23/17 09:31 200 MG Apixaban (Eliquis Tab) 2.5 mg BID PO 07/22/17 09:00 08/21/17 08:59 07/23/17 09:31 2.5 MG Aspirin (Ecotrin Tab) 81 mg QAM PO 07/22/17 09:00 08/21/17 08:59 07/23/17 09:32 81 MG Atorvastatin Calcium (Lipitor Tab) 40 mg QAM PO 07/22/17 09:00 08/21/17 08:59 07/23/17 09:31 40 MG Ferrous Gluconate (Ferrous Gluconate Tab) 324 mg QAM PO 07/22/17 09:00 08/21/17 08:59 07/23/17 09:31 324 MG Insulin Glargine (Lantus Solostar Pen) 15 units DAILY SC 07/22/17 09:00 08/21/17 08:59 07/23/17 09:40 15 UNITS Levothyroxine Sodium (Synthroid Tab) 50 mcg DAILYBB PO 07/22/17 06:00 08/21/17 05:59 07/23/17 05:54 50 MCG Metoprolol Tartrate (Lopressor Tab) 25 mg BID PO 07/22/17 09:00 08/21/17 08:59 07/23/17 09:31 25 MG Pantoprazole Sodium (Protonix Tab) 40 mg QAM PO 07/22/17 09:00 08/21/17 08:59 07/23/17 09:32 40 MG Insulin Aspart (novoLOG ASPART) SLIDING SCALE G... ACHS SC 07/22/17 07:00 08/21/17 06:59 07/23/17 11:59 10 UNITS Acetaminophen (Tylenol Tab) 650 mg Q4H PRN PO 07/21/17 23:15 08/20/17 23:14 Al Hydrox/Mg Hydrox/Simethicone (Maalox Max Susp) 15 ml Q4H PRN PO 07/21/17 23:15 08/20/17 23:14 Magnesium Hydroxide (Milk Of Magnesia Susp) 30 ml Q12H PRN PO 07/21/17 23:15 08/20/17 23:14 Ondansetron HCl (Zofran Inj) 4 mg Q6H PRN IV 07/21/17 23:15 08/20/17 23:14 Morphine Sulfate (MoRPHine SULFATE INJ) 2 mg Q30M PRN IV 07/21/17 23:15 08/04/17 23:14 Polyethylene (Miralax Powder Packet) 17 gm DAILY PRN PO 07/21/17 23:15 08/20/17 23:14 Glucose (Glucose 40% Gel) 15-30 GRAMS 15 GRAMS... UD PRN PO 07/21/17 23:45 08/20/17 23:44 Glucose (Glucose Chew Tab) 4-8 Tablets 4 Tabl... UD PRN PO 07/21/17 23:45 08/20/17 23:44 Dextrose (Dextrose 50% 50ML Syringe) 25-50ML OF 50% DW IV FOR... UD PRN IV 07/21/17 23:45 08/20/17 23:44 Glucagon (Glucagon Inj) 1 mg UD PRN SQ 07/21/17 23:45 08/20/17 23:44 Albuterol/ Ipratropium (Duoneb) 3 ml Q6R INH 07/22/17 15:00 08/21/17 14:59 07/23/17 14:08 3 ML Albuterol/ Ipratropium (Duoneb) 3 ml Q2H PRN INH 07/22/17 10:15 08/21/17 10:14 Iron Sucrose 100 mg/Sodium Chloride 105 ml @ 420 mls/hr Q24H IV 07/23/17 09:00 08/01/17 09:14 07/23/17 09:41 420 MLS/HR Furosemide 40 mg/ Syringe 4 ml @ 4 mls/min BID17 IV 07/22/17 15:00 08/21/17 14:59 07/23/17 09:30 4 MLS/MIN Impression (1) Acute kidney injury (2) CKD stage 3 due to type 2 diabetes mellitus (3) Diastolic CHF (4) Liver masses (5) Atrial fibrillation (6) Iron deficiency anemia (7) Diabetes Recommendations ACUTE KIDNEY INJURY: -- Clinically suspect congestive kidney failure on the basis of diastolic CHF -- 07/22 Renal US report reviewed: Horseshoe kidney w/ multiple simple cysts, no hydronephrosis -- Patient has hematuria and proteinuria. Not a biopsy or immunosuppressive candidate due to horseshoe kidney w/ cysts and frail health. Also undergoing evaluation for potential metastatic malignancy -- Patient remains clinically volume overloaded. Kidney function remains relatively stable. Continue Furosemide 40 mg IV BID. EDW previously set at 88 kg. Monitor UO, wt and kidney function CHRONIC KIDNEY DISEASE: -- Baseline creatinine 1.7 ANEMIA: -- Iron saturation < 30% w/ Ferritin < 200. Continue Venofer 100 mg IV daily ( day # 2 of 10) -- Monitor H&H GI: -- Outpatient FNA of liver lesions...possible metastatic disease CV: -- On Amiodarone and Eliquis
[2017-07-23] MEDS: ALBUT/IPRATROP 3MG/0.5MG NEB 3 ML VIAL INH PRN (16:34)
[2017-07-24] VITALS (9 sets, daily range): BP systolic 105–126; BP diastolic 57–80; PULSE 71–90; TEMP 36.4–36.8; O2SAT 92–99
[2017-07-24] MEDS: ALBUT/IPRATROP 3MG/0.5MG NEB 3 ML VIAL INH SCH ×4 (01:53→19:33)
[2017-07-24] MEDS: LEVOTHYROXINE 50 MCG TAB PO SCH (06:44)
[2017-07-24 06:49] LABS: HEMATOCRIT 28.3 % (42-52); HEMOGLOBIN 8.9 g/dL (14.0-18.0); MEAN CELL VOLUME 81.6 fL (80-100); MEAN CORPUSCULAR HEMOGLOBIN 25.6 pg (25-34); MEAN CORPUSCULAR HGB CONC 31.4 g/dl (32-36); MEAN PLATELET VOLUME 10.7 fL (7.4-10.4); PLATELET COUNT 444 K/uL (130-400); RED CELL DISTRIBUTION WIDTH CV 19.6 % (11.5-14.5); RED CELL DISTRIBUTION WIDTH SD 57.4 fL (36.4-46.3); WHITE BLOOD COUNT 10.19 K/uL (4.8-10.8)
[2017-07-24 07:25] LABS: CREATININE 3.8 mg/dl (0.60-1.40); POTASSIUM 4.8 mmol/L (3.5-5.1)
[2017-07-24] MEDS: FERROUS GLUCONATE 324 MG TAB PO SCH (08:19)
[2017-07-24] MEDS: ATORVASTATIN 40 MG TAB PO SCH (08:19)
[2017-07-24] MEDS: FUROSEMIDE INJ 40 MG in SYRINGE 0 ML IV SCH ×2 (08:19→16:44)
[2017-07-24] MEDS: AMIODARONE 200 MG TAB PO SCH ×2 (08:19→20:41)
[2017-07-24] MEDS: APIXABAN 2.5 MG TAB PO SCH ×2 (08:19→20:41)
[2017-07-24] MEDS: ASPIRIN 81 MG ECTAB PO SCH (08:19)
[2017-07-24] MEDS: METOPROLOL TARTRATE 25 MG TAB PO SCH ×2 (08:20→20:41)
[2017-07-24] MEDS: PANTOprazole SOD 40 MG TAB PO SCH (08:20)
[2017-07-24] MEDS: INSULIN ASPART 100 UNITS/ML 3 ML PEN SC SCH ×4 (08:24→20:45)
[2017-07-24] MEDS: INSULIN GLARGINE SOLOSTAR 100 UNITS/ML 3 ML PEN SC SCH (08:25)
--- NOTE | 2017-07-24 09:15 | CARDIOLOGY PROGRESS NOTE ---
DATE: 07/24/2017 SUBJECTIVE: Mr. Menjivar is resting comfortably in bed without complaints of chest pain, dyspnea, or palpitations. His son is at the bedside. OBJECTIVE: VITAL SIGNS: Blood pressure is 114/69 with an irregular pulse of 80-90. Respiratory rate is 18. The patient is afebrile at 36.6 degree Celsius. Saturation 95% on room air. Weight is 98.8 kg, up 1.7 kilograms from yesterday. NECK: Supple with full carotid upstrokes. No carotid bruits. Jugular venous pressure is at the angle of the jaw at 45 degrees. CARDIOVASCULAR: Reveals an irregular regular rhythm with distant heart sounds. No obvious murmurs. No S3. LUNGS: Note decreased breath sounds at the bases but no rales, rhonchi, or wheezes. ABDOMEN: Soft without bruits. EXTREMITIES: Reveal intact radial artery pulse bilaterally. 2+ pretibial edema is noted. LABORATORY DATA: CBC notes hemoglobin of 8.9, hematocrit 28.3, white count 10.1, platelet count 444,000. Electrolytes note a sodium of 134, potassium 4.8, chloride 101, bicarbonate 22, BUN 69, creatinine 3.8, glucose 182. youth nutritional monitor notes atrial fibrillation with a controlled ventricular response. IMPRESSION AND PLAN: 1. Acute on chronic diastolic congestive heart failure -- renal function continues to deteriorate. Has gained weight compared to yesterday despite the intravenous diuretics. Appreciate Dr. Morataya's input. 2. Atrial fibrillation -- rate now adequately controlled on amiodarone 200 mg b.i.d. Remains on low dose Eliquis as an anticoagulant. 3. Hypertension -- with mild LVH and diastolic dysfunction. 4. Mild mitral regurgitation. 5. Mild tricuspid regurgitation. 6. Hypercholesterolemia. 7. Diabetes mellitus. 8. Acute on chronic renal failure -- per Dr. Morataya. 9. Hypothyroidism. 10. Hepatic abnormality -- metastatic lesions suspected. Workup in progress. [facility]
[2017-07-24] MEDS: IRON SUCROSE INJ 100 MG in SODIUM CHLORIDE 0.9% 100ML 100 ML IV SCH (09:30)
--- NOTE | 2017-07-24 10:36 | Nephrology Progress Note ---
Nephrology Progress Note Date of Service Jul 24, 2017. Chief Complaint Acute on chronic kidney injury Subjective Mr. Menjivar was seen & examined in the ICU this morning. His son was present at the time of my evaluation. Mr. Menjivar would like to use LE compression stockings and get OOB Review of Systems Constitutional: No fever Cardiovascular: No chest pain Respiratory: No dyspnea at rest Abdomen: No pain, No nausea, No vomiting Extremities: + leg edema A complete review of systems was performed. Pertinent positives are noted above. All other systems are negative. Vital Signs Last 8 Hrs Date Time Temp Pulse Resp B/P (MAP) Pulse Ox O2 Delivery O2 Flow Rate FiO2 07/24/17 07:53 36.6 86 18 114/69 (84) 95 Room Air 07/24/17 07:08 86 18 Room Air 96 07/24/17 04:25 36.7 86 18 126/76 (93) 92 Room Air 07/24/17 04:00 Room Air Last Recorded Weight Weight (Kilograms): 98.800 Physical Exam General Appearance: no apparent distress Head: normocephalic, atraumatic Eyes: PERRL, EOMI Neck: no adenopathy Respiratory/Chest: + rales Cardiovascular: regular rate, rhythm Abdomen/GI: normal bowel sounds, non tender, soft Extremities/Musculoskelatal: + swelling (2+ pretibial pitting edema) Neurologic/Psych: alert, oriented x 3 Family History FHx: COPD (chronic obstructive pulmonary disease) FHx: diabetes mellitus Negative for CKD / ESRD Social History Drug Use: none Marital Status: Housing Status: lives with family Occupation: retired . Retired. Never a smoker Laboratory Results Past 24 Hours 07/24/17 06:18 07/24/17 06:18 Test 07/23/17 11:26 07/23/17 16:45 07/23/17 20:47 07/24/17 06:14 Bedside Glucose 288 mg/dl (70-99) 232 mg/dl (70-99) 236 mg/dl (70-99) 187 mg/dl (70-99) Test 07/24/17 06:18 Red Blood Count 3.47 M/uL (4.7-6.1) Mean Corpuscular Volume 81.6 fL (80-100) Mean Corpuscular Hemoglobin 25.6 pg (25-34) Mean Corpuscular Hemoglobin Concent 31.4 g/dl (32-36) RDW Standard Deviation 57.4 fL (36.4-46.3) RDW Coefficient of Variation 19.6 % (11.5-14.5) Mean Platelet Volume 10.7 fL (7.4-10.4) Anion Gap 11.0 mmol/L (3-11) Est Creatinine Clear Calc Drug Dose 17.0 ml/min Estimated GFR () 15.7 Estimated GFR (Non- 13.5 BUN/Creatinine Ratio 18.0 (10-20) Calcium Level 8.0 mg/dl (8.5-10.1) Allergies Coded Allergies: No Known Allergies (Verified , 07/21/17) Medications Current Inpatient Medications Medications (Trade) Dose Ordered Sig/Bg Route Start Time Stop Time Status Last Admin Dose Admin Amiodarone HCl (Cordarone Tab) 200 mg BID PO 07/22/17 09:00 08/21/17 08:59 07/24/17 08:19 200 MG Apixaban (Eliquis Tab) 2.5 mg BID PO 07/22/17 09:00 08/21/17 08:59 07/24/17 08:19 2.5 MG Aspirin (Ecotrin Tab) 81 mg QAM PO 07/22/17 09:00 08/21/17 08:59 07/24/17 08:19 81 MG Atorvastatin Calcium (Lipitor Tab) 40 mg QAM PO 07/22/17 09:00 08/21/17 08:59 07/24/17 08:19 40 MG Ferrous Gluconate (Ferrous Gluconate Tab) 324 mg QAM PO 07/22/17 09:00 08/21/17 08:59 07/24/17 08:19 324 MG Insulin Glargine (Lantus Solostar Pen) 15 units DAILY SC 07/22/17 09:00 08/21/17 08:59 07/24/17 08:25 15 UNITS Levothyroxine Sodium (Synthroid Tab) 50 mcg DAILYBB PO 07/22/17 06:00 08/21/17 05:59 07/24/17 06:44 50 MCG Metoprolol Tartrate (Lopressor Tab) 25 mg BID PO 07/22/17 09:00 08/21/17 08:59 07/24/17 08:20 25 MG Pantoprazole Sodium (Protonix Tab) 40 mg QAM PO 07/22/17 09:00 08/21/17 08:59 07/24/17 08:20 40 MG Insulin Aspart (novoLOG ASPART) SLIDING SCALE G... ACHS SC 07/22/17 07:00 08/21/17 06:59 07/24/17 08:24 4 UNITS Acetaminophen (Tylenol Tab) 650 mg Q4H PRN PO 07/21/17 23:15 08/20/17 23:14 Al Hydrox/Mg Hydrox/Simethicone (Maalox Max Susp) 15 ml Q4H PRN PO 07/21/17 23:15 08/20/17 23:14 Magnesium Hydroxide (Milk Of Magnesia Susp) 30 ml Q12H PRN PO 07/21/17 23:15 08/20/17 23:14 Ondansetron HCl (Zofran Inj) 4 mg Q6H PRN IV 07/21/17 23:15 08/20/17 23:14 Morphine Sulfate (MoRPHine SULFATE INJ) 2 mg Q30M PRN IV 07/21/17 23:15 08/04/17 23:14 Polyethylene (Miralax Powder Packet) 17 gm DAILY PRN PO 07/21/17 23:15 08/20/17 23:14 Glucose (Glucose 40% Gel) 15-30 GRAMS 15 GRAMS... UD PRN PO 07/21/17 23:45 08/20/17 23:44 Glucose (Glucose Chew Tab) 4-8 Tablets 4 Tabl... UD PRN PO 07/21/17 23:45 08/20/17 23:44 Dextrose (Dextrose 50% 50ML Syringe) 25-50ML OF 50% DW IV FOR... UD PRN IV 07/21/17 23:45 08/20/17 23:44 Glucagon (Glucagon Inj) 1 mg UD PRN SQ 07/21/17 23:45 08/20/17 23:44 Albuterol/ Ipratropium (Duoneb) 3 ml Q6R INH 07/22/17 15:00 08/21/17 14:59 07/24/17 07:07 3 ML Albuterol/ Ipratropium (Duoneb) 3 ml Q2H PRN INH 07/22/17 10:15 4/17/18 10:14 07/23/17 16:34 3 ML Iron Sucrose 100 mg/Sodium Chloride 105 ml @ 420 mls/hr Q24H IV 07/23/17 09:00 08/01/17 09:14 07/23/17 09:41 420 MLS/HR Furosemide 40 mg/ Syringe 4 ml @ 4 mls/min BID17 IV 07/22/17 15:00 08/21/17 14:59 07/24/17 08:19 4 MLS/MIN Impression (1) Acute kidney injury (2) CKD stage 3 due to type 2 diabetes mellitus (3) Diastolic CHF (4) Liver masses (5) Atrial fibrillation (6) Iron deficiency anemia (7) Diabetes Recommendations ACUTE KIDNEY INJURY: -- Clinically suspect congestive kidney failure on the basis of diastolic CHF -- 07/22 Renal US report reviewed: Horseshoe kidney w/ multiple simple cysts, no hydronephrosis -- Patient has hematuria and proteinuria. Not a biopsy or immunosuppressive candidate due to horseshoe kidney w/ cysts and frail health. Also undergoing evaluation for potential metastatic malignancy -- Patient remains clinically volume overloaded. Kidney function remains relatively stable. Continue Furosemide 40 mg IV BID. EDW previously set at 88 kg. Monitor UO, wt and kidney function. CHRONIC KIDNEY DISEASE: -- Baseline creatinine 1.7 ANEMIA: -- Iron saturation < 30% w/ Ferritin < 200. Continue Venofer 100 mg IV daily ( day # 3 of 10) -- Monitor H&H GI: -- Outpatient FNA of liver lesions...possible metastatic disease CV: -- On Amiodarone and Eliquis OTHER: -- MIHAI glynn -- Will consult physical therapy for strengthening.
--- NOTE | 2017-07-24 15:01 | Progress Note ---
Subjective Date of Service: Jul 24, 2017. Subjective Pt evaluation today including: conversation w/ patient, conversation w/ family , physical exam, lab review, conversation w/ decorating consultant, review of inpatient medication list Pain: no pain PO Intake: adequate Voiding: no voiding problems patient doing well, eating well, breathing stable still with edema reviewed labs, Cr up to 3.8, Hb stable discussed with Dr. Morataya and Dr. Morris Problem List Medical Problems: (1) Anemia Status: Acute (2) CHF (congestive heart failure) Status: Acute (3) CHF (congestive heart failure) Status: Acute (4) Renal failure Status: Acute (5) Weakness Status: Acute Review of Systems Cardiac: + edema All Other Systems: Reviewed and Negative Medications Current Inpatient Medications Medications (Trade) Dose Ordered Sig/Bg Route Start Time Stop Time Status Last Admin Dose Admin Amiodarone HCl (Cordarone Tab) 200 mg BID PO 07/22/17 09:00 08/21/17 08:59 07/24/17 08:19 200 MG Apixaban (Eliquis Tab) 2.5 mg BID PO 07/22/17 09:00 08/21/17 08:59 07/24/17 08:19 2.5 MG Aspirin (Ecotrin Tab) 81 mg QAM PO 07/22/17 09:00 08/21/17 08:59 07/24/17 08:19 81 MG Atorvastatin Calcium (Lipitor Tab) 40 mg QAM PO 07/22/17 09:00 08/21/17 08:59 07/24/17 08:19 40 MG Ferrous Gluconate (Ferrous Gluconate Tab) 324 mg QAM PO 07/22/17 09:00 08/21/17 08:59 07/24/17 08:19 324 MG Insulin Glargine (Lantus Solostar Pen) 15 units DAILY SC 07/22/17 09:00 08/21/17 08:59 07/24/17 08:25 15 UNITS Levothyroxine Sodium (Synthroid Tab) 50 mcg DAILYBB PO 07/22/17 06:00 08/21/17 05:59 07/24/17 06:44 50 MCG Metoprolol Tartrate (Lopressor Tab) 25 mg BID PO 07/22/17 09:00 08/21/17 08:59 07/24/17 08:20 25 MG Pantoprazole Sodium (Protonix Tab) 40 mg QAM PO 07/22/17 09:00 08/21/17 08:59 07/24/17 08:20 40 MG Insulin Aspart (novoLOG ASPART) SLIDING SCALE G... ACHS SC 07/22/17 07:00 08/21/17 06:59 07/24/17 12:22 7 UNITS Acetaminophen (Tylenol Tab) 650 mg Q4H PRN PO 07/21/17 23:15 08/20/17 23:14 Al Hydrox/Mg Hydrox/Simethicone (Maalox Max Susp) 15 ml Q4H PRN PO 07/21/17 23:15 08/20/17 23:14 Magnesium Hydroxide (Milk Of Magnesia Susp) 30 ml Q12H PRN PO 07/21/17 23:15 08/20/17 23:14 Ondansetron HCl (Zofran Inj) 4 mg Q6H PRN IV 07/21/17 23:15 08/20/17 23:14 Morphine Sulfate (MoRPHine SULFATE INJ) 2 mg Q30M PRN IV 07/21/17 23:15 08/04/17 23:14 Polyethylene (Miralax Powder Packet) 17 gm DAILY PRN PO 07/21/17 23:15 08/20/17 23:14 Glucose (Glucose 40% Gel) 15-30 GRAMS 15 GRAMS... UD PRN PO 07/21/17 23:45 08/20/17 23:44 Glucose (Glucose Chew Tab) 4-8 Tablets 4 Tabl... UD PRN PO 07/21/17 23:45 08/20/17 23:44 Dextrose (Dextrose 50% 50ML Syringe) 25-50ML OF 50% DW IV FOR... UD PRN IV 07/21/17 23:45 08/20/17 23:44 Glucagon (Glucagon Inj) 1 mg UD PRN SQ 07/21/17 23:45 08/20/17 23:44 Albuterol/ Ipratropium (Duoneb) 3 ml Q6R INH 07/22/17 15:00 08/21/17 14:59 07/24/17 13:48 3 ML Albuterol/ Ipratropium (Duoneb) 3 ml Q2H PRN INH 07/22/17 10:15 08/21/17 10:14 07/23/17 16:34 3 ML Iron Sucrose 100 mg/Sodium Chloride 105 ml @ 420 mls/hr Q24H IV 07/23/17 09:00 08/01/17 09:14 07/24/17 09:30 420 MLS/HR Furosemide 40 mg/ Syringe 4 ml @ 4 mls/min BID17 IV 07/22/17 15:00 08/21/17 14:59 07/24/17 08:19 4 MLS/MIN Objective Vital Signs Date Time Temp Pulse Resp B/P (MAP) Pulse Ox O2 Delivery O2 Flow Rate FiO2 07/24/17 13:48 71 18 Room Air 94 07/24/17 11:16 36.4 90 18 105/57 (73) 96 07/24/17 11:00 Room Air 07/24/17 08:00 Room Air 07/24/17 07:53 36.6 86 18 114/69 (84) 95 Room Air 07/24/17 07:08 86 18 Room Air 96 07/24/17 04:25 36.7 86 18 126/76 (93) 92 Room Air 07/24/17 04:00 Room Air 07/24/17 01:52 84 16 Room Air 96 07/24/17 00:01 Room Air 07/23/17 23:21 36.6 77 18 111/61 (78) 96 Room Air 07/23/17 20:00 36.7 84 20 107/63 (78) 96 Room Air 07/23/17 20:00 Room Air 07/23/17 19:22 72 18 Room Air 95 07/23/17 16:34 72 18 Room Air 96 07/23/17 16:00 Room Air 07/23/17 15:10 36.3 81 18 107/63 (78) 96 Room Air Physical Exam General Appearance: WD/WN, no apparent distress Eyes: normal inspection, EOMI, sclerae normal ENT: normal ENT inspection, hearing grossly normal, pharynx normal Neck: supple, no adenopathy, no JVD, trachea midline Respiratory/Chest: chest non-tender, lungs clear, normal breath sounds, no respiratory distress, no accessory muscle use Cardiovascular: no gallop, no JVD, no murmur, + irregularly irregular Abdomen: normal bowel sounds, non tender, soft, no organomegaly Extremities: normal range of motion, non-tender, normal inspection, no calf tenderness, pelvis stable, + pedal edema Neurologic/Psychiatric: 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 nml as tested, no motor/sensory deficits, alert, normal mood/affect, oriented x 3 Skin: normal color, warm/dry, no rash Laboratory Results Last 24 Hours Test 07/23/17 16:45 07/23/17 20:47 07/24/17 06:14 07/24/17 06:18 Bedside Glucose 232 mg/dl 236 mg/dl 187 mg/dl White Blood Count 10.19 K/uL Red Blood Count 3.47 M/uL Hemoglobin 8.9 g/dL Hematocrit 28.3 % Mean Corpuscular Volume 81.6 fL Mean Corpuscular Hemoglobin 25.6 pg Mean Corpuscular Hemoglobin Concent 31.4 g/dl RDW Standard Deviation 57.4 fL RDW Coefficient of Variation 19.6 % Platelet Count 444 K/uL Mean Platelet Volume 10.7 fL Sodium Level 134 mmol/L Potassium Level 4.8 mmol/L Chloride Level 101 mmol/L Carbon Dioxide Level 22 mmol/L Anion Gap 11.0 mmol/L Blood Urea Nitrogen 69 mg/dl Creatinine 3.80 mg/dl Est Creatinine Clear Calc Drug Dose 17.0 ml/min Estimated GFR () 15.7 Estimated GFR (Non- 13.5 BUN/Creatinine Ratio 18.0 Random Glucose 182 mg/dl Calcium Level 8.0 mg/dl Test 07/24/17 11:46 Bedside Glucose 279 mg/dl Assessment and Plan 87 y/o M readmitted because of fluid overload and CHF exacerbation - Acute on chronic diastolic heart failure, due to atrial fibrillation as well as CKD stage III/IV improved, breathing better, diuresed about 1000cc for admission continue Lasix 40mg IV BID added fluid restriction to 1500cc monitor weights, Cr, I/O's prior echo shows normal EF - Dyspnea: resolved with diuresis never had hypoxia - Atrial fibrillation: rates controlled on Amiodarone, continue anticoagulated on Eliquis - MARGY on CKD stage III/IV: Cr getting worse, up to 3.8 anticipated that Cr would go up with diuresis d/w Dr. Morataya, patient could require HD he discussed this with patient and his son, they are open to this possibility will add compression stockings - Hypomagnesemia: give mag oxide 400mg daily - DM type II: continue Lantus and Novolog, diabetic diet sugars still running high, will increase carb ratio coverage to 1 for every 10gm - Hypothyroid: Synthroid - Anemia: follow daily, no need for transfusion - Liver nodules: suspicious for malignancy, colonoscopy was negative last admission could consider FNA biopsy as outpatient DNR Continued [facility] stay due to: multiple IV medications needed Discharge planning: home
[2017-07-25] VITALS (7 sets, daily range): BP systolic 110–116; BP diastolic 68–69; PULSE 71–95; TEMP 36.9–37; O2SAT 94–97
[2017-07-25] MEDS: ALBUT/IPRATROP 3MG/0.5MG NEB 3 ML VIAL INH SCH ×4 (01:36→19:35)
[2017-07-25] MEDS: LEVOTHYROXINE 50 MCG TAB PO SCH (05:42)
[2017-07-25 07:31] LABS: CALCIUM 8.2 mg/dl (8.5-10.1); CREATININE 3.93 mg/dl (0.60-1.40); POTASSIUM 4.6 mmol/L (3.5-5.1)
[2017-07-25] MEDS: METOPROLOL TARTRATE 25 MG TAB PO SCH ×2 (07:55→21:40)
[2017-07-25] MEDS: ATORVASTATIN 40 MG TAB PO SCH (07:55)
[2017-07-25] MEDS: FERROUS GLUCONATE 324 MG TAB PO SCH (07:55)
[2017-07-25] MEDS: PANTOprazole SOD 40 MG TAB PO SCH (07:55)
[2017-07-25] MEDS: AMIODARONE 200 MG TAB PO SCH ×2 (07:55→21:40)
[2017-07-25] MEDS: ASPIRIN 81 MG ECTAB PO SCH (07:56)
[2017-07-25] MEDS: INSULIN ASPART 100 UNITS/ML 3 ML PEN SC SCH ×4 (07:58→21:43)
[2017-07-25] MEDS: INSULIN GLARGINE SOLOSTAR 100 UNITS/ML 3 ML PEN SC SCH (07:58)
[2017-07-25] MEDS: IRON SUCROSE INJ 100 MG in SODIUM CHLORIDE 0.9% 100ML 100 ML IV SCH (08:11)
[2017-07-25] MEDS: APIXABAN 2.5 MG TAB PO SCH (08:35)
[2017-07-25] MEDS: FUROSEMIDE INJ 40 MG in SYRINGE 0 ML IV SCH (09:34)
--- NOTE | 2017-07-25 11:14 | Nephrology Progress Note ---
Nephrology Progress Note Date of Service Jul 25, 2017. Chief Complaint Acute on chronic kidney injury Subjective Mr. Menjivar was seen & examined in his hospital room this morning. He complains of persistent LE edema which limits his ability to ambulate. He had little response to IV Furosmide. Review of Systems Constitutional: No fever Cardiovascular: No chest pain Respiratory: No dyspnea at rest Abdomen: No pain, No nausea, No vomiting Extremities: + leg edema A complete review of systems was performed. Pertinent positives are noted above. All other systems are negative. Vital Signs Last 8 Hrs Date Time Temp Pulse Resp B/P (MAP) Pulse Ox O2 Delivery O2 Flow Rate FiO2 07/25/17 08:00 94 Room Air 07/25/17 07:08 81 20 Room Air 95 07/25/17 06:59 36.9 86 20 116/68 (84) 94 Room Air Last Recorded Weight Weight (Kilograms): 98.800 Physical Exam General Appearance: no apparent distress Head: normocephalic, atraumatic Eyes: PERRL, EOMI Neck: no adenopathy Respiratory/Chest: lungs clear, no respiratory distress Cardiovascular: regular rate, rhythm Abdomen/GI: normal bowel sounds, non tender, soft Extremities/Musculoskelatal: + pertinent finding (tense LE edema extending from the ankles to the knees bilaterally) Neurologic/Psych: alert, oriented x 3 Family History FHx: COPD (chronic obstructive pulmonary disease) FHx: diabetes mellitus Negative for CKD / ESRD Social History Drug Use: none Marital Status: Housing Status: lives with family Occupation: retired . Retired. Never a smoker Laboratory Results Past 24 Hours 07/25/17 06:25 Test 07/24/17 11:46 07/24/17 16:51 07/24/17 20:09 07/25/17 06:25 Bedside Glucose 279 mg/dl (70-99) 244 mg/dl (70-99) 130 mg/dl (70-99) Anion Gap 12.0 mmol/L (3-11) Est Creatinine Clear Calc Drug Dose 16.4 ml/min Estimated GFR () 15.0 Estimated GFR (Non- 13.0 BUN/Creatinine Ratio 19.1 (10-20) Calcium Level 8.2 mg/dl (8.5-10.1) Test 07/25/17 07:27 Bedside Glucose 161 mg/dl (70-99) Allergies Coded Allergies: No Known Allergies (Verified , 07/21/17) Medications Current Inpatient Medications Medications (Trade) Dose Ordered Sig/Bg Route Start Time Stop Time Status Last Admin Dose Admin Amiodarone HCl (Cordarone Tab) 200 mg BID PO 07/22/17 09:00 08/21/17 08:59 07/25/17 07:55 200 MG Apixaban (Eliquis Tab) 2.5 mg BID PO 07/22/17 09:00 08/21/17 08:59 07/25/17 08:35 2.5 MG Aspirin (Ecotrin Tab) 81 mg QAM PO 07/22/17 09:00 08/21/17 08:59 07/25/17 07:56 81 MG Atorvastatin Calcium (Lipitor Tab) 40 mg QAM PO 07/22/17 09:00 08/21/17 08:59 07/25/17 07:55 40 MG Ferrous Gluconate (Ferrous Gluconate Tab) 324 mg QAM PO 07/22/17 09:00 08/21/17 08:59 07/25/17 07:55 324 MG Insulin Glargine (Lantus Solostar Pen) 15 units DAILY SC 07/22/17 09:00 08/21/17 08:59 07/25/17 07:58 15 UNITS Levothyroxine Sodium (Synthroid Tab) 50 mcg DAILYBB PO 07/22/17 06:00 08/21/17 05:59 07/25/17 05:42 50 MCG Metoprolol Tartrate (Lopressor Tab) 25 mg BID PO 07/22/17 09:00 08/21/17 08:59 07/25/17 07:55 25 MG Pantoprazole Sodium (Protonix Tab) 40 mg QAM PO 07/22/17 09:00 08/21/17 08:59 07/25/17 07:55 40 MG Insulin Aspart (novoLOG ASPART) SLIDING SCALE G... ACHS SC 07/22/17 07:00 08/21/17 06:59 07/25/17 07:58 9 UNITS Acetaminophen (Tylenol Tab) 650 mg Q4H PRN PO 07/21/17 23:15 08/20/17 23:14 Al Hydrox/Mg Hydrox/Simethicone (Maalox Max Susp) 15 ml Q4H PRN PO 07/21/17 23:15 08/20/17 23:14 Magnesium Hydroxide (Milk Of Magnesia Susp) 30 ml Q12H PRN PO 07/21/17 23:15 08/20/17 23:14 Ondansetron HCl (Zofran Inj) 4 mg Q6H PRN IV 07/21/17 23:15 08/20/17 23:14 Morphine Sulfate (MoRPHine SULFATE INJ) 2 mg Q30M PRN IV 07/21/17 23:15 08/04/17 23:14 Polyethylene (Miralax Powder Packet) 17 gm DAILY PRN PO 07/21/17 23:15 08/20/17 23:14 Glucose (Glucose 40% Gel) 15-30 GRAMS 15 GRAMS... UD PRN PO 07/21/17 23:45 08/20/17 23:44 Glucose (Glucose Chew Tab) 4-8 Tablets 4 Tabl... UD PRN PO 07/21/17 23:45 08/20/17 23:44 Dextrose (Dextrose 50% 50ML Syringe) 25-50ML OF 50% DW IV FOR... UD PRN IV 07/21/17 23:45 08/20/17 23:44 Glucagon (Glucagon Inj) 1 mg UD PRN SQ 07/21/17 23:45 08/20/17 23:44 Albuterol/ Ipratropium (Duoneb) 3 ml Q6R INH 07/22/17 15:00 08/21/17 14:59 07/25/17 07:08 3 ML Albuterol/ Ipratropium (Duoneb) 3 ml Q2H PRN INH 07/22/17 10:15 08/21/17 10:14 07/23/17 16:34 3 ML Iron Sucrose 100 mg/Sodium Chloride 105 ml @ 420 mls/hr Q24H IV 07/23/17 09:00 08/01/17 09:14 07/25/17 08:11 420 MLS/HR Furosemide 80 mg/ Syringe 8 ml @ 4 mls/min BID17 IV 07/25/17 17:00 08/24/17 16:59 Impression (1) Acute kidney injury (2) CKD stage 3 due to type 2 diabetes mellitus (3) Diastolic CHF (4) Liver masses (5) Atrial fibrillation (6) Iron deficiency anemia (7) Diabetes Recommendations ACUTE KIDNEY INJURY: -- Clinically suspect congestive kidney failure on the basis of diastolic CHF -- 07/22 Renal US report reviewed: Horseshoe kidney w/ multiple simple cysts, no hydronephrosis -- Patient has hematuria and proteinuria. Not a biopsy or immunosuppressive candidate due to horseshoe kidney w/ cysts and frail health. Also undergoing evaluation for potential metastatic malignancy -- Patient remains clinically volume overloaded. He has tense LE edema extending from the ankles to the knees and limits his ability to ambulate. Will increase Furosemide to 80 mg IV BID -- Kidney function is slowly declining. Discussed indications/benefits/risks and alternatives to QUALITY COMPLIANCE CONSULTANT w/ Mr. Menjivar and his son this morning. Mr. Menjivar is agreeable to starting HD if needed. -- Will obtain 24 hour urine collection toquantitate kidney function -- Will consult vascular surgery to assess for IJ THC placement -- Will consult social media manager to set up outpatient HD at [facility] w/ Dr Rankin CHRONIC KIDNEY DISEASE: -- Baseline creatinine 1.7 ANEMIA: -- Iron saturation < 30% w/ Ferritin < 200. Continue Venofer 100 mg IV daily ( day # 4 of 10) -- Monitor H&H GI: -- Outpatient FNA of liver lesions...possible metastatic disease CV: -- On Amiodarone and Eliquis OTHER: -- MIHAI glynn -- Physical therapy has been consulted for strengthening.
--- NOTE | 2017-07-25 12:56 | CARDIOLOGY PROGRESS NOTE ---
DATE: 07/25/2017 SUBJECTIVE: Mr. Menjivar is resting comfortably in the bedside chair without complaints of chest pain, dyspnea or palpitations. OBJECTIVE: VITAL SIGNS: Blood pressure 116/60 with an irregular pulse of 80. Respiratory rate is 20. The patient is afebrile at 36.9 degrees Celsius. Saturation is 94% on room air. NECK: Supple with full carotid upstrokes. There are no carotid bruits. Jugular venous pressure is to the angle of the jaw at 90 degrees. CARDIOVASCULAR: Reveals an irregular rhythm with distant heart sounds. No obvious murmurs. No S3. LUNGS: Decreased breath sounds at the bases but no rales, rhonchi or wheezes. ABDOMEN: Soft without bruits. EXTREMITIES: Reveal intact radial artery pulse bilaterally. 2+ pedal edema is noted. DATA: CBC notes hemoglobin of 8.9, hematocrit 28.3, white count 10.1, platelet count 444,000. Electrolytes note sodium of 134, potassium 4.6, chloride 102, bicarb 20, BUN 75, creatinine 3.9, glucose 146. IMPRESSION AND PLAN: 1. Acute on chronic diastolic congestive heart failure, although weight was not recorded for this morning. His weight continues to increase despite intravenous diuretics. Dr. Morataya has increased furosemide to 80 mg IV twice daily. They have also discussed the possibility of hemodialysis to better control his volume status. 2. Atrial fibrillation -- rate adequately controlled on amiodarone 200 mg b.i.d. Remains on low dose Eliquis for anticoagulation. 3. Hypertension -- with mild left ventricular hypertrophy and diastolic dysfunction. 4. Mild mitral regurgitation. 5. Mild tricuspid regurgitation. 6. Hypercholesterolemia. 7. Diabetes mellitus. 8. Acute on chronic renal failure -- management per Dr. Morataya. 9. Hypothyroidism. 10. Hepatic abnormality -- metastatic workup in progress.
--- NOTE | 2017-07-25 13:02 | Surgery Consultation ---
Consultation Date of Service Jul 25, 2017. Chief Complaint ESRD, need permcath for HD History of Present Illness The patient is a 87 year old male with multiple medical problems, including CHF , CAD, A fib, HTN, CKD, admitted with worsening renal function, seen in consultation today for permcath insertion for HD. Pt states feeling ok today. Denies WHITE, fever, chills, chest pain, SOB, abd pain, N/V, rest pain, claudication, other complaints. Vitals Vital Signs Past 12 Hours Date Time Temp Pulse Resp B/P (MAP) Pulse Ox O2 Delivery O2 Flow Rate FiO2 07/25/17 08:00 94 Room Air 07/25/17 07:08 81 20 Room Air 95 07/25/17 06:59 36.9 86 20 116/68 (84) 94 Room Air 07/25/17 01:38 84 20 Room Air 96 Allergies Coded Allergies: No Known Allergies (Verified , 07/21/17) Home Medications Scheduled Amiodarone Hcl (Cordarone), 200 MG PO BID Apixaban (Eliquis), 2.5 MG PO BID Aspirin (Aspirin Ec), 81 MG PO QAM Atorvastatin (Lipitor), 40 MG PO QAM Ferrous Gluconate (Ferrous Gluconate), 324 MG PO QAM Furosemide (Lasix), 40 MG PO QAM Insulin Glargine (Lantus Solostar), 15 UNITS SC DAILY Levothyroxine Sodium (Levothyroxine Sodium), 1 TAB PO QAM Metoprolol Tartrate (Lopressor) (Lopressor), 25 MG PO BID Omeprazole (Prilosec), 40 MG PO QAM Potassium Ext Rel (Klor-Con), 20 MEQ PO HS Sitagliptin (Januvia), 50 MG PO HS Problem List Medical Problems: (1) Acute kidney injury (2) Acute on chronic renal failure (3) Anemia (4) Atrial fibrillation (5) CHF exacerbation (6) CKD stage 3 due to type 2 diabetes mellitus (7) Diabetes (8) Diastolic CHF (9) Hyperglycemia (10) Hyperkalemia (11) Iron deficiency anemia (12) Liver masses (13) Microscopic hematuria (14) Proteinuria (15) Tachycardia Surgical / Medical History Hx Cardiac Surgery: No Hx Abdominal Surgery: No Hx Cancer Surgery: No Hx Thoracic Surgery: No Hx Orthopedic: Yes (LT HIP REPLACEMENT) Hx Urinary Tract Surgery: No HX Other Surgery: No Past Medical/Surgical History: Diabetes, Heart Disease, High Cholesterol, Hypertension, Kidney Disease Family History FHx: COPD (chronic obstructive pulmonary disease) FHx: diabetes mellitus Social History Smoking Status: Never Smoker Hx Tobacco Use In Past Year?: Yes (OCCASIONAL CHEWING TOBACCO) Hx Alcohol Use - Type & Amnt: No Hx Substance Use -Type & Amnt: No Review of Systems Constitutional: + malaise, No chills, No fever Skin: No change in color Eyes: No visual changes ENMT: No sore throat Respiratory: + cough (occasional dry), + GALVEZ, No hemoptysis, No orthopnea Cardiovascular: No chest pain, No palpitations Gastrointestinal: No abdominal pain, No nausea, No vomiting Neurologic: No dizziness, No weakness, No headache, No numbness, No tingling Physical Exam Constitutional: General Apperance: well-nourished, well-developed Level of Distress: chronically ill (mildly) Ambulation: ambulation with walker Psychiatric: Mental Status: active & alert, normal mood, normal affect Orientation: oriented except where noted, to time, to place, to person Memory: recent memory normal, remote memory normal Head: normocephalic, atraumatic Eyes: EOM: EOMI ENMT: normal ENT inspection Neck: supple, trachea midline Lungs: Respiratory effort: no dyspnea Auscultation: no wheezing, decreased breath sounds, wet rales/crackles Cardiovascular: Heart Auscultation: no rubs, no gallops, pertinent finding (irregular) Peripheral Pulses: Pulses: full and equal, in all extremities except if noted Bruits: none appreciated Carotid Pulse: normal on the left, normal on the right Brachial Pulses: normal on the left, normal on the right Radial Pulse: normal on the left, normal on the right Femoral Pulse: normal on the left, normal on the right Posterior Tibialis Pulse: decreased on the left, decreased on the right Dorsalis Pedis Pulse: decreased on the left, decreased on the right Abdomen: Bowel Sounds: normal Inspection & Palpation: soft, non-distended, no tenderness, guarding & rebound Musculoskeletal: normal strength (5/5 throughout), normal tone Extremities: Upper Right: no cyanosis, no edema, no varicosities Upper Left: no cyanosis, no edema, no varicosities Lower Right: no cyanosis, no varicosities, edema Lower Left: no cyanosis, no varicosities, no palpable cord, edema Neurologic: Cranial Nerves: grossly intact Sensation: grossly intact Assessment and Plan ASSESSMENT and PLAN: ESRD Pt also seen by Dr Olsen today. Planning on permcath insertion in OR on SUNDAY. Pt aware. Will need to hold eliquis until after procedure. Discussed with Dr Ron.
--- NOTE | 2017-07-25 13:17 | Progress Note ---
Subjective Date of Service: Jul 25, 2017. Subjective Pt evaluation today including: conversation w/ patient, conversation w/ family , physical exam, lab review, conversation w/ pension consultant, review of inpatient medication list Pain: no pain PO Intake: adequate Voiding: no voiding problems patient not making much urine, not responding well to the Lasix Cr trending up to 3.[address] Morataya, recommending HD, plan for HD catheter placement discussed with vascular surgery, will hold Eliquis, plan for catheter on Sunday patient still eating well, breathing stable, moving bowels Problem List Medical Problems: (1) Anemia Status: Acute (2) CHF (congestive heart failure) Status: Acute (3) CHF (congestive heart failure) Status: Acute (4) Renal failure Status: Acute (5) Weakness Status: Acute Review of Systems Respiratory: + dyspnea on exertion Cardiac: + edema All Other Systems: Reviewed and Negative Medications Current Inpatient Medications Medications (Trade) Dose Ordered Sig/Bg Route Start Time Stop Time Status Last Admin Dose Admin Amiodarone HCl (Cordarone Tab) 200 mg BID PO 07/22/17 09:00 08/21/17 08:59 07/25/17 07:55 200 MG Apixaban (Eliquis Tab) 2.5 mg BID PO 07/22/17 09:00 08/21/17 08:59 Future hold 07/25/17 08:35 2.5 MG Aspirin (Ecotrin Tab) 81 mg QAM PO 07/22/17 09:00 08/21/17 08:59 07/25/17 07:56 81 MG Atorvastatin Calcium (Lipitor Tab) 40 mg QAM PO 07/22/17 09:00 08/21/17 08:59 07/25/17 07:55 40 MG Ferrous Gluconate (Ferrous Gluconate Tab) 324 mg QAM PO 07/22/17 09:00 08/21/17 08:59 07/25/17 07:55 324 MG Insulin Glargine (Lantus Solostar Pen) 15 units DAILY SC 07/22/17 09:00 08/21/17 08:59 07/25/17 07:58 15 UNITS Levothyroxine Sodium (Synthroid Tab) 50 mcg DAILYBB PO 07/22/17 06:00 08/21/17 05:59 07/25/17 05:42 50 MCG Metoprolol Tartrate (Lopressor Tab) 25 mg BID PO 07/22/17 09:00 08/21/17 08:59 07/25/17 07:55 25 MG Pantoprazole Sodium (Protonix Tab) 40 mg QAM PO 07/22/17 09:00 08/21/17 08:59 07/25/17 07:55 40 MG Insulin Aspart (novoLOG ASPART) SLIDING SCALE G... ACHS SC 07/22/17 07:00 08/21/17 06:59 07/25/17 12:38 7 UNITS Acetaminophen (Tylenol Tab) 650 mg Q4H PRN PO 07/21/17 23:15 08/20/17 23:14 Al Hydrox/Mg Hydrox/Simethicone (Maalox Max Susp) 15 ml Q4H PRN PO 07/21/17 23:15 08/20/17 23:14 Magnesium Hydroxide (Milk Of Magnesia Susp) 30 ml Q12H PRN PO 07/21/17 23:15 08/20/17 23:14 Ondansetron HCl (Zofran Inj) 4 mg Q6H PRN IV 07/21/17 23:15 08/20/17 23:14 Morphine Sulfate (MoRPHine SULFATE INJ) 2 mg Q30M PRN IV 07/21/17 23:15 08/04/17 23:14 Polyethylene (Miralax Powder Packet) 17 gm DAILY PRN PO 07/21/17 23:15 08/20/17 23:14 Glucose (Glucose 40% Gel) 15-30 GRAMS 15 GRAMS... UD PRN PO 07/21/17 23:45 08/20/17 23:44 Glucose (Glucose Chew Tab) 4-8 Tablets 4 Tabl... UD PRN PO 07/21/17 23:45 08/20/17 23:44 Dextrose (Dextrose 50% 50ML Syringe) 25-50ML OF 50% DW IV FOR... UD PRN IV 07/21/17 23:45 08/20/17 23:44 Glucagon (Glucagon Inj) 1 mg UD PRN SQ 07/21/17 23:45 08/20/17 23:44 Albuterol/ Ipratropium (Duoneb) 3 ml Q6R INH 07/22/17 15:00 08/21/17 14:59 07/25/17 07:08 3 ML Albuterol/ Ipratropium (Duoneb) 3 ml Q2H PRN INH 07/22/17 10:15 08/21/17 10:14 07/23/17 16:34 3 ML Iron Sucrose 100 mg/Sodium Chloride 105 ml @ 420 mls/hr Q24H IV 07/23/17 09:00 08/01/17 09:14 07/25/17 08:11 420 MLS/HR Furosemide 80 mg/ Syringe 8 ml @ 4 mls/min BID17 IV 07/25/17 17:00 08/24/17 16:59 Objective Vital Signs Date Time Temp Pulse Resp B/P (MAP) Pulse Ox O2 Delivery O2 Flow Rate FiO2 07/25/17 08:00 94 Room Air 07/25/17 07:08 81 20 Room Air 95 07/25/17 06:59 36.9 86 20 116/68 (84) 94 Room Air 07/25/17 01:38 84 20 Room Air 96 07/25/17 00:00 Room Air 07/24/17 23:34 36.8 84 18 118/72 (87) 96 Room Air 07/24/17 19:36 80 18 Room Air 96 07/24/17 16:00 Room Air 07/24/17 15:20 36.5 76 20 126/80 (95) 99 07/24/17 13:48 71 18 Room Air 94 Physical Exam General Appearance: WD/WN, no apparent distress Eyes: normal inspection, EOMI, sclerae normal ENT: normal ENT inspection, hearing grossly normal, pharynx normal Neck: supple, no adenopathy, no JVD, trachea midline Respiratory/Chest: chest non-tender, lungs clear, normal breath sounds, no respiratory distress, no accessory muscle use Cardiovascular: no gallop, no JVD, no murmur, + irregularly irregular Abdomen: normal bowel sounds, non tender, soft, no organomegaly Extremities: normal range of motion, non-tender, normal inspection, no calf tenderness, normal capillary refill, pelvis stable, + pedal edema Neurologic/Psychiatric: hand cloth examiner II-XII nml as tested, no motor/sensory deficits, alert, normal mood/affect, oriented x 3 Skin: normal color, warm/dry, no rash Laboratory Results Last 24 Hours Test 07/24/17 16:51 07/24/17 20:09 07/25/17 06:25 07/25/17 07:27 Bedside Glucose 244 mg/dl 130 mg/dl 161 mg/dl Sodium Level 134 mmol/L Potassium Level 4.6 mmol/L Chloride Level 102 mmol/L Carbon Dioxide Level 20 mmol/L Anion Gap 12.0 mmol/L Blood Urea Nitrogen 75 mg/dl Creatinine 3.93 mg/dl Est Creatinine Clear Calc Drug Dose 16.4 ml/min Estimated GFR () 15.0 Estimated GFR (Non- 13.0 BUN/Creatinine Ratio 19.1 Random Glucose 146 mg/dl Calcium Level 8.2 mg/dl Test 07/25/17 11:16 Bedside Glucose 226 mg/dl Assessment and Plan 87 y/o M readmitted because of fluid overload and CHF exacerbation - Acute on chronic diastolic heart failure, due to atrial fibrillation as well as CKD stage III/IV initially diuresed, but now he is responding less to Lasix increase to Lasix 80mg IV BID continue fluid restriction at 1500cc monitor weights, Cr, I/O's prior echo shows normal EF - Dyspnea: resolved with diuresis never had hypoxia - Atrial fibrillation: rates controlled on Amiodarone, continue anticoagulated on Eliquis, hold today for procedure on Sunday - MARGY on CKD stage III/IV: Cr getting worse, up to 3.9 anticipated that Cr would go up with diuresis d/w Dr. Morataya, plan to initiate HD will get HD catheter on Sunday morning, holding Eliquis - Hypomagnesemia: give mag oxide 400mg daily - DM type II: continue Lantus and Novolog, diabetic diet better control after increasing carb ratio coverage to 1 for every 10gm continue to monitor for hypoglycemia - Hypothyroid: Synthroid - Anemia: follow daily, no need for transfusion, Hb 8.9 yesterday - Liver nodules: suspicious for malignancy, colonoscopy was negative last admission could consider FNA biopsy as outpatient DNR Continued [facility] stay due to: multiple IV medications needed Discharge planning: home
[2017-07-25] MEDS ORDERED: FUROSEMIDE INJ 80 MG in SYRINGE 0 ML IV SCH (17:00)
[2017-07-26] VITALS (11 sets, daily range): BP systolic 109–115; BP diastolic 61–69; PULSE 72–93; TEMP 36.5–37.2; O2SAT 95–98
[2017-07-26] MEDS: ALBUT/IPRATROP 3MG/0.5MG NEB 3 ML VIAL INH SCH ×4 (01:48→18:51)
[2017-07-26] MEDS: LEVOTHYROXINE 50 MCG TAB PO SCH (06:31)
[2017-07-26 07:45] LABS: CALCIUM 8.4 mg/dl (8.5-10.1); CREATININE 4.07 mg/dl (0.60-1.40); POTASSIUM 4.6 mmol/L (3.5-5.1)
[2017-07-26] MEDS: INSULIN GLARGINE SOLOSTAR 100 UNITS/ML 3 ML PEN SC SCH (07:59)
[2017-07-26] MEDS: INSULIN ASPART 100 UNITS/ML 3 ML PEN SC SCH ×4 (08:00→21:41)
[2017-07-26] MEDS: METOPROLOL TARTRATE 25 MG TAB PO SCH ×2 (08:02→21:41)
[2017-07-26] MEDS: FERROUS GLUCONATE 324 MG TAB PO SCH (08:02)
[2017-07-26] MEDS: PANTOprazole SOD 40 MG TAB PO SCH (08:02)
[2017-07-26] MEDS: ASPIRIN 81 MG ECTAB PO SCH (08:02)
[2017-07-26] MEDS: ATORVASTATIN 40 MG TAB PO SCH (08:02)
[2017-07-26] MEDS: AMIODARONE 200 MG TAB PO SCH ×2 (08:02→21:35)
[2017-07-26] MEDS: IRON SUCROSE INJ 100 MG in SODIUM CHLORIDE 0.9% 100ML 100 ML IV SCH (08:12)
[2017-07-26] MEDS ORDERED: FUROSEMIDE INJ 80 MG in SYRINGE 0 ML IV SCH (09:00)
--- NOTE | 2017-07-26 09:15 | CARDIOLOGY PROGRESS NOTE ---
DATE: 07/26/2017 SUBJECTIVE: Mr. Menjivar is resting comfortably at the bedside without complaints of chest pain, dyspnea, or palpitations. OBJECTIVE: VITAL SIGNS: Blood pressure 115/60 with an irregular pulse of 80-90. Respiratory rate is 18. The patient is afebrile at 36.5 degrees Celsius. Saturation 95% on room air. NECK: Supple with full carotid upstrokes. There were no carotid bruits. Jugular venous pressure is elevated to the angle of the jaw. CARDIOVASCULAR: Reveals an irregular rhythm with distant heart sounds. No obvious murmurs. No S3. LUNGS: Note decreased breath sounds at the bases, but no rales, rhonchi, or wheezes. ABDOMEN: Soft without bruits. EXTREMITIES: Reveal intact radial pulse bilaterally. 2+ tense pretibial edema is noted bilaterally. LABORATORY DATA: Electrolytes note a sodium of 132, potassium 4.6, chloride 101, bicarbonate 20, BUN 81, creatinine 4.07, and glucose 144. IMPRESSION AND PLAN: 1. Acute on chronic diastolic congestive heart failure -- continues on furosemide 80 mg IV b.i.d. Daily weights have not been performed; however, fluid balance mildly negative. 2. Atrial fibrillation -- rate adequately controlled on amiodarone. Remains on Eliquis at renally adjusted doses for anticoagulation. 3. Hypertension - with mild ventricular hypertrophy and diastolic dysfunction. 4. Mild regurgitation. 5. Mild tricuspid regurgitation. 6. Hypercholesterolemia. 7. Diabetes mellitus. 8. Acute on chronic renal failure - management per Dr. Morataya. 9. Hypothyroidism. 10. Hepatic abnormality -- metastatic workup in progress.
[2017-07-26] MEDS ORDERED: NURSING VERBAL MED ORDER ONE (09:45)
--- NOTE | 2017-07-26 10:53 | Nephrology Progress Note ---
Nephrology Progress Note Date of Service Jul 26, 2017. Chief Complaint Acute on chronic kidney injury Subjective Remains weak. LE swelling limits ability to ambulate. Notes little diuresis despite IV diuretic therapy Review of Systems Constitutional: No fever Cardiovascular: No chest pain Respiratory: No dyspnea at rest Abdomen: No pain, No nausea, No vomiting Extremities: + leg edema A complete review of systems was performed. Pertinent positives are noted above. All other systems are negative. Vital Signs Last 8 Hrs Date Time Temp Pulse Resp B/P (MAP) Pulse Ox O2 Delivery O2 Flow Rate FiO2 07/26/17 08:00 95 Room Air 07/26/17 07:37 36.5 92 18 115/68 (84) 95 Room Air 07/26/17 07:01 83 20 Room Air 95 Last Recorded Weight Weight (Kilograms): 98.800 Physical Exam General Appearance: no apparent distress Head: normocephalic, atraumatic Eyes: PERRL, EOMI Neck: + JVD Respiratory/Chest: lungs clear, no respiratory distress Cardiovascular: regular rate, rhythm Abdomen/GI: normal bowel sounds, non tender, soft Extremities/Musculoskelatal: + swelling (tense pretibial edema from ankles to knees bilaterally) Neurologic/Psych: alert, oriented x 3 Family History FHx: COPD (chronic obstructive pulmonary disease) FHx: diabetes mellitus Negative for CKD / ESRD Social History Drug Use: none Marital Status: Housing Status: lives with family Occupation: retired . Retired. Never a smoker Laboratory Results Past 24 Hours 07/26/17 06:50 Test 07/25/17 11:16 07/25/17 16:43 07/25/17 19:52 07/26/17 06:50 Bedside Glucose 226 mg/dl (70-99) 188 mg/dl (70-99) 203 mg/dl (70-99) Anion Gap 11.0 mmol/L (3-11) Est Creatinine Clear Calc Drug Dose 15.9 ml/min Estimated GFR () 14.4 Estimated GFR (Non- 12.4 BUN/Creatinine Ratio 20.0 (10-20) Calcium Level 8.4 mg/dl (8.5-10.1) Test 07/26/17 07:19 07/26/17 10:45 Bedside Glucose 162 mg/dl (70-99) Allergies Coded Allergies: No Known Allergies (Verified , 07/21/17) Medications Current Inpatient Medications Medications (Trade) Dose Ordered Sig/Bg Route Start Time Stop Time Status Last Admin Dose Admin Amiodarone HCl (Cordarone Tab) 200 mg BID PO 07/22/17 09:00 08/21/17 08:59 07/26/17 08:02 200 MG Apixaban (Eliquis Tab) 2.5 mg BID PO 07/22/17 09:00 08/21/17 08:59 Future hold 07/25/17 08:35 2.5 MG Aspirin (Ecotrin Tab) 81 mg QAM PO 07/22/17 09:00 08/21/17 08:59 07/26/17 08:02 81 MG Atorvastatin Calcium (Lipitor Tab) 40 mg QAM PO 07/22/17 09:00 08/21/17 08:59 07/26/17 08:02 40 MG Ferrous Gluconate (Ferrous Gluconate Tab) 324 mg QAM PO 07/22/17 09:00 08/21/17 08:59 07/26/17 08:02 324 MG Insulin Glargine (Lantus Solostar Pen) 15 units DAILY SC 07/22/17 09:00 08/21/17 08:59 07/26/17 07:59 15 UNITS Levothyroxine Sodium (Synthroid Tab) 50 mcg DAILYBB PO 07/22/17 06:00 08/21/17 05:59 07/26/17 06:31 50 MCG Metoprolol Tartrate (Lopressor Tab) 25 mg BID PO 07/22/17 09:00 08/21/17 08:59 07/26/17 08:02 25 MG Pantoprazole Sodium (Protonix Tab) 40 mg QAM PO 07/22/17 09:00 08/21/17 08:59 07/26/17 08:02 40 MG Insulin Aspart (novoLOG ASPART) SLIDING SCALE G... ACHS SC 07/22/17 07:00 08/21/17 06:59 07/26/17 08:00 5 UNITS Acetaminophen (Tylenol Tab) 650 mg Q4H PRN PO 07/21/17 23:15 08/20/17 23:14 Al Hydrox/Mg Hydrox/Simethicone (Maalox Max Susp) 15 ml Q4H PRN PO 07/21/17 23:15 4/16/18 23:14 Magnesium Hydroxide (Milk Of Magnesia Susp) 30 ml Q12H PRN PO 07/21/17 23:15 08/20/17 23:14 Ondansetron HCl (Zofran Inj) 4 mg Q6H PRN IV 07/21/17 23:15 08/20/17 23:14 Morphine Sulfate (MoRPHine SULFATE INJ) 2 mg Q30M PRN IV 07/21/17 23:15 08/04/17 23:14 Polyethylene (Miralax Powder Packet) 17 gm DAILY PRN PO 07/21/17 23:15 08/20/17 23:14 Glucose (Glucose 40% Gel) 15-30 GRAMS 15 GRAMS... UD PRN PO 07/21/17 23:45 08/20/17 23:44 Glucose (Glucose Chew Tab) 4-8 Tablets 4 Tabl... UD PRN PO 07/21/17 23:45 08/20/17 23:44 Dextrose (Dextrose 50% 50ML Syringe) 25-50ML OF 50% DW IV FOR... UD PRN IV 07/21/17 23:45 08/20/17 23:44 Glucagon (Glucagon Inj) 1 mg UD PRN SQ 07/21/17 23:45 08/20/17 23:44 Albuterol/ Ipratropium (Duoneb) 3 ml Q6R INH 07/22/17 15:00 08/21/17 14:59 07/26/17 07:01 3 ML Albuterol/ Ipratropium (Duoneb) 3 ml Q2H PRN INH 07/22/17 10:15 08/21/17 10:14 07/23/17 16:34 3 ML Iron Sucrose 100 mg/Sodium Chloride 105 ml @ 420 mls/hr Q24H IV 07/23/17 09:00 08/01/17 09:14 07/26/17 08:12 420 MLS/HR Furosemide 80 mg/ Syringe 8 ml @ 4 mls/min TID@0800,1200,1500 IV 07/26/17 12:00 08/25/17 11:59 Cefazolin Sodium 15 ml @ 2.5 mls/min PRE-SPECIALS IV 07/27/17 08:00 07/27/17 18:00 Impression (1) Acute kidney injury (2) CKD stage 3 due to type 2 diabetes mellitus (3) Diastolic CHF (4) Liver masses (5) Atrial fibrillation (6) Iron deficiency anemia (7) Diabetes Recommendations ACUTE KIDNEY INJURY: -- Clinically suspect congestive kidney failure on the basis of diastolic CHF -- 07/22 Renal US report reviewed: Horseshoe kidney w/ multiple simple cysts, no hydronephrosis -- Patient has hematuria and proteinuria. Not a biopsy or immunosuppressive candidate due to horseshoe kidney w/ cysts and frail health. Also undergoing evaluation for potential metastatic malignancy -- Patient remains clinically volume overloaded. He has tense LE edema extending from the ankles to the knees and limits his ability to ambulate. Will increase Furosemide to 80 mg IV TID -- Kidney function is slowly declining. Discussed indications/benefits/risks and alternatives to [employer] w/ Mr. Menjivar and his son this morning. Mr. Menjivar is agreeable to starting HD if needed. Will plan on Sunday followed by 1st run HD. -- Will obtain 24 hour urine collection to quantitate kidney function (pending) -- Will consult clinical social worker to set up outpatient HD at [facility] w/ Dr Rankin CHRONIC KIDNEY DISEASE: -- Baseline creatinine 1.7 ANEMIA: -- Iron saturation < 30% w/ Ferritin < 200. Continue Venofer 100 mg IV daily ( day # 5 of 10) -- Monitor H&H GI: -- Outpatient FNA of liver lesions...possible metastatic disease CV: -- On Amiodarone and Eliquis OTHER: -- MIHAI glynn -- Physical therapy has been consulted for strengthening.
[2017-07-26] MEDS: FUROSEMIDE INJ 80 MG in SYRINGE 0 ML IV SCH ×2 (12:50→15:59)
--- NOTE | 2017-07-26 13:44 | Progress Note ---
Subjective Date of Service: Jul 26, 2017. Subjective Pt evaluation today including: conversation w/ patient, conversation w/ family , physical exam, lab review, conversation w/ insolvency consultant, review of inpatient medication list Pain: no pain PO Intake: adequate Voiding: no voiding problems feeling well, no new issues not making as much urine despite increased dose of Lasix still with swelling in legs plan for HD catheter tomorrow reviewed labs, Cr is 4.0, K is 4.[address] Morataya, plan for HD catheter tomorrow, increase Lasix to TID Problem List Medical Problems: (1) Anemia Status: Acute (2) CHF (congestive heart failure) Status: Acute (3) CHF (congestive heart failure) Status: Acute (4) Renal failure Status: Acute (5) Weakness Status: Acute Review of Systems Constitutional: + weakness, + fatigue Cardiac: + edema All Other Systems: Reviewed and Negative Medications Current Inpatient Medications Medications (Trade) Dose Ordered Sig/Bg Route Start Time Stop Time Status Last Admin Dose Admin Amiodarone HCl (Cordarone Tab) 200 mg BID PO 07/22/17 09:00 08/21/17 08:59 07/26/17 08:02 200 MG Apixaban (Eliquis Tab) 2.5 mg BID PO 07/22/17 09:00 08/21/17 08:59 Future hold 07/25/17 08:35 2.5 MG Aspirin (Ecotrin Tab) 81 mg QAM PO 07/22/17 09:00 08/21/17 08:59 07/26/17 08:02 81 MG Atorvastatin Calcium (Lipitor Tab) 40 mg QAM PO 07/22/17 09:00 08/21/17 08:59 07/26/17 08:02 40 MG Ferrous Gluconate (Ferrous Gluconate Tab) 324 mg QAM PO 07/22/17 09:00 08/21/17 08:59 07/26/17 08:02 324 MG Insulin Glargine (Lantus Solostar Pen) 15 units DAILY SC 07/22/17 09:00 08/21/17 08:59 07/26/17 07:59 15 UNITS Levothyroxine Sodium (Synthroid Tab) 50 mcg DAILYBB PO 07/22/17 06:00 08/21/17 05:59 07/26/17 06:31 50 MCG Metoprolol Tartrate (Lopressor Tab) 25 mg BID PO 07/22/17 09:00 08/21/17 08:59 07/26/17 08:02 25 MG Pantoprazole Sodium (Protonix Tab) 40 mg QAM PO 07/22/17 09:00 08/21/17 08:59 07/26/17 08:02 40 MG Insulin Aspart (novoLOG ASPART) SLIDING SCALE G... ACHS SC 07/22/17 07:00 08/21/17 06:59 07/26/17 12:53 11 UNITS Acetaminophen (Tylenol Tab) 650 mg Q4H PRN PO 07/21/17 23:15 08/20/17 23:14 Al Hydrox/Mg Hydrox/Simethicone (Maalox Max Susp) 15 ml Q4H PRN PO 07/21/17 23:15 08/20/17 23:14 Magnesium Hydroxide (Milk Of Magnesia Susp) 30 ml Q12H PRN PO 07/21/17 23:15 08/20/17 23:14 Ondansetron HCl (Zofran Inj) 4 mg Q6H PRN IV 07/21/17 23:15 08/20/17 23:14 Morphine Sulfate (MoRPHine SULFATE INJ) 2 mg Q30M PRN IV 07/21/17 23:15 08/04/17 23:14 Polyethylene (Miralax Powder Packet) 17 gm DAILY PRN PO 07/21/17 23:15 08/20/17 23:14 Glucose (Glucose 40% Gel) 15-30 GRAMS 15 GRAMS... UD PRN PO 07/21/17 23:45 08/20/17 23:44 Glucose (Glucose Chew Tab) 4-8 Tablets 4 Tabl... UD PRN PO 07/21/17 23:45 08/20/17 23:44 Dextrose (Dextrose 50% 50ML Syringe) 25-50ML OF 50% DW IV FOR... UD PRN IV 07/21/17 23:45 08/20/17 23:44 Glucagon (Glucagon Inj) 1 mg UD PRN SQ 07/21/17 23:45 08/20/17 23:44 Albuterol/ Ipratropium (Duoneb) 3 ml Q6R INH 07/22/17 15:00 4/17/18 14:59 07/26/17 07:01 3 ML Albuterol/ Ipratropium (Duoneb) 3 ml Q2H PRN INH 07/22/17 10:15 08/21/17 10:14 07/23/17 16:34 3 ML Iron Sucrose 100 mg/Sodium Chloride 105 ml @ 420 mls/hr Q24H IV 07/23/17 09:00 08/01/17 09:14 07/26/17 08:12 420 MLS/HR Furosemide 80 mg/ Syringe 8 ml @ 4 mls/min TID@0800,1200,1500 IV 07/26/17 12:00 08/25/17 11:59 07/26/17 12:50 4 MLS/MIN Cefazolin Sodium 15 ml @ 2.5 mls/min PRE-SPECIALS IV 07/27/17 08:00 07/27/17 18:00 Heparin Sodium (Porcine) (No Heparin In Dialysis) 1 ea 0600 N/A 07/27/17 06:00 07/27/17 18:00 Objective Vital Signs Date Time Temp Pulse Resp B/P (MAP) Pulse Ox O2 Delivery O2 Flow Rate FiO2 07/26/17 08:00 95 Room Air 07/26/17 07:37 36.5 92 18 115/68 (84) 95 Room Air 07/26/17 07:01 83 20 Room Air 95 07/26/17 01:48 83 22 Room Air 97 07/26/17 00:24 37.2 91 20 115/65 (82) 95 Room Air 07/26/17 00:00 Room Air 07/25/17 19:36 95 18 Room Air 96 07/25/17 16:00 Room Air 07/25/17 14:13 71 18 Room Air 94 07/25/17 14:05 37.0 87 18 110/69 (83) 97 Physical Exam General Appearance: WD/WN, no apparent distress Eyes: normal inspection, EOMI, sclerae normal ENT: normal ENT inspection, hearing grossly normal, pharynx normal Neck: supple, no adenopathy, no JVD, trachea midline Respiratory/Chest: chest non-tender, lungs clear, normal breath sounds, no respiratory distress, no accessory muscle use Cardiovascular: regular rate, rhythm, no gallop, no JVD, no murmur Abdomen: normal bowel sounds, non tender, soft, no organomegaly Extremities: normal range of motion, non-tender, normal inspection, no calf tenderness, pelvis stable, + pedal edema Neurologic/Psychiatric: senior production manager II-XII nml as tested, no motor/sensory deficits, alert, normal mood/affect, oriented x 3 Skin: normal color, warm/dry, no rash Lymphatic: no adenopathy Laboratory Results Last 24 Hours Test 07/25/17 16:43 07/25/17 19:52 07/26/17 06:50 07/26/17 07:19 Bedside Glucose 188 mg/dl 203 mg/dl 162 mg/dl Sodium Level 132 mmol/L Potassium Level 4.6 mmol/L Chloride Level 101 mmol/L Carbon Dioxide Level 20 mmol/L Anion Gap 11.0 mmol/L Blood Urea Nitrogen 81 mg/dl Creatinine 4.07 mg/dl Est Creatinine Clear Calc Drug Dose 15.9 ml/min Estimated GFR () 14.4 Estimated GFR (Non- 12.4 BUN/Creatinine Ratio 20.0 Random Glucose 144 mg/dl Calcium Level 8.4 mg/dl Test 07/26/17 10:30 07/26/17 11:26 Urine Collection Time 24 HOURS Urine Total Volume 1220 mL Urine Creatinine 59.2 mg/dl Urine Creatinine 24 Hour 0.7 gm/24 HR Urine Total Protein 24 Hour 1720 MG/24 HR Urine Total Protein 141.0 mg/dl Bedside Glucose 242 mg/dl Assessment and Plan 87 y/o M readmitted because of fluid overload and CHF exacerbation - Acute on chronic diastolic heart failure, due to atrial fibrillation as well as CKD stage III/IV initially diuresed, but now he is responding less to Lasix increase to Lasix 80mg IV TID today continue fluid restriction at 1500cc monitor weights, Cr, I/O's (-400cc today) prior echo shows normal EF at this time he will need HD to provide UF and get fluid off, plan for HD catheter tomorrow - Dyspnea: resolved with diuresis never had hypoxia - Atrial fibrillation: rates controlled on Amiodarone, continue holding Eliquis with plans for HD catheter tomorrow - MARGY on CKD stage III/IV, now progressing to ESRD: Cr getting worse, up to 4.0 d/w Dr. Morataya, plan to initiate HD, catheter placement tomorrow increase Lasix to 80mg IV TID K is 4.6 - Hypomagnesemia: give mag oxide 400mg daily - DM type II: continue Lantus and Novolog, diabetic diet better control after increasing carb ratio coverage to 1 for every 10gm continue to monitor for hypoglycemia, no episodes during admission - Hypothyroid: Synthroid - Anemia: Hb has been low but stable, continue Venofer, may need EPO repeat H/H tomorrow AM - Liver nodules: suspicious for malignancy, colonoscopy was negative last admission could consider FNA biopsy as outpatient DNR Continued [facility] stay due to: multiple IV medications needed Discharge planning: home
[2017-07-27] VITALS (22 sets, daily range): BP systolic 94–119; BP diastolic 46–71; PULSE 71–110; TEMP 36.3–36.9; O2SAT 95–98
[2017-07-27] MEDS: ALBUT/IPRATROP 3MG/0.5MG NEB 3 ML VIAL INH SCH ×4 (01:46→20:23)
[2017-07-27 05:35] LABS: HEMATOCRIT 27.4 % (42-52); HEMOGLOBIN 8.7 g/dL (14.0-18.0)
[2017-07-27] MEDS ORDERED: CEFAZOLIN 2000MG IV PUSH 15 ML IV SCH ×2 (06:00→08:00)
[2017-07-27] MEDS: LEVOTHYROXINE 50 MCG TAB PO SCH (06:01)
[2017-07-27 06:04] LABS: CALCIUM 8.3 mg/dl (8.5-10.1); CREATININE 4.31 mg/dl (0.60-1.40); POTASSIUM 4.6 mmol/L (3.5-5.1)
--- NOTE | 2017-07-27 07:40 | Progress Note ---
Progress Note Date of Service Jul 27, 2017. Progress Note Patient for permcath insertion today. I have discussed the risks options and benefits of the procedure with the patient. The patient understands the risks options and benefits and agrees to the procedure. I have examined the patient, reviewed the History & Physical and in the interval since the performance of the History & Physical I have noted the following changes of clinical significance: No changes noted
[2017-07-27] MEDS ORDERED: MIDAZOLAM HCL 1 MG/ML 2ML VIAL ONE (07:42)
[2017-07-27] MEDS ORDERED: HEPARIN SOD (PORCINE) 5000 UNIT/ML 1 ML VIAL ONE (07:42)
[2017-07-27] MEDS ORDERED: FENTANYL CITRATE INJ 50 MCG/1 ML 2 ML VIAL ONE (07:42)
--- NOTE | 2017-07-27 07:51 | Pre Sedation Assessment ---
Pre Sedation Assessment General Date of Sedation: Jul 27, 2017. Vital Signs Past 12 Hours Date Time Temp Pulse Resp B/P (MAP) Pulse Ox O2 Delivery O2 Flow Rate FiO2 07/27/17 07:15 95 Room Air 07/27/17 07:00 71 22 Room Air 95 07/27/17 01:46 71 22 Room Air 94 07/27/17 00:00 98 Room Air 07/26/17 23:47 36.6 93 18 111/69 (83) 96 Room Air 07/26/17 21:38 93 115/66 (82) Review Cardiovascular: regular rate, rhythm Lungs: lungs clear, no respiratory distress Pre-Sedation Airway Assessment Smoking Status: Never Smoker Hx of Sleep Apnea: No Short Thick Neck: No Thyro-mental Distance: < or =3 Finger Breadths Oral Cavity: Dentures Mallampati Classification: Class II ASA Classification: Class IV NPO Status Date of Last Intake of Fluids: Jul 26, 2017 Time of Last Intake of Fluids: 0000 Date of Last Intake of Solids: Jul 26, 2017 Time of Last Intake of Solids: 1730 Procedure Planning Contraindications for Sedation: None Current Medications Reviewed: Yes Notes The planned sedation has been discussed with the patient. Informed Consent was obtained. I have identified the patient, determined the appropriateness of sedation and have assessed the patient immediately prior to the procedure. All medicine(s) and interventions are by my order.
[2017-07-27] MEDS ORDERED: CEFAZOLIN IV 1,000 MG in DEXTROSE 5% 50ML 50 ML IV ONE (08:00)
[2017-07-27] MEDS: FUROSEMIDE INJ 80 MG in SYRINGE 0 ML IV SCH ×3 (08:00→16:07)
[2017-07-27] MEDS ORDERED: MIDAZOLAM HCL 1 MG/ML 2ML VIAL IV ONE (08:07)
[2017-07-27] MEDS ORDERED: FENTANYL CITRATE INJ 50 MCG/1 ML 2 ML VIAL IV ONE (08:07)
[2017-07-27] MEDS ORDERED: LIDOCAINE HCL 1% 20 ML VIAL INJ ONE ×2 (08:10→08:15)
[2017-07-27] MEDS ORDERED: HEPARIN SOD (PORCINE) 5000 UNIT/ML 1 ML VIAL IV ONE (08:24)
--- NOTE | 2017-07-27 08:30 | [facility] Post Operative Brief Note ---
Immediate Operative Summary Operative Date Jul 27, 2017. Pre-Operative Diagnosis end stage renal disease Post-Operative Diagnosis end stage renal disease Procedure(s) Performed Insertion Of Perm Catheter, Right Internal Jugular Approach, Ultrasound Localization Of Right Internal Jugular Vein, Fluoroscopy For Positioning, Moderate Concious Sedation [address] Olsen Alarm Signal Operator Surgeon(s) Alejandra Atkinson MD Estimated Blood Loss 10cc Findings Consistent with Post-Op Diagnosis Tip in distal SVC Specimens none Drains None Anesthesia Type IV Sedat Cons RN Only Complication(s) none Disposition Accompanied Pt To Recover: no Disposition:
--- NOTE | 2017-07-27 08:31 | [facility] Operative Report ---
Operative Report Operative Date Jul 27, 2017. Pre-Operative Diagnosis end stage renal disease Post-Operative Diagnosis end stage renal disease Procedure(s) Performed Insertion Of Perm Catheter, Right Internal Jugular Approach, Ultrasound Localization Of Right Internal Jugular Vein, Fluoroscopy For Positioning, Moderate Concious Sedation [address] Olsen Training Instructor Surgeon(s) Alejandra Atkinson MD Estimated Blood Loss 10 ml Findings Tip of Catheter in distal SVC Specimens none Drains 19 cm Perm Cath in R IJ Anesthesia Type IV Sedat Cons RN Only Complication(s) none Disposition yes Indications MR. Menjivar is a 87 y/o male with ESRD in need of HD access. He was recommended placement of of tunnelled hemodialysis line and agreed to undergo the above procedure Description of Procedure Patient was taken to the angio suite and placed in the supine position. The right side of the neck and chest wall were prepped and draped in a sterile manner. Local anesthesia was then administered to the appropriate areas of the neck and chest wall. Ultrasound was then used to locate the right internal jugular v ein. The vein compressed easily, had no filing defects, and was patent. The vein was then punctured under direct ultrasound imaging. A guidewire was then passed centrally under fluoroscopic imaging. A stab wound was then made in the anterior chest wall and a 19 cm permcath was passed from the stab wound on the chest wall to the puncture site on the neck. The puncture site was then dilated till the 14Fr peel away sheath was inserted. The permcath was then inserted through the sheath to a central position in the distal superior vena cava. The peel away sheath was then removed. The catheter was then sutured in place using nylon sutures. The puncture was then closed using a 4-0 Vicryl subcuticular suture. Dermabond was used for a dressing on the puncture site. Both ports aspirated and flushed easily and were then packed with heparin. A sterile dressing was applied to the catheter. The patient left the angio suite in good condition and tolerated the procedure well. I, Dr. Olsen was present and scrubbed for the entire procedure. I attest to the content of the Intraoperative Record and any orders documented therein. Any exceptions are noted below.
[2017-07-27] MEDS: METOPROLOL TARTRATE 25 MG TAB PO SCH ×3 (09:00→21:12)
[2017-07-27] MEDS: AMIODARONE 200 MG TAB PO SCH ×3 (09:00→21:12)
[2017-07-27] MEDS: ATORVASTATIN 40 MG TAB PO SCH (09:26)
[2017-07-27] MEDS: FERROUS GLUCONATE 324 MG TAB PO SCH (09:26)
[2017-07-27] MEDS: PANTOprazole SOD 40 MG TAB PO SCH (09:26)
[2017-07-27] MEDS: ASPIRIN 81 MG ECTAB PO SCH (09:26)
[2017-07-27] MEDS: IRON SUCROSE INJ 100 MG in SODIUM CHLORIDE 0.9% 100ML 100 ML IV SCH (09:27)
[2017-07-27] MEDS: INSULIN ASPART 100 UNITS/ML 3 ML PEN SC SCH ×4 (09:32→21:00)
[2017-07-27] MEDS: INSULIN GLARGINE SOLOSTAR 100 UNITS/ML 3 ML PEN SC SCH (09:33)
--- NOTE | 2017-07-27 09:51 | CARDIOLOGY PROGRESS NOTE ---
DATE: 07/27/2017 SUBJECTIVE: Mr. Menjivar is resting comfortably in bed, having just returned from the operating room. He had a Perm-A-Cath placed in the right subclavicular region. No complaints of chest pain, dyspnea, or palpitations. OBJECTIVE: VITAL SIGNS: Blood pressure is 113/71 with an irregular pulse of 90. Respiratory is 18. The patient is afebrile at 36.4 degrees Celsius. Saturation is 96% on 4 liters nasal cannula. NECK: Supple with full carotid upstrokes. No obvious bruits. Jugular venous pressure is to the angle of the jaw at 45 degrees. CHEST: Reveals presence of a Perm-A-Cath in the right subclavicular region. CARDIOVASCULAR: Reveals a regular rhythm with normal S1 and S2. Heart sounds are distant. No S3 murmurs. LUNGS: Clear without rales, rhonchi or wheeze. ABDOMEN: Soft without bruits. EXTREMITIES: Reveal 2+ tense edema in the pretibial regions bilaterally. LABORATORY DATA: CBC notes hemoglobin of 8.7, hematocrit 27.4, white count 10.1, and platelet count 444,000. Electrolytes note a sodium of 133, potassium 4.6, chloride 101, bicarb 20, BUN 89, creatinine 4.3, and glucose 173. IMPRESSION AND PLAN: 1. Acute on chronic diastolic congestive heart failure -- the patient had a PermCath placed for dialysis earlier today. We will have his first dialysis later this morning. This will most likely control his volume status. 2. Atrial fibrillation -- rate adequately controlled on amiodarone 200 mg b.i.d. We will use renally adjusted Eliquis for anticoagulation. 3. Hypertension -- with mild left ventricular hypertrophy and diastolic dysfunction. 4. Mild mitral regurgitation. 5. Mild tricuspid regurgitation. 6. Hypercholesterolemia. 7. Diabetes mellitus. 8. Acute on chronic renal failure -- dialysis per Dr. Morataya. 9. Hypothyroidism. 10. Hepatic abnormality -- workup in progress.
--- NOTE | 2017-07-27 11:44 | Progress Note ---
Subjective Date of Service: Jul 27, 2017. Subjective Pt evaluation today including: conversation w/ patient, physical exam, lab review, conversation w/ account consultant, review of inpatient medication list Pain: no pain PO Intake: adequate Voiding: no voiding problems HD catheter placed this AM, tolerated well good appetite, moving bowels, making a little urine Cr continues to go up plan for HD today, will see how he tolerates d/w son about discharge plans, may need rehab Problem List Medical Problems: (1) Anemia Status: Acute (2) CHF (congestive heart failure) Status: Acute (3) CHF (congestive heart failure) Status: Acute (4) Renal failure Status: Acute (5) Weakness Status: Acute Review of Systems Respiratory: + dyspnea on exertion Cardiac: + edema Neurologic: + weakness All Other Systems: Reviewed and Negative Medications Current Inpatient Medications Medications (Trade) Dose Ordered Sig/Bg Route Start Time Stop Time Status Last Admin Dose Admin Amiodarone HCl (Cordarone Tab) 200 mg BID PO 07/22/17 09:00 08/21/17 08:59 07/26/17 21:35 200 MG Apixaban (Eliquis Tab) 2.5 mg BID PO 07/22/17 09:00 08/21/17 08:59 Future hold 07/25/17 08:35 2.5 MG Aspirin (Ecotrin Tab) 81 mg QAM PO 07/22/17 09:00 08/21/17 08:59 07/27/17 09:26 81 MG Atorvastatin Calcium (Lipitor Tab) 40 mg QAM PO 07/22/17 09:00 08/21/17 08:59 07/27/17 09:26 40 MG Ferrous Gluconate (Ferrous Gluconate Tab) 324 mg QAM PO 07/22/17 09:00 08/21/17 08:59 07/27/17 09:26 324 MG Insulin Glargine (Lantus Solostar Pen) 15 units DAILY SC 07/22/17 09:00 08/21/17 08:59 07/27/17 09:33 15 UNITS Levothyroxine Sodium (Synthroid Tab) 50 mcg DAILYBB PO 07/22/17 06:00 08/21/17 05:59 07/27/17 06:01 50 MCG Metoprolol Tartrate (Lopressor Tab) 25 mg BID PO 07/22/17 09:00 08/21/17 08:59 07/26/17 21:41 25 MG Pantoprazole Sodium (Protonix Tab) 40 mg QAM PO 07/22/17 09:00 08/21/17 08:59 07/27/17 09:26 40 MG Insulin Aspart (novoLOG ASPART) SLIDING SCALE G... ACHS SC 07/22/17 07:00 08/21/17 06:59 07/27/17 09:32 5 UNITS Acetaminophen (Tylenol Tab) 650 mg Q4H PRN PO 07/21/17 23:15 08/20/17 23:14 Al Hydrox/Mg Hydrox/Simethicone (Maalox Max Susp) 15 ml Q4H PRN PO 07/21/17 23:15 08/20/17 23:14 Magnesium Hydroxide (Milk Of Magnesia Susp) 30 ml Q12H PRN PO 07/21/17 23:15 08/20/17 23:14 Ondansetron HCl (Zofran Inj) 4 mg Q6H PRN IV 07/21/17 23:15 08/20/17 23:14 Morphine Sulfate (MoRPHine SULFATE INJ) 2 mg Q30M PRN IV 07/21/17 23:15 08/04/17 23:14 Polyethylene (Miralax Powder Packet) 17 gm DAILY PRN PO 07/21/17 23:15 08/20/17 23:14 Glucose (Glucose 40% Gel) 15-30 GRAMS 15 GRAMS... UD PRN PO 07/21/17 23:45 08/20/17 23:44 Glucose (Glucose Chew Tab) 4-8 Tablets 4 Tabl... UD PRN PO 07/21/17 23:45 08/20/17 23:44 Dextrose (Dextrose 50% 50ML Syringe) 25-50ML OF 50% DW IV FOR... UD PRN IV 07/21/17 23:45 08/20/17 23:44 Glucagon (Glucagon Inj) 1 mg UD PRN SQ 07/21/17 23:45 08/20/17 23:44 Albuterol/ Ipratropium (Duoneb) 3 ml Q6R INH 07/22/17 15:00 08/21/17 14:59 07/27/17 07:00 3 ML Albuterol/ Ipratropium (Duoneb) 3 ml Q2H PRN INH 07/22/17 10:15 08/21/17 10:14 07/23/17 16:34 3 ML Iron Sucrose 100 mg/Sodium Chloride 105 ml @ 420 mls/hr Q24H IV 07/23/17 09:00 08/01/17 09:14 07/27/17 09:27 420 MLS/HR Furosemide 80 mg/ Syringe 8 ml @ 4 mls/min TID@0800,1200,1500 IV 07/26/17 12:00 08/25/17 11:59 07/26/17 15:59 4 MLS/MIN Cefazolin Sodium 15 ml @ 2.5 mls/min PRE-SPECIALS IV 07/27/17 08:00 07/27/17 18:00 Heparin Sodium (Porcine) (No Heparin In Dialysis) 1 ea 0600 N/A 07/27/17 06:00 07/27/17 18:00 Objective Vital Signs Date Time Temp Pulse Resp B/P (MAP) Pulse Ox O2 Delivery O2 Flow Rate FiO2 07/27/17 11:00 90 99/52 07/27/17 10:45 110 95/63 07/27/17 10:30 100 110/46 07/27/17 10:15 90 103/57 07/27/17 10:00 36.7 91 106/61 (76) 07/27/17 09:15 36.8 92 18 113/71 (85) 96 Room Air 07/27/17 08:39 22 105/63 94 Room Air Mask 07/27/17 08:35 22 116/67 94 Room Air Mask 07/27/17 08:30 18 116/66 94 Room Air Mask 07/27/17 08:25 Mask 4 07/27/17 08:20 Mask 4 07/27/17 08:15 Mask 4 07/27/17 08:10 Mask 4 07/27/17 08:09 36.6 75 18 119/68 (85) 95 Room Air 07/27/17 08:05 Mask 4 07/27/17 07:15 95 Room Air 07/27/17 07:00 71 22 Room Air 95 07/27/17 01:46 71 22 Room Air 94 07/27/17 00:00 98 Room Air 07/26/17 23:47 36.6 93 18 111/69 (83) 96 Room Air 07/26/17 21:38 93 115/66 (82) 07/26/17 18:51 81 22 Room Air 95 07/26/17 16:00 98 Room Air 07/26/17 15:20 36.6 72 18 109/61 (77) 95 Room Air 07/26/17 14:20 88 22 Room Air 95 Physical Exam General Appearance: WD/WN, no apparent distress Eyes: normal inspection, EOMI, sclerae normal ENT: normal ENT inspection, hearing grossly normal, pharynx normal Neck: supple, no adenopathy, no JVD, trachea midline Respiratory/Chest: chest non-tender, lungs clear, normal breath sounds, no respiratory distress, no accessory muscle use Cardiovascular: no gallop, no JVD, no murmur, + irregularly irregular Abdomen: normal bowel sounds, non tender, soft, no organomegaly Extremities: normal range of motion, non-tender, normal inspection, no calf tenderness, pelvis stable, + pedal edema Neurologic/Psychiatric: 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6 Random Glucose 173 mg/dl Calcium Level 8.3 mg/dl Hepatitis B Surface Antigen NEG Hepatitis B Surface Antibody NEG Assessment and Plan 87 y/o M readmitted because of fluid overload and CHF exacerbation - Acute on chronic diastolic heart failure, due to atrial fibrillation as well as CKD stage III/IV initially diuresed, now with minimal response to Lasix increased Lasix to 80mg IV TID, will defer to nephrology if he still needs Lasix now with HD starting continue fluid restriction at 1500cc monitor weights, Cr, I/O's prior echo shows normal EF at this time he will need HD to provide UF and get fluid off - Dyspnea: resolved with diuresis never had hypoxia - Atrial fibrillation: rates controlled on Amiodarone, continue Eliquis was held for HD catheter, resume tomorrow - MARGY on CKD stage III/IV, 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 Morataya, HD this morning for 2 hours then again tomorrow for 3 hours increase Lasix to 80mg IV TID, continue this dose for now K is stable - Metabolic acidosis, increases AG due to uremia, should resolve with HD - Hypomagnesemia: give mag oxide 400mg daily - DM type II: continue Lantus and Novolog, diabetic diet better control after increasing carb ratio coverage to 1 for every 10gm continue to monitor for hypoglycemia, no episodes during admission sugars consistently < 200 - Hypothyroid: Synthroid - Anemia: Hb has been low but stable, continue Venofer, may need EPO Hb is 8.7 this AM so it is stable - Liver nodules: suspicious for malignancy, colonoscopy was negative last admission could consider FNA biopsy as outpatient DNR Disposition: may need rehab, will see how he responds to HD and check PT/OT notes Continued [facility] stay due to: multiple IV medications needed Discharge planning: home
[2017-07-27] MEDS ORDERED: COUGH DROP (SUGAR FREE) LOZ 24 LOZ/1 BOX LOZ ONE (14:31)
[2017-07-27] MEDS ORDERED: COUGH DROP (SUGAR FREE) LOZ 24 LOZ/1 BOX LOZ PRN (14:45)
[2017-07-27] MEDS ORDERED: NURSING DECISION MEDICATION ORDER SCH (14:45)
--- NOTE | 2017-07-27 16:45 | Nephrology Progress Note ---
Nephrology Progress Note Date of Service Jul 27, 2017. Chief Complaint Acute on chronic kidney injury Subjective Mr. Menjivar was seen & examined in his hospital room this morning. He had just completed IJ THC insertion. He reports that he is breathing well and voices no medical concerns. Review of Systems Constitutional: No fever Cardiovascular: No chest pain Respiratory: No dyspnea at rest Abdomen: No pain, No nausea, No vomiting Extremities: No leg edema A complete review of systems was performed. Pertinent positives are noted above. All other systems are negative. Vital Signs Last 8 Hrs Date Time Temp Pulse Resp B/P (MAP) Pulse Ox O2 Delivery O2 Flow Rate FiO2 07/27/17 15:24 36.7 95 18 98/59 (72) 96 Room Air 07/27/17 15:17 71 22 Room Air 96 07/27/17 12:40 36.3 93 18 103/64 (77) 96 Room Air 07/27/17 12:10 36.7 100 103/64 (77) 07/27/17 12:00 100 100/58 07/27/17 11:45 99 95/65 07/27/17 11:30 108 96/58 07/27/17 11:15 95 94/52 07/27/17 11:00 90 99/52 07/27/17 10:45 110 95/63 07/27/17 10:30 100 110/46 07/27/17 10:15 90 103/57 07/27/17 10:00 36.7 91 106/61 (76) 07/27/17 09:15 36.8 92 18 113/71 (85) 96 Room Air 07/27/17 08:39 22 105/63 94 Room Air Mask 07/27/17 08:35 22 116/67 94 Room Air Mask I & O 24-Hour Column 07/28/17 08:00 Intake Total 120 ml Output Total 2125 ml Balance -2005 ml Last Recorded Weight Weight (Kilograms): 99.000 Physical Exam General Appearance: no apparent distress Head: normocephalic, atraumatic Eyes: PERRL, EOMI Neck: no adenopathy Respiratory/Chest: lungs clear, no respiratory distress Cardiovascular: regular rate, rhythm Abdomen/GI: normal bowel sounds, non tender, soft Extremities/Musculoskelatal: no calf tenderness, no pedal edema Neurologic/Psych: alert, oriented x 3 Family History FHx: COPD (chronic obstructive pulmonary disease) FHx: diabetes mellitus Negative for CKD / ESRD Social History Drug Use: none Marital Status: Housing Status: lives with family Occupation: retired . Retired. Never a smoker Laboratory Results Past 24 Hours 07/27/17 05:15 07/27/17 05:15 Test 07/26/17 16:48 07/26/17 21:18 07/27/17 05:15 07/27/17 14:14 Bedside Glucose 176 mg/dl (70-99) 182 mg/dl (70-99) 238 mg/dl (70-99) Anion Gap 12.0 mmol/L (3-11) Est Creatinine Clear Calc Drug Dose 15.0 ml/min Estimated GFR () 13.4 Estimated GFR (Non- 11.6 BUN/Creatinine Ratio 20.6 (10-20) Calcium Level 8.3 mg/dl (8.5-10.1) Hepatitis B Surface Antigen NEG (NEG) Hepatitis B Surface Antibody NEG Allergies Coded Allergies: No Known Allergies (Verified , 07/21/17) Medications Current Inpatient Medications Medications (Trade) Dose Ordered Sig/Bg Route Start Time Stop Time Status Last Admin Dose Admin Amiodarone HCl (Cordarone Tab) 200 mg BID PO 07/22/17 09:00 08/21/17 08:59 07/27/17 12:39 200 MG Apixaban (Eliquis Tab) 2.5 mg BID PO 07/22/17 09:00 08/21/17 08:59 Future hold 07/25/17 08:35 2.5 MG Aspirin (Ecotrin Tab) 81 mg QAM PO 07/22/17 09:00 08/21/17 08:59 07/27/17 09:26 81 MG Atorvastatin Calcium (Lipitor Tab) 40 mg QAM PO 07/22/17 09:00 08/21/17 08:59 07/27/17 09:26 40 MG Ferrous Gluconate (Ferrous Gluconate Tab) 324 mg QAM PO 07/22/17 09:00 08/21/17 08:59 07/27/17 09:26 324 MG Insulin Glargine (Lantus Solostar Pen) 15 units DAILY SC 07/22/17 09:00 08/21/17 08:59 07/27/17 09:33 15 UNITS Levothyroxine Sodium (Synthroid Tab) 50 mcg DAILYBB PO 07/22/17 06:00 08/21/17 05:59 07/27/17 06:01 50 MCG Metoprolol Tartrate (Lopressor Tab) 25 mg BID PO 07/22/17 09:00 08/21/17 08:59 07/27/17 12:39 25 MG Pantoprazole Sodium (Protonix Tab) 40 mg QAM PO 07/22/17 09:00 08/21/17 08:59 07/27/17 09:26 40 MG Insulin Aspart (novoLOG ASPART) SLIDING SCALE G... ACHS SC 07/22/17 07:00 08/21/17 06:59 07/27/17 14:32 10 UNITS Acetaminophen (Tylenol Tab) 650 mg Q4H PRN PO 07/21/17 23:15 08/20/17 23:14 Al Hydrox/Mg Hydrox/Simethicone (Maalox Max Susp) 15 ml Q4H PRN PO 07/21/17 23:15 08/20/17 23:14 Magnesium Hydroxide (Milk Of Magnesia Susp) 30 ml Q12H PRN PO 07/21/17 23:15 08/20/17 23:14 Ondansetron HCl (Zofran Inj) 4 mg Q6H PRN IV 07/21/17 23:15 08/20/17 23:14 Morphine Sulfate (MoRPHine SULFATE INJ) 2 mg Q30M PRN IV 07/21/17 23:15 08/04/17 23:14 Polyethylene (Miralax Powder Packet) 17 gm DAILY PRN PO 07/21/17 23:15 08/20/17 23:14 Glucose (Glucose 40% Gel) 15-30 GRAMS 15 GRAMS... UD PRN PO 07/21/17 23:45 08/20/17 23:44 Glucose (Glucose Chew Tab) 4-8 Tablets 4 Tabl... UD PRN PO 07/21/17 23:45 08/20/17 23:44 Dextrose (Dextrose 50% 50ML Syringe) 25-50ML OF 50% DW IV FOR... UD PRN IV 07/21/17 23:45 08/20/17 23:44 Glucagon (Glucagon Inj) 1 mg UD PRN SQ 07/21/17 23:45 08/20/17 23:44 Albuterol/ Ipratropium (Duoneb) 3 ml Q6R INH 07/22/17 15:00 08/21/17 14:59 07/27/17 15:17 3 ML Albuterol/ Ipratropium (Duoneb) 3 ml Q2H PRN INH 07/22/17 10:15 08/21/17 10:14 07/23/17 16:34 3 ML Iron Sucrose 100 mg/Sodium Chloride 105 ml @ 420 mls/hr Q24H IV 07/23/17 09:00 08/01/17 09:14 07/27/17 09:27 420 MLS/HR Furosemide 80 mg/ Syringe 8 ml @ 4 mls/min TID@0800,1200,1500 IV 07/26/17 12:00 08/25/17 11:59 07/27/17 16:07 4 MLS/MIN Cefazolin Sodium 15 ml @ 2.5 mls/min PRE-SPECIALS IV 07/27/17 08:00 07/27/17 18:00 Heparin Sodium (Porcine) (No Heparin In Dialysis) 1 ea 0600 N/A 07/27/17 06:00 07/27/17 18:00 Menthol (Nice Farida) 1 farida PRN PRN FARIDA 07/27/17 14:45 08/26/17 14:44 Impression (1) Acute kidney injury (2) CKD stage 3 due to type 2 diabetes mellitus (3) Diastolic CHF (4) Liver masses (5) Atrial fibrillation (6) Iron deficiency anemia (7) Diabetes Recommendations END STAGE RENAL DISEASE: -- Clinically suspect congestive kidney failure on the basis of diastolic CHF. Unfortunately patient has had progressive renal dysfunction despite diuresis / volume unloading. He has undergone R IJ THC insertion this morning and is scheduled to begin HD later today. Orders have been entered into the EMR and HD RN has been notified. -- 07/22 Renal US report reviewed: Horseshoe kidney w/ multiple simple cysts, no hydronephrosis -- Patient has hematuria and proteinuria. Not a biopsy or immunosuppressive candidate due to horseshoe kidney w/ cysts and frail health. Also undergoing evaluation for potential metastatic malignancy -- Patient remains clinically volume overloaded. He has tense LE edema extending from the ankles to the knees and limits his ability to ambulate. Will increase Furosemide to 80 mg IV TID -- services mgr have been consulted to set up outpatient HD at [facility] [place] w/ Dr Rankin ANEMIA: -- Iron saturation < 30% w/ Ferritin < 200. Continue Venofer 100 mg IV daily ( day # 5 of 10) -- Monitor H&H GI: -- Outpatient FNA of liver lesions...possible metastatic disease CV: -- On Amiodarone and Eliquis OTHER: -- MIHAI glynn -- Physical therapy has been consulted for strengthening.
[2017-07-27] MEDS: APIXABAN 2.5 MG TAB PO SCH (21:12)
[2017-07-28] VITALS (24 sets, daily range): BP systolic 94–124; BP diastolic 54–68; PULSE 78–108; TEMP 36.4–36.7; O2SAT 92–96
[2017-07-28] MEDS: ALBUT/IPRATROP 3MG/0.5MG NEB 3 ML VIAL INH SCH ×4 (01:35→19:43)
[2017-07-28] MEDS: LEVOTHYROXINE 50 MCG TAB PO SCH (05:58)
[2017-07-28] MEDS ORDERED: HEPARIN SOD (PORCINE) 1000 UNIT/ML 10 ML VIAL IV SCH (06:00)
[2017-07-28 06:34] LABS: HEMATOCRIT 27.3 % (42-52); HEMOGLOBIN 8.6 g/dL (14.0-18.0); MEAN CELL VOLUME 82.5 fL (80-100); MEAN CORPUSCULAR HGB CONC 31.5 g/dl (32-36); MEAN PLATELET VOLUME 10.5 fL (7.4-10.4); PLATELET COUNT 460 K/uL (130-400); RED CELL DISTRIBUTION WIDTH CV 20.4 % (11.5-14.5); RED CELL DISTRIBUTION WIDTH SD 60.9 fL (36.4-46.3); WHITE BLOOD COUNT 9.91 K/uL (4.8-10.8)
[2017-07-28 07:11] LABS: CALCIUM 8.1 mg/dl (8.5-10.1); CREATININE 4.19 mg/dl (0.60-1.40); POTASSIUM 4.4 mmol/L (3.5-5.1)
[2017-07-28] MEDS: PANTOprazole SOD 40 MG TAB PO SCH (08:06)
[2017-07-28] MEDS: FERROUS GLUCONATE 324 MG TAB PO SCH (08:06)
[2017-07-28] MEDS: ATORVASTATIN 40 MG TAB PO SCH (08:06)
[2017-07-28] MEDS: METOPROLOL TARTRATE 25 MG TAB PO SCH ×2 (08:07→20:18)
[2017-07-28] MEDS: APIXABAN 2.5 MG TAB PO SCH ×2 (08:07→20:17)
[2017-07-28] MEDS: AMIODARONE 200 MG TAB PO SCH ×2 (08:07→20:18)
[2017-07-28] MEDS: ASPIRIN 81 MG ECTAB PO SCH (08:08)
[2017-07-28] MEDS: FUROSEMIDE 80 MG TAB PO SCH ×2 (08:08→17:32)
[2017-07-28] MEDS: INSULIN ASPART 100 UNITS/ML 3 ML PEN SC SCH ×4 (08:12→20:21)
[2017-07-28] MEDS: INSULIN GLARGINE SOLOSTAR 100 UNITS/ML 3 ML PEN SC SCH (08:18)
[2017-07-28] MEDS: IRON SUCROSE INJ 100 MG in SODIUM CHLORIDE 0.9% 100ML 100 ML IV SCH (08:19)
--- NOTE | 2017-07-28 12:38 | Nephrology Progress Note ---
Nephrology Progress Note Date of Service Jul 28, 2017. Chief Complaint Follow-up for end-stage renal disease on hemodialysis. Subjective Norm was seen and examined during hemodialysis treatment this morning. Has been tolerating dialysis well, blood pressure relatively soft but asymptomatic, tolerating ultrafiltration. Denies shortness of breath or chest pain. Review of Systems A complete review of systems was performed. Pertinent positives are noted above. All other systems are negative. Vital Signs Last 8 Hrs Date Time Temp Pulse Resp B/P (MAP) Pulse Ox O2 Delivery O2 Flow Rate FiO2 07/28/17 12:15 97 104/68 07/28/17 12:00 93 109/65 07/28/17 11:45 95 102/68 07/28/17 11:30 103 96/68 07/28/17 11:15 93 100/63 07/28/17 11:00 102 101/62 07/28/17 10:45 97 94/61 07/28/17 10:30 89 103/64 07/28/17 10:15 99 102/61 07/28/17 10:00 103 103/54 07/28/17 09:45 108 94/56 07/28/17 09:29 98 94/56 07/28/17 09:25 36.7 108 99/62 (74) 07/28/17 08:00 96 Room Air 07/28/17 07:29 84 20 Room Air 95 07/28/17 06:49 36.4 89 20 124/68 (86) 96 Room Air Last Recorded Weight Weight (Kilograms): 100.000 Physical Exam GENERAL: Elderly male, AAA x 3, pleasant, healthy-appearing, not in any distress. NECK: Supple, no JVD. RESPIRATORY: Diffuse crackles bilaterally CARDIOVASCULAR: S1, S2 normal, rate rhythm regular. EXTREMITY: 2+ bilateral lower extremity edema NEURO: speech fluent. PSYCHIATRY: Normal mood and judgment Family History FHx: COPD (chronic obstructive pulmonary disease) FHx: diabetes mellitus Negative for CKD / ESRD Social History Drug Use: none Marital Status: Housing Status: lives with family Occupation: retired . Retired. Never a smoker Laboratory Results Past 24 Hours 07/28/17 05:26 07/28/17 05:26 Test 07/27/17 14:14 07/27/17 16:16 07/27/17 19:47 07/28/17 05:26 Bedside Glucose 238 mg/dl (70-99) 189 mg/dl (70-99) 134 mg/dl (70-99) Red Blood Count 3.31 M/uL (4.7-6.1) Mean Corpuscular Volume 82.5 fL (80-100) Mean Corpuscular Hemoglobin 26.0 pg (25-34) Mean Corpuscular Hemoglobin Concent 31.5 g/dl (32-36) RDW Standard Deviation 60.9 fL (36.4-46.3) RDW Coefficient of Variation 20.4 % (11.5-14.5) Mean Platelet Volume 10.5 fL (7.4-10.4) Anion Gap 12.0 mmol/L (3-11) Est Creatinine Clear Calc Drug Dose 15.4 ml/min Estimated GFR () 13.9 Estimated GFR (Non- 12.0 BUN/Creatinine Ratio 18.5 (10-20) Calcium Level 8.1 mg/dl (8.5-10.1) Test 07/28/17 07:23 Bedside Glucose 155 mg/dl (70-99) Allergies Coded Allergies: No Known Allergies (Verified , 07/21/17) Medications Current Inpatient Medications Medications (Trade) Dose Ordered Sig/Bg Route Start Time Stop Time Status Last Admin Dose Admin Amiodarone HCl (Cordarone Tab) 200 mg BID PO 07/22/17 09:00 08/21/17 08:59 07/28/17 08:07 200 MG Apixaban (Eliquis Tab) 2.5 mg BID PO 07/22/17 09:00 08/21/17 08:59 Future hold 07/28/17 08:07 2.5 MG Aspirin (Ecotrin Tab) 81 mg QAM PO 07/22/17 09:00 08/21/17 08:59 07/28/17 08:08 81 MG Atorvastatin Calcium (Lipitor Tab) 40 mg QAM PO 07/22/17 09:00 08/21/17 08:59 07/28/17 08:06 40 MG Ferrous Gluconate (Ferrous Gluconate Tab) 324 mg QAM PO 07/22/17 09:00 08/21/17 08:59 07/28/17 08:06 324 MG Insulin Glargine (Lantus Solostar Pen) 15 units DAILY SC 07/22/17 09:00 08/21/17 08:59 07/28/17 08:18 15 UNITS Levothyroxine Sodium (Synthroid Tab) 50 mcg DAILYBB PO 07/22/17 06:00 08/21/17 05:59 07/28/17 05:58 50 MCG Metoprolol Tartrate (Lopressor Tab) 25 mg BID PO 07/22/17 09:00 08/21/17 08:59 07/28/17 08:07 25 MG Pantoprazole Sodium (Protonix Tab) 40 mg QAM PO 07/22/17 09:00 08/21/17 08:59 07/28/17 08:06 40 MG Insulin Aspart (novoLOG ASPART) SLIDING SCALE G... ACHS SC 07/22/17 07:00 08/21/17 06:59 07/28/17 08:12 5 UNITS Acetaminophen (Tylenol Tab) 650 mg Q4H PRN PO 07/21/17 23:15 08/20/17 23:14 Al Hydrox/Mg Hydrox/Simethicone (Maalox Max Susp) 15 ml Q4H PRN PO 07/21/17 23:15 08/20/17 23:14 Magnesium Hydroxide (Milk Of Magnesia Susp) 30 ml Q12H PRN PO 07/21/17 23:15 08/20/17 23:14 Ondansetron HCl (Zofran Inj) 4 mg Q6H PRN IV 07/21/17 23:15 08/20/17 23:14 Morphine Sulfate (MoRPHine SULFATE INJ) 2 mg Q30M PRN IV 07/21/17 23:15 08/04/17 23:14 Polyethylene (Miralax Powder Packet) 17 gm DAILY PRN PO 07/21/17 23:15 08/20/17 23:14 Glucose (Glucose 40% Gel) 15-30 GRAMS 15 GRAMS... UD PRN PO 07/21/17 23:45 08/20/17 23:44 Glucose (Glucose Chew Tab) 4-8 Tablets 4 Tabl... UD PRN PO 07/21/17 23:45 08/20/17 23:44 Dextrose (Dextrose 50% 50ML Syringe) 25-50ML OF 50% DW IV FOR... UD PRN IV 07/21/17 23:45 08/20/17 23:44 Glucagon (Glucagon Inj) 1 mg UD PRN SQ 07/21/17 23:45 08/20/17 23:44 Albuterol/ Ipratropium (Duoneb) 3 ml Q6R INH 07/22/17 15:00 08/21/17 14:59 07/28/17 07:28 3 ML Albuterol/ Ipratropium (Duoneb) 3 ml Q2H PRN INH 07/22/17 10:15 08/21/17 10:14 07/23/17 16:34 3 ML Iron Sucrose 100 mg/Sodium Chloride 105 ml @ 420 mls/hr Q24H IV 07/23/17 09:00 08/01/17 09:14 07/28/17 08:19 420 MLS/HR Menthol (Nice Jose) 1 jose PRN PRN JOSE 07/27/17 14:45 08/26/17 14:44 Heparin Sodium (Porcine) (Heparin Iv Bolus) 2,000 unit ONE IV 07/28/17 06:00 07/28/17 18:00 Furosemide (Lasix Tab) 80 mg BID17 PO 07/28/17 09:00 08/27/17 08:59 07/28/17 08:08 80 MG Impression (1) Acute kidney injury (2) CKD stage 3 due to type 2 diabetes mellitus (3) Diastolic CHF (4) Liver masses (5) Atrial fibrillation (6) Iron deficiency anemia (7) Diabetes Recommendations --next dialysis Sunday for 4 hours, UF as tolerated, continue on Lasix 80 b.i.d. as patient continues to make urine and remained significantly volume overloaded --Nephrocaps once daily --check phosphate and mag if phosphate elevated will start on phosphate binder. -- account services manager have been consulted to set up outpatient HD at [facility] -- Continue Venofer 100 mg IV daily (day # 5 of 10)
--- NOTE | 2017-07-28 15:03 | Progress Note ---
Subjective Date of Service: Jul 28, 2017. Subjective Pt evaluation today including: conversation w/ patient, physical exam, lab review, review of inpatient medication list Pain: no pain PO Intake: adequate Voiding: no voiding problems patient doing well, going for HD again today with plans for next session on Sunday discussed with nephrology reviewed labs planning on rehab still eating well, moving bowels, still making urine Problem List Medical Problems: (1) Anemia Status: Acute (2) CHF (congestive heart failure) Status: Acute (3) CHF (congestive heart failure) Status: Acute (4) Renal failure Status: Acute (5) Weakness Status: Acute Review of Systems Constitutional: + weakness, + fatigue Cardiac: + edema All Other Systems: Reviewed and Negative Medications Current Inpatient Medications Medications (Trade) Dose Ordered Sig/Bg Route Start Time Stop Time Status Last Admin Dose Admin Amiodarone HCl (Cordarone Tab) 200 mg BID PO 07/22/17 09:00 08/21/17 08:59 07/28/17 08:07 200 MG Apixaban (Eliquis Tab) 2.5 mg BID PO 07/22/17 09:00 08/21/17 08:59 Future hold 07/28/17 08:07 2.5 MG Aspirin (Ecotrin Tab) 81 mg QAM PO 07/22/17 09:00 08/21/17 08:59 07/28/17 08:08 81 MG Atorvastatin Calcium (Lipitor Tab) 40 mg QAM PO 07/22/17 09:00 08/21/17 08:59 07/28/17 08:06 40 MG Ferrous Gluconate (Ferrous Gluconate Tab) 324 mg QAM PO 07/22/17 09:00 08/21/17 08:59 07/28/17 08:06 324 MG Insulin Glargine (Lantus Solostar Pen) 15 units DAILY SC 07/22/17 09:00 08/21/17 08:59 07/28/17 08:18 15 UNITS Levothyroxine Sodium (Synthroid Tab) 50 mcg DAILYBB PO 07/22/17 06:00 08/21/17 05:59 07/28/17 05:58 50 MCG Metoprolol Tartrate (Lopressor Tab) 25 mg BID PO 07/22/17 09:00 08/21/17 08:59 07/28/17 08:07 25 MG Pantoprazole Sodium (Protonix Tab) 40 mg QAM PO 07/22/17 09:00 08/21/17 08:59 07/28/17 08:06 40 MG Insulin Aspart (novoLOG ASPART) SLIDING SCALE G... ACHS SC 07/22/17 07:00 08/21/17 06:59 07/28/17 13:32 5 UNITS Acetaminophen (Tylenol Tab) 650 mg Q4H PRN PO 07/21/17 23:15 08/20/17 23:14 Al Hydrox/Mg Hydrox/Simethicone (Maalox Max Susp) 15 ml Q4H PRN PO 07/21/17 23:15 08/20/17 23:14 Magnesium Hydroxide (Milk Of Magnesia Susp) 30 ml Q12H PRN PO 07/21/17 23:15 08/20/17 23:14 Ondansetron HCl (Zofran Inj) 4 mg Q6H PRN IV 07/21/17 23:15 08/20/17 23:14 Morphine Sulfate (MoRPHine SULFATE INJ) 2 mg Q30M PRN IV 07/21/17 23:15 08/04/17 23:14 Polyethylene (Miralax Powder Packet) 17 gm DAILY PRN PO 07/21/17 23:15 08/20/17 23:14 Glucose (Glucose 40% Gel) 15-30 GRAMS 15 GRAMS... UD PRN PO 07/21/17 23:45 08/20/17 23:44 Glucose (Glucose Chew Tab) 4-8 Tablets 4 Tabl... UD PRN PO 07/21/17 23:45 08/20/17 23:44 Dextrose (Dextrose 50% 50ML Syringe) 25-50ML OF 50% DW IV FOR... UD PRN IV 07/21/17 23:45 08/20/17 23:44 Glucagon (Glucagon Inj) 1 mg UD PRN SQ 07/21/17 23:45 08/20/17 23:44 Albuterol/ Ipratropium (Duoneb) 3 ml Q6R INH 07/22/17 15:00 08/21/17 14:59 07/28/17 14:12 3 ML Albuterol/ Ipratropium (Duoneb) 3 ml Q2H PRN INH 07/22/17 10:15 08/21/17 10:14 07/23/17 16:34 3 ML Iron Sucrose 100 mg/Sodium Chloride 105 ml @ 420 mls/hr Q24H IV 07/23/17 09:00 08/01/17 09:14 07/28/17 08:19 420 MLS/HR Menthol (Nice Farida) 1 farida PRN PRN FARIDA 07/27/17 14:45 08/26/17 14:44 Heparin Sodium (Porcine) (Heparin Iv Bolus) 2,000 unit ONE IV 07/28/17 06:00 07/28/17 18:00 Furosemide (Lasix Tab) 80 mg BID17 PO 07/28/17 09:00 08/27/17 08:59 07/28/17 08:08 80 MG Objective Vital Signs Date Time Temp Pulse Resp B/P (MAP) Pulse Ox O2 Delivery O2 Flow Rate FiO2 07/28/17 14:14 80 20 Room Air 95 07/28/17 12:39 36.4 84 98/66 (77) 07/28/17 12:15 97 104/68 07/28/17 12:00 93 109/65 07/28/17 11:45 95 102/68 07/28/17 11:30 103 96/68 07/28/17 11:15 93 100/63 07/28/17 11:00 102 101/62 07/28/17 10:45 97 94/61 07/28/17 10:30 89 103/64 07/28/17 10:15 99 102/61 07/28/17 10:00 103 103/54 07/28/17 09:45 108 94/56 07/28/17 09:29 98 94/56 07/28/17 09:25 36.7 108 99/62 (74) 07/28/17 08:00 96 Room Air 07/28/17 07:29 84 20 Room Air 95 07/28/17 06:49 36.4 89 20 124/68 (86) 96 Room Air 07/28/17 01:36 79 20 Room Air 89 07/28/17 00:00 Room Air 07/27/17 23:13 36.9 86 20 109/66 (80) 95 Room Air 07/27/17 21:15 94 111/65 (80) 07/27/17 20:23 73 20 Room Air 92 07/27/17 16:00 Room Air 07/27/17 15:24 36.7 95 18 98/59 (72) 96 Room Air 07/27/17 15:17 71 22 Room Air 96 Physical Exam General Appearance: WD/WN, no apparent distress Eyes: normal inspection, EOMI, sclerae normal ENT: normal ENT inspection, hearing grossly normal, pharynx normal Neck: supple, no adenopathy, no JVD, trachea midline Respiratory/Chest: chest non-tender, lungs clear, normal breath sounds, no respiratory distress, no accessory muscle use Cardiovascular: regular rate, rhythm, no gallop, no JVD, no murmur Abdomen: normal bowel sounds, non tender, soft, no organomegaly Extremities: normal range of motion, non-tender, normal inspection, no pedal edema, no calf tenderness, pelvis stable 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, alert, normal mood/affect, oriented x 3, + motor weakness (generalized) Skin: normal color, warm/dry, no rash Laboratory Results Last 24 Hours Test 07/27/17 16:16 07/27/17 19:47 07/28/17 05:26 07/28/17 07:23 Bedside Glucose 189 mg/dl 134 mg/dl 155 mg/dl White Blood Count 9.91 K/uL Red Blood Count 3.31 M/uL Hemoglobin 8.6 g/dL Hematocrit 27.3 % Mean Corpuscular Volume 82.5 fL Mean Corpuscular Hemoglobin 26.0 pg Mean Corpuscular Hemoglobin Concent 31.5 g/dl RDW Standard Deviation 60.9 fL RDW Coefficient of Variation 20.4 % Platelet Count 460 K/uL Mean Platelet Volume 10.5 fL Sodium Level 133 mmol/L Potassium Level 4.4 mmol/L Chloride Level 100 mmol/L Carbon Dioxide Level 21 mmol/L Anion Gap 12.0 mmol/L Blood Urea Nitrogen 78 mg/dl Creatinine 4.19 mg/dl Est Creatinine Clear Calc Drug Dose 15.4 ml/min Estimated GFR () 13.9 Estimated GFR (Non- 12.0 BUN/Creatinine Ratio 18.5 Random Glucose 147 mg/dl Calcium Level 8.1 mg/dl Test 07/28/17 12:56 Bedside Glucose 146 mg/dl Assessment and Plan 87 y/o M readmitted because of fluid overload and CHF exacerbation - Acute on chronic diastolic heart failure, due to atrial fibrillation as well as CKD stage III/IV initially diuresed, but then failed to respond to Lasix increased Lasix to 80mg IV TID, change back to 80mg PO BID continue fluid restriction at 1500cc monitor weights, Cr, I/O's prior echo shows normal EF at this time he will need HD to provide UF and get fluid off had HD on 07/27 and again today, plan for next HD on Sunday 07/30 - Dyspnea: resolved with diuresis never had hypoxia - Atrial fibrillation: rates controlled on Amiodarone, continue Eliquis was held for HD catheter, resumed at 2.5mg BID - MARGY on CKD stage III/IV, 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 Rankin, HD yesterday and again today electrolytes stable nephrology managing phosphorus - Metabolic acidosis, increases AG due to uremia, resolving with HD - Hypomagnesemia: give mag oxide 400mg daily - DM type II: continue Lantus and Novolog, diabetic diet better control after increasing carb ratio coverage to 1 for every 10gm continue to monitor for hypoglycemia, no episodes during admission sugars consistently < 200 - Hypothyroid: Synthroid - Anemia: Hb has been low but stable, continue Venofer, may need EPO Hb is 8.6 this AM so it is stable dose of of Venofer - Liver nodules: suspicious for malignancy, colonoscopy was negative last admission could consider FNA biopsy as outpatient DNR Disposition: plan for HD again on Sunday, assess for rehab Continued [facility] stay due to: multiple IV medications needed Discharge planning: home
[2017-07-28 22:01] LABS: HEMOGLOBIN 8.9 g/dL (14.0-18.0)
[2017-07-29] VITALS (8 sets, daily range): BP systolic 108–120; BP diastolic 66–73; PULSE 72–101; TEMP 36.6; O2SAT 92–94
[2017-07-29] MEDS: ALBUT/IPRATROP 3MG/0.5MG NEB 3 ML VIAL INH SCH ×4 (02:11→19:33)
[2017-07-29] MEDS: LEVOTHYROXINE 50 MCG TAB PO SCH (05:29)
[2017-07-29] MEDS: IRON SUCROSE INJ 100 MG in SODIUM CHLORIDE 0.9% 100ML 100 ML IV SCH (08:24)
[2017-07-29] MEDS: METOPROLOL TARTRATE 25 MG TAB PO SCH ×2 (08:24→20:29)
[2017-07-29] MEDS: INSULIN ASPART 100 UNITS/ML 3 ML PEN SC SCH ×4 (08:25→20:34)
[2017-07-29] MEDS: INSULIN GLARGINE SOLOSTAR 100 UNITS/ML 3 ML PEN SC SCH ×2 (08:26→20:34)
[2017-07-29] MEDS: ASPIRIN 81 MG ECTAB PO SCH (08:27)
[2017-07-29] MEDS: ATORVASTATIN 40 MG TAB PO SCH (08:27)
[2017-07-29] MEDS: PANTOprazole SOD 40 MG TAB PO SCH (08:27)
[2017-07-29] MEDS: FUROSEMIDE 80 MG TAB PO SCH ×2 (08:27→17:24)
[2017-07-29] MEDS: AMIODARONE 200 MG TAB PO SCH ×2 (08:28→20:28)
[2017-07-29] MEDS: FERROUS GLUCONATE 324 MG TAB PO SCH (08:28)
--- NOTE | 2017-07-29 11:38 | Progress Note ---
Subjective Date of Service: Jul 29, 2017. Subjective Pt evaluation today including: conversation w/ patient, physical exam, lab review, review of inpatient medication list Pain: no pain PO Intake: adequate Voiding: no voiding problems patient has no complaints, ready for HD tomorrow, hoping for rehab placement eating well breathing stable still with edema in legs discussed with Dr Rankin reviewed labs today Problem List Medical Problems: (1) Anemia Status: Acute (2) CHF (congestive heart failure) Status: Acute (3) CHF (congestive heart failure) Status: Acute (4) Renal failure Status: Acute (5) Weakness Status: Acute Review of Systems Constitutional: + weakness Cardiac: + edema All Other Systems: Reviewed and Negative Medications Current Inpatient Medications Medications (Trade) Dose Ordered Sig/Bg Route Start Time Stop Time Status Last Admin Dose Admin Amiodarone HCl (Cordarone Tab) 200 mg BID PO 07/22/17 09:00 08/21/17 08:59 07/29/17 08:28 200 MG Apixaban (Eliquis Tab) 2.5 mg BID PO 07/22/17 09:00 08/21/17 08:59 Future Hold 07/28/17 20:17 2.5 MG Aspirin (Ecotrin Tab) 81 mg QAM PO 07/22/17 09:00 08/21/17 08:59 07/29/17 08:27 81 MG Atorvastatin Calcium (Lipitor Tab) 40 mg QAM PO 07/22/17 09:00 08/21/17 08:59 07/29/17 08:27 40 MG Ferrous Gluconate (Ferrous Gluconate Tab) 324 mg QAM PO 07/22/17 09:00 08/21/17 08:59 07/29/17 08:28 324 MG Insulin Glargine (Lantus Solostar Pen) 15 units DAILY SC 07/22/17 09:00 08/21/17 08:59 07/29/17 08:26 15 UNITS Levothyroxine Sodium (Synthroid Tab) 50 mcg DAILYBB PO 07/22/17 06:00 08/21/17 05:59 07/29/17 05:29 50 MCG Metoprolol Tartrate (Lopressor Tab) 25 mg BID PO 07/22/17 09:00 08/21/17 08:59 07/29/17 08:24 25 MG Pantoprazole Sodium (Protonix Tab) 40 mg QAM PO 07/22/17 09:00 08/21/17 08:59 07/29/17 08:27 40 MG Insulin Aspart (novoLOG ASPART) SLIDING SCALE G... ACHS SC 07/22/17 07:00 08/21/17 06:59 07/29/17 08:25 3 UNITS Acetaminophen (Tylenol Tab) 650 mg Q4H PRN PO 07/21/17 23:15 08/20/17 23:14 Al Hydrox/Mg Hydrox/Simethicone (Maalox Max Susp) 15 ml Q4H PRN PO 07/21/17 23:15 08/20/17 23:14 Magnesium Hydroxide (Milk Of Magnesia Susp) 30 ml Q12H PRN PO 07/21/17 23:15 08/20/17 23:14 Ondansetron HCl (Zofran Inj) 4 mg Q6H PRN IV 07/21/17 23:15 08/20/17 23:14 Morphine Sulfate (MoRPHine SULFATE INJ) 2 mg Q30M PRN IV 07/21/17 23:15 08/04/17 23:14 Polyethylene (Miralax Powder Packet) 17 gm DAILY PRN PO 07/21/17 23:15 08/20/17 23:14 Glucose (Glucose 40% Gel) 15-30 GRAMS 15 GRAMS... UD PRN PO 07/21/17 23:45 08/20/17 23:44 Glucose (Glucose Chew Tab) 4-8 Tablets 4 Tabl... UD PRN PO 07/21/17 23:45 08/20/17 23:44 Dextrose (Dextrose 50% 50ML Syringe) 25-50ML OF 50% DW IV FOR... UD PRN IV 07/21/17 23:45 08/20/17 23:44 Glucagon (Glucagon Inj) 1 mg UD PRN SQ 07/21/17 23:45 08/20/17 23:44 Albuterol/ Ipratropium (Duoneb) 3 ml Q6R INH 07/22/17 15:00 08/21/17 14:59 07/29/17 07:52 3 ML Albuterol/ Ipratropium (Duoneb) 3 ml Q2H PRN INH 07/22/17 10:15 08/21/17 10:14 07/23/17 16:34 3 ML Iron Sucrose 100 mg/Sodium Chloride 105 ml @ 420 mls/hr Q24H IV 07/23/17 09:00 08/01/17 09:14 07/29/17 08:24 420 MLS/HR Menthol (Nice Farida) 1 farida PRN PRN FARIDA 07/27/17 14:45 08/26/17 14:44 Furosemide (Lasix Tab) 80 mg BID17 PO 07/28/17 09:00 08/27/17 08:59 07/29/17 08:27 80 MG Objective Vital Signs Date Time Temp Pulse Resp B/P (MAP) Pulse Ox O2 Delivery O2 Flow Rate FiO2 07/29/17 08:00 92 Room Air 07/29/17 07:52 101 18 Room Air 97 07/29/17 07:05 36.6 93 20 108/66 (80) 92 Room Air 07/29/17 02:12 72 20 Room Air 94 07/29/17 00:00 Room Air 07/28/17 22:12 36.5 88 22 111/60 (77) 94 Room Air 07/28/17 20:16 96 18 101/66 (78) 07/28/17 20:00 Room Air 07/28/17 19:43 78 20 Room Air 95 07/28/17 16:06 36.6 83 18 99/62 (74) 92 Room Air 07/28/17 16:00 92 Room Air 07/28/17 14:14 80 20 Room Air 95 07/28/17 12:39 36.4 84 98/66 (77) 07/28/17 12:15 97 104/68 07/28/17 12:00 93 109/65 07/28/17 11:45 95 102/68 Physical Exam General Appearance: WD/WN, no apparent distress Eyes: normal inspection, EOMI, sclerae normal ENT: normal ENT inspection, hearing grossly normal, pharynx normal Neck: supple, no adenopathy, no JVD, trachea midline Respiratory/Chest: chest non-tender, lungs clear, normal breath sounds, no respiratory distress, no accessory muscle use Cardiovascular: regular rate, rhythm, no gallop, no JVD, no murmur Abdomen: normal bowel sounds, non tender, soft, no organomegaly Extremities: normal range of motion, non-tender, normal inspection, no calf tenderness, pelvis stable, + pedal edema (3+ pitting bilaterally) 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/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, alert, normal mood/affect, oriented x 3, + motor weakness (generalized) Skin: normal color, warm/dry, no rash Laboratory Results Last 24 Hours Test 07/28/17 12:56 07/28/17 16:54 07/28/17 20:08 07/28/17 21:45 Bedside Glucose 146 mg/dl 263 mg/dl 182 mg/dl Hemoglobin 8.9 g/dL Hematocrit 28.0 % Test 07/29/17 07:48 Bedside Glucose 172 mg/dl Assessment and Plan 87 y/o M readmitted because of fluid overload and CHF exacerbation - Acute on chronic diastolic heart failure, due to atrial fibrillation as well as CKD stage III/IV initially diuresed, but then failed to respond to Lasix increased Lasix to 80mg IV TID, change back to 80mg PO BID continue fluid restriction at 1500cc monitor weights, Cr, I/O's, -6400cc with ultrafiltration prior echo shows normal EF had HD on 07/28, plan for next HD on Sunday 07/30 - Dyspnea: resolved with diuresis never had hypoxia - Atrial fibrillation: rates controlled on Amiodarone, continue Eliquis was held for HD catheter, resumed at 2.5mg BID - MARGY on CKD stage III/IV, 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 Rankin, HD planned for 07/30 with increased ultrafiltration for volume overload electrolytes stable nephrology managing phosphorus - Metabolic acidosis, increases AG due to uremia, resolving with HD - Hypomagnesemia: give mag oxide 400mg daily - DM type II: continue Lantus and Novolog, diabetic diet better control after increasing carb ratio coverage to 1 for every 10gm continue to monitor for hypoglycemia, no episodes during admission sugars consistently 150-250 will increase Lantus to 10 units BID starting this evening, monitor for hypoglycemia want to provide better basal coverage because patient will not be willing to give Novolog once discharged - Hypothyroid: Synthroid - Anemia: Hb has been low but stable, continue Venofer, may need EPO Hb is 8.9 this AM so it is stable, slowly trending up dose 6 of 12 of Venofer - Liver nodules: suspicious for malignancy, colonoscopy was negative last admission could consider FNA biopsy as outpatient DNR Disposition: plan for HD again on Sunday, assess for rehab, possible rehab as early as Sunday? note medication changes, Lasix is 80mg BID, Lantus is now 10 units BID
--- NOTE | 2017-07-29 12:42 | Nephrology Progress Note ---
Nephrology Progress Note Date of Service Jul 29, 2017. Chief Complaint Follow-up for end-stage renal disease on hemodialysis. Subjective Norm was seen examined in his room this morning. Had dialysis 2nd dialysis treatment yesterday tolerated well had UF more than 2 liters. Continues to be volume overloaded. Electrolyte acceptable. Review of Systems A complete review of systems was performed. Pertinent positives are noted above. All other systems are negative. Vital Signs Last 8 Hrs Date Time Temp Pulse Resp B/P (MAP) Pulse Ox O2 Delivery O2 Flow Rate FiO2 07/29/17 08:00 92 Room Air 07/29/17 07:52 101 18 Room Air 97 07/29/17 07:05 36.6 93 20 108/66 (80) 92 Room Air 07/29/17 02:12 72 20 Room Air 94 Last Recorded Weight Weight (Kilograms): 96.400 Physical Exam GENERAL: Elderly male, AAA x 3, pleasant, healthy-appearing, not in any distress. NECK: Supple, no JVD. RESPIRATORY: Diffuse crackles bilaterally CARDIOVASCULAR: S1, S2 normal, rate rhythm regular. EXTREMITY: 2+ bilateral lower extremity edema NEURO: speech fluent. PSYCHIATRY: Normal mood and judgment Family History FHx: COPD (chronic obstructive pulmonary disease) FHx: diabetes mellitus Negative for CKD / ESRD Social History Drug Use: none Marital Status: Housing Status: lives with family Occupation: retired . Retired. Never a smoker Laboratory Results Past 24 Hours 07/28/17 21:45 Test 07/28/17 12:56 07/28/17 16:54 07/28/17 20:08 07/29/17 07:48 Bedside Glucose 146 mg/dl (70-99) 263 mg/dl (70-99) 182 mg/dl (70-99) 172 mg/dl (70-99) Allergies Coded Allergies: No Known Allergies (Verified , 07/21/17) Medications Current Inpatient Medications Medications (Trade) Dose Ordered Sig/Bg Route Start Time Stop Time Status Last Admin Dose Admin Amiodarone HCl (Cordarone Tab) 200 mg BID PO 07/22/17 09:00 08/21/17 08:59 07/29/17 08:28 200 MG Apixaban (Eliquis Tab) 2.5 mg BID PO 07/22/17 09:00 08/21/17 08:59 Future Hold 07/28/17 20:17 2.5 MG Aspirin (Ecotrin Tab) 81 mg QAM PO 07/22/17 09:00 08/21/17 08:59 07/29/17 08:27 81 MG Atorvastatin Calcium (Lipitor Tab) 40 mg QAM PO 07/22/17 09:00 08/21/17 08:59 07/29/17 08:27 40 MG Ferrous Gluconate (Ferrous Gluconate Tab) 324 mg QAM PO 07/22/17 09:00 08/21/17 08:59 07/29/17 08:28 324 MG Insulin Glargine (Lantus Solostar Pen) 15 units DAILY SC 07/22/17 09:00 08/21/17 08:59 07/29/17 08:26 15 UNITS Levothyroxine Sodium (Synthroid Tab) 50 mcg DAILYBB PO 07/22/17 06:00 08/21/17 05:59 07/29/17 05:29 50 MCG Metoprolol Tartrate (Lopressor Tab) 25 mg BID PO 07/22/17 09:00 08/21/17 08:59 07/29/17 08:24 25 MG Pantoprazole Sodium (Protonix Tab) 40 mg QAM PO 07/22/17 09:00 08/21/17 08:59 07/29/17 08:27 40 MG Insulin Aspart (novoLOG ASPART) SLIDING SCALE G... ACHS SC 07/22/17 07:00 08/21/17 06:59 07/29/17 08:25 3 UNITS Acetaminophen (Tylenol Tab) 650 mg Q4H PRN PO 07/21/17 23:15 08/20/17 23:14 Al Hydrox/Mg Hydrox/Simethicone (Maalox Max Susp) 15 ml Q4H PRN PO 07/21/17 23:15 08/20/17 23:14 Magnesium Hydroxide (Milk Of Magnesia Susp) 30 ml Q12H PRN PO 07/21/17 23:15 08/20/17 23:14 Ondansetron HCl (Zofran Inj) 4 mg Q6H PRN IV 07/21/17 23:15 08/20/17 23:14 Morphine Sulfate (MoRPHine SULFATE INJ) 2 mg Q30M PRN IV 07/21/17 23:15 08/04/17 23:14 Polyethylene (Miralax Powder Packet) 17 gm DAILY PRN PO 07/21/17 23:15 08/20/17 23:14 Glucose (Glucose 40% Gel) 15-30 GRAMS 15 GRAMS... UD PRN PO 07/21/17 23:45 08/20/17 23:44 Glucose (Glucose Chew Tab) 4-8 Tablets 4 Tabl... UD PRN PO 07/21/17 23:45 08/20/17 23:44 Dextrose (Dextrose 50% 50ML Syringe) 25-50ML OF 50% DW IV FOR... UD PRN IV 07/21/17 23:45 08/20/17 23:44 Glucagon (Glucagon Inj) 1 mg UD PRN SQ 07/21/17 23:45 08/20/17 23:44 Albuterol/ Ipratropium (Duoneb) 3 ml Q6R INH 07/22/17 15:00 08/21/17 14:59 07/29/17 07:52 3 ML Albuterol/ Ipratropium (Duoneb) 3 ml Q2H PRN INH 07/22/17 10:15 08/21/17 10:14 07/23/17 16:34 3 ML Iron Sucrose 100 mg/Sodium Chloride 105 ml @ 420 mls/hr Q24H IV 07/23/17 09:00 08/01/17 09:14 07/29/17 08:24 420 MLS/HR Menthol (Nice Jose) 1 jose PRN PRN JOSE 07/27/17 14:45 08/26/17 14:44 Furosemide (Lasix Tab) 80 mg BID17 PO 07/28/17 09:00 08/27/17 08:59 07/29/17 08:27 80 MG Impression (1) Acute kidney injury (2) CKD stage 3 due to type 2 diabetes mellitus (3) Diastolic CHF (4) Liver masses (5) Atrial fibrillation (6) Iron deficiency anemia (7) Diabetes Recommendations --next dialysis tomorrow for 3 hours, UF as tolerated, continue on Lasix 80 b.i.d. as patient continues to make urine and remained significantly volume overloaded --Nephrocaps once daily --no need for phosphate binder at this point. -- surgical services asst have been consulted to set up outpatient HD at [facility] -- Continue Venofer 100 mg IV daily Will follow while patient waiting for discharge to rehab and outpatient dialysis setup
[2017-07-30] VITALS (21 sets, daily range): BP systolic 106–131; BP diastolic 54–79; PULSE 75–103; TEMP 36–36.8; O2SAT 96
[2017-07-30] MEDS: ALBUT/IPRATROP 3MG/0.5MG NEB 3 ML VIAL INH SCH ×4 (01:45→19:12)
[2017-07-30] MEDS: LEVOTHYROXINE 50 MCG TAB PO SCH (05:41)
[2017-07-30 06:39] LABS: HEMATOCRIT 28.5 % (42-52); HEMOGLOBIN 8.9 g/dL (14.0-18.0); MEAN CELL VOLUME 82.8 fL (80-100); MEAN CORPUSCULAR HEMOGLOBIN 25.9 pg (25-34); MEAN CORPUSCULAR HGB CONC 31.2 g/dl (32-36); MEAN PLATELET VOLUME 9.8 fL (7.4-10.4); PLATELET COUNT 398 K/uL (130-400); RED CELL DISTRIBUTION WIDTH CV 20.9 % (11.5-14.5); RED CELL DISTRIBUTION WIDTH SD 62.1 fL (36.4-46.3); WHITE BLOOD COUNT 7.69 K/uL (4.8-10.8)
[2017-07-30 07:05] LABS: CALCIUM 7.9 mg/dl (8.5-10.1); CREATININE 4.27 mg/dl (0.60-1.40); POTASSIUM 4.1 mmol/L (3.5-5.1)
[2017-07-30] MEDS: PANTOprazole SOD 40 MG TAB PO SCH (08:09)
[2017-07-30] MEDS: FUROSEMIDE 80 MG TAB PO SCH ×2 (08:09→18:02)
[2017-07-30] MEDS: ATORVASTATIN 40 MG TAB PO SCH (08:09)
[2017-07-30] MEDS: FERROUS GLUCONATE 324 MG TAB PO SCH (08:09)
[2017-07-30] MEDS: IRON SUCROSE INJ 100 MG in SODIUM CHLORIDE 0.9% 100ML 100 ML IV SCH (08:09)
[2017-07-30] MEDS: ASPIRIN 81 MG ECTAB PO SCH (08:09)
[2017-07-30] MEDS: INSULIN GLARGINE SOLOSTAR 100 UNITS/ML 3 ML PEN SC SCH ×2 (08:17→20:08)
[2017-07-30] MEDS: INSULIN ASPART 100 UNITS/ML 3 ML PEN SC SCH ×4 (08:17→20:08)
[2017-07-30] MEDS: METOPROLOL TARTRATE 25 MG TAB PO SCH ×2 (09:00→20:05)
[2017-07-30] MEDS: AMIODARONE 200 MG TAB PO SCH ×2 (09:00→20:05)
--- NOTE | 2017-07-30 09:43 | CARDIOLOGY PROGRESS NOTE ---
DATE: 07/30/2017 SUBJECTIVE: Mr. Menjivar is resting comfortably at the bedside without complaints of chest pain, dyspnea, or palpitations. He is scheduled for hemodialysis later today. He is anxious for hospital discharge. OBJECTIVE: VITAL SIGNS: Blood pressure 113/68 with an irregular pulse of 80. Respiratory rate is 18. The patient is afebrile at 36.8 degrees Celsius. Saturations 96% on room air. NECK: Supple with full carotid upstrokes. No carotid bruits. Jugular venous pressure is flat at 90 degrees. There is no thyromegaly. CARDIOVASCULAR: Reveals an irregularly irregular rhythm with distant heart sounds. No obvious murmurs. No S3. LUNGS: Clear without rales, rhonchi, or wheezes. ABDOMEN: Soft, nontender without bruits. EXTREMITIES: Reveal 2+ pitting edema distal to the knees, 1+ thigh edema bilaterally. LABORATORY DATA: CBC notes hemoglobin of 8.9, hematocrit 28.5, white count 7.6, platelet count 398,000. Electrolytes note a sodium of 135, potassium 4.1, chloride 102, bicarb 23, BUN 74, and a creatinine of 4.27. Glucose is 91. IMPRESSION AND PLAN: 1. Acute on chronic diastolic congestive heart failure -- patient has improved dramatically with dialysis. Another run is scheduled for today. Seems more compensated. 2. Atrial fibrillation -- rate adequately controlled on amiodarone 200 mg b.i.d. Continue to adjust the dose of Eliquis for anticoagulation. 3. Hypertension -- with mild LVH and evidence of diastolic dysfunction. 4. Mild mitral regurgitation. 5. Mild tricuspid regurgitation. 6. Hypercholesterolemia. 7. Diabetes mellitus. 8. Acute on chronic renal failure -- hemodialysis per nephrology team. 9. Hypothyroidism. 10. Hepatic abnormality -- workup in progress.
--- NOTE | 2017-07-30 12:19 | Nephrology Progress Note ---
Nephrology Progress Note Date of Service Jul 30, 2017. Chief Complaint Follow-up for end-stage renal disease on hemodialysis. Subjective Joe was seen examined in his room this morning with sons Abdiel and Joe at bedside. Had dialysis 2nd dialysis treatment Sunday tolerated well had UF more than 2 liters. Continues to be volume overloaded. Electrolyte acceptable. Review of Systems A complete review of systems was performed. Pertinent positives are noted above. All other systems are negative. Vital Signs Last 8 Hrs Date Time Temp Pulse Resp B/P (MAP) Pulse Ox O2 Delivery O2 Flow Rate FiO2 07/30/17 08:00 Room Air 07/30/17 07:18 36.8 87 18 113/68 (83) 96 Room Air 07/30/17 06:50 77 18 Room Air 97 Last Recorded Weight Weight (Kilograms): 96.400 Physical Exam GENERAL: Elderly male, AAA x 3, pleasant, healthy-appearing, not in any distress. NECK: Supple, no JVD. RESPIRATORY: Normal breathing efforts, Crackles bilaterally. CARDIOVASCULAR: S1, S2 normal, rate rhythm regular. EXTREMITY: 2-3 + lower extremity edema NEURO: speech fluent. PSYCHIATRY: Normal mood and judgment Family History FHx: COPD (chronic obstructive pulmonary disease) FHx: diabetes mellitus Negative for CKD / ESRD Social History Drug Use: none Marital Status: Housing Status: lives with family Occupation: retired . Retired. Never a smoker Laboratory Results Past 24 Hours 07/30/17 06:15 07/30/17 06:15 Test 07/29/17 16:55 07/29/17 20:08 07/30/17 06:15 07/30/17 07:25 Bedside Glucose 112 mg/dl (70-99) 186 mg/dl (70-99) 106 mg/dl (70-99) Red Blood Count 3.44 M/uL (4.7-6.1) Mean Corpuscular Volume 82.8 fL (80-100) Mean Corpuscular Hemoglobin 25.9 pg (25-34) Mean Corpuscular Hemoglobin Concent 31.2 g/dl (32-36) RDW Standard Deviation 62.1 fL (36.4-46.3) RDW Coefficient of Variation 20.9 % (11.5-14.5) Mean Platelet Volume 9.8 fL (7.4-10.4) Anion Gap 10.0 mmol/L (3-11) Est Creatinine Clear Calc Drug Dose 15.0 ml/min Estimated GFR () 13.6 Estimated GFR (Non- 11.7 BUN/Creatinine Ratio 17.3 (10-20) Calcium Level 7.9 mg/dl (8.5-10.1) Test 07/30/17 11:23 Bedside Glucose 200 mg/dl (70-99) Allergies Coded Allergies: No Known Allergies (Verified , 07/21/17) Medications Current Inpatient Medications Medications (Trade) Dose Ordered Sig/Bg Route Start Time Stop Time Status Last Admin Dose Admin Amiodarone HCl (Cordarone Tab) 200 mg BID PO 07/22/17 09:00 08/21/17 08:59 07/29/17 20:28 200 MG Apixaban (Eliquis Tab) 2.5 mg BID PO 07/22/17 09:00 08/21/17 08:59 Future Hold 07/28/17 20:17 2.5 MG Aspirin (Ecotrin Tab) 81 mg QAM PO 07/22/17 09:00 08/21/17 08:59 07/30/17 08:09 81 MG Atorvastatin Calcium (Lipitor Tab) 40 mg QAM PO 07/22/17 09:00 08/21/17 08:59 07/30/17 08:09 40 MG Ferrous Gluconate (Ferrous Gluconate Tab) 324 mg QAM PO 07/22/17 09:00 08/21/17 08:59 07/30/17 08:09 324 MG Levothyroxine Sodium (Synthroid Tab) 50 mcg DAILYBB PO 07/22/17 06:00 08/21/17 05:59 07/30/17 05:41 50 MCG Metoprolol Tartrate (Lopressor Tab) 25 mg BID PO 07/22/17 09:00 08/21/17 08:59 07/29/17 20:29 25 MG Pantoprazole Sodium (Protonix Tab) 40 mg QAM PO 07/22/17 09:00 08/21/17 08:59 07/30/17 08:09 40 MG Insulin Aspart (novoLOG ASPART) SLIDING SCALE G... ACHS SC 07/22/17 07:00 08/21/17 06:59 07/30/17 11:55 8 UNITS Acetaminophen (Tylenol Tab) 650 mg Q4H PRN PO 07/21/17 23:15 08/20/17 23:14 Al Hydrox/Mg Hydrox/Simethicone (Maalox Max Susp) 15 ml Q4H PRN PO 07/21/17 23:15 08/20/17 23:14 Magnesium Hydroxide (Milk Of Magnesia Susp) 30 ml Q12H PRN PO 07/21/17 23:15 08/20/17 23:14 Ondansetron HCl (Zofran Inj) 4 mg Q6H PRN IV 07/21/17 23:15 08/20/17 23:14 Morphine Sulfate (MoRPHine SULFATE INJ) 2 mg Q30M PRN IV 07/21/17 23:15 08/04/17 23:14 Polyethylene (Miralax Powder Packet) 17 gm DAILY PRN PO 07/21/17 23:15 08/20/17 23:14 Glucose (Glucose 40% Gel) 15-30 GRAMS 15 GRAMS... UD PRN PO 07/21/17 23:45 08/20/17 23:44 Glucose (Glucose Chew Tab) 4-8 Tablets 4 Tabl... UD PRN PO 07/21/17 23:45 08/20/17 23:44 Dextrose (Dextrose 50% 50ML Syringe) 25-50ML OF 50% DW IV FOR... UD PRN IV 07/21/17 23:45 08/20/17 23:44 Glucagon (Glucagon Inj) 1 mg UD PRN SQ 07/21/17 23:45 08/20/17 23:44 Albuterol/ Ipratropium (Duoneb) 3 ml Q6R INH 07/22/17 15:00 08/21/17 14:59 07/30/17 06:49 3 ML Albuterol/ Ipratropium (Duoneb) 3 ml Q2H PRN INH 07/22/17 10:15 08/21/17 10:14 07/23/17 16:34 3 ML Iron Sucrose 100 mg/Sodium Chloride 105 ml @ 420 mls/hr Q24H IV 07/23/17 09:00 08/01/17 09:14 07/30/17 08:09 420 MLS/HR Menthol (Nice Farida) 1 farida PRN PRN FARIDA 07/27/17 14:45 08/26/17 14:44 Furosemide (Lasix Tab) 80 mg BID17 PO 07/28/17 09:00 08/27/17 08:59 07/30/17 08:09 80 MG Insulin Glargine (Lantus Solostar Pen) 10 units BID SC 07/29/17 21:00 08/21/17 08:59 07/30/17 08:17 10 UNITS Impression (1) Acute kidney injury (2) CKD stage 3 due to type 2 diabetes mellitus (3) Diastolic CHF (4) Liver masses (5) Atrial fibrillation (6) Iron deficiency anemia (7) Diabetes Recommendations --dialysis today for 3 hours, UF as tolerated, continue on Lasix 80 b.i.d. as patient continues to make urine and remained significantly volume overloaded --Nephrocaps once daily --no need for phosphate binder at this point. -- student services counselor have been consulted to set up outpatient HD at [facility] -- Continue Venofer 100 mg IV daily Will follow while patient waiting for discharge to rehab and outpatient dialysis setup
--- NOTE | 2017-07-30 14:06 | Progress Note ---
Subjective Date of Service: Jul 30, 2017. Subjective Pt evaluation today including: conversation w/ patient, conversation w/ family , chart review, lab review, review of studies, conversation w/ systems development consultant, review of inpatient medication list Feeling generalized weakness, however has been up and walk with PT OT, still has lower extremity swelling, mild slowly speeches, Problem List Medical Problems: (1) Anemia Status: Acute (2) CHF (congestive heart failure) Status: Acute (3) CHF (congestive heart failure) Status: Acute (4) Renal failure Status: Acute (5) Weakness Status: Acute Review of Systems Constitutional: + weakness, + fatigue, No fever, No chills, No sweats, No weight loss, No problem reported Eyes: No worsening of vision, No eye pain, No redness, No discharge, No diplopia ENT: No hearing loss, No unusual epistaxis, No nasal symptoms, No sore throat, No tinnitus, No dental problems, No trouble swallowing Respiratory: + wheezing, No cough, No sputum, No shortness of breath, No dyspnea on exertion, No dyspnea at rest, No hemoptysis Cardiac: + edema (2+ edema), No chest pain, No orthopnea, No PND, No claudication, No palpitations Abdomen: No pain, No nausea, No vomiting, No diarrhea, No constipation Musculoskeletal: + swelling, No joint pain, No muscle pain, No calf pain Male : No dysuria, No urinary frequency, No incontinence, No nocturia more than once/night, No slowing stream, No hematuria Neurologic: No memory loss, No paralysis, No weakness, No numbness/tingling, No vertigo, No balance problems Psychiatric: No depression symptoms, No anhedonism, No anxiety, No insomnia, No substance abuse Heme: No abnormal bleeding/bruising, No clotting problems, No swollen lymph nodes, No night sweats Endo: No fatigue, No excessive thirst, No excessive urination Skin: No rash, No itch, No new/changing skin lesions, No color change, No bleeding Objective Vital Signs Date Time Temp Pulse Resp B/P (MAP) Pulse Ox O2 Delivery O2 Flow Rate FiO2 07/30/17 08:00 Room Air 07/30/17 07:18 36.8 87 18 113/68 (83) 96 Room Air 07/30/17 06:50 77 18 Room Air 97 07/30/17 01:45 75 18 Room Air 96 07/30/17 00:00 Room Air 07/29/17 22:42 36.6 92 20 116/73 (87) 94 Room Air 07/29/17 20:00 Room Air 07/29/17 19:33 83 18 Room Air 94 07/29/17 16:25 36.6 84 19 120/72 (88) 94 Room Air 07/29/17 16:00 Room Air 07/29/17 14:13 89 18 Room Air 97 Physical Exam General Appearance: WD/WN, no apparent distress, + pertinent finding (Chronic ill looking,) Eyes: normal inspection, PERRL, EOMI, sclerae normal ENT: normal ENT inspection, hearing grossly normal, pharynx normal Neck: supple, no adenopathy, thyroid normal, no JVD, no carotid bruits, trachea midline Respiratory/Chest: chest non-tender, normal breath sounds, no respiratory distress, no accessory muscle use, + decreased breath sounds, + wheezing Cardiovascular: regular rate, rhythm, no gallop, no JVD, no murmur Abdomen: normal bowel sounds, non tender, soft, no organomegaly, no pulsatile mass Extremities: normal range of motion, non-tender, normal inspection, no pedal edema, no calf tenderness, normal capillary refill, pelvis stable, + swelling (2 + edema) Neurologic/Psychiatric: instant potato processor II-XII nml as tested, no motor/sensory deficits, alert, normal mood/affect, oriented x 3 Skin: normal color, warm/dry, no rash Lymphatic: no adenopathy Laboratory Results Last 24 Hours Test 07/29/17 16:55 07/29/17 20:08 07/30/17 06:15 07/30/17 07:25 Bedside Glucose 112 mg/dl 186 mg/dl 106 mg/dl White Blood Count 7.69 K/uL Red Blood Count 3.44 M/uL Hemoglobin 8.9 g/dL Hematocrit 28.5 % Mean Corpuscular Volume 82.8 fL Mean Corpuscular Hemoglobin 25.9 pg Mean Corpuscular Hemoglobin Concent 31.2 g/dl RDW Standard Deviation 62.1 fL RDW Coefficient of Variation 20.9 % Platelet Count 398 K/uL Mean Platelet Volume 9.8 fL Sodium Level 135 mmol/L Potassium Level 4.1 mmol/L Chloride Level 102 mmol/L Carbon Dioxide Level 23 mmol/L Anion Gap 10.0 mmol/L Blood Urea Nitrogen 74 mg/dl Creatinine 4.27 mg/dl Est Creatinine Clear Calc Drug Dose 15.0 ml/min Estimated GFR () 13.6 Estimated GFR (Non- 11.7 BUN/Creatinine Ratio 17.3 Random Glucose 91 mg/dl Calcium Level 7.9 mg/dl Test 07/30/17 11:23 Bedside Glucose 200 mg/dl Assessment and Plan 87 y/o M readmitted July 21, 2017 because of fluid overload and CHF exacerbation was discharged from the hospital one day prior and returns with progressive SOB and weakness. 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 Dyspnea: resolved with diuresis Atrial fibrillation: rates controlled on Amiodarone, continue MARGY on CKD stage III/IV, now progressing to ESRD: Cr progressively worsened with Lasix, decreased UO Diabetic type II After admission patient was initially diuresed, but then failed to respond to Lasix increased Lasix to 80mg IV TID, change back to 80mg PO BID continue fluid restriction at 1500cc monitor weights, Cr, I/O's, -6400cc with ultrafiltration prior echo shows normal EF had HD on 07/28, and plan to do dialysis today Continue Eliquis 2.5mg BID Continue monitor electrolytes, continue mag oxide 400mg daily continue Lantus and Novolog, diabetic diet, adjust Lantus dose according continue insulin sliding scale Continue sliding for dyslipidemia, Continue levothyroxine for hypothyroidism Liver nodules: suspicious for malignancy, colonoscopy was negative last admission, need to follow-up with PCP and could consider FNA biopsy as outpatient DNR Possible discharge to rehab tomorrow Discussed with patient answered all questions Continued [facility] stay due to: multiple IV medications needed Discharge planning: home
[2017-07-31] VITALS (7 sets, daily range): BP systolic 103–116; BP diastolic 65–79; PULSE 73–88; TEMP 36.5–36.9; O2SAT 93–94
[2017-07-31] MEDS: ALBUT/IPRATROP 3MG/0.5MG NEB 3 ML VIAL INH SCH ×4 (01:58→19:32)
[2017-07-31] MEDS: LEVOTHYROXINE 50 MCG TAB PO SCH (05:38)
[2017-07-31] MEDS: AMIODARONE 200 MG TAB PO SCH ×2 (07:30→22:17)
[2017-07-31] MEDS: METOPROLOL TARTRATE 25 MG TAB PO SCH ×2 (07:30→22:17)
[2017-07-31] MEDS: ASPIRIN 81 MG ECTAB PO SCH (07:30)
[2017-07-31] MEDS: FERROUS GLUCONATE 324 MG TAB PO SCH (07:30)
[2017-07-31] MEDS: PANTOprazole SOD 40 MG TAB PO SCH (07:30)
[2017-07-31] MEDS: ATORVASTATIN 40 MG TAB PO SCH (07:30)
[2017-07-31] MEDS: FUROSEMIDE 80 MG TAB PO SCH ×2 (07:30→17:50)
[2017-07-31 07:47] LABS: CALCIUM 7.9 mg/dl (8.5-10.1); CREATININE 3.45 mg/dl (0.60-1.40)
[2017-07-31] MEDS: IRON SUCROSE INJ 100 MG in SODIUM CHLORIDE 0.9% 100ML 100 ML IV SCH (08:16)
[2017-07-31] MEDS: INSULIN GLARGINE SOLOSTAR 100 UNITS/ML 3 ML PEN SC SCH ×2 (08:18→22:20)
[2017-07-31] MEDS: INSULIN ASPART 100 UNITS/ML 3 ML PEN SC SCH ×4 (08:18→22:19)
--- NOTE | 2017-07-31 09:55 | CARDIOLOGY PROGRESS NOTE ---
DATE: 07/31/2017 SUBJECTIVE: Mr. Menjivar is resting comfortably at the bedside without complaints of chest pain, dyspnea, or palpitations. He is anxious for hospital discharge. He has tolerated dialysis without difficulty. OBJECTIVE: VITAL SIGNS: Blood pressure 116/80 with an irregular pulse of 70. Respiratory rate is 18. The patient is afebrile at 36.6 degree Celsius. Saturations 93% on room air. NECK: Supple with full carotid upstrokes. No carotid bruits. Jugular venous pressure is flat at 90 degrees. There is no thyromegaly. CARDIOVASCULAR: Reveals an irregularly irregular rhythm with distant heart sounds. No obvious murmurs. No S3. LUNGS: Clear without rales, rhonchi, or wheeze. ABDOMEN: Soft without bruits. EXTREMITIES: Reveal 2+ pitting edema distal to the knees, 1+ thigh edema. DATA: CBC notes hemoglobin of 8.9, hematocrit 28.5, white count 7.6, platelet count 390,000. Electrolytes note a sodium of 135, potassium 4.0, chloride 101, bicarb 21, BUN 52, creatinine 3.45, glucose 109. IMPRESSION AND PLAN: 1. [id number] diastolic congestive heart failure -- volume now being managed by hemodialysis. He remains on Lasix 80 mg b.i.d. 2. Atrial fibrillation -- rate adequately controlled with amiodarone. We would reduce dose to 200 mg daily at time of discharge. We would restart low-dose Eliquis at the time of discharge. 3. Hypertension -- with mild left ventricular hypertrophy and diastolic dysfunction. 4. Mild mitral regurgitation. 5. Mild tricuspid regurgitation. 6. Hypercholesterolemia. 7. Diabetes mellitus. 8. Ngcio-[id number] renal failure -- hemodialysis per nephrology team. 9. Hypothyroidism. 10. Hepatic abnormality -- metastatic lesion suspected. Workup in progress.
--- NOTE | 2017-07-31 10:07 | Nephrology Progress Note ---
Nephrology Progress Note Date of Service Jul 31, 2017. Chief Complaint Follow-up for end-stage renal disease on hemodialysis. Sammy Diaz was seen examined in his room this morning with his sons Joe Reyes and Abdiel at bedside. He noticed gross hematuria since this technical sales consultant. He had microscopic hematuria before but did not have cross hematuria. Hemoglobin stable. Review of Systems A complete review of systems was performed. Pertinent positives are noted above. All other systems are negative. Vital Signs Last 8 Hrs Date Time Temp Pulse Resp B/P (MAP) Pulse Ox O2 Delivery O2 Flow Rate FiO2 07/31/17 08:00 Room Air 07/31/17 07:03 78 18 Room Air 94 07/31/17 06:55 36.6 88 20 116/79 (91) 93 Room Air Last Recorded Weight Weight (Kilograms): 96.800 Physical Exam GENERAL: Elderly male, AAA x 3, pleasant, healthy-appearing, not in any distress. NECK: Supple, no JVD. RESPIRATORY: Normal breathing efforts, Crackles bilaterally. CARDIOVASCULAR: S1, S2 normal, rate rhythm regular. EXTREMITY: 2-3 + lower extremity edema NEURO: speech fluent. PSYCHIATRY: Normal mood and judgment Family History FHx: COPD (chronic obstructive pulmonary disease) FHx: diabetes mellitus Negative for CKD / ESRD Social History Drug Use: none Marital Status: Housing Status: lives with family Occupation: retired . Retired. Never a smoker Laboratory Results Past 24 Hours 07/31/17 06:35 Test 07/30/17 11:23 07/30/17 17:59 07/30/17 20:03 07/31/17 06:35 Bedside Glucose 200 mg/dl (70-99) 201 mg/dl (70-99) 201 mg/dl (70-99) Anion Gap 13.0 mmol/L (3-11) Est Creatinine Clear Calc Drug Dose 18.5 ml/min Estimated GFR () 17.6 Estimated GFR (Non- 15.2 BUN/Creatinine Ratio 15.1 (10-20) Calcium Level 7.9 mg/dl (8.5-10.1) Test 07/31/17 07:19 Bedside Glucose 116 mg/dl (70-99) Allergies Coded Allergies: No Known Allergies (Verified , 07/21/17) Medications Current Inpatient Medications Medications (Trade) Dose Ordered Sig/Bg Route Start Time Stop Time Status Last Admin Dose Admin Amiodarone HCl (Cordarone Tab) 200 mg BID PO 07/22/17 09:00 08/21/17 08:59 07/31/17 07:30 200 MG Apixaban (Eliquis Tab) 2.5 mg BID PO 07/22/17 09:00 08/21/17 08:59 Future Hold 07/28/17 20:17 2.5 MG Aspirin (Ecotrin Tab) 81 mg QAM PO 07/22/17 09:00 08/21/17 08:59 07/31/17 07:30 81 MG Atorvastatin Calcium (Lipitor Tab) 40 mg QAM PO 07/22/17 09:00 08/21/17 08:59 07/31/17 07:30 40 MG Ferrous Gluconate (Ferrous Gluconate Tab) 324 mg QAM PO 07/22/17 09:00 08/21/17 08:59 07/31/17 07:30 324 MG Levothyroxine Sodium (Synthroid Tab) 50 mcg DAILYBB PO 07/22/17 06:00 08/21/17 05:59 07/31/17 05:38 50 MCG Metoprolol Tartrate (Lopressor Tab) 25 mg BID PO 07/22/17 09:00 08/21/17 08:59 07/31/17 07:30 25 MG Pantoprazole Sodium (Protonix Tab) 40 mg QAM PO 07/22/17 09:00 08/21/17 08:59 07/31/17 07:30 40 MG Insulin Aspart (novoLOG ASPART) SLIDING SCALE G... ACHS SC 07/22/17 07:00 08/21/17 06:59 07/31/17 08:18 4 UNITS Acetaminophen (Tylenol Tab) 650 mg Q4H PRN PO 07/21/17 23:15 08/20/17 23:14 Al Hydrox/Mg Hydrox/Simethicone (Maalox Max Susp) 15 ml Q4H PRN PO 07/21/17 23:15 08/20/17 23:14 Magnesium Hydroxide (Milk Of Magnesia Susp) 30 ml Q12H PRN PO 07/21/17 23:15 08/20/17 23:14 Ondansetron HCl (Zofran Inj) 4 mg Q6H PRN IV 3/17/18 23:15 08/20/17 23:14 Morphine Sulfate (MoRPHine SULFATE INJ) 2 mg Q30M PRN IV 07/21/17 23:15 08/04/17 23:14 Polyethylene (Miralax Powder Packet) 17 gm DAILY PRN PO 07/21/17 23:15 08/20/17 23:14 Glucose (Glucose 40% Gel) 15-30 GRAMS 15 GRAMS... UD PRN PO 07/21/17 23:45 08/20/17 23:44 Glucose (Glucose Chew Tab) 4-8 Tablets 4 Tabl... UD PRN PO 07/21/17 23:45 08/20/17 23:44 Dextrose (Dextrose 50% 50ML Syringe) 25-50ML OF 50% DW IV FOR... UD PRN IV 07/21/17 23:45 08/20/17 23:44 Glucagon (Glucagon Inj) 1 mg UD PRN SQ 07/21/17 23:45 08/20/17 23:44 Albuterol/ Ipratropium (Duoneb) 3 ml Q6R INH 07/22/17 15:00 08/21/17 14:59 07/31/17 07:03 3 ML Albuterol/ Ipratropium (Duoneb) 3 ml Q2H PRN INH 07/22/17 10:15 08/21/17 10:14 07/23/17 16:34 3 ML Iron Sucrose 100 mg/Sodium Chloride 105 ml @ 420 mls/hr Q24H IV 07/23/17 09:00 08/01/17 09:14 07/31/17 08:16 420 MLS/HR Menthol (Nice Farida) 1 farida PRN PRN FARIDA 07/27/17 14:45 08/26/17 14:44 Furosemide (Lasix Tab) 80 mg BID17 PO 07/28/17 09:00 08/27/17 08:59 07/31/17 07:30 80 MG Insulin Glargine (Lantus Solostar Pen) 10 units BID SC 07/29/17 21:00 08/21/17 08:59 07/31/17 08:18 10 UNITS Impression (1) Acute kidney injury (2) CKD stage 3 due to type 2 diabetes mellitus (3) Diastolic CHF (4) Liver masses (5) Atrial fibrillation (6) Iron deficiency anemia (7) Diabetes 87-year-old gentlemen with end-stage renal disease secondary to cardiorenal syndrome, started on hemodialysis this admission. Currently getting dialysis via right IJ tunnel dialysis catheter. He has a horseshoe kidney with hydronephrosis seen on imaging done on prior admission. Had history of microscopic hematuria however this morning he developed gross hematuria. Was also found to have liver lesion suggestive of metastatic disease, patient leaning toward not doing any further workup for that. His currently waiting for rehab discharge Recommendations --dialysis today for 4 hours today, UF as tolerated, continue on Lasix 80 b.i.d. as patient continues to make urine and remained significantly volume overloaded. After today's treatment continue on intermittent hemodialysis on Sunday, , Sunday --urology consultation for gross hematuria --Nephrocaps once daily --no need for phosphate binder at this point. -- account services analyst have been consulted to set up outpatient HD at [facility] -- Continue Venofer 100 mg IV daily Will follow while patient waiting for discharge to rehab and outpatient dialysis setup
[2017-07-31] MEDS ORDERED: PHENAZOPYRIDINE HCL 200 MG TAB PO PRN (12:30)
[2017-07-31] MEDS ORDERED: CEFTRIAXONE SOD INJ 1 GM in DEXTROSE 5% ADD-VANTAGE 50ML 50 ML IV STA (12:31)
--- NOTE | 2017-07-31 13:56 | Urology Consultation ---
History General Date of Service: Jul 31, 2017. Chief Complaint: gross hematuria Primary Care Physician: Fred Wilder M.D. Pt seen a urologist before?: No History of Present Illness 87 yo male admitted with worsening CHF and worsening renal failure. He has started dialysis this admission. consulted for gross hematuria. The pt is very PAIMIUT. His sons are present in the room today. Pt noted to have dark red urine in urinal this afternoon. He c/o difficulty voiding since admission and discomfort today. PVR of 290ml noted. 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 No evidence for ureteral stone. Imaging Imaging: CT (07-16-17 showing horseshoe kidney with left hydronephrosis) Laboratory Last 24 Hours Test 07/30/17 17:59 07/30/17 20:03 07/31/17 06:35 07/31/17 07:19 Bedside Glucose 201 mg/dl 201 mg/dl 116 mg/dl Sodium Level 135 mmol/L Potassium Level 4.0 mmol/L Chloride Level 101 mmol/L Carbon Dioxide Level 21 mmol/L Anion Gap 13.0 mmol/L Blood Urea Nitrogen 52 mg/dl Creatinine 3.45 mg/dl Est Creatinine Clear Calc Drug Dose 18.5 ml/min Estimated GFR () 17.6 Estimated GFR (Non- 15.2 BUN/Creatinine Ratio 15.1 Random Glucose 109 mg/dl Calcium Level 7.9 mg/dl Test 07/31/17 11:44 07/31/17 12:57 Bedside Glucose 133 mg/dl Problem List Medical Problems: (1) Anemia Status: Acute (2) CHF (congestive heart failure) Status: Acute (3) CHF (congestive heart failure) Status: Acute (4) Renal failure Status: Acute (5) Weakness Status: Acute Past History A Fib, congestive heart failure, diabetes, hypertension, other (CKD stage III-IV , anemia of chronic disease, pleural effusions, suspected metastatic disease on CT from 07-16-17 showing multiple liver lesions) Past Surgical History: colonoscopy, THR Family History FHx: COPD (chronic obstructive pulmonary disease) FHx: diabetes mellitus Social History Hx Tobacco Use In Past Year?: Yes (OCCASIONAL CHEWING TOBACCO) Smoking: quit greater than 1 year (quit ~40 years ago or longer?) Drug use: none Marital status: Housing status: lives with family Occupation status: retired Immunizations History of Influenza Vaccine: Yes Influenza Vaccine Date: May 02, 2007 History of Tetanus Vaccine?: Unknown History of Pneumococcal: Unknown History of Hepatitis B Vaccine: Unknown History of MDRO No Allergies Coded Allergies: No Known Allergies (Verified , 07/21/17) Medications Home Medications: Home Meds and Scripts Medications Dose Route/Sig Max Daily Dose Days Date Category Dose Instructions Januvia (Sitagliptin) 50 Mg Tab 50 Mg PO HS 07/21/17 Reported Klor-Con (Potassium Chloride) 20 Meq Tabcr 20 Meq PO HS 07/21/17 Reported Lopressor (Metoprolol Tartrate) 25 Mg Tab 25 Mg PO BID 07/21/17 Reported Lantus Solostar (Insulin Glargine) 100 Unit/Ml Inj 15 Units SC DAILY 07/21/17 Reported Lasix (Furosemide) 20 Mg Tab 40 Mg PO QAM 07/21/17 Reported Eliquis (Apixaban) 2.5 Mg Tab 2.5 Mg PO BID 07/21/17 Reported Cordarone (Amiodarone Hcl) 200 Mg Tab 200 Mg PO BID 07/21/17 Reported Prilosec (Omeprazole) 20 Mg Capcr 40 Mg PO QAM 07/09/17 Reported Levothyroxine Sodium 50 Mcg Tab 1 Tab PO QAM 07/09/17 Reported FAMILY STATES "NONE OF THIS MED AT HOME, DID NOT GIVE THIS AM". Ferrous Gluconate 324 Mg Tab 324 Mg PO QAM 07/09/17 Reported Lipitor (Atorvastatin Calcium) 40 Mg Tab 40 Mg PO QAM 07/09/17 Reported Aspirin Ec (Aspirin) 81 Mg Tab 81 Mg PO QAM 07/09/17 Reported Inpatient Medications: Current Inpatient Medications Medications (Trade) Dose Ordered Sig/Bg Route Start Time Stop Time Status Last Admin Dose Admin Amiodarone HCl (Cordarone Tab) 200 mg BID PO 07/22/17 09:00 08/21/17 08:59 07/31/17 07:30 200 MG Apixaban (Eliquis Tab) 2.5 mg BID PO 07/22/17 09:00 08/21/17 08:59 Future Hold 07/28/17 20:17 2.5 MG Aspirin (Ecotrin Tab) 81 mg QAM PO 07/22/17 09:00 08/21/17 08:59 07/31/17 07:30 81 MG Atorvastatin Calcium (Lipitor Tab) 40 mg QAM PO 07/22/17 09:00 08/21/17 08:59 07/31/17 07:30 40 MG Ferrous Gluconate (Ferrous Gluconate Tab) 324 mg QAM PO 07/22/17 09:00 08/21/17 08:59 07/31/17 07:30 324 MG Levothyroxine Sodium (Synthroid Tab) 50 mcg DAILYBB PO 07/22/17 06:00 08/21/17 05:59 07/31/17 05:38 50 MCG Metoprolol Tartrate (Lopressor Tab) 25 mg BID PO 07/22/17 09:00 08/21/17 08:59 07/31/17 07:30 25 MG Pantoprazole Sodium (Protonix Tab) 40 mg QAM PO 07/22/17 09:00 08/21/17 08:59 07/31/17 07:30 40 MG Insulin Aspart (novoLOG ASPART) SLIDING SCALE G... ACHS SC 07/22/17 07:00 08/21/17 06:59 07/31/17 12:12 4 UNITS Acetaminophen (Tylenol Tab) 650 mg Q4H PRN PO 07/21/17 23:15 08/20/17 23:14 Al Hydrox/Mg Hydrox/Simethicone (Maalox Max Susp) 15 ml Q4H PRN PO 07/21/17 23:15 08/20/17 23:14 Magnesium Hydroxide (Milk Of Magnesia Susp) 30 ml Q12H PRN PO 07/21/17 23:15 08/20/17 23:14 Ondansetron HCl (Zofran Inj) 4 mg Q6H PRN IV 07/21/17 23:15 08/20/17 23:14 Morphine Sulfate (MoRPHine SULFATE INJ) 2 mg Q30M PRN IV 07/21/17 23:15 08/04/17 23:14 Polyethylene (Miralax Powder Packet) 17 gm DAILY PRN PO 07/21/17 23:15 08/20/17 23:14 Glucose (Glucose 40% Gel) 15-30 GRAMS 15 GRAMS... UD PRN PO 07/21/17 23:45 08/20/17 23:44 Glucose (Glucose Chew Tab) 4-8 Tablets 4 Tabl... UD PRN PO 07/21/17 23:45 08/20/17 23:44 Dextrose (Dextrose 50% 50ML Syringe) 25-50ML OF 50% DW IV FOR... UD PRN IV 07/21/17 23:45 08/20/17 23:44 Glucagon (Glucagon Inj) 1 mg UD PRN SQ 07/21/17 23:45 08/20/17 23:44 Albuterol/ Ipratropium (Duoneb) 3 ml Q6R INH 07/22/17 15:00 08/21/17 14:59 07/31/17 07:03 3 ML Albuterol/ Ipratropium (Duoneb) 3 ml Q2H PRN INH 07/22/17 10:15 08/21/17 10:14 07/23/17 16:34 3 ML Iron Sucrose 100 mg/Sodium Chloride 105 ml @ 420 mls/hr Q24H IV 07/23/17 09:00 08/01/17 09:14 07/31/17 08:16 420 MLS/HR Menthol (Nice Farida) 1 farida PRN PRN FARIDA 07/27/17 14:45 08/26/17 14:44 Furosemide (Lasix Tab) 80 mg BID17 PO 07/28/17 09:00 08/27/17 08:59 07/31/17 07:30 80 MG Insulin Glargine (Lantus Solostar Pen) 10 units BID SC 07/29/17 21:00 08/21/17 08:59 07/31/17 08:18 10 UNITS Phenazopyridine HCl (Pyridium Tab) 200 mg TID PRN PO 07/31/17 12:30 08/30/17 12:29 Ceftriaxone Sodium 1 gm/ Dextrose 50 ml @ 100 mls/hr Q24H IV 08/01/17 09:00 08/11/17 08:59 Ceftriaxone Sodium 1 gm/ Dextrose 50 ml @ 100 mls/hr NOW STAT IV 07/31/17 12:31 07/31/17 13:00 Review of Systems Review of Systems Constitutional: No fever, No chills Eyes: No double vision Neurological: No dizzy Endocrine: No excessive thirst Gastrointestinal: No abdominal pain, No nausea, No vomiting Cardiovascular: No chest pain Respiratory: No shortness of breath Skin: No rash Musculoskeletal: + arthritis Male : + weak stream, + blood in urine Physical Exam Vital Signs: Vital Signs Past 12 Hours Date Time Temp Pulse Resp B/P (MAP) Pulse Ox O2 Delivery O2 Flow Rate FiO2 07/31/17 08:00 Room Air 07/31/17 07:03 78 18 Room Air 94 07/31/17 06:55 36.6 88 20 116/79 (91) 93 Room Air 07/31/17 01:58 78 18 Room Air 94 Physical Exam: General Appearance: no apparent distress Eyes: bilateral eyes normal inspection ENT: + pertinent finding (hard of hearing ) Neck: no JVD Respiratory/Chest: no respiratory distress, no accessory muscle use Cardiovascular: no JVD Extremities: normal inspection Neurologic/Psychiatric: alert, normal mood/affect, oriented x 3 Skin: normal color Assessment & Plan Assessment & Plan A/P: Gross hematuria, incomplete bladder emptying AFVSS. 3-way 22FR coude hematuria catheter placed today, and bladder irrigated with ~ 1500ml sterile water with clot return. Perez irrigated to light pink and left to drainage. CBI input capped for now. Specimen for cytology and UC&S obtained. Continue dialysis per nephrology. CT scan showing horseshoe kidney and left hydronephrosis. Barre not unexpected in the setting of horseshoe kidney. No indication for stent placement at this time. Monitor H&H. Will check a PSA. The pt will need outpatient cysto to complete evaluation of gross hematuria. Thanks for the consult. Will continue to follow along with primary service.
--- NOTE | 2017-07-31 14:52 | Progress Note ---
Subjective Date of Service: Jul 31, 2017. 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/ hearing aid consultant, review of inpatient medication list Report dysuria, urinary frequency, gross hematuria this morning Otherwise doing okay, eating good, has bowel movement, denies fever and chills, Problem List Medical Problems: (1) Anemia Status: Acute (2) CHF (congestive heart failure) Status: Acute (3) CHF (congestive heart failure) Status: Acute (4) Renal failure Status: Acute (5) Weakness Status: Acute Review of Systems Constitutional: + weakness, + fatigue, No fever, No chills, No sweats, No weight loss, No problem reported Eyes: No worsening of vision, No eye pain, No redness, No discharge, No diplopia ENT: No hearing loss, No unusual epistaxis, No nasal symptoms, No sore throat, No tinnitus, No dental problems, No trouble swallowing Respiratory: + wheezing, No cough, No sputum, No shortness of breath, No dyspnea on exertion, No dyspnea at rest, No hemoptysis Cardiac: No chest pain, No orthopnea, No PND, No edema, No claudication, No palpitations Abdomen: No pain, No nausea, No vomiting, No diarrhea, No constipation Musculoskeletal: No joint pain, No muscle pain, No swelling, No calf pain Male : + see HPI, + dysuria, + hematuria, No urinary frequency, No incontinence, No nocturia more than once/night, No slowing stream Neurologic: No memory loss, No paralysis, No weakness, No numbness/tingling, No vertigo, No balance problems Psychiatric: No depression symptoms, No anhedonism, No anxiety, No insomnia, No substance abuse Heme: No abnormal bleeding/bruising, No clotting problems, No swollen lymph nodes, No night sweats Endo: No fatigue, No excessive thirst, No excessive urination Skin: No rash, No itch, No new/changing skin lesions, No color change, No bleeding Objective Vital Signs Date Time Temp Pulse Resp B/P (MAP) Pulse Ox O2 Delivery O2 Flow Rate FiO2 07/31/17 14:07 77 18 Room Air 94 07/31/17 08:00 Room Air 07/31/17 07:03 78 18 Room Air 94 3/27/18 06:55 36.6 88 20 116/79 (91) 93 Room Air 07/31/17 01:58 78 18 Room Air 94 07/31/17 00:24 36.9 73 18 103/65 (78) 94 Room Air 07/31/17 00:00 Room Air 07/30/17 20:01 86 114/66 (82) 07/30/17 19:12 86 18 Room Air 92 07/30/17 17:21 Room Air 07/30/17 16:58 36.0 87 124/70 (88) 07/30/17 16:45 86 121/64 07/30/17 16:30 92 126/68 07/30/17 16:15 103 121/74 07/30/17 16:02 36.5 94 121/71 (88) 07/30/17 16:00 95 119/79 07/30/17 15:45 97 119/66 07/30/17 15:30 94 121/71 07/30/17 15:15 94 131/54 07/30/17 15:00 90 118/55 07/30/17 14:45 92 128/62 Physical Exam General Appearance: WD/WN, no apparent distress, + pertinent finding (Frail and chronically ill looking, conversational, sitting in bed,) Eyes: normal inspection, PERRL, EOMI, sclerae normal ENT: normal ENT inspection, hearing grossly normal, pharynx normal Neck: supple, no adenopathy, thyroid normal, no JVD, no carotid bruits, trachea midline Respiratory/Chest: chest non-tender, normal breath sounds, no respiratory distress, no accessory muscle use, + decreased breath sounds, + wheezing ( Wheezing is much better compared to yesterday) Cardiovascular: regular rate, rhythm, no gallop, no JVD, no murmur, + pertinent finding (Bilateral lower extremity 2+ pitting edema) Abdomen: normal bowel sounds, non tender, soft, no organomegaly, no pulsatile mass Extremities: normal range of motion, non-tender, normal inspection, no pedal edema, no calf tenderness, normal capillary refill, pelvis stable, + swelling Neurologic/Psychiatric: medical office coordinator II-XII nml as tested, no motor/sensory deficits, alert, normal mood/affect, oriented x 3 Skin: normal color, warm/dry, no rash Lymphatic: no adenopathy Laboratory Results Last 24 Hours Test 07/30/17 17:59 07/30/17 20:03 07/31/17 06:35 07/31/17 07:19 Bedside Glucose 201 mg/dl 201 mg/dl 116 mg/dl Sodium Level 135 mmol/L Potassium Level 4.0 mmol/L Chloride Level 101 mmol/L Carbon Dioxide Level 21 mmol/L Anion Gap 13.0 mmol/L Blood Urea Nitrogen 52 mg/dl Creatinine 3.45 mg/dl Est Creatinine Clear Calc Drug Dose 18.5 ml/min Estimated GFR () 17.6 Estimated GFR (Non- 15.2 BUN/Creatinine Ratio 15.1 Random Glucose 109 mg/dl Calcium Level 7.9 mg/dl Test 07/31/17 11:44 07/31/17 13:49 Bedside Glucose 133 mg/dl Prostate Specific Antigen 5.150 ng/ml Assessment and Plan 87 y/o M readmitted July 21, 2017 because of fluid overload and CHF exacerbation was discharged from the hospital one day prior and returns with progressive SOB and weakness. 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: Cr was progressively worsened with Lasix, decreased UO Diabetic type II After admission patient was initially diuresed, but then failed to respond to Lasix increased Lasix to 80mg IV TID, change back to 80mg PO BID continue fluid restriction at 1500cc prior echo shows normal EF had HD on 07/28, and July 30 Eliquis 2.5mg BID and aspirin or hold because of hematuria, as discussed with patient and family about the risk and benefits, they are willing to take the risk Continue monitor electrolytes, continue mag oxide 400mg daily continue Lantus and Novolog, diabetic diet, adjust Lantus dose according continue insulin sliding scale Continue sliding for dyslipidemia, Continue levothyroxine for hypothyroidism Liver nodules: suspicious for malignancy, colonoscopy was negative last admission, need to follow-up with PCP and could consider FNA biopsy as outpatient Hematuria, with frequency and urgency, consulted, start Rocephin empirically , follow-up UA, urine culture DNR Possible discharge to rehab Discussed with patient and family, answered all questions Continued [facility] stay due to: multiple IV medications needed Discharge planning: home
[2017-08-01] VITALS (26 sets, daily range): BP systolic 83–130; BP diastolic 47–79; PULSE 56–114; TEMP 36.5–36.9; O2SAT 90–98
[2017-08-01] MEDS: ALBUT/IPRATROP 3MG/0.5MG NEB 3 ML VIAL INH SCH ×4 (01:10→19:15)
[2017-08-01] MEDS: LEVOTHYROXINE 50 MCG TAB PO SCH (05:47)
[2017-08-01 06:32] LABS: BASO % 0.1 %; BASO ABS # 0.01 K/uL (0-0.2); HEMATOCRIT 28.5 % (42-52); IG# 0.02 K/uL (0.00-0.02); LYMPH % 8.2 %; LYMPH ABS # 0.95 K/uL (1.2-3.4); MEAN CELL VOLUME 82.8 fL (80-100); MEAN CORPUSCULAR HEMOGLOBIN 26.2 pg (25-34); MEAN CORPUSCULAR HGB CONC 31.6 g/dl (32-36); MEAN PLATELET VOLUME 9.9 fL (7.4-10.4); MONO % 8.3 %; MONO ABS # 0.97 K/uL (0.11-0.59); NEUT % 83.2 %; NEUT ABS # 9.69 K/uL (1.4-6.5); PLATELET COUNT 364 K/uL (130-400); RED CELL DISTRIBUTION WIDTH CV 21.4 % (11.5-14.5); RED CELL DISTRIBUTION WIDTH SD 63.5 fL (36.4-46.3); WHITE BLOOD COUNT 11.64 K/uL (4.8-10.8)
[2017-08-01 07:06] LABS: CALCIUM 8.1 mg/dl (8.5-10.1); CREATININE 4.06 mg/dl (0.60-1.40)
[2017-08-01] MEDS: ATORVASTATIN 40 MG TAB PO SCH (07:55)
[2017-08-01] MEDS: PANTOprazole SOD 40 MG TAB PO SCH (07:55)
[2017-08-01] MEDS: FUROSEMIDE 80 MG TAB PO SCH ×2 (07:55→17:09)
[2017-08-01] MEDS: FERROUS GLUCONATE 324 MG TAB PO SCH (07:55)
[2017-08-01] MEDS: INSULIN ASPART 100 UNITS/ML 3 ML PEN SC SCH ×4 (08:02→21:00)
[2017-08-01] MEDS: INSULIN GLARGINE SOLOSTAR 100 UNITS/ML 3 ML PEN SC SCH ×2 (08:03→21:00)
[2017-08-01] MEDS ORDERED: CEFTRIAXONE SOD INJ 1 GM in DEXTROSE 5% ADD-VANTAGE 50ML 50 ML IV SCH (09:00)
--- NOTE | 2017-08-01 09:23 | CARDIOLOGY PROGRESS NOTE ---
DATE: 08/01/2017 SUBJECTIVE: Mr. Menjivar is resting comfortably at the bedside without complaints of chest pain, dyspnea or palpitations. OBJECTIVE: VITAL SIGNS: Blood pressure is 130/74 with an irregular pulse of 85. Respiratory is 18. The patient is afebrile at 36.7 degrees Celsius. Saturation is 94% on room air. NECK: Supple with full carotid upstrokes. No carotid bruits. Jugular venous pressure is flat at 90 degrees. There is no thyromegaly. CARDIOVASCULAR: Reveals an irregularly irregular rhythm with distant heart sounds. No obvious murmurs. LUNGS: Clear without rales, rhonchi or wheeze. ABDOMEN: Soft without bruits. EXTREMITIES: Reveal intact radial artery pulses bilaterally. 2+ pretibial edema is noted. DATA: CBC notes hemoglobin 9.0, hematocrit 28.5, white count 11.6, platelet count 364,000. Electrolytes note sodium of 135, potassium 4.0, chloride 102, bicarbonate 21, BUN 61, creatinine 4.06 and glucose 185. IMPRESSION AND PLAN: 1. Acute on chronic diastolic congestive heart failure -- volume managed through hemodialysis. Does remain on twice daily Lasix. 2. Atrial fibrillation -- rate adequately controlled on amiodarone. Would reduce to 200 mg daily at time of discharge. Would restart low dose Eliquis once gross hematuria addressed. 3. Hypertension -- with mild left ventricular hypertrophy and diastolic dysfunction. 4. Valvular heart disease -- mild mitral and tricuspid regurgitation. 5. Hypercholesterolemia. 6. Diabetes mellitus. 7. Acute on chronic renal failure -- hemodialysis per nephrology. 8. Hypothyroidism. 9. Hepatic abnormality -- metastatic lesion suspected. Workup in progress.
--- NOTE | 2017-08-01 09:40 | Progress Note ---
Subjective Date of Service: Aug 01, 2017. Subjective Pt evaluation today including: conversation w/ patient, chart review, lab review Voiding: dickson catheter in place (patent, draining bright trevizo colored urine ) 87 yo male with gross hematuria. UC&S and cytology pending. Dickson draining bright trevizo colored urine this morning. Pt denies pain. Problem List Medical Problems: (1) Anemia Status: Acute (2) CHF (congestive heart failure) Status: Acute (3) CHF (congestive heart failure) Status: Acute (4) Renal failure Status: Acute (5) Weakness Status: Acute Review of Systems Constitutional: No fever, No chills Respiratory: No shortness of breath Cardiac: No chest pain Abdomen: No pain, No nausea, No vomiting Male : + hematuria Heme: + abnormal bleeding/bruising Objective Vital Signs Date Time Temp Pulse Resp B/P (MAP) Pulse Ox O2 Delivery O2 Flow Rate FiO2 08/01/17 08:20 36.7 85 18 130/74 (92) 94 Room Air 08/01/17 08:00 Room Air 08/01/17 06:52 88 18 Room Air 96 08/01/17 01:10 80 18 Room Air 95 08/01/17 00:47 36.5 89 20 106/54 (71) 98 Room Air 08/01/17 00:30 Room Air 07/31/17 19:33 78 18 Room Air 94 07/31/17 16:03 36.5 87 18 116/70 (85) 93 Room Air 07/31/17 15:34 Room Air 07/31/17 14:07 77 18 Room Air 94 Physical Exam General Appearance: no apparent distress Eyes: normal inspection ENT: hearing grossly normal Neck: no JVD Respiratory/Chest: no respiratory distress, no accessory muscle use Cardiovascular: no JVD Extremities: normal inspection Neurologic/Psychiatric: alert, normal mood/affect, oriented x 3 Skin: normal color Laboratory Results Last 24 Hours Test 07/31/17 11:44 07/31/17 13:49 07/31/17 16:37 07/31/17 20:09 Bedside Glucose 133 mg/dl 155 mg/dl 181 mg/dl Prostate Specific Antigen 5.150 ng/ml Test 08/01/17 05:57 08/01/17 07:30 White Blood Count 11.64 K/uL Red Blood Count 3.44 M/uL Hemoglobin 9.0 g/dL Hematocrit 28.5 % Mean Corpuscular Volume 82.8 fL Mean Corpuscular Hemoglobin 26.2 pg Mean Corpuscular Hemoglobin Concent 31.6 g/dl Platelet Count 364 K/uL Mean Platelet Volume 9.9 fL Neutrophils (%) (Auto) 83.2 % Lymphocytes (%) (Auto) 8.2 % Monocytes (%) (Auto) 8.3 % Eosinophils (%) (Auto) 0.0 % Basophils (%) (Auto) 0.1 % Neutrophils # (Auto) 9.69 K/uL Lymphocytes # (Auto) 0.95 K/uL Monocytes # (Auto) 0.97 K/uL Eosinophils # (Auto) 0.00 K/uL Basophils # (Auto) 0.01 K/uL RDW Standard Deviation 63.5 fL RDW Coefficient of Variation 21.4 % Immature Granulocyte % (Auto) 0.2 % Immature Granulocyte # (Auto) 0.02 K/uL Anisocytosis PRESENT Sodium Level 135 mmol/L Potassium Level 4.0 mmol/L Chloride Level 102 mmol/L Carbon Dioxide Level 21 mmol/L Anion Gap 12.0 mmol/L Blood Urea Nitrogen 61 mg/dl Creatinine 4.06 mg/dl Est Creatinine Clear Calc Drug Dose 15.7 ml/min Estimated GFR () 14.5 Estimated GFR (Non- 12.5 BUN/Creatinine Ratio 15.0 Random Glucose 185 mg/dl Calcium Level 8.1 mg/dl Magnesium Level 1.9 mg/dl Bedside Glucose 200 mg/dl Assessment and Plan A/P: Gross hematuria Hematuria persists today. Will start CBI. H&H stable. Continue to monitor. Will continue to follow along with primary service. Continued [facility] stay due to: multiple IV medications needed Discharge planning: home
--- NOTE | 2017-08-01 10:33 | Nephrology Progress Note ---
Nephrology Progress Note Date of Service Aug 01, 2017. Chief Complaint Follow-up for end-stage renal disease on hemodialysis. Subjective Norm was seen and examined during HD. Tolerating well, asymptomatic although BP low. Review of Systems A complete review of systems was performed. Pertinent positives are noted above. All other systems are negative. Vital Signs Last 8 Hrs Date Time Temp Pulse Resp B/P (MAP) Pulse Ox O2 Delivery O2 Flow Rate FiO2 08/01/17 06:52 88 18 Room Air 96 08/01/17 01:10 80 18 Room Air 95 08/01/17 00:47 36.5 89 20 106/54 (71) 98 Room Air 08/01/17 00:30 Room Air Last Recorded Weight Weight (Kilograms): 95.900 Physical Exam GENERAL: Elderly male, AAA x 3, pleasant, healthy-appearing, not in any distress. NECK: Supple, no JVD. RESPIRATORY: Normal breathing efforts, Crackles bilaterally. CARDIOVASCULAR: S1, S2 normal, rate rhythm regular. EXTREMITY: 2-3 + lower extremity edema NEURO: speech fluent. PSYCHIATRY: Normal mood and judgment Family History FHx: COPD (chronic obstructive pulmonary disease) FHx: diabetes mellitus Negative for CKD / ESRD Social History Drug Use: none Marital Status: Housing Status: lives with family Occupation: retired . Retired. Never a smoker Laboratory Results Past 24 Hours 08/01/17 05:57 Red Blood Count 3.44, Mean Corpuscular Volume 82.8, Mean Corpuscular Hemoglobin 26.2, Mean Corpuscular Hemoglobin Concent 31.6, Mean Platelet Volume 9.9, Neutrophils (%) (Auto) 83.2, Lymphocytes (%) (Auto) 8.2, Monocytes (%) (Auto) 8.3, Eosinophils (%) (Auto) 0.0, Basophils (%) (Auto) 0.1, Neutrophils # (Auto) 9.69, Lymphocytes # (Auto) 0.95, Monocytes # (Auto) 0.97, Eosinophils # (Auto) 0.00, Basophils # (Auto) 0.01 08/01/17 05:57 Test 07/31/17 11:44 07/31/17 13:49 07/31/17 16:37 07/31/17 20:09 Bedside Glucose 133 mg/dl (70-99) 155 mg/dl (70-99) 181 mg/dl (70-99) Prostate Specific Antigen 5.150 ng/ml (0.000-4.000) Test 08/01/17 05:57 White Blood Count 11.64 K/uL (4.8-10.8) Red Blood Count 3.44 M/uL (4.7-6.1) Hemoglobin 9.0 g/dL (14.0-18.0) Hematocrit 28.5 % (42-52) Mean Corpuscular Volume 82.8 fL (80-100) Mean Corpuscular Hemoglobin 26.2 pg (25-34) Mean Corpuscular Hemoglobin Concent 31.6 g/dl (32-36) Platelet Count 364 K/uL (130-400) Mean Platelet Volume 9.9 fL (7.4-10.4) Neutrophils (%) (Auto) 83.2 % Lymphocytes (%) (Auto) 8.2 % Monocytes (%) (Auto) 8.3 % Eosinophils (%) (Auto) 0.0 % Basophils (%) (Auto) 0.1 % Neutrophils # (Auto) 9.69 K/uL (1.4-6.5) Lymphocytes # (Auto) 0.95 K/uL (1.2-3.4) Monocytes # (Auto) 0.97 K/uL (0.11-0.59) Eosinophils # (Auto) 0.00 K/uL (0-0.5) Basophils # (Auto) 0.01 K/uL (0-0.2) RDW Standard Deviation 63.5 fL (36.4-46.3) RDW Coefficient of Variation 21.4 % (11.5-14.5) Immature Granulocyte % (Auto) 0.2 % Immature Granulocyte # (Auto) 0.02 K/uL (0.00-0.02) Anisocytosis PRESENT Anion Gap 12.0 mmol/L (3-11) Est Creatinine Clear Calc Drug Dose 15.7 ml/min Estimated GFR () 14.5 Estimated GFR (Non- 12.5 BUN/Creatinine Ratio 15.0 (10-20) Calcium Level 8.1 mg/dl (8.5-10.1) Magnesium Level 1.9 mg/dl (1.8-2.4) Allergies Coded Allergies: No Known Allergies (Verified , 07/21/17) Medications Current Inpatient Medications Medications (Trade) Dose Ordered Sig/Bg Route Start Time Stop Time Status Last Admin Dose Admin Amiodarone HCl (Cordarone Tab) 200 mg BID PO 07/22/17 09:00 08/21/17 08:59 07/31/17 22:17 200 MG Apixaban (Eliquis Tab) 2.5 mg BID PO 07/22/17 09:00 08/21/17 08:59 Future Hold 07/28/17 20:17 2.5 MG Aspirin (Ecotrin Tab) 81 mg QAM PO 07/22/17 09:00 08/21/17 08:59 Future Hold 07/31/17 07:30 81 MG Atorvastatin Calcium (Lipitor Tab) 40 mg QAM PO 07/22/17 09:00 08/21/17 08:59 07/31/17 07:30 40 MG Ferrous Gluconate (Ferrous Gluconate Tab) 324 mg QAM PO 07/22/17 09:00 08/21/17 08:59 07/31/17 07:30 324 MG Levothyroxine Sodium (Synthroid Tab) 50 mcg DAILYBB PO 07/22/17 06:00 08/21/17 05:59 08/01/17 05:47 50 MCG Metoprolol Tartrate (Lopressor Tab) 25 mg BID PO 07/22/17 09:00 08/21/17 08:59 07/31/17 22:17 25 MG Pantoprazole Sodium (Protonix Tab) 40 mg QAM PO 07/22/17 09:00 08/21/17 08:59 07/31/17 07:30 40 MG Insulin Aspart (novoLOG ASPART) SLIDING SCALE G... ACHS SC 07/22/17 07:00 08/21/17 06:59 07/31/17 22:19 2 UNITS Acetaminophen (Tylenol Tab) 650 mg Q4H PRN PO 07/21/17 23:15 08/20/17 23:14 Al Hydrox/Mg Hydrox/Simethicone (Maalox Max Susp) 15 ml Q4H PRN PO 07/21/17 23:15 08/20/17 23:14 Magnesium Hydroxide (Milk Of Magnesia Susp) 30 ml Q12H PRN PO 07/21/17 23:15 08/20/17 23:14 Ondansetron HCl (Zofran Inj) 4 mg Q6H PRN IV 07/21/17 23:15 08/20/17 23:14 Morphine Sulfate (MoRPHine SULFATE INJ) 2 mg Q30M PRN IV 07/21/17 23:15 08/04/17 23:14 Polyethylene (Miralax Powder Packet) 17 gm DAILY PRN PO 07/21/17 23:15 08/20/17 23:14 Glucose (Glucose 40% Gel) 15-30 GRAMS 15 GRAMS... UD PRN PO 07/21/17 23:45 08/20/17 23:44 Glucose (Glucose Chew Tab) 4-8 Tablets 4 Tabl... UD PRN PO 07/21/17 23:45 08/20/17 23:44 Dextrose (Dextrose 50% 50ML Syringe) 25-50ML OF 50% DW IV FOR... UD PRN IV 07/21/17 23:45 08/20/17 23:44 Glucagon (Glucagon Inj) 1 mg UD PRN SQ 07/21/17 23:45 08/20/17 23:44 Albuterol/ Ipratropium (Duoneb) 3 ml Q6R INH 07/22/17 15:00 08/21/17 14:59 08/01/17 06:50 3 ML Albuterol/ Ipratropium (Duoneb) 3 ml Q2H PRN INH 07/22/17 10:15 08/21/17 10:14 07/23/17 16:34 3 ML Iron Sucrose 100 mg/Sodium Chloride 105 ml @ 420 mls/hr Q24H IV 07/23/17 09:00 08/01/17 09:14 07/31/17 08:16 420 MLS/HR Menthol (Nice Jose) 1 jose PRN PRN JOSE 07/27/17 14:45 08/26/17 14:44 Furosemide (Lasix Tab) 80 mg BID17 PO 07/28/17 09:00 08/27/17 08:59 07/31/17 17:50 80 MG Insulin Glargine (Lantus Solostar Pen) 10 units BID SC 07/29/17 21:00 08/21/17 08:59 07/31/17 22:20 10 UNITS Phenazopyridine HCl (Pyridium Tab) 200 mg TID PRN PO 07/31/17 12:30 08/30/17 12:29 Ceftriaxone Sodium 1 gm/ Dextrose 50 ml @ 100 mls/hr Q24H IV 08/01/17 09:00 08/11/17 08:59 Impression (1) Acute kidney injury (2) CKD stage 3 due to type 2 diabetes mellitus (3) Diastolic CHF (4) Liver masses (5) Atrial fibrillation (6) Iron deficiency anemia (7) Diabetes 87-year-old gentlemen with end-stage renal disease secondary to cardiorenal syndrome, started on hemodialysis this admission. Currently getting dialysis via right IJ tunnel dialysis catheter. He has a horseshoe kidney with hydronephrosis seen on imaging done on prior admission. Had history of microscopic hematuria however this morning he developed gross hematuria. Was also found to have liver lesion suggestive of metastatic disease, patient leaning toward not doing any further workup for that. His currently waiting for rehab discharge Recommendations --dialysis today for 4 hours, UF as tolerated, continue on Lasix 80 b.i.d. as patient continues to make urine and remained significantly volume overloaded. After today's treatment continue on intermittent hemodialysis on Sunday, , Sunday --Nephrocaps once daily --no need for phosphate binder at this point. --financial services officer have been consulted to set up outpatient HD at [facility] --Continue Venofer 100 mg IV daily Will follow
[2017-08-01] MEDS: METOPROLOL TARTRATE 25 MG TAB PO SCH ×2 (13:58→21:00)
[2017-08-01] MEDS: AMIODARONE 200 MG TAB PO SCH ×2 (13:58→21:00)
[2017-08-01] MEDS: IRON SUCROSE INJ 100 MG in SODIUM CHLORIDE 0.9% 100ML 100 ML IV SCH (13:58)
--- NOTE | 2017-08-01 14:13 | Progress Note ---
Subjective Date of Service: Aug 01, 2017. Subjective Pt evaluation today including: conversation w/ patient, physical exam, chart review, lab review, review of studies, conversation w/ interior design consultant, review of inpatient medication list See patient in dialysis, complaining of a tired, gross hematuria continue persistent, but awake and alert orientated, conversational Problem List Medical Problems: (1) Anemia Status: Acute (2) CHF (congestive heart failure) Status: Acute (3) CHF (congestive heart failure) Status: Acute (4) Renal failure Status: Acute (5) Weakness Status: Acute Review of Systems Constitutional: + weakness, + fatigue, No fever, No chills, No sweats, No weight loss, No problem reported Eyes: No worsening of vision, No eye pain, No redness, No discharge, No diplopia ENT: No hearing loss, No unusual epistaxis, No nasal symptoms, No sore throat, No tinnitus, No dental problems, No trouble swallowing Respiratory: + wheezing, + shortness of breath, No cough, No sputum, No dyspnea on exertion, No dyspnea at rest, No hemoptysis Cardiac: No chest pain, No orthopnea, No PND, No edema, No claudication, No palpitations Abdomen: No pain, No nausea, No vomiting, No diarrhea, No constipation Musculoskeletal: No joint pain, No muscle pain, No swelling, No calf pain Male : + hematuria (Perez in place, hematuria), No dysuria, No urinary frequency, No incontinence, No nocturia more than once/night, No slowing stream Neurologic: No memory loss, No paralysis, No weakness, No numbness/tingling, No vertigo, No balance problems Psychiatric: No depression symptoms, No anhedonism, No anxiety, No insomnia, No substance abuse Heme: No abnormal bleeding/bruising, No clotting problems, No swollen lymph nodes, No night sweats Endo: No fatigue, No excessive thirst, No excessive urination Skin: No rash, No itch, No new/changing skin lesions, No color change, No bleeding Objective Vital Signs Date Time Temp Pulse Resp B/P (MAP) Pulse Ox O2 Delivery O2 Flow Rate FiO2 08/01/17 13:50 36.6 87 119/79 (92) 08/01/17 13:30 102 111/67 08/01/17 13:15 93 108/74 3/28/18 13:00 101 114/76 08/01/17 12:45 101 105/73 08/01/17 12:30 101 95/77 08/01/17 12:15 93 105/76 08/01/17 12:00 101 121/66 08/01/17 11:45 83 98/70 08/01/17 11:30 104 103/67 08/01/17 11:15 111 99/65 08/01/17 11:00 108 92/65 08/01/17 10:45 104 94/51 08/01/17 10:30 95 99/59 08/01/17 10:15 114 96/53 08/01/17 10:00 106 93/47 08/01/17 09:49 82 83/63 08/01/17 09:42 36.9 85 105/57 (73) 08/01/17 08:20 36.7 85 18 130/74 (92) 94 Room Air 08/01/17 08:00 Room Air 08/01/17 06:52 88 18 Room Air 96 08/01/17 01:10 80 18 Room Air 95 08/01/17 00:47 36.5 89 20 106/54 (71) 98 Room Air 08/01/17 00:30 Room Air 07/31/17 19:33 78 18 Room Air 94 07/31/17 16:03 36.5 87 18 116/70 (85) 93 Room Air 07/31/17 15:34 Room Air 07/31/17 14:07 77 18 Room Air 94 Physical Exam General Appearance: WD/WN, no apparent distress Eyes: normal inspection, PERRL, EOMI, sclerae normal ENT: normal ENT inspection, hearing grossly normal, pharynx normal Neck: supple, no adenopathy, thyroid normal, no JVD, no carotid bruits, trachea midline Respiratory/Chest: chest non-tender, normal breath sounds, no respiratory distress, no accessory muscle use, + decreased breath sounds, + wheezing Cardiovascular: regular rate, rhythm, no gallop, no JVD, no murmur, + pertinent finding ( 2-3+ edema) Abdomen: normal bowel sounds, non tender, soft, no organomegaly, no pulsatile mass Extremities: normal range of motion, non-tender, normal inspection, no pedal edema, no calf tenderness, normal capillary refill, pelvis stable Neurologic/Psychiatric: service person II-XII nml as tested, no motor/sensory deficits, alert, normal mood/affect, oriented x 3 Skin: normal color, warm/dry, no rash Lymphatic: no adenopathy Laboratory Results Last 24 Hours Test 07/31/17 16:37 07/31/17 20:09 08/01/17 05:57 08/01/17 07:30 Bedside Glucose 155 mg/dl 181 mg/dl 200 mg/dl White Blood Count 11.64 K/uL Red Blood Count 3.44 M/uL Hemoglobin 9.0 g/dL Hematocrit 28.5 % Mean Corpuscular Volume 82.8 fL Mean Corpuscular Hemoglobin 26.2 pg Mean Corpuscular Hemoglobin Concent 31.6 g/dl Platelet Count 364 K/uL Mean Platelet Volume 9.9 fL Neutrophils (%) (Auto) 83.2 % Lymphocytes (%) (Auto) 8.2 % Monocytes (%) (Auto) 8.3 % Eosinophils (%) (Auto) 0.0 % Basophils (%) (Auto) 0.1 % Neutrophils # (Auto) 9.69 K/uL Lymphocytes # (Auto) 0.95 K/uL Monocytes # (Auto) 0.97 K/uL Eosinophils # (Auto) 0.00 K/uL Basophils # (Auto) 0.01 K/uL RDW Standard Deviation 63.5 fL RDW Coefficient of Variation 21.4 % Immature Granulocyte % (Auto) 0.2 % Immature Granulocyte # (Auto) 0.02 K/uL Anisocytosis PRESENT Sodium Level 135 mmol/L Potassium Level 4.0 mmol/L Chloride Level 102 mmol/L Carbon Dioxide Level 21 mmol/L Anion Gap 12.0 mmol/L Blood Urea Nitrogen 61 mg/dl Creatinine 4.06 mg/dl Est Creatinine Clear Calc Drug Dose 15.7 ml/min Estimated GFR () 14.5 Estimated GFR (Non- 12.5 BUN/Creatinine Ratio 15.0 Random Glucose 185 mg/dl Calcium Level 8.1 mg/dl Magnesium Level 1.9 mg/dl Assessment and Plan 87 y/o M readmitted July 21, 2017 because of fluid overload and CHF exacerbation was discharged from the hospital one day prior and returns with progressive SOB and weakness in his admission. 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, continue dialysis Dyspnea: resolved with diuresis Atrial fibrillation: rates controlled on Amiodarone, continue MARGY on CKD stage III/IV, progressing to ESRD: Cr was progressively worsened with Lasix, decreased UO Hematuria, etiology unknown, with frequency and urgency, consulted, continuous bladder irrigation, has started Rocephin empirically which was 2 days ago, follow-up UA was unremarkable, urine culture has no growth, will stop antibiotic, has been follow-up H&H, hemoglobin stable at 9 Eliquis 2.5mg BID and aspirin or hold because of hematuria, as discussed with patient and family about the risk and benefits, they are willing to take the risk Diabetic type II After admission patient was initially diuresed, but then failed to respond to Lasix increased Lasix to 80mg IV TID, change back to 80mg PO BID continue fluid restriction at 1500cc prior echo shows normal EF had HD from 07/28, Continue monitor electrolytes, continue mag oxide 400mg daily continue Lantus and Novolog, diabetic diet, adjust Lantus dose according continue insulin sliding scale Continue statin for dyslipidemia, Continue levothyroxine for hypothyroidism Liver nodules: suspicious for malignancy, colonoscopy was negative last admission, need to follow-up with PCP and could consider FNA biopsy as outpatient Follow-up with urology input DNR Possible discharge to rehab Discussed with patient and family, answered all questions Continued [facility] stay due to: multiple IV medications needed Discharge planning: home
[2017-08-02] VITALS (9 sets, daily range): BP systolic 101–128; BP diastolic 56–82; PULSE 81–97; TEMP 36.4–36.9; O2SAT 93–95; Ht 182.9 cm; Wt 90.7 kg
[2017-08-02] MEDS: ALBUT/IPRATROP 3MG/0.5MG NEB 3 ML VIAL INH SCH ×4 (02:14→19:32)
[2017-08-02] MEDS: LEVOTHYROXINE 50 MCG TAB PO SCH (05:32)
[2017-08-02 08:09] LABS: BASO % 0.2 %; BASO ABS # 0.02 K/uL (0-0.2); EOS % 0.2 %; EOS ABS # 0.02 K/uL (0-0.5); HEMATOCRIT 28.1 % (42-52); HEMOGLOBIN 8.9 g/dL (14.0-18.0); IG# 0.03 K/uL (0.00-0.02); LYMPH % 11.3 %; LYMPH ABS # 1.08 K/uL (1.2-3.4); MEAN CELL VOLUME 83.9 fL (80-100); MEAN CORPUSCULAR HEMOGLOBIN 26.6 pg (25-34); MEAN CORPUSCULAR HGB CONC 31.7 g/dl (32-36); MEAN PLATELET VOLUME 10.2 fL (7.4-10.4); MONO % 9.1 %; MONO ABS # 0.87 K/uL (0.11-0.59); NEUT % 78.9 %; NEUT ABS # 7.55 K/uL (1.4-6.5); PLATELET COUNT 325 K/uL (130-400); RED CELL DISTRIBUTION WIDTH CV 21.9 % (11.5-14.5); RED CELL DISTRIBUTION WIDTH SD 66.2 fL (36.4-46.3); WHITE BLOOD COUNT 9.57 K/uL (4.8-10.8)
[2017-08-02] MEDS: METOPROLOL TARTRATE 25 MG TAB PO SCH ×2 (08:12→20:37)
[2017-08-02] MEDS: PANTOprazole SOD 40 MG TAB PO SCH (08:12)
[2017-08-02] MEDS: ATORVASTATIN 40 MG TAB PO SCH (08:12)
[2017-08-02] MEDS: FERROUS GLUCONATE 324 MG TAB PO SCH (08:12)
[2017-08-02] MEDS: AMIODARONE 200 MG TAB PO SCH ×2 (08:13→20:37)
[2017-08-02] MEDS: NEPHROCAPS PO SCH (08:13)
[2017-08-02] MEDS: INSULIN ASPART 100 UNITS/ML 3 ML PEN SC SCH ×4 (08:15→20:40)
[2017-08-02] MEDS: INSULIN GLARGINE SOLOSTAR 100 UNITS/ML 3 ML PEN SC SCH ×2 (08:15→20:41)
[2017-08-02] MEDS: FUROSEMIDE 80 MG TAB PO SCH ×2 (08:34→17:12)
[2017-08-02 08:44] LABS: CALCIUM 7.8 mg/dl (8.5-10.1); CREATININE 3.31 mg/dl (0.60-1.40); POTASSIUM 3.8 mmol/L (3.5-5.1)
[2017-08-02 09:08] LABS: HEMOGLOBIN A1C 8.3 % (4.5-5.6)
[2017-08-02 09:31] LABS: INR 1.1 (0.9-1.1); PTT PATIENT 29.2 SECONDS (21.0-31.0)
--- NOTE | 2017-08-02 09:51 | Progress Note ---
Subjective Date of Service: Aug 02, 2017. Subjective Pt evaluation today including: conversation w/ patient, conversation w/ family , chart review, lab review Voiding: dickson catheter in place (patent, draining light trevizo colored urine with CBI running ) 87 yo male with gross hematuria, incomplete bladder emptying. Pt denies pain this morning. UC&S preliminarily negative. 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 Discussed results with son and pt this morning. Problem List Medical Problems: (1) Anemia Status: Acute (2) CHF (congestive heart failure) Status: Acute (3) CHF (congestive heart failure) Status: Acute (4) Renal failure Status: Acute (5) Weakness Status: Acute Review of Systems Constitutional: No fever, No chills Respiratory: No shortness of breath Cardiac: No chest pain Abdomen: No pain, No nausea, No vomiting Male : + hematuria Heme: No abnormal bleeding/bruising Objective Vital Signs Date Time Temp Pulse Resp B/P (MAP) Pulse Ox O2 Delivery O2 Flow Rate FiO2 08/02/17 08:00 93 Room Air 08/02/17 07:07 36.4 93 20 128/82 (97) 93 Room Air 08/02/17 07:02 82 20 Room Air 96 08/02/17 02:16 88 22 Room Air 92 08/02/17 00:03 36.4 90 20 107/56 (73) 95 Room Air 08/02/17 00:00 Room Air 08/01/17 23:09 36.6 56 20 119/69 (86) 91 Room Air 08/01/17 19:15 83 20 Room Air 93 08/01/17 16:10 36.8 82 18 95/56 (69) 90 Room Air 08/01/17 15:20 Room Air 08/01/17 14:08 96 15 Room Air 91 08/01/17 13:50 36.6 87 119/79 (92) 08/01/17 13:30 102 111/67 08/01/17 13:15 93 108/74 08/01/17 13:00 101 114/76 08/01/17 12:45 101 105/73 08/01/17 12:30 101 95/77 08/01/17 12:15 93 105/76 08/01/17 12:00 101 121/66 08/01/17 11:45 83 98/70 08/01/17 11:30 104 103/67 08/01/17 11:15 111 99/65 08/01/17 11:00 108 92/65 08/01/17 10:45 104 94/51 08/01/17 10:30 95 99/59 08/01/17 10:15 114 96/53 08/01/17 10:00 106 93/47 08/01/17 09:49 82 83/63 Physical Exam General Appearance: no apparent distress Eyes: normal inspection ENT: hearing grossly normal Neck: no JVD Respiratory/Chest: no respiratory distress, no accessory muscle use Cardiovascular: no JVD Extremities: normal inspection Neurologic/Psychiatric: alert, normal mood/affect, oriented x 3 Skin: normal color Laboratory Results Last 24 Hours Test 08/01/17 14:06 08/01/17 16:47 08/01/17 20:13 08/02/17 07:09 Bedside Glucose 171 mg/dl 207 mg/dl 159 mg/dl White Blood Count 9.57 K/uL Red Blood Count 3.35 M/uL Hemoglobin 8.9 g/dL Hematocrit 28.1 % Mean Corpuscular Volume 83.9 fL Mean Corpuscular Hemoglobin 26.6 pg Mean Corpuscular Hemoglobin Concent 31.7 g/dl Platelet Count 325 K/uL Mean Platelet Volume 10.2 fL Neutrophils (%) (Auto) 78.9 % Lymphocytes (%) (Auto) 11.3 % Monocytes (%) (Auto) 9.1 % Eosinophils (%) (Auto) 0.2 % Basophils (%) (Auto) 0.2 % Neutrophils # (Auto) 7.55 K/uL Lymphocytes # (Auto) 1.08 K/uL Monocytes # (Auto) 0.87 K/uL Eosinophils # (Auto) 0.02 K/uL Basophils # (Auto) 0.02 K/uL RDW Standard Deviation 66.2 fL RDW Coefficient of Variation 21.9 % Immature Granulocyte % (Auto) 0.3 % Immature Granulocyte # (Auto) 0.03 K/uL Large Platelets 1+ Anisocytosis PRESENT Sodium Level 134 mmol/L Potassium Level 3.8 mmol/L Chloride Level 100 mmol/L Carbon Dioxide Level 27 mmol/L Anion Gap 7.0 mmol/L Blood Urea Nitrogen 40 mg/dl Creatinine 3.31 mg/dl Est Creatinine Clear Calc Drug Dose 19.2 ml/min Estimated GFR () 18.5 Estimated GFR (Non- 16.0 BUN/Creatinine Ratio 12.0 Random Glucose 213 mg/dl Estimated Average Glucose 192 mg/dl Hemoglobin A1c 8.3 % Calcium Level 7.8 mg/dl Magnesium Level 1.9 mg/dl Test 08/02/17 07:23 08/02/17 09:07 Bedside Glucose 241 mg/dl Prothrombin Time 11.3 SECONDS Prothromb Time International Ratio 1.1 Activated Partial Thromboplast Time 29.2 SECONDS Partial Thromboplastin Ratio 1.1 Assessment and Plan A/P: Gross hematuria Hematuria persists today. Continue CBI H&H stable. Continue to monitor. 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 CT showing evidence of mets, unknown primary source. Would recommend the pt have a cysto with clot evacuation, possible TURBT, bilateral retrogrades, and possible selective cytologies. Will plan for OR tomorrow morning with Dr. Glez at 7AM. NPO after midnight. Will consult anesthesia. Will continue to follow along with primary service. Continued [facility] stay due to: multiple IV medications needed Discharge planning: home
--- NOTE | 2017-08-02 09:52 | CARDIOLOGY PROGRESS NOTE ---
DATE: 08/02/2017 SUBJECTIVE: Mr. Menjivar is resting comfortably at the bedside without complaints of chest pain, dyspnea, or palpitations. He is anxious for hospital discharge. OBJECTIVE: VITAL SIGNS: Blood pressure 128/82 with an irregular pulse of 80. Respiratory rate is 20. The patient is afebrile at 36.4 degree Celsius. Saturations 93% on room air. NECK: Supple with full carotid upstrokes. There are no carotid bruits. Jugular venous pressure is flat at 90 degrees. There is no thyromegaly. CARDIOVASCULAR: Reveals an irregular rhythm with distant heart sounds. No obvious murmur. No S3. LUNGS: Clear without rales, rhonchi, or wheezes. ABDOMEN: Soft and nontender without bruits. EXTREMITIES: Reveal intact radial artery pulse bilaterally. 2+ pretibial edema is noted. LABORATORY DATA: CBC notes hemoglobin of 8.9, hematocrit 28.1, white count 9.5, and platelet count 325,000. Electrolytes note sodium 134, potassium 3.4, chloride 100, bicarbonate 27, BUN 40, creatinine 3.31, glucose 213. INR is pending. IMPRESSION AND PLAN: 1. Acute on chronic diastolic congestive heart failure -- volume management by hemodialysis. Continues Lasix orally on a b.i.d. dosing schedule. 2. Recent onset atrial fibrillation -- rate adequately controlled on amiodarone. We will decrease to 200 mg daily at time of discharge. Restart Eliquis once gross hematuria resolved. 3. Hypertension -- with left ventricular hypertrophy and diastolic dysfunction. 4. Valvular heart disease -- mild mitral and tricuspid regurgitation. 5. Hypercholesterolemia. 6. Diabetes mellitus. 7. Acute on chronic renal failure -- hemodialysis per nephrology. 8. Hypothyroidism. 9. Hepatic abnormality -- metastatic workup in progress.
--- NOTE | 2017-08-02 10:26 | Nephrology Progress Note ---
Nephrology Progress Note Date of Service Aug 02, 2017. Chief Complaint Follow-up for end-stage renal disease on hemodialysis. Sammy Diaz was seen examined in his room this morning with his sons Jeo Reyes and Abdiel at bedside. BP, volume status, electrolyte acceptable . Hemoglobin stable. Review of Systems A complete review of systems was performed. Pertinent positives are noted above. All other systems are negative. Vital Signs Last 8 Hrs Date Time Temp Pulse Resp B/P (MAP) Pulse Ox O2 Delivery O2 Flow Rate FiO2 08/02/17 07:07 36.4 93 20 128/82 (97) 93 Room Air 08/02/17 07:02 82 20 Room Air 96 08/02/17 02:16 88 22 Room Air 92 08/02/17 00:03 36.4 90 20 107/56 (73) 95 Room Air 08/02/17 00:00 Room Air Last Recorded Weight Weight (Kilograms): 95.000 Physical Exam GENERAL: Elderly male, AAA x 3, pleasant, healthy-appearing, not in any distress. NECK: Supple, no JVD. RESPIRATORY: Normal breathing efforts, Crackles bilaterally. CARDIOVASCULAR: S1, S2 normal, rate rhythm regular. EXTREMITY: 2-3 + lower extremity edema NEURO: speech fluent. PSYCHIATRY: Normal mood and judgment Family History FHx: COPD (chronic obstructive pulmonary disease) FHx: diabetes mellitus Negative for CKD / ESRD Social History Drug Use: none Marital Status: Housing Status: lives with family Occupation: retired . Retired. Never a smoker Laboratory Results Past 24 Hours Test 08/01/17 07:30 08/01/17 14:06 08/01/17 16:47 08/01/17 20:13 Bedside Glucose 200 mg/dl (70-99) 171 mg/dl (70-99) 207 mg/dl (70-99) 159 mg/dl (70-99) Test 08/02/17 07:09 Allergies Coded Allergies: No Known Allergies (Verified , 07/21/17) Medications Current Inpatient Medications Medications (Trade) Dose Ordered Sig/Bg Route Start Time Stop Time Status Last Admin Dose Admin Amiodarone HCl (Cordarone Tab) 200 mg BID PO 07/22/17 09:00 08/21/17 08:59 08/01/17 13:58 200 MG Apixaban (Eliquis Tab) 2.5 mg BID PO 07/22/17 09:00 08/21/17 08:59 Future Hold 07/28/17 20:17 2.5 MG Aspirin (Ecotrin Tab) 81 mg QAM PO 07/22/17 09:00 08/21/17 08:59 Future Hold 07/31/17 07:30 81 MG Atorvastatin Calcium (Lipitor Tab) 40 mg QAM PO 07/22/17 09:00 08/21/17 08:59 08/01/17 07:55 40 MG Ferrous Gluconate (Ferrous Gluconate Tab) 324 mg QAM PO 07/22/17 09:00 08/21/17 08:59 08/01/17 07:55 324 MG Levothyroxine Sodium (Synthroid Tab) 50 mcg DAILYBB PO 07/22/17 06:00 08/21/17 05:59 08/02/17 05:32 50 MCG Metoprolol Tartrate (Lopressor Tab) 25 mg BID PO 07/22/17 09:00 08/21/17 08:59 08/01/17 13:58 25 MG Pantoprazole Sodium (Protonix Tab) 40 mg QAM PO 07/22/17 09:00 08/21/17 08:59 08/01/17 07:55 40 MG Insulin Aspart (novoLOG ASPART) SLIDING SCALE G... ACHS SC 07/22/17 07:00 08/21/17 06:59 08/01/17 14:23 1 UNITS Acetaminophen (Tylenol Tab) 650 mg Q4H PRN PO 07/21/17 23:15 08/20/17 23:14 Al Hydrox/Mg Hydrox/Simethicone (Maalox Max Susp) 15 ml Q4H PRN PO 07/21/17 23:15 08/20/17 23:14 Magnesium Hydroxide (Milk Of Magnesia Susp) 30 ml Q12H PRN PO 07/21/17 23:15 08/20/17 23:14 Ondansetron HCl (Zofran Inj) 4 mg Q6H PRN IV 07/21/17 23:15 08/20/17 23:14 Morphine Sulfate (MoRPHine SULFATE INJ) 2 mg Q30M PRN IV 07/21/17 23:15 08/04/17 23:14 Polyethylene (Miralax Powder Packet) 17 gm DAILY PRN PO 07/21/17 23:15 08/20/17 23:14 Glucose (Glucose 40% Gel) 15-30 GRAMS 15 GRAMS... UD PRN PO 07/21/17 23:45 08/20/17 23:44 Glucose (Glucose Chew Tab) 4-8 Tablets 4 Tabl... UD PRN PO 07/21/17 23:45 08/20/17 23:44 Dextrose (Dextrose 50% 50ML Syringe) 25-50ML OF 50% DW IV FOR... UD PRN IV 07/21/17 23:45 08/20/17 23:44 Glucagon (Glucagon Inj) 1 mg UD PRN SQ 07/21/17 23:45 08/20/17 23:44 Albuterol/ Ipratropium (Duoneb) 3 ml Q6R INH 07/22/17 15:00 08/21/17 14:59 08/02/17 07:02 3 ML Albuterol/ Ipratropium (Duoneb) 3 ml Q2H PRN INH 07/22/17 10:15 08/21/17 10:14 07/23/17 16:34 3 ML Menthol (Nice Farida) 1 farida PRN PRN FARIDA 07/27/17 14:45 08/26/17 14:44 Furosemide (Lasix Tab) 80 mg BID17 PO 07/28/17 09:00 08/27/17 08:59 08/01/17 17:09 80 MG Insulin Glargine (Lantus Solostar Pen) 10 units BID SC 07/29/17 21:00 08/21/17 08:59 08/01/17 08:03 10 UNITS Phenazopyridine HCl (Pyridium Tab) 200 mg TID PRN PO 07/31/17 12:30 08/30/17 12:29 Vitamin B Complex/ Vit C/Folic Acid (Nephrocaps) 1 cap QAM PO 08/02/17 09:00 09/01/17 08:59 Impression (1) Acute kidney injury (2) CKD stage 3 due to type 2 diabetes mellitus (3) Diastolic CHF (4) Liver masses (5) Atrial fibrillation (6) Iron deficiency anemia (7) Diabetes 87-year-old gentlemen with end-stage renal disease secondary to cardiorenal syndrome, started on hemodialysis this admission. Currently getting dialysis via right IJ tunnel dialysis catheter. He has a horseshoe kidney with hydronephrosis seen on imaging done on prior admission. Had history of microscopic hematuria however this morning he developed gross hematuria. Was also found to have liver lesion suggestive of metastatic disease, patient leaning toward not doing any further workup for that. Developed gross hematuria, evaluated by urology, plan for cysto. Recommendations --had dialysis yesterday, continue on Lasix 80 b.i.d. as patient continues to make urine and remained significantly volume overloaded. After today's treatment continue on intermittent hemodialysis on Sunday, , Sunday --plan for cysto today --Nephrocaps once daily --no need for phosphate binder at this point. --building services technician have been consulted to set up outpatient HD at [facility] --Continue Venofer 100 mg IV daily Will follow
--- NOTE | 2017-08-02 14:46 | Anesthesiology Progress Note ---
Anesthesia Progress Note Date of Service Aug 02, 2017. Progress Notes The patient is scheduled for a cysto, clot evacuation, possible TURBT, possible B/L stent on 08/03/17. The pt is an 87M with h/o former smoker, afib, HTN, recent CHF, GERD, DM, hypothyroidism, ESRD, and anemia. The pt has a recent h/o afib with RVR which has since been rate controlled. The pt also had episodes of low oxygen saturation, but the patient has been diuresed appropriately. His most recent CXR on 07/21/17 showed developing and/or slightly progressive CHF. I ordered another CXR in preparation for the procedure. The patient is tentatively cleared for his procedure pending his CXR results. The patient has been receiving duoneb treatments which has improved his pulmonary status. I ordered a type and screen because he is anemic with a hemoglobin of 8.9. His last dose of eliquis was on 07/28/17. I consented the patient on a spinal vs. general anesthetic. All questions and concerns were addressed.
--- NOTE | 2017-08-02 15:12 | DIAGNOSTIC IMAGING REPORT ---
SINGLE VIEW CHEST CLINICAL HISTORY: Congestive heart failure. FINDINGS: An AP, portable, upright chest radiograph is compared to study dated 07/21/2017 and correlated with chest CT dated 07/16/2017. The examination is degraded by portable technique and patient rotation. A right internal jugular central venous catheter is new from previous. The heart is enlarged and there is atherosclerotic calcification of the thoracic aorta. There is pulmonary vascular congestion with mild interstitial edema. There are small pleural effusions with bibasilar consolidation. No pneumothorax is seen. The skeletal structures are osteopenic. The bony thorax is grossly intact. Degenerative change is seen in the shoulders and thoracic spine. IMPRESSION: 1. Cardiomegaly with evidence of congestive failure and interstitial edema. 2. Layering pleural effusions with bibasilar consolidation. This likely represents atelectasis. Correlate clinically for evidence of superimposed pneumonia. Electronically signed by: Ignacio Cordero M.D. 08/02/2017 3:10 PM Dictated Date/Time: 08/02/2017 3:09 PM
--- NOTE | 2017-08-02 15:27 | Progress Note ---
Subjective Date of Service: Aug 02, 2017. 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/ internet sales consultant, review of inpatient medication list Hematuria in Perez catheter looks better Generally feeling okay, eating drinking good, no other complaint Problem List Medical Problems: (1) Anemia Status: Acute (2) CHF (congestive heart failure) Status: Acute (3) CHF (congestive heart failure) Status: Acute (4) Renal failure Status: Acute (5) Weakness Status: Acute Review of Systems Constitutional: + weakness, + fatigue, No fever, No chills, No sweats, No weight loss, No problem reported Eyes: No worsening of vision, No eye pain, No redness, No discharge, No diplopia ENT: No hearing loss, No unusual epistaxis, No nasal symptoms, No sore throat, No tinnitus, No dental problems, No trouble swallowing Respiratory: No cough, No sputum, No wheezing, No shortness of breath, No dyspnea on exertion, No dyspnea at rest, No hemoptysis Cardiac: + edema, No chest pain, No orthopnea, No PND, No claudication, No palpitations Abdomen: No pain, No nausea, No vomiting, No diarrhea, No constipation Musculoskeletal: No joint pain, No muscle pain, No swelling, No calf pain Male : + hematuria, No dysuria, No urinary frequency, No incontinence, No nocturia more than once/night, No slowing stream Neurologic: No memory loss, No paralysis, No weakness, No numbness/tingling, No vertigo, No balance problems Psychiatric: No depression symptoms, No anhedonism, No anxiety, No insomnia, No substance abuse Heme: No abnormal bleeding/bruising, No clotting problems, No swollen lymph nodes, No night sweats Endo: No fatigue, No excessive thirst, No excessive urination Skin: No rash, No itch, No new/changing skin lesions, No color change, No bleeding Objective Vital Signs Date Time Temp Pulse Resp B/P (MAP) Pulse Ox O2 Delivery O2 Flow Rate FiO2 08/02/17 14:26 97 18 Room Air 95 08/02/17 08:00 93 Room Air 08/02/17 07:07 36.4 93 20 128/82 (97) 93 Room Air 08/02/17 07:02 82 20 Room Air 96 08/02/17 02:16 88 22 Room Air 92 08/02/17 00:03 36.4 90 20 107/56 (73) 95 Room Air 08/02/17 00:00 Room Air 08/01/17 23:09 36.6 56 20 119/69 (86) 91 Room Air 08/01/17 19:15 83 20 Room Air 93 08/01/17 16:10 36.8 82 18 95/56 (69) 90 Room Air 08/01/17 15:20 Room Air Physical Exam General Appearance: WD/WN, no apparent distress, + pertinent finding (Frail and chronically ill looking,) Eyes: normal inspection, PERRL, EOMI, sclerae normal ENT: normal ENT inspection, hearing grossly normal, pharynx normal Neck: supple, no adenopathy, thyroid normal, no JVD, no carotid bruits, trachea midline Respiratory/Chest: chest non-tender, normal breath sounds, no respiratory distress, no accessory muscle use, + decreased breath sounds Cardiovascular: regular rate, rhythm, no gallop, no JVD, no murmur, + pertinent finding (2+ edema) Abdomen: normal bowel sounds, non tender, soft, no organomegaly, no pulsatile mass, + pertinent finding (Perez catheter in place) Extremities: normal range of motion, non-tender, normal inspection, no pedal edema, no calf tenderness, normal capillary refill, pelvis stable, + swelling Neurologic/Psychiatric: physician assistant psychiatry II-XII nml as tested, no motor/sensory deficits, alert, normal mood/affect, oriented x 3 Skin: normal color, warm/dry, no rash Lymphatic: no adenopathy Laboratory Results Last 24 Hours Test 08/01/17 16:47 08/01/17 20:13 08/02/17 07:09 08/02/17 07:23 Bedside Glucose 207 mg/dl 159 mg/dl 241 mg/dl White Blood Count 9.57 K/uL Red Blood Count 3.35 M/uL Hemoglobin 8.9 g/dL Hematocrit 28.1 % Mean Corpuscular Volume 83.9 fL Mean Corpuscular Hemoglobin 26.6 pg Mean Corpuscular Hemoglobin Concent 31.7 g/dl Platelet Count 325 K/uL Mean Platelet Volume 10.2 fL Neutrophils (%) (Auto) 78.9 % Lymphocytes (%) (Auto) 11.3 % Monocytes (%) (Auto) 9.1 % Eosinophils (%) (Auto) 0.2 % Basophils (%) (Auto) 0.2 % Neutrophils # (Auto) 7.55 K/uL Lymphocytes # (Auto) 1.08 K/uL Monocytes # (Auto) 0.87 K/uL Eosinophils # (Auto) 0.02 K/uL Basophils # (Auto) 0.02 K/uL RDW Standard Deviation 66.2 fL RDW Coefficient of Variation 21.9 % Immature Granulocyte % (Auto) 0.3 % Immature Granulocyte # (Auto) 0.03 K/uL Large Platelets 1+ Anisocytosis PRESENT Sodium Level 134 mmol/L Potassium Level 3.8 mmol/L Chloride Level 100 mmol/L Carbon Dioxide Level 27 mmol/L Anion Gap 7.0 mmol/L Blood Urea Nitrogen 40 mg/dl Creatinine 3.31 mg/dl Est Creatinine Clear Calc Drug Dose 19.2 ml/min Estimated GFR () 18.5 Estimated GFR (Non- 16.0 BUN/Creatinine Ratio 12.0 Random Glucose 213 mg/dl Estimated Average Glucose 192 mg/dl Hemoglobin A1c 8.3 % Calcium Level 7.8 mg/dl Magnesium Level 1.9 mg/dl Test 08/02/17 09:07 08/02/17 11:14 Prothrombin Time 11.3 SECONDS Prothromb Time International Ratio 1.1 Activated Partial Thromboplast Time 29.2 SECONDS Partial Thromboplastin Ratio 1.1 Bedside Glucose 241 mg/dl Assessment and Plan 87 y/o M readmitted July 21, 2017 because of fluid overload and CHF exacerbation was discharged from the hospital one day prior and returns with progressive SOB and weakness in his admission. New development hematuria, etiology unknown, with frequency and urgency, consulted, continuous bladder irrigation, has been follow-up H&H, hemoglobin stable at 9 to 8.9 today Urologist planning to have cystoscope and a biopsy tomorrow had started Rocephin empirically for 2 days after having hematuria, follow-up UA was unremarkable, urine culture has no growth, stop antibiotic, Acute on chronic diastolic heart failure upon admission, which was due to atrial fibrillation as well as CKD stage III/IV, MARGY on CKD stage III/IV, progressing to ESRD: Cr was progressively worsened with Lasix, decreased UO now is dialysis dependent, continue dialysis, no obvious fluid overload Dyspnea: resolved with diuresis and dialysis Atrial fibrillation: rates controlled on Amiodarone, continue Eliquis 2.5mg BID and aspirin or hold because of hematuria, as discussed with patient and family about the risk and benefits, they are willing to take the risk Uncontrolled diabetic type II with A1c 8.1, blood glucose around 240 After admission patient was initially diuresed, but then failed to respond to Lasix increased Lasix to 80mg IV TID, change back to 80mg PO BID continue fluid restriction at 1500cc prior echo shows normal EF had HD from 07/28, Continue monitor electrolytes, continue mag oxide 400mg daily continue Lantus and Novolog, diabetic diet, adjust Lantus dose accordingly, continue insulin sliding scale Continue statin for dyslipidemia, Continue levothyroxine for hypothyroidism Liver nodules: suspicious for malignancy, colonoscopy was negative last admission, need to follow-up with PCP and could consider FNA biopsy as outpatient DNR Possible discharge to rehab Discussed with patient and family, answered all questions Continued [facility] stay due to: multiple IV medications needed Discharge planning: home
[2017-08-02] MEDS: CIPROFLOXACIN / D5W 200 MG in PREMIXED IN D5W 100 ML IV SCH (17:19)
[2017-08-02] MEDS: TEMAZEPAM 7.5 MG CAP PO PRN (22:05)
[2017-08-03] VITALS (23 sets, daily range): BP systolic 92–122; BP diastolic 49–72; PULSE 69–89; TEMP 36.4–36.9; O2SAT 96–100
[2017-08-03] MEDS: ALBUT/IPRATROP 3MG/0.5MG NEB 3 ML VIAL INH SCH ×4 (02:19→20:19)
[2017-08-03] MEDS: LEVOTHYROXINE 50 MCG TAB PO SCH (05:10)
[2017-08-03] MEDS: CIPROFLOXACIN / D5W 200 MG in PREMIXED IN D5W 100 ML IV SCH (05:10)
[2017-08-03 06:16] LABS: BASO % 0.3 %; BASO ABS # 0.03 K/uL (0-0.2); EOS % 0.3 %; EOS ABS # 0.04 K/uL (0-0.5); HEMATOCRIT 29.3 % (42-52); HEMOGLOBIN 9.2 g/dL (14.0-18.0); IG# 0.05 K/uL (0.00-0.02); LYMPH % 9.6 %; LYMPH ABS # 1.15 K/uL (1.2-3.4); MEAN CELL VOLUME 84.2 fL (80-100); MEAN CORPUSCULAR HEMOGLOBIN 26.4 pg (25-34); MEAN CORPUSCULAR HGB CONC 31.4 g/dl (32-36); MEAN PLATELET VOLUME 9.6 fL (7.4-10.4); MONO % 7.6 %; MONO ABS # 0.91 K/uL (0.11-0.59); NEUT % 81.8 %; NEUT ABS # 9.81 K/uL (1.4-6.5); PLATELET COUNT 299 K/uL (130-400); RED CELL DISTRIBUTION WIDTH CV 21.8 % (11.5-14.5); RED CELL DISTRIBUTION WIDTH SD 65.8 fL (36.4-46.3); WHITE BLOOD COUNT 11.99 K/uL (4.8-10.8)
[2017-08-03] MEDS: INSULIN ASPART 100 UNITS/ML 3 ML PEN SC SCH ×4 (06:30→20:15)
[2017-08-03 06:51] LABS: CALCIUM 7.8 mg/dl (8.5-10.1); CREATININE 3.92 mg/dl (0.60-1.40); POTASSIUM 3.7 mmol/L (3.5-5.1)
[2017-08-03] MEDS ORDERED: Cysto-Conray II 17.2% 250ML BOTTLE ONE (07:11)
[2017-08-03] MEDS ORDERED: LABETALOL HCL IV 5 MG/ML 20ML IV PRN (07:30)
[2017-08-03] MEDS ORDERED: FLUMAZENIL 0.1 MG/1 ML 10 ML VIAL IV PRN (07:30)
[2017-08-03] MEDS ORDERED: MEPERIDINE HCL 25 MG/ML CARP IV PRN (07:30)
[2017-08-03] MEDS ORDERED: ONDANSETRON INJ 2 MG/ML 2 ML VIAL IV PRN (07:30)
[2017-08-03] MEDS ORDERED: ATROPINE SULFATE 0.1 MG/ML 5ML SYR IV PRN (07:30)
[2017-08-03] MEDS ORDERED: FENTANYL CITRATE INJ 50 MCG/1 ML 2 ML VIAL IV PRN (07:30)
[2017-08-03] MEDS ORDERED: PHENYLEPHRINE 100MCG/ML 5ML SYR IV PRN (07:30)
[2017-08-03] MEDS ORDERED: NALOXONE HCL 0.4 MG/1 ML VIAL/CARP IV PRN (07:30)
[2017-08-03] MEDS ORDERED: HYDROmorphone INJ 0.5 MG/0.5 ML SYR IV PRN (07:30)
[2017-08-03] MEDS ORDERED: EpHEDrine SULFATE INJ 50 MG/ML AMP IV PRN (07:30)
--- NOTE | 2017-08-03 08:16 | [facility] Operative Report ---
Operative Report Operative Date Aug 03, 2017. Pre-Operative Diagnosis Gross Hematuria. Positive Cytology. 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 Bilateral Selective Cytology and bilateral stents. TURBT, Misha, Surgeon Glez Estimated Blood Loss Minimal Findings Dilated left system of atrophic kidney. Tumor Right UO and posterior bladde Specimens 1. Urine Right Renal Pelvis 2. Urine Left Renal Pelvis 3. Tumor right trigone/UO, approx 2.1 cm 4. 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 Anesthesia Type MAC Complication(s) none Disposition yes Recovery Room / PACU Indications Gross hematuria failed irrigation with CBI. Risks and benefits discussed at length. Patient agreeable and consented. Description of Procedure Patient was consented and brought back to the operating room. Patient was placed under anesthesia in the supine position and moved to the dorsal lithotomy position. Patient was prepped and draped in the regular sterile fashion. A time out was completed. A 30degree Cystoscope was placed into the bladder and the entire bladder was examined. The UO's were identified. A tumor was noted on the right trigone approx 2cm and a large based tumor at the posterior bladder was noted approx 5.3 cm. A resection scope was selected and the tumor and lesions were better visualized. Resection was initiated and the tumors were resected to the base. This tissue was sent for pathologic analysis. The areas surrounding the wound beds were fulgurated and all bleeding was controlled. The areas were inspected and no further areas of concern were noted. At the right trigone the tumor included the right UO. This was resected and exposed. Varicosity of the prostate was assessed and large easily bleeding veins were noted. These were fulgurated and bleeding controlled. Each side was cannulized with a catheter, a small amount of saline was injected and irrigated, and urine from each was sent for cytology. At this point, each side was assessed with a retrograde pyelogram. The left was found to be grossly dilated likely due to long standing hydronephrosis due to horseshoe abnormality. The right had moderate hydronephrosis likely due to tumor. A wire was then placed. With the wire in place, a right 6 Fr Multilength and a left 5 Fr multilength Double J stent was placed. It was confirmed with fluoroscopy. The bladder was left partially full and the scope removed. A [address] hematuria catheter was placed. The bladder was emptied and placed on CBI. The patient was cleaned, aroused from anesthesia, and transferred to the pacu in stable condition having tolerated the procedure well with no complications. I was present and participated in all aspects of the procedure. The patient will be monitored in the PACU until transferred. I attest to the content of the Intraoperative Record and any orders documented therein. Any exceptions are noted below.
--- NOTE | 2017-08-03 08:34 | DIAGNOSTIC IMAGING REPORT ---
FLUOROSCOPIC IMAGES FROM BILATERAL RETROGRADE EXAM CLINICAL HISTORY: Bilateral retrograde exam with stents. COMPARISON STUDY: CT of the abdomen and pelvis July 16, 2017. FLUOROSCOPY TIME: 145.9 seconds. FINDINGS: 3 fluoroscopic images from bilateral retrograde exam were submitted for interpretation. These images demonstrate placement of bilateral ureteral stents which appear appropriately positioned. Collecting system dilatation is noted. IMPRESSION: Fluoroscopic images demonstrating bilateral retrograde exam with bilateral ureteral stent insertion. Electronically signed by: Ian Owusu M.D. 08/03/2017 8:32 AM Dictated Date/Time: 08/03/2017 8:20 AM
[2017-08-03] MEDS ORDERED: NURSING VERBAL MED ORDER ONE (08:45)
--- NOTE | 2017-08-03 08:48 | Anesthesiology Progress Note ---
Anesthesia Post Op Note Date & Time Aug 03, 2017 at 08:47 Vital Signs Pain Intensity: 0.0 Vital Signs Past 12 Hours Date Time Temp Pulse Resp B/P (MAP) Pulse Ox O2 Delivery O2 Flow Rate FiO2 08/03/17 08:44 80 18 100 Mask 7.0 08/03/17 06:38 36.7 88 22 129/74 (92) 92 Room Air 08/03/17 00:00 Room Air 08/02/17 23:32 36.9 81 18 118/68 (85) 94 Room Air Notes Mental Status: alert / awake / arousable, participated in evaluation Pt Amnestic to Procedure: Yes Nausea / Vomiting: adequately controlled Pain: adequately controlled Airway Patency, RR, SpO2: stable & adequate, see Notes BP & HR: stable & adequate Hydration State: stable & adequate Anesthetic Complications: no major complications apparent The patient was wheezing and had a cough preoperatively. He tolerated the procedure well with MAC sedation. In the PACU, his vital signs were stable but he continued to cough and wheeze so he was given a Duoneb.
[2017-08-03] MEDS: ALBUT/IPRATROP 3MG/0.5MG NEB 3 ML VIAL INH PRN (08:50)
[2017-08-03] MEDS: FUROSEMIDE 80 MG TAB PO SCH ×2 (09:23→20:10)
[2017-08-03] MEDS: ATORVASTATIN 40 MG TAB PO SCH (09:23)
[2017-08-03] MEDS: PANTOprazole SOD 40 MG TAB PO SCH (09:23)
[2017-08-03] MEDS: FERROUS GLUCONATE 324 MG TAB PO SCH (09:23)
[2017-08-03] MEDS: NEPHROCAPS PO SCH (09:23)
[2017-08-03] MEDS: AMIODARONE 200 MG TAB PO SCH ×2 (09:23→20:10)
[2017-08-03] MEDS: METOPROLOL TARTRATE 25 MG TAB PO SCH ×2 (09:24→20:10)
[2017-08-03] MEDS: INSULIN GLARGINE SOLOSTAR 100 UNITS/ML 3 ML PEN SC SCH ×2 (09:25→20:15)
--- NOTE | 2017-08-03 15:19 | Nephrology Progress Note ---
Nephrology Progress Note Date of Service Aug 03, 2017. Chief Complaint Follow-up for end-stage renal disease on hemodialysis. Subjective Norm was seen and examined this am after Cystoscopy. Overall doing well, blood pressure stable. Review of Systems A complete review of systems was performed. Pertinent positives are noted above. All other systems are negative. Vital Signs Last 8 Hrs Date Time Temp Pulse Resp B/P (MAP) Pulse Ox O2 Delivery O2 Flow Rate FiO2 08/03/17 14:33 80 18 99 Mask 7.0 08/03/17 09:06 132/73 08/03/17 09:05 80 20 08/03/17 09:05 73 20 95 08/03/17 09:01 139/85 08/03/17 09:00 79 22 95 08/03/17 09:00 76 22 08/03/17 08:59 136/74 08/03/17 08:55 87 21 08/03/17 08:55 82 21 98 08/03/17 08:54 36.1 80 22 132/78 (89) 95 Mask 2 08/03/17 08:51 132/78 08/03/17 08:50 85 20 08/03/17 08:50 79 20 99 08/03/17 08:49 80 20 08/03/17 08:49 66 20 100 08/03/17 08:46 130/114 08/03/17 08:44 74 28 100 08/03/17 08:44 80 18 100 Mask 7.0 08/03/17 08:44 75 28 08/03/17 08:42 127/98 08/03/17 08:39 81 24 08/03/17 08:39 80 24 100 08/03/17 08:37 141/62 08/03/17 08:34 76 23 100 08/03/17 08:34 78 23 08/03/17 08:30 135/76 08/03/17 08:29 75 26 08/03/17 08:29 73 26 99 08/03/17 08:25 125/69 08/03/17 08:24 36.1 77 20 122/69 (73) 100 Oxymask 10 08/03/17 08:24 75 22 08/03/17 08:24 76 22 122/69 100 I & O 24-Hour Column 08/04/17 08:00 Intake Total 3000 ml Output Total 3560 ml Balance -560 ml Last Recorded Weight Weight (Kilograms): 95.000 Physical Exam GENERAL: Elderly male, AAA x 3, pleasant, healthy-appearing, not in any distress. NECK: Supple, no JVD. RESPIRATORY: Normal breathing efforts, Crackles bilaterally. CARDIOVASCULAR: S1, S2 normal, rate rhythm regular. EXTREMITY: 2-3 + lower extremity edema NEURO: speech fluent. PSYCHIATRY: Normal mood and judgment Family History FHx: COPD (chronic obstructive pulmonary disease) FHx: diabetes mellitus Negative for CKD / ESRD Social History Drug Use: none Marital Status: Housing Status: lives with family Occupation: retired . Retired. Never a smoker Laboratory Results Past 24 Hours 08/03/17 06:07 Red Blood Count 3.48, Mean Corpuscular Volume 84.2, Mean Corpuscular Hemoglobin 26.4, Mean Corpuscular Hemoglobin Concent 31.4, Mean Platelet Volume 9.6, Neutrophils (%) (Auto) 81.8, Lymphocytes (%) (Auto) 9.6, Monocytes (%) (Auto) 7.6, Eosinophils (%) (Auto) 0.3, Basophils (%) (Auto) 0.3, Neutrophils # (Auto) 9.81, Lymphocytes # (Auto) 1.15, Monocytes # (Auto) 0.91, Eosinophils # (Auto) 0.04, Basophils # (Auto) 0.03 08/03/17 06:07 Test 08/02/17 16:30 08/02/17 20:03 08/03/17 06:07 08/03/17 06:33 Bedside Glucose 147 mg/dl (70-99) 181 mg/dl (70-99) 169 mg/dl (70-99) White Blood Count 11.99 K/uL (4.8-10.8) Red Blood Count 3.48 M/uL (4.7-6.1) Hemoglobin 9.2 g/dL (14.0-18.0) Hematocrit 29.3 % (42-52) Mean Corpuscular Volume 84.2 fL (80-100) Mean Corpuscular Hemoglobin 26.4 pg (25-34) Mean Corpuscular Hemoglobin Concent 31.4 g/dl (32-36) Platelet Count 299 K/uL (130-400) Mean Platelet Volume 9.6 fL (7.4-10.4) Neutrophils (%) (Auto) 81.8 % Lymphocytes (%) (Auto) 9.6 % Monocytes (%) (Auto) 7.6 % Eosinophils (%) (Auto) 0.3 % Basophils (%) (Auto) 0.3 % Neutrophils # (Auto) 9.81 K/uL (1.4-6.5) Lymphocytes # (Auto) 1.15 K/uL (1.2-3.4) Monocytes # (Auto) 0.91 K/uL (0.11-0.59) Eosinophils # (Auto) 0.04 K/uL (0-0.5) Basophils # (Auto) 0.03 K/uL (0-0.2) RDW Standard Deviation 65.8 fL (36.4-46.3) RDW Coefficient of Variation 21.8 % (11.5-14.5) Immature Granulocyte % (Auto) 0.4 % Immature Granulocyte # (Auto) 0.05 K/uL (0.00-0.02) Hypochromasia PRESENT Anisocytosis PRESENT Anion Gap 10.0 mmol/L (3-11) Est Creatinine Clear Calc Drug Dose 16.2 ml/min Estimated GFR () 15.1 Estimated GFR (Non- 13.0 BUN/Creatinine Ratio 12.5 (10-20) Calcium Level 7.8 mg/dl (8.5-10.1) Magnesium Level 1.9 mg/dl (1.8-2.4) Test 08/03/17 08:30 08/03/17 11:32 Bedside Glucose 180 mg/dl (70-99) 271 mg/dl (70-99) Allergies Coded Allergies: No Known Allergies (Verified , 07/21/17) Medications Current Inpatient Medications Medications (Trade) Dose Ordered Sig/Bg Route Start Time Stop Time Status Last Admin Dose Admin Amiodarone HCl (Cordarone Tab) 200 mg BID PO 07/22/17 09:00 08/21/17 08:59 08/03/17 09:23 200 MG Apixaban (Eliquis Tab) 2.5 mg BID PO 07/22/17 09:00 08/21/17 08:59 Future Hold 07/28/17 20:17 2.5 MG Aspirin (Ecotrin Tab) 81 mg QAM PO 07/22/17 09:00 08/21/17 08:59 Future Hold 07/31/17 07:30 81 MG Atorvastatin Calcium (Lipitor Tab) 40 mg QAM PO 07/22/17 09:00 08/21/17 08:59 08/03/17 09:23 40 MG Ferrous Gluconate (Ferrous Gluconate Tab) 324 mg QAM PO 07/22/17 09:00 08/21/17 08:59 08/03/17 09:23 324 MG Levothyroxine Sodium (Synthroid Tab) 50 mcg DAILYBB PO 07/22/17 06:00 08/21/17 05:59 08/02/17 05:32 50 MCG Metoprolol Tartrate (Lopressor Tab) 25 mg BID PO 07/22/17 09:00 08/21/17 08:59 08/03/17 09:24 25 MG Pantoprazole Sodium (Protonix Tab) 40 mg QAM PO 07/22/17 09:00 08/21/17 08:59 08/03/17 09:23 40 MG Insulin Aspart (novoLOG ASPART) SLIDING SCALE G... ACHS SC 07/22/17 07:00 08/21/17 06:59 08/03/17 12:28 12 UNITS Acetaminophen (Tylenol Tab) 650 mg Q4H PRN PO 07/21/17 23:15 08/20/17 23:14 Al Hydrox/Mg Hydrox/Simethicone (Maalox Max Susp) 15 ml Q4H PRN PO 07/21/17 23:15 08/20/17 23:14 Magnesium Hydroxide (Milk Of Magnesia Susp) 30 ml Q12H PRN PO 07/21/17 23:15 08/20/17 23:14 Ondansetron HCl (Zofran Inj) 4 mg Q6H PRN IV 07/21/17 23:15 08/20/17 23:14 Morphine Sulfate (MoRPHine SULFATE INJ) 2 mg Q30M PRN IV 07/21/17 23:15 08/04/17 23:14 Polyethylene (Miralax Powder Packet) 17 gm DAILY PRN PO 07/21/17 23:15 08/20/17 23:14 Glucose (Glucose 40% Gel) 15-30 GRAMS 15 GRAMS... UD PRN PO 07/21/17 23:45 08/20/17 23:44 Glucose (Glucose Chew Tab) 4-8 Tablets 4 Tabl... UD PRN PO 07/21/17 23:45 08/20/17 23:44 Dextrose (Dextrose 50% 50ML Syringe) 25-50ML OF 50% DW IV FOR... UD PRN IV 07/21/17 23:45 08/20/17 23:44 Glucagon (Glucagon Inj) 1 mg UD PRN SQ 07/21/17 23:45 08/20/17 23:44 Albuterol/ Ipratropium (Duoneb) 3 ml Q6R INH 07/22/17 15:00 08/21/17 14:59 08/03/17 14:32 3 ML Albuterol/ Ipratropium (Duoneb) 3 ml Q2H PRN INH 07/22/17 10:15 08/21/17 10:14 08/03/17 08:50 3 ML Menthol (Nice Jose) 1 jose PRN PRN JOSE 07/27/17 14:45 08/26/17 14:44 Furosemide (Lasix Tab) 80 mg BID17 PO 07/28/17 09:00 08/27/17 08:59 08/03/17 09:23 80 MG Phenazopyridine HCl (Pyridium Tab) 200 mg TID PRN PO 07/31/17 12:30 08/30/17 12:29 08/02/17 08:12 200 MG Vitamin B Complex/ Vit C/Folic Acid (Nephrocaps) 1 cap QAM PO 08/02/17 09:00 09/01/17 08:59 08/03/17 09:23 1 CAP Ciprofloxacin/ Dextrose 200 mg/ Prmx 100 ml @ 100 mls/hr Q12H IV 08/02/17 18:00 08/03/17 17:59 08/03/17 05:10 100 MLS/HR Temazepam (Restoril Cap) 7.5 mg HS PRN PO 08/02/17 12:30 09/01/17 12:29 08/02/17 22:05 7.5 MG Insulin Glargine (Lantus Solostar Pen) 12 units BID SC 08/02/17 21:00 08/21/17 08:59 08/03/17 09:25 12 UNITS Impression (1) Acute kidney injury (2) CKD stage 3 due to type 2 diabetes mellitus (3) Diastolic CHF (4) Liver masses (5) Atrial fibrillation (6) Iron deficiency anemia (7) Diabetes 87-year-old gentlemen with end-stage renal disease secondary to cardiorenal syndrome, started on hemodialysis this admission. Currently getting dialysis via right IJ tunnel dialysis catheter. He has a horseshoe kidney with hydronephrosis seen on imaging done on prior admission. Had history of microscopic hematuria however this morning he developed gross hematuria. Was also found to have liver lesion suggestive of metastatic disease, patient leaning toward not doing any further workup for that. Developed gross hematuria, evaluated by urology, plan for cysto. Recommendations --plan for dialysis today, continue on Lasix 80 b.i.d. as patient continues to make urine and remained significantly volume overloaded. After today's treatment continue on intermittent hemodialysis on Sunday, , Sunday has a a --Nephrocaps once daily -- check renal function and electrolyte Sunday morning to see whether there is any and possibility for renal recovery after resection of bladder mass and ureteral stent before next dialysis. --director of clinical services have been consulted to set up outpatient HD at [facility] --Continue Venofer 100 mg IV daily Will follow
--- NOTE | 2017-08-03 17:21 | Progress Note ---
Subjective Date of Service: Aug 03, 2017. 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/ [employer] [facility] consultant, review of inpatient medication list Voiding: dickson catheter in place Back from cystoscope and biopsy, continue on bladder irrigation, the irrigation fluid is still blood-tinged, Patient has eat meal, pleasant conversational no complaint Problem List Medical Problems: (1) Anemia Status: Acute (2) CHF (congestive heart failure) Status: Acute (3) CHF (congestive heart failure) Status: Acute (4) Renal failure Status: Acute (5) Weakness Status: Acute Review of Systems Constitutional: + weakness, + fatigue, No fever, No chills, No sweats, No weight loss, No problem reported Eyes: No worsening of vision, No eye pain, No redness, No discharge, No diplopia ENT: No hearing loss, No unusual epistaxis, No nasal symptoms, No sore throat, No tinnitus, No dental problems, No trouble swallowing Respiratory: No cough, No sputum, No wheezing, No shortness of breath, No dyspnea on exertion, No dyspnea at rest, No hemoptysis Cardiac: No chest pain, No orthopnea, No PND, No edema, No claudication, No palpitations Abdomen: No pain, No nausea, No vomiting, No diarrhea, No constipation Musculoskeletal: No joint pain, No muscle pain, No swelling, No calf pain Male : + hematuria, No dysuria, No urinary frequency, No incontinence, No nocturia more than once/night, No slowing stream Neurologic: No memory loss, No paralysis, No weakness, No numbness/tingling, No vertigo, No balance problems Psychiatric: No depression symptoms, No anhedonism, No anxiety, No insomnia, No substance abuse Heme: No abnormal bleeding/bruising, No clotting problems, No swollen lymph nodes, No night sweats Endo: No fatigue, No excessive thirst, No excessive urination Skin: No rash, No itch, No new/changing skin lesions, No color change, No bleeding Objective Vital Signs Date Time Temp Pulse Resp B/P (MAP) Pulse Ox O2 Delivery O2 Flow Rate FiO2 08/03/17 17:00 77 112/63 08/03/17 16:45 77 97/54 08/03/17 16:30 83 108/62 08/03/17 16:15 86 92/52 08/03/17 16:00 87 101/57 08/03/17 15:45 87 93/56 08/03/17 15:30 70 106/55 08/03/17 15:29 36.4 76 18 108/71 (83) 97 Room Air 08/03/17 14:33 80 18 99 Mask 7.0 08/03/17 09:06 132/73 08/03/17 09:05 80 20 08/03/17 09:05 73 20 95 08/03/17 09:01 139/85 08/03/17 09:00 79 22 95 08/03/17 09:00 76 22 08/03/17 08:59 136/74 08/03/17 08:55 87 21 08/03/17 08:55 82 21 98 08/03/17 08:54 36.1 80 22 132/78 (89) 95 Mask 2 08/03/17 08:51 132/78 08/03/17 08:50 85 20 08/03/17 08:50 79 20 99 08/03/17 08:49 80 20 08/03/17 08:49 66 20 100 08/03/17 08:46 130/114 08/03/17 08:44 74 28 100 08/03/17 08:44 80 18 100 Mask 7.0 08/03/17 08:44 75 28 08/03/17 08:42 127/98 08/03/17 08:39 81 24 08/03/17 08:39 80 24 100 08/03/17 08:37 141/62 08/03/17 08:34 76 23 100 08/03/17 08:34 78 23 08/03/17 08:30 135/76 08/03/17 08:29 75 26 08/03/17 08:29 73 26 99 08/03/17 08:25 125/69 08/03/17 08:24 36.1 77 20 122/69 (73) 100 Oxymask 10 08/03/17 08:24 75 22 08/03/17 08:24 76 22 122/69 100 08/03/17 06:38 36.7 88 22 129/74 (92) 92 Room Air 08/03/17 00:00 Room Air 08/02/17 23:32 36.9 81 18 118/68 (85) 94 Room Air 08/02/17 19:33 84 18 Room Air 93 Physical Exam General Appearance: WD/WN, no apparent distress, + thin, + pertinent finding ( Chronically ill looking pale,) Eyes: normal inspection, PERRL, EOMI, sclerae normal ENT: normal ENT inspection, hearing grossly normal, pharynx normal Neck: supple, no adenopathy, thyroid normal, no JVD, no carotid bruits, trachea midline Respiratory/Chest: chest non-tender, normal breath sounds, no respiratory distress, no accessory muscle use, + decreased breath sounds Cardiovascular: regular rate, rhythm, no gallop, no JVD, no murmur, + pertinent finding (2+ edema) Abdomen: normal bowel sounds, non tender, soft, no organomegaly, no pulsatile mass, + pertinent finding (Dickson catheter in place continue irrigation is going on) Extremities: normal range of motion, non-tender, normal inspection, no pedal edema, no calf tenderness, normal capillary refill, pelvis stable, + swelling (2 +) 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/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, no motor/sensory deficits, alert, normal mood/affect, oriented x 3 Skin: normal color, warm/dry, no rash Lymphatic: no adenopathy Laboratory Results Last 24 Hours Test 08/02/17 20:03 08/03/17 06:07 08/03/17 06:33 08/03/17 08:30 Bedside Glucose 181 mg/dl 169 mg/dl 180 mg/dl White Blood Count 11.99 K/uL Red Blood Count 3.48 M/uL Hemoglobin 9.2 g/dL Hematocrit 29.3 % Mean Corpuscular Volume 84.2 fL Mean Corpuscular Hemoglobin 26.4 pg Mean Corpuscular Hemoglobin Concent 31.4 g/dl Platelet Count 299 K/uL Mean Platelet Volume 9.6 fL Neutrophils (%) (Auto) 81.8 % Lymphocytes (%) (Auto) 9.6 % Monocytes (%) (Auto) 7.6 % Eosinophils (%) (Auto) 0.3 % Basophils (%) (Auto) 0.3 % Neutrophils # (Auto) 9.81 K/uL Lymphocytes # (Auto) 1.15 K/uL Monocytes # (Auto) 0.91 K/uL Eosinophils # (Auto) 0.04 K/uL Basophils # (Auto) 0.03 K/uL RDW Standard Deviation 65.8 fL RDW Coefficient of Variation 21.8 % Immature Granulocyte % (Auto) 0.4 % Immature Granulocyte # (Auto) 0.05 K/uL Hypochromasia PRESENT Anisocytosis PRESENT Sodium Level 134 mmol/L Potassium Level 3.7 mmol/L Chloride Level 101 mmol/L Carbon Dioxide Level 23 mmol/L Anion Gap 10.0 mmol/L Blood Urea Nitrogen 49 mg/dl Creatinine 3.92 mg/dl Est Creatinine Clear Calc Drug Dose 16.2 ml/min Estimated GFR () 15.1 Estimated GFR (Non- 13.0 BUN/Creatinine Ratio 12.5 Random Glucose 184 mg/dl Calcium Level 7.8 mg/dl Magnesium Level 1.9 mg/dl Test 08/03/17 11:32 Bedside Glucose 271 mg/dl Assessment and Plan 87 y/o M readmitted July 21, 2017 because of fluid overload and CHF exacerbation was discharged from the hospital one day prior and returns with progressive SOB and weakness in his admission. New development hematuria,Cystoscopy with Bilateral Retrograde Pyelogram was done on August 03, 2017 which is today, Cytology and bilateral stents. TURBT, Large, continue irrigation has been follow-up H&H, hemoglobin stable at 9 to 8.9 today had started Rocephin empirically for 2 days after having hematuria, follow-up UA was unremarkable, urine culture has no growth, stop antibiotic, however pain patient got 1 dose of Cipro y yesterday and today Acute on chronic diastolic heart failure upon admission, which was due to atrial fibrillation as well as CKD stage III/IV, MARGY on CKD stage III/IV, progressing to ESRD: Cr was progressively worsened with Lasix, decreased UO now is dialysis dependent, continue dialysis, no obvious fluid overload Dyspnea: resolved with diuresis and dialysis Atrial fibrillation: rates controlled on Amiodarone, continue Eliquis 2.5mg BID and aspirin or hold because of hematuria, as discussed with patient and family about the risk and benefits, they are willing to take the risk, However will restart anticoagulation as soon as possible if urologist feel comfortable to restarting after resolving of hematuria Uncontrolled diabetic type II with A1c 8.1, blood glucose around 240, cont current care After admission patient was initially diuresed, but then failed to respond to Lasix increased Lasix to 80mg IV TID, change back to 80mg PO BID continue fluid restriction at 1500cc prior echo shows normal EF had started HD from 07/28, Continue monitor electrolytes, continue mag oxide 400mg daily continue Lantus and Novolog, diabetic diet, adjust Lantus dose accordingly, continue insulin sliding scale Continue statin for dyslipidemia, Continue levothyroxine for hypothyroidism Liver nodules: suspicious for malignancy, colonoscopy was negative last admission, need to follow-up with PCP and could consider FNA biopsy as outpatient DNR Possible discharge to rehab Discussed with patient and family, answered all questions Continued [facility] stay due to: multiple IV medications needed Discharge planning: home
[2017-08-03] MEDS: TEMAZEPAM 7.5 MG CAP PO PRN (21:35)
[2017-08-04] VITALS (9 sets, daily range): BP systolic 92–123; BP diastolic 57–70; PULSE 73–93; TEMP 36.5–36.9; O2SAT 93–96
[2017-08-04] MEDS: ALBUT/IPRATROP 3MG/0.5MG NEB 3 ML VIAL INH SCH ×4 (02:07→18:58)
[2017-08-04] MEDS: LEVOTHYROXINE 50 MCG TAB PO SCH (06:50)
[2017-08-04 06:59] LABS: HEMATOCRIT 30.6 % (42-52); HEMOGLOBIN 9.5 g/dL (14.0-18.0); MEAN CELL VOLUME 84.8 fL (80-100); MEAN CORPUSCULAR HEMOGLOBIN 26.3 pg (25-34); PLATELET COUNT 274 K/uL (130-400); RED CELL DISTRIBUTION WIDTH CV 21.6 % (11.5-14.5); RED CELL DISTRIBUTION WIDTH SD 65.5 fL (36.4-46.3); WHITE BLOOD COUNT 11.08 K/uL (4.8-10.8)
[2017-08-04 07:33] LABS: CALCIUM 7.6 mg/dl (8.5-10.1); CREATININE 3.16 mg/dl (0.60-1.40); POTASSIUM 3.6 mmol/L (3.5-5.1)
[2017-08-04] MEDS: INSULIN ASPART 100 UNITS/ML 3 ML PEN SC SCH ×4 (07:48→21:30)
[2017-08-04] MEDS: INSULIN GLARGINE SOLOSTAR 100 UNITS/ML 3 ML PEN SC SCH ×2 (07:48→21:29)
[2017-08-04] MEDS: PANTOprazole SOD 40 MG TAB PO SCH (08:08)
[2017-08-04] MEDS: NEPHROCAPS PO SCH (08:08)
[2017-08-04] MEDS: FERROUS GLUCONATE 324 MG TAB PO SCH (08:08)
[2017-08-04] MEDS: ATORVASTATIN 40 MG TAB PO SCH (08:08)
[2017-08-04] MEDS: METOPROLOL TARTRATE 25 MG TAB PO SCH ×2 (08:09→21:34)
[2017-08-04] MEDS: AMIODARONE 200 MG TAB PO SCH ×2 (08:09→21:34)
[2017-08-04] MEDS: FUROSEMIDE 80 MG TAB PO SCH (08:10)
--- NOTE | 2017-08-04 10:34 | CARDIOLOGY PROGRESS NOTE ---
DATE: 08/04/2017 SUBJECTIVE: Mrs. Menjivar is resting comfortably in bed without complaints of chest pain, dyspnea, or palpitations. OBJECTIVE: VITAL SIGNS: Blood pressure 116/62 with an irregular pulse of 74. Respiratory rate is 20. The patient is afebrile at 36.6. Saturations 96% on room air. NECK: Supple with full carotid upstrokes. There is no carotid bruits. Jugular venous pressure is flat at 90 degrees. There is no thyromegaly. CARDIOVASCULAR: Reveals a regular rhythm with distant heart sounds. No obvious murmurs. No S3. LUNGS: Clear without rales, rhonchi, or wheezes. ABDOMEN: Soft and nontender without bruits. EXTREMITIES: Reveal intact radial artery pulse bilaterally. 2+ pretibial edema is noted. DATA: CBC notes hemoglobin 9.5, hematocrit 30.6, white count 11.3, platelet count of 274,000. Electrolytes note a sodium of 131, potassium 3.6, chloride 97, bicarbonate 24, BUN 31, creatinine 3.16, glucose 217. IMPRESSION AND PLAN: 1. [id number] diastolic congestive heart failure -- volume now managed by hemodialysis. Continues on twice daily Lasix with some urine output. 2. Recent onset atrial fibrillation -- tolerating amiodarone at 200 mg b.i.d. We would decrease to 200 mg daily at the time of discharge. Restart Eliquis once hematuria has resolved. 3. Hypertension -- with left ventricular hypertrophy and diastolic dysfunction. 4. Valvular heart disease -- mild mitral and tricuspid regurgitation. 5. Hypercholesterolemia. 6. Diabetes mellitus. 7. [id number] renal failure -- hemodialysis per nephrology. 8. Hypothyroidism. 9. Hepatic abnormality. Metastatic workup in progress.
--- NOTE | 2017-08-04 10:53 | Nephrology Progress Note ---
Nephrology Progress Note Date of Service Aug 04, 2017. Chief Complaint Acute renal insufficiency Subjective Mr. Menjivar was seen and evaluated in his hospital room this morning. He was resting comfortably in bed. He tolerated HD yesterday without complications. Net UF ~3 L. He is breathing comfortably. He denies chest pain or palpitations. Activity tolerance is improving. Cystoscopy was completed without complications. Notable bladder tumor was found. Retrograde pyelogram confirmed dilated ureters. TURBT was performed and bilateral stents placed. Catheter is draining bloody urine. No fevers or chills. Jasvir denies pain. Review of Systems A complete review of systems was performed. Pertinent positives are noted above. All other systems are negative. Vital Signs Last 8 Hrs Date Time Temp Pulse Resp B/P (MAP) Pulse Ox O2 Delivery O2 Flow Rate FiO2 08/04/17 08:00 Room Air 08/04/17 07:12 36.6 74 20 116/62 (80) 96 Room Air 08/04/17 07:10 89 18 95 Room Air Last Recorded Weight Weight (Kilograms): 96.500 Physical Exam General Appearance: WD/WN, no apparent distress Head: normocephalic, atraumatic Eyes: normal inspection, sclerae normal ENT: normal ENT inspection, pharynx normal Neck: supple, no JVD, + pertinent finding (RIJ TDC) Respiratory/Chest: lungs clear, no respiratory distress, no accessory muscle use Cardiovascular: regular rate, rhythm, no gallop Back: no CVA tenderness Abdomen/GI: non tender, soft Extremities/Musculoskelatal: normal inspection, no pedal edema Neurologic/Psych: alert, normal mood/affect Family History FHx: COPD (chronic obstructive pulmonary disease) FHx: diabetes mellitus Negative for CKD / ESRD Social History Drug Use: none Marital Status: Housing Status: lives with family Occupation: retired . Retired. Never a smoker Laboratory Results Past 24 Hours 08/04/17 06:19 08/04/17 06:19 Test 08/03/17 11:32 08/03/17 19:57 08/04/17 06:19 08/04/17 07:29 Bedside Glucose 271 mg/dl (70-99) 239 mg/dl (70-99) 228 mg/dl (70-99) Red Blood Count 3.61 M/uL (4.7-6.1) Mean Corpuscular Volume 84.8 fL (80-100) Mean Corpuscular Hemoglobin 26.3 pg (25-34) Mean Corpuscular Hemoglobin Concent 31.0 g/dl (32-36) RDW Standard Deviation 65.5 fL (36.4-46.3) RDW Coefficient of Variation 21.6 % (11.5-14.5) Mean Platelet Volume 10.0 fL (7.4-10.4) Anion Gap 10.0 mmol/L (3-11) Est Creatinine Clear Calc Drug Dose 20.2 ml/min Estimated GFR () 19.6 Estimated GFR (Non- 16.9 BUN/Creatinine Ratio 9.8 (10-20) Calcium Level 7.6 mg/dl (8.5-10.1) Allergies Coded Allergies: No Known Allergies (Verified , 07/21/17) Medications Current Inpatient Medications Medications (Trade) Dose Ordered Sig/Bg Route Start Time Stop Time Status Last Admin Dose Admin Amiodarone HCl (Cordarone Tab) 200 mg BID PO 07/22/17 09:00 08/21/17 08:59 08/04/17 08:09 200 MG Apixaban (Eliquis Tab) 2.5 mg BID PO 07/22/17 09:00 08/21/17 08:59 Future Hold 07/28/17 20:17 2.5 MG Aspirin (Ecotrin Tab) 81 mg QAM PO 07/22/17 09:00 08/21/17 08:59 Future Hold 07/31/17 07:30 81 MG Atorvastatin Calcium (Lipitor Tab) 40 mg QAM PO 07/22/17 09:00 08/21/17 08:59 08/04/17 08:08 40 MG Ferrous Gluconate (Ferrous Gluconate Tab) 324 mg QAM PO 07/22/17 09:00 08/21/17 08:59 08/04/17 08:08 324 MG Levothyroxine Sodium (Synthroid Tab) 50 mcg DAILYBB PO 07/22/17 06:00 08/21/17 05:59 08/04/17 06:50 50 MCG Metoprolol Tartrate (Lopressor Tab) 25 mg BID PO 07/22/17 09:00 08/21/17 08:59 08/04/17 08:09 25 MG Pantoprazole Sodium (Protonix Tab) 40 mg QAM PO 07/22/17 09:00 08/21/17 08:59 08/04/17 08:08 40 MG Insulin Aspart (novoLOG ASPART) SLIDING SCALE G... ACHS SC 07/22/17 07:00 08/21/17 06:59 08/04/17 07:48 10 UNITS Acetaminophen (Tylenol Tab) 650 mg Q4H PRN PO 07/21/17 23:15 08/20/17 23:14 Al Hydrox/Mg Hydrox/Simethicone (Maalox Max Susp) 15 ml Q4H PRN PO 07/21/17 23:15 08/20/17 23:14 Magnesium Hydroxide (Milk Of Magnesia Susp) 30 ml Q12H PRN PO 07/21/17 23:15 08/20/17 23:14 Ondansetron HCl (Zofran Inj) 4 mg Q6H PRN IV 07/21/17 23:15 08/20/17 23:14 Morphine Sulfate (MoRPHine SULFATE INJ) 2 mg Q30M PRN IV 07/21/17 23:15 08/04/17 23:14 Polyethylene (Miralax Powder Packet) 17 gm DAILY PRN PO 07/21/17 23:15 08/20/17 23:14 Glucose (Glucose 40% Gel) 15-30 GRAMS 15 GRAMS... UD PRN PO 07/21/17 23:45 08/20/17 23:44 Glucose (Glucose Chew Tab) 4-8 Tablets 4 Tabl... UD PRN PO 07/21/17 23:45 08/20/17 23:44 Dextrose (Dextrose 50% 50ML Syringe) 25-50ML OF 50% DW IV FOR... UD PRN IV 07/21/17 23:45 08/20/17 23:44 Glucagon (Glucagon Inj) 1 mg UD PRN SQ 07/21/17 23:45 08/20/17 23:44 Albuterol/ Ipratropium (Duoneb) 3 ml Q6R INH 07/22/17 15:00 08/21/17 14:59 08/04/17 07:10 3 ML Albuterol/ Ipratropium (Duoneb) 3 ml Q2H PRN INH 07/22/17 10:15 08/21/17 10:14 3/30/18 08:50 3 ML Menthol (Nice Farida) 1 afrida PRN PRN FARIDA 07/27/17 14:45 08/26/17 14:44 Furosemide (Lasix Tab) 80 mg BID17 PO 07/28/17 09:00 08/27/17 08:59 08/04/17 08:10 80 MG Phenazopyridine HCl (Pyridium Tab) 200 mg TID PRN PO 07/31/17 12:30 08/30/17 12:29 08/02/17 08:12 200 MG Vitamin B Complex/ Vit C/Folic Acid (Nephrocaps) 1 cap QAM PO 08/02/17 09:00 09/01/17 08:59 08/04/17 08:08 1 CAP Temazepam (Restoril Cap) 7.5 mg HS PRN PO 08/02/17 12:30 09/01/17 12:29 08/03/17 21:35 7.5 MG Insulin Glargine (Lantus Solostar Pen) 12 units BID SC 08/02/17 21:00 08/21/17 08:59 08/04/17 07:48 12 UNITS Impression (1) Acute kidney injury (2) CKD stage 3 due to type 2 diabetes mellitus (3) Diastolic CHF (4) Liver masses (5) Atrial fibrillation (6) Iron deficiency anemia (7) Diabetes Mr. Menjivar is an 87-year-old male with acute on chronic kidney disease requiring hemodialysis. He has advanced renal dysfunction associated with cardiorenal syndrome. Jasvir was started on hemodialysis this admission. Some degree of obstruction was noted and relieved by cystoscopy, TURBT and stent placement yesterday. Urine output has increased. Renal function will be monitored closely over the weekend for additional evidence of renal recovery. Metabolic profile, volume status and blood pressure were checked and found to be appropriate. 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 He was also found to have liver lesion suggestive of metastatic disease, patient leaning toward not doing any further workup for that. Recommendations Acute on chronic renal dysfunction requiring hemodialysis: -- Patient has evidence of advanced CKD and cardiorenal syndrome -- He has required [employer]GER, predominately for volume control -- We will monitor for evidence of renal recovery following management of obstruction -- Outpatient HD arranged at [facility] at discharge -- If patient is discharged to [facility], please notify me to arrange dialysis and continued follow up Bladder cancer: -- Plan of care discussed with Dr. Teixeira this morning -- Urinary catheter draining large volume of bloody urine without clots Congestive heart failure: -- Volume status improved -- Will hold afternoon dose of furosemide, patient is making a large volume of urine -- Not currently decompensated -- Cardiology note reviewed this morning -- Atrial fibrillation, Eliquis has been held Anemia: -- Venofer provided with HD
--- NOTE | 2017-08-04 11:00 | Progress Note ---
Progress Note Date of Service Aug 04, 2017. Progress Note Postop day 1 from TURBT and bilateral stent placement Afebrile vital signs are stable No complaints offered Abdomen soft nontender Perez draining well urine somewhat bloody but this appears to be old blood Patient is having a postobstructive diuresis Creatinine is 3 Hematocrit is stable Assessment Bladder tumor obstructive uropathy Hopefully creatinine will come down now that the kidneys are unobstructed Would irrigate catheter as needed Continue current care
--- NOTE | 2017-08-04 14:51 | Progress Note ---
Subjective Date of Service: Aug 04, 2017. 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 consultant, review of inpatient medication list Voiding: dickson catheter in place Had TURP and cystoscopy yesterday had a biopsy of the tumor in bladder, doing well, eating voiding and bowel movement are good, speak loud and pleasant, Problem List Medical Problems: (1) Anemia Status: Acute (2) CHF (congestive heart failure) Status: Acute (3) CHF (congestive heart failure) Status: Acute (4) Renal failure Status: Acute (5) Weakness Status: Acute Review of Systems Constitutional: + weakness, + fatigue, No fever, No chills, No sweats, No weight loss, No problem reported Eyes: No worsening of vision, No eye pain, No redness, No discharge, No diplopia ENT: No hearing loss, No unusual epistaxis, No nasal symptoms, No sore throat, No tinnitus, No dental problems, No trouble swallowing Respiratory: No cough, No sputum, No wheezing, No shortness of breath, No dyspnea on exertion, No dyspnea at rest, No hemoptysis Cardiac: + edema, No chest pain, No orthopnea, No PND, No claudication, No palpitations Abdomen: + problem reported (Dickson catheter in place), No pain, No nausea, No vomiting, No diarrhea, No constipation Musculoskeletal: No joint pain, No muscle pain, No swelling, No calf pain Male : No dysuria, No urinary frequency, No incontinence, No nocturia more than once/night, No slowing stream, No hematuria Neurologic: No memory loss, No paralysis, No weakness, No numbness/tingling, No vertigo, No balance problems Psychiatric: No depression symptoms, No anhedonism, No anxiety, No insomnia, No substance abuse Heme: No abnormal bleeding/bruising, No clotting problems, No swollen lymph nodes, No night sweats Endo: No fatigue, No excessive thirst, No excessive urination Skin: No rash, No itch, No new/changing skin lesions, No color change, No bleeding Objective Vital Signs Date Time Temp Pulse Resp B/P (MAP) Pulse Ox O2 Delivery O2 Flow Rate FiO2 08/04/17 08:00 Room Air 08/04/17 07:12 36.6 74 20 116/62 (80) 96 Room Air 3/31/18 07:10 89 18 95 Room Air 08/04/17 00:19 36.9 76 20 92/57 (69) 94 Room Air 08/04/17 00:00 Room Air 08/03/17 20:19 89 18 96 Room Air 08/03/17 20:07 83 18 121/60 (80) 96 Room Air 08/03/17 19:40 36.9 89 111/68 (82) 08/03/17 19:30 84 109/72 08/03/17 19:15 72 100/61 08/03/17 19:00 89 100/49 08/03/17 18:48 84 101/59 08/03/17 18:30 83 93/55 08/03/17 18:15 76 102/56 08/03/17 18:00 69 107/53 08/03/17 17:45 78 122/60 08/03/17 17:15 78 112/66 08/03/17 17:00 77 112/63 08/03/17 16:45 77 97/54 08/03/17 16:30 83 108/62 08/03/17 16:15 86 92/52 08/03/17 16:00 87 101/57 08/03/17 16:00 97 Room Air 08/03/17 15:45 87 93/56 08/03/17 15:30 70 106/55 08/03/17 15:29 36.4 76 18 108/71 (83) 97 Room Air 08/03/17 15:15 36.9 77 114/69 (84) Physical Exam General Appearance: WD/WN, no apparent distress Eyes: normal inspection, PERRL, EOMI, sclerae normal ENT: normal ENT inspection, hearing grossly normal, pharynx normal Neck: supple, no adenopathy, thyroid normal, no JVD, no carotid bruits, trachea midline Respiratory/Chest: chest non-tender, normal breath sounds, no respiratory distress, no accessory muscle use, + decreased breath sounds Cardiovascular: regular rate, rhythm, no gallop, no JVD, no murmur, + pertinent finding (2+ edema,) Abdomen: normal bowel sounds, non tender, soft, no organomegaly, no pulsatile mass, + pertinent finding (Tracheostomy in place with minimal old dark blood) Extremities: normal range of motion, non-tender, normal inspection, no pedal edema, no calf tenderness, normal capillary refill, pelvis stable, + swelling Neurologic/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, no motor/sensory deficits, alert, normal mood/affect, oriented x 3 Skin: normal color, warm/dry, no rash Lymphatic: no adenopathy Laboratory Results Last 24 Hours Test 08/03/17 19:57 08/04/17 06:19 08/04/17 07:29 08/04/17 11:25 Bedside Glucose 239 mg/dl 228 mg/dl 230 mg/dl White Blood Count 11.08 K/uL Red Blood Count 3.61 M/uL Hemoglobin 9.5 g/dL Hematocrit 30.6 % Mean Corpuscular Volume 84.8 fL Mean Corpuscular Hemoglobin 26.3 pg Mean Corpuscular Hemoglobin Concent 31.0 g/dl RDW Standard Deviation 65.5 fL RDW Coefficient of Variation 21.6 % Platelet Count 274 K/uL Mean Platelet Volume 10.0 fL Sodium Level 131 mmol/L Potassium Level 3.6 mmol/L Chloride Level 97 mmol/L Carbon Dioxide Level 24 mmol/L Anion Gap 10.0 mmol/L Blood Urea Nitrogen 31 mg/dl Creatinine 3.16 mg/dl Est Creatinine Clear Calc Drug Dose 20.2 ml/min Estimated GFR () 19.6 Estimated GFR (Non- 16.9 BUN/Creatinine Ratio 9.8 Random Glucose 217 mg/dl Calcium Level 7.6 mg/dl Assessment and Plan 87 y/o M readmitted July 21, 2017 because of fluid overload and CHF exacerbation was discharged from the hospital one day prior and returns with progressive SOB and weakness in his admission. New development hematuria,Cystoscopy with Bilateral Retrograde Pyelogram was done on August 03, 2017 , PO day 1, Cytology and bilateral stents. TURBT, continuous bladder irrigation was hold has been follow-up H&H, hemoglobin stable at 9.5, had started Rocephin empirically for 2 days after having hematuria, follow-up UA was unremarkable, urine culture has no growth, stop antibiotic, however pain patient got 1 dose of Cipro yesterday before procedure Acute on chronic diastolic heart failure upon admission, which was due to atrial fibrillation as well as CKD stage III/IV, MARGY on CKD stage III/IV, progressing to ESRD: Cr was progressively worsened with Lasix, decreased UO now is dialysis dependent, continue dialysis, no obvious fluid overload, patient 's renal function may improve after stenting Dyspnea: resolved with diuresis and dialysis Atrial fibrillation: rates controlled on Amiodarone, continue Eliquis 2.5mg BID and aspirin or hold because of hematuria, as discussed with patient and family about the risk and benefits, they are willing to take the risk, However will restart anticoagulation as soon as possible if urologist feel comfortable to restarting after resolving of hematuria Uncontrolled diabetic type II with A1c 8.1, blood glucose around 240, cont current care After admission patient was initially diuresed, but then failed to respond to Lasix increased Lasix to 80mg IV TID, change back to 80mg PO BID continue fluid restriction at 1500cc prior echo shows normal EF had started HD from 07/28, Continue monitor electrolytes, continue mag oxide 400mg daily continue Lantus and Novolog, diabetic diet, adjust Lantus dose accordingly, continue insulin sliding scale Continue statin for dyslipidemia, Continue levothyroxine for hypothyroidism Liver nodules: suspicious for malignancy, colonoscopy was negative last admission, need to follow-up with PCP and could consider FNA biopsy as outpatient DNR Possible discharge to rehab, discussed with urologist, possible after hematuria cleared we can move forward half discharge plan, will talk to urology when we can remove the Dickson catheter Discussed with patient and family, answered all questions Continued [facility] stay due to: multiple IV medications needed Discharge planning: home
[2017-08-04] MEDS: ALBUT/IPRATROP 3MG/0.5MG NEB 3 ML VIAL INH PRN (18:23)
[2017-08-04] MEDS: RASPBERRY SYRUP 5 ML UDP PO SCH (23:34)
[2017-08-04] MEDS: VANCOMYCIN HCL 125 MG/2.5ML SOLN PO SCH (23:34)
[2017-08-05] VITALS (8 sets, daily range): BP systolic 104–130; BP diastolic 57–71; PULSE 76–88; TEMP 36.9; O2SAT 94–96
[2017-08-05] MEDS: ALBUT/IPRATROP 3MG/0.5MG NEB 3 ML VIAL INH SCH ×4 (02:08→19:21)
[2017-08-05] MEDS: LEVOTHYROXINE 50 MCG TAB PO SCH (05:24)
[2017-08-05] MEDS: VANCOMYCIN HCL 125 MG/2.5ML SOLN PO SCH ×4 (05:24→22:10)
[2017-08-05] MEDS: RASPBERRY SYRUP 5 ML UDP PO SCH ×4 (05:24→22:10)
[2017-08-05 08:00] LABS: BASO % 0.1 %; BASO ABS # 0.01 K/uL (0-0.2); EOS ABS # 0.09 K/uL (0-0.5); HEMATOCRIT 31.3 % (42-52); HEMOGLOBIN 9.9 g/dL (14.0-18.0); IG# 0.02 K/uL (0.00-0.02); LYMPH % 11.4 %; LYMPH ABS # 1.07 K/uL (1.2-3.4); MEAN CELL VOLUME 85.1 fL (80-100); MEAN CORPUSCULAR HEMOGLOBIN 26.9 pg (25-34); MEAN CORPUSCULAR HGB CONC 31.6 g/dl (32-36); MEAN PLATELET VOLUME 10.1 fL (7.4-10.4); MONO % 9.7 %; MONO ABS # 0.91 K/uL (0.11-0.59); NEUT % 77.6 %; NEUT ABS # 7.28 K/uL (1.4-6.5); PLATELET COUNT 306 K/uL (130-400); RED CELL DISTRIBUTION WIDTH CV 21.4 % (11.5-14.5); RED CELL DISTRIBUTION WIDTH SD 65.5 fL (36.4-46.3); WHITE BLOOD COUNT 9.38 K/uL (4.8-10.8)
[2017-08-05] MEDS: INSULIN ASPART 100 UNITS/ML 3 ML PEN SC SCH ×4 (08:01→21:01)
[2017-08-05] MEDS: INSULIN GLARGINE SOLOSTAR 100 UNITS/ML 3 ML PEN SC SCH ×2 (08:02→21:02)
[2017-08-05] MEDS: FERROUS GLUCONATE 324 MG TAB PO SCH (08:19)
[2017-08-05] MEDS: METOPROLOL TARTRATE 25 MG TAB PO SCH ×2 (08:19→20:58)
[2017-08-05] MEDS: AMIODARONE 200 MG TAB PO SCH ×2 (08:19→20:58)
[2017-08-05] MEDS: PANTOprazole SOD 40 MG TAB PO SCH (08:19)
[2017-08-05] MEDS: NEPHROCAPS PO SCH (08:20)
[2017-08-05] MEDS: ATORVASTATIN 40 MG TAB PO SCH (08:20)
[2017-08-05 08:23] LABS: CALCIUM 7.6 mg/dl (8.5-10.1); CREATININE 3.98 mg/dl (0.60-1.40); POTASSIUM 3.8 mmol/L (3.5-5.1)
[2017-08-05] MEDS ORDERED: FUROSEMIDE 80 MG TAB PO SCH ×2 (09:00→21:00)
[2017-08-05] MEDS ORDERED: FUROSEMIDE 80 MG TAB PO ONE (10:51)
--- NOTE | 2017-08-05 11:01 | Nephrology Progress Note ---
Nephrology Progress Note Date of Service Aug 05, 2017. Chief Complaint Acute renal insufficiency Subjective No acute events overnight. Mr. Menjivar is very insistent on going home in the next day or two. He denies pain. He denies shortness of breath. Lower extremity edema is increasing. It continues to improve when feet are elevated. No lightheadedness or dizziness. The patient is ambulating with a rolling walker. His son's remain at the bedside. Appetite is good. No fevers or chills. Perez intact draining tea colored urine. Review of Systems A complete review of systems was performed. Pertinent positives are noted above. All other systems are negative. Vital Signs Last 8 Hrs Date Time Temp Pulse Resp B/P (MAP) Pulse Ox O2 Delivery O2 Flow Rate FiO2 08/05/17 08:11 36.9 86 20 104/62 (76) 95 Room Air 08/05/17 08:00 Room Air 08/05/17 06:51 88 18 94 Room Air Last Recorded Weight Weight (Kilograms): 97.100 Physical Exam General Appearance: WD/WN, no apparent distress Head: normocephalic, atraumatic Eyes: normal inspection, sclerae normal ENT: normal ENT inspection, pharynx normal Neck: supple, no JVD Respiratory/Chest: lungs clear, no respiratory distress, no accessory muscle use Cardiovascular: regular rate, rhythm, no gallop Back: no CVA tenderness Abdomen/GI: non tender, soft Genitourinary - Male: + pertinent finding (Perez draining tea colored urine) Extremities/Musculoskelatal: normal inspection, no pedal edema Neurologic/Psych: alert, normal mood/affect Family History FHx: COPD (chronic obstructive pulmonary disease) FHx: diabetes mellitus Negative for CKD / ESRD Social History Drug Use: none Marital Status: Housing Status: lives with family Occupation: retired . Retired. Never a smoker Laboratory Results Past 24 Hours 08/05/17 07:46 Red Blood Count 3.68, Mean Corpuscular Volume 85.1, Mean Corpuscular Hemoglobin 26.9, Mean Corpuscular Hemoglobin Concent 31.6, Mean Platelet Volume 10.1, Neutrophils (%) (Auto) 77.6, Lymphocytes (%) (Auto) 11.4, Monocytes (%) (Auto) 9.7, Eosinophils (%) (Auto) 1.0, Basophils (%) (Auto) 0.1, Neutrophils # (Auto) 7.28, Lymphocytes # (Auto) 1.07, Monocytes # (Auto) 0.91, Eosinophils # (Auto) 0.09, Basophils # (Auto) 0.01 08/05/17 07:46 Test 08/04/17 11:25 08/04/17 16:26 08/04/17 19:32 08/05/17 07:39 Bedside Glucose 230 mg/dl (70-99) 230 mg/dl (70-99) 166 mg/dl (70-99) 170 mg/dl (70-99) Test 08/05/17 07:46 White Blood Count 9.38 K/uL (4.8-10.8) Red Blood Count 3.68 M/uL (4.7-6.1) Hemoglobin 9.9 g/dL (14.0-18.0) Hematocrit 31.3 % (42-52) Mean Corpuscular Volume 85.1 fL (80-100) Mean Corpuscular Hemoglobin 26.9 pg (25-34) Mean Corpuscular Hemoglobin Concent 31.6 g/dl (32-36) Platelet Count 306 K/uL (130-400) Mean Platelet Volume 10.1 fL (7.4-10.4) Neutrophils (%) (Auto) 77.6 % Lymphocytes (%) (Auto) 11.4 % Monocytes (%) (Auto) 9.7 % Eosinophils (%) (Auto) 1.0 % Basophils (%) (Auto) 0.1 % Neutrophils # (Auto) 7.28 K/uL (1.4-6.5) Lymphocytes # (Auto) 1.07 K/uL (1.2-3.4) Monocytes # (Auto) 0.91 K/uL (0.11-0.59) Eosinophils # (Auto) 0.09 K/uL (0-0.5) Basophils # (Auto) 0.01 K/uL (0-0.2) RDW Standard Deviation 65.5 fL (36.4-46.3) RDW Coefficient of Variation 21.4 % (11.5-14.5) Immature Granulocyte % (Auto) 0.2 % Immature Granulocyte # (Auto) 0.02 K/uL (0.00-0.02) Hypochromasia PRESENT Anisocytosis PRESENT Anion Gap 7.0 mmol/L (3-11) Est Creatinine Clear Calc Drug Dose 16.1 ml/min Estimated GFR () 14.8 Estimated GFR (Non- 12.8 BUN/Creatinine Ratio 10.7 (10-20) Calcium Level 7.6 mg/dl (8.5-10.1) Magnesium Level 1.9 mg/dl (1.8-2.4) Date/Time Source Procedure Growth Status 08/04/17 20:40 Stool C.difficile Toxin B Gene (PCR) - Final Positive for C. difficile toxin B gene Complete Allergies Coded Allergies: No Known Allergies (Verified , 07/21/17) Medications Current Inpatient Medications Medications (Trade) Dose Ordered Sig/Bg Route Start Time Stop Time Status Last Admin Dose Admin Amiodarone HCl (Cordarone Tab) 200 mg BID PO 07/22/17 09:00 08/21/17 08:59 08/05/17 08:19 200 MG Apixaban (Eliquis Tab) 2.5 mg BID PO 07/22/17 09:00 08/21/17 08:59 Future Hold 07/28/17 20:17 2.5 MG Aspirin (Ecotrin Tab) 81 mg QAM PO 07/22/17 09:00 08/21/17 08:59 Future Hold 07/31/17 07:30 81 MG Atorvastatin Calcium (Lipitor Tab) 40 mg QAM PO 07/22/17 09:00 08/21/17 08:59 08/05/17 08:20 40 MG Ferrous Gluconate (Ferrous Gluconate Tab) 324 mg QAM PO 07/22/17 09:00 08/21/17 08:59 08/05/17 08:19 324 MG Levothyroxine Sodium (Synthroid Tab) 50 mcg DAILYBB PO 07/22/17 06:00 08/21/17 05:59 08/05/17 05:24 50 MCG Metoprolol Tartrate (Lopressor Tab) 25 mg BID PO 07/22/17 09:00 08/21/17 08:59 08/05/17 08:19 25 MG Pantoprazole Sodium (Protonix Tab) 40 mg QAM PO 07/22/17 09:00 08/21/17 08:59 08/05/17 08:19 40 MG Insulin Aspart (novoLOG ASPART) SLIDING SCALE G... ACHS SC 07/22/17 07:00 08/21/17 06:59 08/05/17 08:01 6 UNITS Acetaminophen (Tylenol Tab) 650 mg Q4H PRN PO 07/21/17 23:15 08/20/17 23:14 Al Hydrox/Mg Hydrox/Simethicone (Maalox Max Susp) 15 ml Q4H PRN PO 07/21/17 23:15 08/20/17 23:14 Magnesium Hydroxide (Milk Of Magnesia Susp) 30 ml Q12H PRN PO 07/21/17 23:15 08/20/17 23:14 Ondansetron HCl (Zofran Inj) 4 mg Q6H PRN IV 07/21/17 23:15 08/20/17 23:14 Polyethylene (Miralax Powder Packet) 17 gm DAILY PRN PO 07/21/17 23:15 08/20/17 23:14 Glucose (Glucose 40% Gel) 15-30 GRAMS 15 GRAMS... UD PRN PO 07/21/17 23:45 08/20/17 23:44 Glucose (Glucose Chew Tab) 4-8 Tablets 4 Tabl... UD PRN PO 07/21/17 23:45 08/20/17 23:44 Dextrose (Dextrose 50% 50ML Syringe) 25-50ML OF 50% DW IV FOR... UD PRN IV 07/21/17 23:45 08/20/17 23:44 Glucagon (Glucagon Inj) 1 mg UD PRN SQ 07/21/17 23:45 08/20/17 23:44 Albuterol/ Ipratropium (Duoneb) 3 ml Q6R INH 07/22/17 15:00 08/21/17 14:59 08/05/17 06:49 3 ML Albuterol/ Ipratropium (Duoneb) 3 ml Q2H PRN INH 07/22/17 10:15 08/21/17 10:14 08/04/17 18:23 3 ML Menthol (Nice Farida) 1 farida PRN PRN FARIDA 07/27/17 14:45 08/26/17 14:44 Phenazopyridine HCl (Pyridium Tab) 200 mg TID PRN PO 07/31/17 12:30 08/30/17 12:29 08/02/17 08:12 200 MG Vitamin B Complex/ Vit C/Folic Acid (Nephrocaps) 1 cap QAM PO 08/02/17 09:00 09/01/17 08:59 08/05/17 08:20 1 CAP Temazepam (Restoril Cap) 7.5 mg HS PRN PO 08/02/17 12:30 09/01/17 12:29 08/03/17 21:35 7.5 MG Insulin Glargine (Lantus Solostar Pen) 12 units BID SC 08/02/17 21:00 08/21/17 08:59 08/05/17 08:02 12 UNITS Furosemide (Lasix Tab) 80 mg QAM PO 08/05/17 09:00 08/27/17 08:59 08/05/17 08:20 80 MG Vancomycin HCl (Vancomycin Oral Soln) 125 mg Q6H PO 08/04/17 23:00 08/14/17 22:59 08/05/17 05:24 125 MG Raspberry (Raspberry Syrup 5ml Cup) 5 ml Q6H PO 08/04/17 23:00 08/18/17 22:59 08/05/17 05:24 5 ML Furosemide (Lasix Tab) 80 mg BID17 PO 08/05/17 17:00 09/04/17 16:59 UNV Furosemide (Lasix Tab) 80 mg 1051 ONCE PO 08/05/17 10:51 08/05/17 10:52 UNV Impression (1) Acute kidney injury (2) CKD stage 3 due to type 2 diabetes mellitus (3) Diastolic CHF (4) Liver masses (5) Atrial fibrillation (6) Iron deficiency anemia (7) Diabetes Mr. Menjivar is an 87-year-old male with acute on chronic kidney disease requiring hemodialysis. He has advanced renal dysfunction associated with cardiorenal syndrome. Jasvir was started on hemodialysis on July 28. He is POD#2 s/p cystoscopy, TURBT and stent placement. He is non-oliguric. Creatinine continues to rise off dialysis. Metabolic profile, volume status and blood pressure were checked and found to be appropriate. The patient is hypervolemic. Furosemide increased to 80 mg twice daily today. 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 He had a large bladder tumor. He was also found to have liver lesion suggestive of metastatic disease, patient leaning toward not doing any further workup for that. Recommendations Acute on chronic renal dysfunction requiring hemodialysis: -- Patient has advanced CKD and cardiorenal syndrome, he has been dialysis dependent -- Plan HD tomorrow for UF/clearance -- Outpatient HD arranged at [facility] at discharge -- If patient is discharged to [facility], please notify me to arrange dialysis and continued follow up Bladder cancer: -- Perez with hematuria without clots, CBI stopped Congestive heart failure: -- Volume status acceptable -- Resume furosemide 80 mg twice daily -- Not currently decompensated -- Atrial fibrillation, Eliquis has been held Anemia: -- Daisy provided with HD
--- NOTE | 2017-08-05 12:01 | Progress Note ---
Progress Note Date of Service Aug 05, 2017. Progress Note Postop day #2 from TURBT Patient's afebrile vital signs are stable He offers no complaints Urine in the Perez again draining some old blood Hematocrit is stable Abdomen is benign Pathology pending Assessment TURBT Patient doing well postop continue current therapy
--- NOTE | 2017-08-05 13:38 | CARDIOLOGY PROGRESS NOTE ---
DATE: 08/05/2017 SUBJECTIVE: Mr. Menjivar is resting comfortably in the bedside chair without complaints of chest pain, dyspnea, or palpitations. He is anxious for hospital discharge. OBJECTIVE: VITAL SIGNS: Blood pressure 104/62 with an irregular pulse of 86. Respiratory rate is 20. The patient is afebrile at 36.9 degrees Celsius. Saturation is 95% on room air. NECK: Supple with full carotid upstrokes. No carotid bruits. Jugular venous pressure is flat at 90 degrees. There is no thyromegaly. CARDIOVASCULAR: Reveals an irregular rhythm with distant heart sounds. No obvious murmurs. LUNGS: Clear without rales, rhonchi or wheeze. ABDOMEN: Soft, nontender without bruits. EXTREMITIES: Reveal intact radial artery pulses bilaterally. 2+ pretibial edema is noted. LABORATORY AND IMAGING DATA: CBC notes hemoglobin 9.9, hematocrit 31.3, white count 9.3, and platelet 306,000. Electrolytes show sodium 131, potassium 4.0, chloride 98, bicarbonate 26, BUN 43, creatinine 3.98, and glucose 158. IMPRESSION AND PLAN: 1. Acute on chronic diastolic congestive heart failure -- volume managed by hemodialysis. Hopefully, with placement of a ureteral stent, the patient's urine output will improve. 2. Recent onset atrial fibrillation -- would reduce amiodarone to 200 mg daily at time of discharge. Restart Eliquis when okayed by the urology team. 3. Hypertension -- with left ventricular hypokinesis and diastolic dysfunction. 4. Valvular heart disease -- mild mitral and tricuspid regurgitation. 5. Hypercholesterolemia. 6. Diabetes mellitus. 7. Acute on chronic renal failure. 8. Hypothyroidism 9. Hepatic abnormality -- metastatic workup in progress. MTDD
--- NOTE | 2017-08-05 15:49 | Progress Note ---
Subjective Date of Service: Aug 05, 2017. 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/ j2ee consultant, review of inpatient medication list Has been up to the chair, eating drinking okay, however was found has diarrhea and C. difficile positive, this morning has 4 x diarrhea so far, denies fever and chill, denied blood in the stool Problem List Medical Problems: (1) Anemia Status: Acute (2) CHF (congestive heart failure) Status: Acute (3) CHF (congestive heart failure) Status: Acute (4) Renal failure Status: Acute (5) Weakness Status: Acute Review of Systems Constitutional: + fatigue, No fever, No chills, No sweats, No weight loss, No weakness, No problem reported Eyes: No worsening of vision, No eye pain, No redness, No discharge, No diplopia ENT: No hearing loss, No unusual epistaxis, No nasal symptoms, No sore throat, No tinnitus, No dental problems, No trouble swallowing Respiratory: No cough, No sputum, No wheezing, No shortness of breath, No dyspnea on exertion, No dyspnea at rest, No hemoptysis Cardiac: No chest pain, No orthopnea, No PND, No edema, No claudication, No palpitations Abdomen: + diarrhea, No pain, No nausea, No vomiting, No constipation Musculoskeletal: No joint pain, No muscle pain, No swelling, No calf pain Male : + hematuria (Possible old hematuria in the Perez catheter), No dysuria , No urinary frequency, No incontinence, No nocturia more than once/night, No slowing stream Neurologic: No memory loss, No paralysis, No weakness, No numbness/tingling, No vertigo, No balance problems Psychiatric: No depression symptoms, No anhedonism, No anxiety, No insomnia, No substance abuse Heme: No abnormal bleeding/bruising, No clotting problems, No swollen lymph nodes, No night sweats Endo: No fatigue, No excessive thirst, No excessive urination Skin: No rash, No itch, No new/changing skin lesions, No color change, No bleeding Objective Vital Signs Date Time Temp Pulse Resp B/P (MAP) Pulse Ox O2 Delivery O2 Flow Rate FiO2 08/05/17 14:16 82 18 94 Room Air 08/05/17 08:11 36.9 86 20 104/62 (76) 95 Room Air 08/05/17 08:00 Room Air 08/05/17 06:51 88 18 94 Room Air 08/04/17 23:26 Room Air 08/04/17 23:20 36.9 74 20 123/70 (87) 93 Room Air 08/04/17 21:30 93 103/61 (75) 08/04/17 18:23 91 18 93 Room Air 08/04/17 16:00 96 Room Air Physical Exam General Appearance: WD/WN, no apparent distress, + thin, + pertinent finding ( Frail and chronically ill looking) Eyes: normal inspection, PERRL, EOMI, sclerae normal ENT: normal ENT inspection, hearing grossly normal, pharynx normal Neck: supple, no adenopathy, thyroid normal, no JVD, no carotid bruits, trachea midline Respiratory/Chest: chest non-tender, normal breath sounds, no respiratory distress, no accessory muscle use, + decreased breath sounds Cardiovascular: regular rate, rhythm, no gallop, no JVD, no murmur, + pertinent finding (2+ edema) Abdomen: normal bowel sounds, non tender, soft, no organomegaly, no pulsatile mass, + pertinent finding (Perez catheter in place with dark/urine) Extremities: normal range of motion, non-tender, normal inspection, no pedal edema, no calf tenderness, normal capillary refill, pelvis stable Neurologic/Psychiatric: belt 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-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 nml as tested, no motor/sensory deficits, alert, normal mood/affect, oriented x 3 Skin: normal color, warm/dry, no rash Lymphatic: no adenopathy Laboratory Results Last 24 Hours Test 08/04/17 16:26 08/04/17 19:32 08/05/17 07:39 08/05/17 07:46 Bedside Glucose 230 mg/dl 166 mg/dl 170 mg/dl White Blood Count 9.38 K/uL Red Blood Count 3.68 M/uL Hemoglobin 9.9 g/dL Hematocrit 31.3 % Mean Corpuscular Volume 85.1 fL Mean Corpuscular Hemoglobin 26.9 pg Mean Corpuscular Hemoglobin Concent 31.6 g/dl Platelet Count 306 K/uL Mean Platelet Volume 10.1 fL Neutrophils (%) (Auto) 77.6 % Lymphocytes (%) (Auto) 11.4 % Monocytes (%) (Auto) 9.7 % Eosinophils (%) (Auto) 1.0 % Basophils (%) (Auto) 0.1 % Neutrophils # (Auto) 7.28 K/uL Lymphocytes # (Auto) 1.07 K/uL Monocytes # (Auto) 0.91 K/uL Eosinophils # (Auto) 0.09 K/uL Basophils # (Auto) 0.01 K/uL RDW Standard Deviation 65.5 fL RDW Coefficient of Variation 21.4 % Immature Granulocyte % (Auto) 0.2 % Immature Granulocyte # (Auto) 0.02 K/uL Hypochromasia PRESENT Anisocytosis PRESENT Sodium Level 131 mmol/L Potassium Level 3.8 mmol/L Chloride Level 98 mmol/L Carbon Dioxide Level 26 mmol/L Anion Gap 7.0 mmol/L Blood Urea Nitrogen 43 mg/dl Creatinine 3.98 mg/dl Est Creatinine Clear Calc Drug Dose 16.1 ml/min Estimated GFR () 14.8 Estimated GFR (Non- 12.8 BUN/Creatinine Ratio 10.7 Random Glucose 158 mg/dl Calcium Level 7.6 mg/dl Magnesium Level 1.9 mg/dl Test 08/05/17 11:34 Bedside Glucose 204 mg/dl Assessment and Plan 87 y/o M readmitted July 21, 2017 because of fluid overload and CHF exacerbation was discharged from the hospital one day prior and returns with progressive SOB and weakness in his admission. New diagnosed C. difficile diarrhea, has been improved after starting antibiotics, continue vancomycin p.o. 125 mg 4 times daily New development hematuria,Cystoscopy with Bilateral Retrograde Pyelogram was done on August 03, 2017 , PO day 2, Cytology and bilateral stents. 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: Cr was progressively worsened with Lasix, decreased UO now is dialysis dependent, continue dialysis, no obvious fluid overload, patient 's renal function may improve after stenting Dyspnea: resolved with diuresis and dialysis Atrial fibrillation: rates controlled on Amiodarone, continue Eliquis 2.5mg BID and aspirin or hold because of hematuria, as discussed with patient and family about the risk and benefits, they are willing to take the risk, However will restart anticoagulation as soon as possible if urologist feel comfortable to restarting after resolving of hematuria Has requested nursing staff to empty and there urine back, to see any fresh hematuria coming Uncontrolled diabetic type II with A1c 8.1, blood glucose around 240, cont current care After admission patient was initially diuresed, but then failed to respond to Lasix increased Lasix to 80mg IV TID, change back to 80mg PO BID continue fluid restriction at 1500cc prior echo shows normal EF had started HD from 07/28, Continue monitor electrolytes, continue mag oxide 400mg daily continue Lantus and Novolog, diabetic diet, adjust Lantus dose accordingly, continue insulin sliding scale Continue statin for dyslipidemia, Continue levothyroxine for hypothyroidism Liver nodules: suspicious for malignancy, colonoscopy was negative last admission, need to follow-up with PCP and could consider FNA biopsy as outpatient DNR Possible discharge to rehab, discussed with urologist, possible after hematuria cleared we can move forward half discharge plan, will talk to urology when we can remove the Perez catheter, we also need to remember to restart aspirin and Eliquis, or we can start aspirin first to see how patient responds Discussed with patient and family, answered all questions Continued [facility] stay due to: multiple IV medications needed Discharge planning: home
[2017-08-05] MEDS: FUROSEMIDE 80 MG TAB PO SCH (17:04)
[2017-08-06] VITALS (22 sets, daily range): BP systolic 82–110; BP diastolic 49–65; PULSE 67–99; TEMP 36.6–37; O2SAT 90–96
[2017-08-06] MEDS: ALBUT/IPRATROP 3MG/0.5MG NEB 3 ML VIAL INH SCH ×4 (01:54→19:42)
[2017-08-06] MEDS: VANCOMYCIN HCL 125 MG/2.5ML SOLN PO SCH ×4 (05:32→21:21)
[2017-08-06] MEDS: RASPBERRY SYRUP 5 ML UDP PO SCH ×4 (05:32→21:21)
[2017-08-06] MEDS: LEVOTHYROXINE 50 MCG TAB PO SCH (05:33)
[2017-08-06] MEDS ORDERED: IRON SUCROSE INJ 100 MG in SYRINGE 0 ML IV SCH (07:00)
[2017-08-06] MEDS ORDERED: EPOETIN ALFA 10,000 UNITS/ML VIAL IV. SCH (07:00)
[2017-08-06 07:19] LABS: BASO % 0.2 %; BASO ABS # 0.02 K/uL (0-0.2); HEMATOCRIT 30.1 % (42-52); HEMOGLOBIN 9.2 g/dL (14.0-18.0); IG# 0.03 K/uL (0.00-0.02); LYMPH % 9.3 %; LYMPH ABS # 0.95 K/uL (1.2-3.4); MEAN CORPUSCULAR HGB CONC 30.6 g/dl (32-36); MEAN PLATELET VOLUME 10.6 fL (7.4-10.4); MONO % 11.4 %; MONO ABS # 1.17 K/uL (0.11-0.59); NEUT % 77.8 %; PLATELET COUNT 297 K/uL (130-400); RED CELL DISTRIBUTION WIDTH CV 21.4 % (11.5-14.5); RED CELL DISTRIBUTION WIDTH SD 65.8 fL (36.4-46.3); WHITE BLOOD COUNT 10.27 K/uL (4.8-10.8)
--- NOTE | 2017-08-06 07:40 | Anesthesiology Progress Note ---
Anesthesia Post Op Note Date & Time Aug 06, 2017 at 07:40 Vital Signs Pain Intensity: 0.0 Vital Signs Past 12 Hours Date Time Temp Pulse Resp B/P (MAP) Pulse Ox O2 Delivery O2 Flow Rate FiO2 08/06/17 07:37 37.0 75 22 105/65 (78) 96 08/06/17 07:01 76 18 90 Room Air 08/05/17 22:55 36.9 76 24 112/70 (84) 96 08/05/17 20:57 77 106/65 (79) Notes Mental Status: alert / awake / arousable, participated in evaluation Pt Amnestic to Procedure: Yes Nausea / Vomiting: adequately controlled Pain: adequately controlled Airway Patency, RR, SpO2: stable & adequate BP & HR: stable & adequate Hydration State: stable & adequate Anesthetic Complications: no major complications apparent
[2017-08-06] MEDS: INSULIN GLARGINE SOLOSTAR 100 UNITS/ML 3 ML PEN SC SCH ×2 (07:48→21:20)
[2017-08-06] MEDS: INSULIN ASPART 100 UNITS/ML 3 ML PEN SC SCH ×4 (07:48→21:20)
--- NOTE | 2017-08-06 07:50 | Nephrology Progress Note ---
Nephrology Progress Note Date of Service Aug 06, 2017. Chief Complaint Acute renal insufficiency Subjective No acute events overnight. 200 ml of urine overnight. Jasvir states that he feels well this morning. Perez draining blood tinged urine with some sediment. No fevers or chills. Jasvir denies pain. Appetite is good. He does not have shortness of breath, chest pain, palpitations. Review of Systems A complete review of systems was performed. Pertinent positives are noted above. All other systems are negative. Vital Signs Last 8 Hrs Date Time Temp Pulse Resp B/P (MAP) Pulse Ox O2 Delivery O2 Flow Rate FiO2 08/06/17 07:37 37.0 75 22 105/65 (78) 96 08/06/17 07:01 76 18 90 Room Air Last Recorded Weight Weight (Kilograms): 94.400 Physical Exam General Appearance: WD/WN, no apparent distress Head: normocephalic, atraumatic Eyes: normal inspection, sclerae normal ENT: normal ENT inspection, pharynx normal Neck: supple, + JVD, + pertinent finding (TDC intact) Respiratory/Chest: lungs clear, no respiratory distress, no accessory muscle use Cardiovascular: regular rate, rhythm, no gallop, no murmur Back: no CVA tenderness Abdomen/GI: non tender, soft Genitourinary - Male: + pertinent finding (Perez draining blood tinged urine with some sediment) Extremities/Musculoskelatal: normal inspection, + pedal edema Neurologic/Psych: alert, normal mood/affect Family History FHx: COPD (chronic obstructive pulmonary disease) FHx: diabetes mellitus Negative for CKD / ESRD Social History Drug Use: none Marital Status: Housing Status: lives with family Occupation: retired . Retired. Never a smoker Laboratory Results Past 24 Hours 08/05/17 07:46 Red Blood Count 3.68, Mean Corpuscular Volume 85.1, Mean Corpuscular Hemoglobin 26.9, Mean Corpuscular Hemoglobin Concent 31.6, Mean Platelet Volume 10.1, Neutrophils (%) (Auto) 77.6, Lymphocytes (%) (Auto) 11.4, Monocytes (%) (Auto) 9.7, Eosinophils (%) (Auto) 1.0, Basophils (%) (Auto) 0.1, Neutrophils # (Auto) 7.28, Lymphocytes # (Auto) 1.07, Monocytes # (Auto) 0.91, Eosinophils # (Auto) 0.09, Basophils # (Auto) 0.01 08/06/17 06:24 Red Blood Count 3.54, Mean Corpuscular Volume 85.0, Mean Corpuscular Hemoglobin 26.0, Mean Corpuscular Hemoglobin Concent 30.6, Mean Platelet Volume 10.6, Neutrophils (%) (Auto) 77.8, Lymphocytes (%) (Auto) 9.3, Monocytes (%) (Auto) 11.4, Eosinophils (%) (Auto) 1.0, Basophils (%) (Auto) 0.2, Neutrophils # (Auto ) 8.00, Lymphocytes # (Auto) 0.95, Monocytes # (Auto) 1.17, Eosinophils # (Auto ) 0.10, Basophils # (Auto) 0.02 08/05/17 07:46 Test 08/05/17 07:46 08/05/17 11:34 08/05/17 16:34 08/05/17 20:04 White Blood Count 9.38 K/uL (4.8-10.8) Red Blood Count 3.68 M/uL (4.7-6.1) Hemoglobin 9.9 g/dL (14.0-18.0) Hematocrit 31.3 % (42-52) Mean Corpuscular Volume 85.1 fL (80-100) Mean Corpuscular Hemoglobin 26.9 pg (25-34) Mean Corpuscular Hemoglobin Concent 31.6 g/dl (32-36) Platelet Count 306 K/uL (130-400) Mean Platelet Volume 10.1 fL (7.4-10.4) Neutrophils (%) (Auto) 77.6 % Lymphocytes (%) (Auto) 11.4 % Monocytes (%) (Auto) 9.7 % Eosinophils (%) (Auto) 1.0 % Basophils (%) (Auto) 0.1 % Neutrophils # (Auto) 7.28 K/uL (1.4-6.5) Lymphocytes # (Auto) 1.07 K/uL (1.2-3.4) Monocytes # (Auto) 0.91 K/uL (0.11-0.59) Eosinophils # (Auto) 0.09 K/uL (0-0.5) Basophils # (Auto) 0.01 K/uL (0-0.2) RDW Standard Deviation 65.5 fL (36.4-46.3) RDW Coefficient of Variation 21.4 % (11.5-14.5) Immature Granulocyte % (Auto) 0.2 % Immature Granulocyte # (Auto) 0.02 K/uL (0.00-0.02) Hypochromasia PRESENT Anisocytosis PRESENT Anion Gap 7.0 mmol/L (3-11) Est Creatinine Clear Calc Drug Dose 16.1 ml/min Estimated GFR () 14.8 Estimated GFR (Non- 12.8 BUN/Creatinine Ratio 10.7 (10-20) Calcium Level 7.6 mg/dl (8.5-10.1) Magnesium Level 1.9 mg/dl (1.8-2.4) Bedside Glucose 204 mg/dl (70-99) 191 mg/dl (70-99) 293 mg/dl (70-99) Test 08/06/17 06:24 White Blood Count 10.27 K/uL (4.8-10.8) Red Blood Count 3.54 M/uL (4.7-6.1) Hemoglobin 9.2 g/dL (14.0-18.0) Hematocrit 30.1 % (42-52) Mean Corpuscular Volume 85.0 fL (80-100) Mean Corpuscular Hemoglobin 26.0 pg (25-34) Mean Corpuscular Hemoglobin Concent 30.6 g/dl (32-36) Platelet Count 297 K/uL (130-400) Mean Platelet Volume 10.6 fL (7.4-10.4) Neutrophils (%) (Auto) 77.8 % Lymphocytes (%) (Auto) 9.3 % Monocytes (%) (Auto) 11.4 % Eosinophils (%) (Auto) 1.0 % Basophils (%) (Auto) 0.2 % Neutrophils # (Auto) 8.00 K/uL (1.4-6.5) Lymphocytes # (Auto) 0.95 K/uL (1.2-3.4) Monocytes # (Auto) 1.17 K/uL (0.11-0.59) Eosinophils # (Auto) 0.10 K/uL (0-0.5) Basophils # (Auto) 0.02 K/uL (0-0.2) RDW Standard Deviation 65.8 fL (36.4-46.3) RDW Coefficient of Variation 21.4 % (11.5-14.5) Immature Granulocyte % (Auto) 0.3 % Immature Granulocyte # (Auto) 0.03 K/uL (0.00-0.02) Toxic Vacuolation 1+ Anisocytosis PRESENT Allergies Coded Allergies: No Known Allergies (Verified , 07/21/17) Medications Current Inpatient Medications Medications (Trade) Dose Ordered Sig/Bg Route Start Time Stop Time Status Last Admin Dose Admin Amiodarone HCl (Cordarone Tab) 200 mg BID PO 07/22/17 09:00 08/21/17 08:59 08/05/17 20:58 200 MG Apixaban (Eliquis Tab) 2.5 mg BID PO 07/22/17 09:00 08/21/17 08:59 Future Hold 07/28/17 20:17 2.5 MG Aspirin (Ecotrin Tab) 81 mg QAM PO 07/22/17 09:00 08/21/17 08:59 Future Hold 07/31/17 07:30 81 MG Atorvastatin Calcium (Lipitor Tab) 40 mg QAM PO 07/22/17 09:00 08/21/17 08:59 08/05/17 08:20 40 MG Ferrous Gluconate (Ferrous Gluconate Tab) 324 mg QAM PO 07/22/17 09:00 08/21/17 08:59 08/05/17 08:19 324 MG Levothyroxine Sodium (Synthroid Tab) 50 mcg DAILYBB PO 07/22/17 06:00 08/21/17 05:59 08/06/17 05:33 50 MCG Metoprolol Tartrate (Lopressor Tab) 25 mg BID PO 07/22/17 09:00 08/21/17 08:59 08/05/17 20:58 25 MG Pantoprazole Sodium (Protonix Tab) 40 mg QAM PO 07/22/17 09:00 08/21/17 08:59 08/05/17 08:19 40 MG Insulin Aspart (novoLOG ASPART) SLIDING SCALE G... ACHS SC 07/22/17 07:00 08/21/17 06:59 08/05/17 21:01 7 UNITS Acetaminophen (Tylenol Tab) 650 mg Q4H PRN PO 07/21/17 23:15 08/20/17 23:14 Al Hydrox/Mg Hydrox/Simethicone (Maalox Max Susp) 15 ml Q4H PRN PO 07/21/17 23:15 08/20/17 23:14 Magnesium Hydroxide (Milk Of Magnesia Susp) 30 ml Q12H PRN PO 07/21/17 23:15 08/20/17 23:14 Ondansetron HCl (Zofran Inj) 4 mg Q6H PRN IV 07/21/17 23:15 08/20/17 23:14 Polyethylene (Miralax Powder Packet) 17 gm DAILY PRN PO 07/21/17 23:15 08/20/17 23:14 Glucose (Glucose 40% Gel) 15-30 GRAMS 15 GRAMS... UD PRN PO 07/21/17 23:45 08/20/17 23:44 Glucose (Glucose Chew Tab) 4-8 Tablets 4 Tabl... UD PRN PO 07/21/17 23:45 08/20/17 23:44 Dextrose (Dextrose 50% 50ML Syringe) 25-50ML OF 50% DW IV FOR... UD PRN IV 07/21/17 23:45 08/20/17 23:44 Glucagon (Glucagon Inj) 1 mg UD PRN SQ 07/21/17 23:45 08/20/17 23:44 Albuterol/ Ipratropium (Duoneb) 3 ml Q6R INH 07/22/17 15:00 08/21/17 14:59 08/06/17 06:58 3 ML Albuterol/ Ipratropium (Duoneb) 3 ml Q2H PRN INH 07/22/17 10:15 08/21/17 10:14 08/04/17 18:23 3 ML Menthol (Nice Farida) 1 farida PRN PRN FARIDA 07/27/17 14:45 08/26/17 14:44 Phenazopyridine HCl (Pyridium Tab) 200 mg TID PRN PO 07/31/17 12:30 08/30/17 12:29 08/02/17 08:12 200 MG Vitamin B Complex/ Vit C/Folic Acid (Nephrocaps) 1 cap QAM PO 08/02/17 09:00 09/01/17 08:59 08/05/17 08:20 1 CAP Temazepam (Restoril Cap) 7.5 mg HS PRN PO 08/02/17 12:30 09/01/17 12:29 08/03/17 21:35 7.5 MG Insulin Glargine (Lantus Solostar Pen) 12 units BID SC 08/02/17 21:00 08/21/17 08:59 08/05/17 21:02 12 UNITS Vancomycin HCl (Vancomycin Oral Soln) 125 mg Q6H PO 08/04/17 23:00 08/14/17 22:59 08/06/17 05:32 125 MG Raspberry (Raspberry Syrup 5ml Cup) 5 ml Q6H PO 08/04/17 23:00 08/18/17 22:59 08/06/17 05:32 5 ML Furosemide (Lasix Tab) 80 mg BID17 PO 08/05/17 17:00 09/04/17 16:59 08/05/17 17:04 80 MG Epoetin Sergio (Procrit Inj) 10,000 units TODAY@0700 IV. 08/06/17 07:00 08/06/17 18:00 Iron Sucrose 100 mg/Syringe 5 ml @ 1 mls/min TODAY@0700 IV 08/06/17 07:00 08/06/17 18:00 Impression (1) Acute kidney injury (2) CKD stage 3 due to type 2 diabetes mellitus (3) Diastolic CHF (4) Liver masses (5) Atrial fibrillation (6) Iron deficiency anemia (7) Diabetes Mr. Menjivar is an 87-year-old male with acute on chronic kidney disease requiring hemodialysis. He has advanced renal dysfunction associated with cardiorenal syndrome. Jasvir was started on hemodialysis on July 28. He is POD#3 s/p cystoscopy, TURBT and stent placement. He is non-oliguric. Creatinine continues to rise off dialysis. AM labs are pending. Metabolic profile, volume status and blood pressure were checked and found to be appropriate. He remains hypervolemic. Furosemide increased to 80 mg twice daily today. 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 He was also found to have liver lesion suggestive of metastatic disease, patient leaning toward not doing any further workup for that. Recommendations Acute on chronic renal dysfunction requiring hemodialysis: -- Patient has advanced CKD and cardiorenal syndrome, he has been dialysis dependent -- Plan HD today for UF/clearance; orders entered into EMR and communicated to HD nurse -- Outpatient HD arranged at [facility] at discharge -- If patient is discharged to [facility], please notify me to arrange dialysis and continued follow up Bladder cancer: -- Perez draining trevizo colored urine Congestive heart failure: -- Volume status acceptable -- Continue furosemide 80 mg twice daily Atrial fibrillation -- Eliquis on hold Anemia: -- Venofer 100 mg w/ HD -- EPO [id number] w/ HD
[2017-08-06 08:00] LABS: CALCIUM 7.7 mg/dl (8.5-10.1); CREATININE 4.78 mg/dl (0.60-1.40)
[2017-08-06] MEDS: ATORVASTATIN 40 MG TAB PO SCH (08:01)
[2017-08-06] MEDS: NEPHROCAPS PO SCH (08:01)
[2017-08-06] MEDS: AMIODARONE 200 MG TAB PO SCH ×2 (08:02→21:17)
[2017-08-06] MEDS: FUROSEMIDE 80 MG TAB PO SCH ×2 (08:02→21:16)
[2017-08-06] MEDS: FERROUS GLUCONATE 324 MG TAB PO SCH (08:04)
[2017-08-06] MEDS: PANTOprazole SOD 40 MG TAB PO SCH (08:04)
[2017-08-06] MEDS: METOPROLOL TARTRATE 25 MG TAB PO SCH ×2 (08:05→21:17)
--- NOTE | 2017-08-06 10:17 | Progress Note ---
Subjective Date of Service: Aug 06, 2017. Subjective Pt evaluation today including: conversation w/ patient, chart review, lab review Voiding: dickson catheter in place (patent, draining brownish colored urine ) 87 yo male s/p TURBT and b/l ureteral stent placement. Dickson draining brownish colored urine this morning. Pt pending placement at [facility]. Bladder biopsies pending. H&H stable. Unfortunately his Cr has increased to 4.78 today. Problem List Medical Problems: (1) Anemia Status: Acute (2) CHF (congestive heart failure) Status: Acute (3) CHF (congestive heart failure) Status: Acute (4) Renal failure Status: Acute (5) Weakness Status: Acute Review of Systems Constitutional: No fever, No chills Respiratory: No shortness of breath Cardiac: No chest pain Abdomen: No pain, No nausea, No vomiting Male : + hematuria Heme: No abnormal bleeding/bruising Objective Vital Signs Date Time Temp Pulse Resp B/P (MAP) Pulse Ox O2 Delivery O2 Flow Rate FiO2 08/06/17 08:00 Room Air 08/06/17 07:37 37.0 75 22 105/65 (78) 96 08/06/17 07:01 76 18 90 Room Air 08/05/17 22:55 36.9 76 24 112/70 (84) 96 08/05/17 20:57 77 106/65 (79) 08/05/17 19:21 78 18 95 Room Air 08/05/17 17:06 77 130/71 (90) 08/05/17 16:17 36.9 80 20 109/57 (74) 95 Room Air 08/05/17 16:00 Room Air 08/05/17 14:16 82 18 94 Room Air Physical Exam General Appearance: no apparent distress Eyes: normal inspection ENT: + pertinent finding (hard of hearing ) Neck: no JVD Respiratory/Chest: no respiratory distress, no accessory muscle use Cardiovascular: no JVD Extremities: normal inspection Neurologic/Psychiatric: alert, normal mood/affect, oriented x 3 Skin: normal color Laboratory Results Last 24 Hours Test 08/05/17 11:34 08/05/17 16:34 08/05/17 20:04 08/06/17 06:24 Bedside Glucose 204 mg/dl 191 mg/dl 293 mg/dl White Blood Count 10.27 K/uL Red Blood Count 3.54 M/uL Hemoglobin 9.2 g/dL Hematocrit 30.1 % Mean Corpuscular Volume 85.0 fL Mean Corpuscular Hemoglobin 26.0 pg Mean Corpuscular Hemoglobin Concent 30.6 g/dl Platelet Count 297 K/uL Mean Platelet Volume 10.6 fL Neutrophils (%) (Auto) 77.8 % Lymphocytes (%) (Auto) 9.3 % Monocytes (%) (Auto) 11.4 % Eosinophils (%) (Auto) 1.0 % Basophils (%) (Auto) 0.2 % Neutrophils # (Auto) 8.00 K/uL Lymphocytes # (Auto) 0.95 K/uL Monocytes # (Auto) 1.17 K/uL Eosinophils # (Auto) 0.10 K/uL Basophils # (Auto) 0.02 K/uL RDW Standard Deviation 65.8 fL RDW Coefficient of Variation 21.4 % Immature Granulocyte % (Auto) 0.3 % Immature Granulocyte # (Auto) 0.03 K/uL Toxic Vacuolation 1+ Anisocytosis PRESENT Sodium Level 133 mmol/L Potassium Level 4.0 mmol/L Chloride Level 98 mmol/L Carbon Dioxide Level 22 mmol/L Anion Gap 12.0 mmol/L Blood Urea Nitrogen 53 mg/dl Creatinine 4.78 mg/dl Est Creatinine Clear Calc Drug Dose 13.2 ml/min Estimated GFR () 11.9 Estimated GFR (Non- 10.2 BUN/Creatinine Ratio 11.2 Random Glucose 177 mg/dl Calcium Level 7.7 mg/dl Magnesium Level 2.0 mg/dl Test 08/06/17 07:23 Bedside Glucose 227 mg/dl Assessment and Plan POD #3 s/p TURBT and bilateral ureteral stent placement Pt continues to have some hematuria. Not uncommon after stent placement. Will plan to leave dickson catheter in place for now. Pt OK for d/c to rehab facility when OK with primary service. Will plan for outpatient f/u in the next 1-[address] Glez. Bladder biopsies pending pathology. Continue to explore other etiology for liver lesions. If bladder biopsies less than T2 disease, would expect other etiology. Will continue to follow along with primary service. Continued [facility] stay due to: multiple IV medications needed Discharge planning: home
--- NOTE | 2017-08-06 10:21 | Medical Student: [facility] ---
Med Student Progress Note Date of Service Aug 06, 2017. Subjective Pt evaluation today including: conversation w/ patient, conversation w/ family , physical exam, lab review, review of studies Pain: none Voiding: dickson catheter in place Review of Systems Constitutional: No fever, No chills Respiratory: No shortness of breath Cardiac: No chest pain Abdomen: No pain, No nausea, No vomiting Musculoskeletal: No joint pain Male : + see HPI (indwelling catheter in place ) Endo: No excessive thirst, No excessive urination Skin: No rash Objective Vital Signs Date Time Temp Pulse Resp B/P (MAP) Pulse Ox O2 Delivery O2 Flow Rate FiO2 08/06/17 08:00 Room Air 08/06/17 07:37 37.0 75 22 105/65 (78) 96 08/06/17 07:01 76 18 90 Room Air 08/05/17 22:55 36.9 76 24 112/70 (84) 96 08/05/17 20:57 77 106/65 (79) 08/05/17 19:21 78 18 95 Room Air 08/05/17 17:06 77 130/71 (90) 08/05/17 16:17 36.9 80 20 109/57 (74) 95 Room Air 08/05/17 16:00 Room Air 08/05/17 14:16 82 18 94 Room Air Physical Exam General Appearance: WD/WN, no apparent distress ENT: hearing grossly normal (very hard of hearing) Neck: no JVD Respiratory/Chest: no respiratory distress Cardiovascular: no JVD Abdomen: non tender Extremities: non-tender Neurologic/Psychiatric: alert, normal mood/affect, oriented x 3 Skin: normal color, warm/dry Laboratory Results Last 24 Hours Test 08/05/17 11:34 08/05/17 16:34 08/05/17 20:04 08/06/17 06:24 Bedside Glucose 204 mg/dl 191 mg/dl 293 mg/dl White Blood Count 10.27 K/uL Red Blood Count 3.54 M/uL Hemoglobin 9.2 g/dL Hematocrit 30.1 % Mean Corpuscular Volume 85.0 fL Mean Corpuscular Hemoglobin 26.0 pg Mean Corpuscular Hemoglobin Concent 30.6 g/dl Platelet Count 297 K/uL Mean Platelet Volume 10.6 fL Neutrophils (%) (Auto) 77.8 % Lymphocytes (%) (Auto) 9.3 % Monocytes (%) (Auto) 11.4 % Eosinophils (%) (Auto) 1.0 % Basophils (%) (Auto) 0.2 % Neutrophils # (Auto) 8.00 K/uL Lymphocytes # (Auto) 0.95 K/uL Monocytes # (Auto) 1.17 K/uL Eosinophils # (Auto) 0.10 K/uL Basophils # (Auto) 0.02 K/uL RDW Standard Deviation 65.8 fL RDW Coefficient of Variation 21.4 % Immature Granulocyte % (Auto) 0.3 % Immature Granulocyte # (Auto) 0.03 K/uL Toxic Vacuolation 1+ Anisocytosis PRESENT Sodium Level 133 mmol/L Potassium Level 4.0 mmol/L Chloride Level 98 mmol/L Carbon Dioxide Level 22 mmol/L Anion Gap 12.0 mmol/L Blood Urea Nitrogen 53 mg/dl Creatinine 4.78 mg/dl Est Creatinine Clear Calc Drug Dose 13.2 ml/min Estimated GFR () 11.9 Estimated GFR (Non- 10.2 BUN/Creatinine Ratio 11.2 Random Glucose 177 mg/dl Calcium Level 7.7 mg/dl Magnesium Level 2.0 mg/dl Test 08/06/17 07:23 Bedside Glucose 227 mg/dl Assessment and Plan Assessment and Plan: s/p TURBT and bilateral stent placement on 08/03/17: 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 Glez. Patient is resistant to this, family at bedside to encourage. Plan to explore etiology for liver lesions noted on CT scan with primary service. Plan to refer to rehab at [facility] per primary service. Follow up with Dr. Glez as outpatient in 1-2 weeks.
--- NOTE | 2017-08-06 13:00 | CARDIOLOGY PROGRESS NOTE ---
DATE: 08/06/2017 SUBJECTIVE: Mr. Menjivar is resting comfortably in bed without complaints of chest pain, dyspnea, or palpitations. He is anxious for hospital discharge, but not excited about a transfer to the rehab hospital. OBJECTIVE: VITAL SIGNS: Blood pressure 105/65 with an irregular pulse of 75. Respiratory rate is 22. The patient is afebrile at 37.0 degrees Celsius. Saturation is 96% on room air. NECK: Supple with full carotid upstrokes. There are no carotid bruits. Jugular venous pressure is flat at 90 degrees. There is no thyromegaly. CARDIOVASCULAR: Reveals a regular rhythm with normal S1, S2. Heart sounds are distant. No obvious murmurs. LUNGS: Clear without rales, rhonchi or wheezes. ABDOMEN: Soft without bruits. EXTREMITIES: Show intact radial pulse, bilateral. 2+ pretibial edema is noted. DATA: CBC notes hemoglobin of 9.2, hematocrit 30.1, white count 10.27, and platelet count 297,000. Electrolytes note sodium 133, potassium 4.0, chloride 98, bicarb 22, BUN 53, creatinine 4.78, and glucose 177. IMPRESSION AND PLAN: 1. Acute on chronic diastolic congestive heart failure -- volume now managed by hemodialysis. Hopefully, urine output will increase since he has had placement of a ureteral stent. 2. Recent onset atrial fibrillation -- decreasing amiodarone 200 mg daily for discharge. Will restart low dose Eliquis when okayed by the urology team. 3. Hypertension -- with left ventricular hypertrophy and diastolic dysfunction. 4. Valvular heart disease -- mild mitral and tricuspid regurgitation. 5. Hypercholesterolemia. 6. Diabetes mellitus. 7. Renal failure. 8. Hypothyroidism. 9. Hepatic abnormality -- metastatic workup in progress.
--- NOTE | 2017-08-06 14:23 | Hospitalist Progress Note ---
Hospitalist Progress Note Date of Service Aug 06, 2017. Subjective Pt evaluation today including: conversation w/ patient, conversation w/ family , physical exam, chart review, lab review, review of studies, review of inpatient medication list Patient seen and evaluated. Discussed with patient and two sons at bedside. Patient was a little irritated this AM that rehab was recommended. He now is in agreement to go. 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 Patient continues to have about 7-8 bowel movements a day but denies pain or cramping. Constitutional: No fever, No chills Respiratory: No shortness of breath Cardiovascular: No chest pain Abdomen: + diarrhea, No pain, No nausea, No vomiting, No GI bleeding Male : + hematuria, No dysuria Heme: No abnormal bleeding/bruising Skin: No rash Medications Current Inpatient Medications Medications (Trade) Dose Ordered Sig/Bg Route Start Time Stop Time Status Last Admin Dose Admin Amiodarone HCl (Cordarone Tab) 200 mg BID PO 07/22/17 09:00 08/21/17 08:59 08/06/17 08:02 200 MG Apixaban (Eliquis Tab) 2.5 mg BID PO 07/22/17 09:00 08/21/17 08:59 Future Hold 07/28/17 20:17 2.5 MG Aspirin (Ecotrin Tab) 81 mg QAM PO 07/22/17 09:00 08/21/17 08:59 Future Hold 07/31/17 07:30 81 MG Atorvastatin Calcium (Lipitor Tab) 40 mg QAM PO 07/22/17 09:00 08/21/17 08:59 08/06/17 08:01 40 MG Ferrous Gluconate (Ferrous Gluconate Tab) 324 mg QAM PO 07/22/17 09:00 08/21/17 08:59 08/06/17 08:04 324 MG Levothyroxine Sodium (Synthroid Tab) 50 mcg DAILYBB PO 07/22/17 06:00 08/21/17 05:59 08/06/17 05:33 50 MCG Metoprolol Tartrate (Lopressor Tab) 25 mg BID PO 07/22/17 09:00 08/21/17 08:59 08/05/17 20:58 25 MG Pantoprazole Sodium (Protonix Tab) 40 mg QAM PO 07/22/17 09:00 08/21/17 08:59 08/06/17 08:04 40 MG Insulin Aspart (novoLOG ASPART) SLIDING SCALE G... ACHS SC 07/22/17 07:00 08/21/17 06:59 08/06/17 12:01 8 UNITS Acetaminophen (Tylenol Tab) 650 mg Q4H PRN PO 07/21/17 23:15 08/20/17 23:14 Al Hydrox/Mg Hydrox/Simethicone (Maalox Max Susp) 15 ml Q4H PRN PO 07/21/17 23:15 08/20/17 23:14 Magnesium Hydroxide (Milk Of Magnesia Susp) 30 ml Q12H PRN PO 07/21/17 23:15 08/20/17 23:14 Ondansetron HCl (Zofran Inj) 4 mg Q6H PRN IV 07/21/17 23:15 08/20/17 23:14 Polyethylene (Miralax Powder Packet) 17 gm DAILY PRN PO 07/21/17 23:15 08/20/17 23:14 Glucose (Glucose 40% Gel) 15-30 GRAMS 15 GRAMS... UD PRN PO 07/21/17 23:45 08/20/17 23:44 Glucose (Glucose Chew Tab) 4-8 Tablets 4 Tabl... UD PRN PO 07/21/17 23:45 08/20/17 23:44 Dextrose (Dextrose 50% 50ML Syringe) 25-50ML OF 50% DW IV FOR... UD PRN IV 07/21/17 23:45 08/20/17 23:44 Glucagon (Glucagon Inj) 1 mg UD PRN SQ 07/21/17 23:45 08/20/17 23:44 Albuterol/ Ipratropium (Duoneb) 3 ml Q6R INH 07/22/17 15:00 08/21/17 14:59 08/06/17 14:15 3 ML Albuterol/ Ipratropium (Duoneb) 3 ml Q2H PRN INH 07/22/17 10:15 08/21/17 10:14 08/04/17 18:23 3 ML Menthol (Nice Farida) 1 farida PRN PRN FARIDA 07/27/17 14:45 08/26/17 14:44 Phenazopyridine HCl (Pyridium Tab) 200 mg TID PRN PO 07/31/17 12:30 08/30/17 12:29 08/02/17 08:12 200 MG Vitamin B Complex/ Vit C/Folic Acid (Nephrocaps) 1 cap QAM PO 08/02/17 09:00 09/01/17 08:59 08/06/17 08:01 1 CAP Temazepam (Restoril Cap) 7.5 mg HS PRN PO 08/02/17 12:30 09/01/17 12:29 08/03/17 21:35 7.5 MG Insulin Glargine (Lantus Solostar Pen) 12 units BID SC 08/02/17 21:00 08/21/17 08:59 08/06/17 07:48 12 UNITS Vancomycin HCl (Vancomycin Oral Soln) 125 mg Q6H PO 08/04/17 23:00 08/14/17 22:59 08/06/17 12:04 125 MG Raspberry (Raspberry Syrup 5ml Cup) 5 ml Q6H PO 08/04/17 23:00 08/18/17 22:59 08/06/17 12:05 5 ML Furosemide (Lasix Tab) 80 mg BID17 PO 08/05/17 17:00 09/04/17 16:59 08/05/17 17:04 80 MG Epoetin Sergio (Procrit Inj) 10,000 units TODAY@0700 IV. 08/06/17 07:00 08/06/17 18:00 Iron Sucrose 100 mg/Syringe 5 ml @ 1 mls/min TODAY@0700 IV 08/06/17 07:00 08/06/17 18:00 Objective Vital Signs Date Time Temp Pulse Resp B/P (MAP) Pulse Ox O2 Delivery O2 Flow Rate FiO2 08/06/17 14:17 67 18 95 Room Air 08/06/17 08:00 Room Air 08/06/17 07:37 37.0 75 22 105/65 (78) 96 08/06/17 07:01 76 18 90 Room Air 08/05/17 22:55 36.9 76 24 112/70 (84) 96 08/05/17 20:57 77 106/65 (79) 4/1/18 19:21 78 18 95 Room Air 08/05/17 17:06 77 130/71 (90) 08/05/17 16:17 36.9 80 20 109/57 (74) 95 Room Air 08/05/17 16:00 Room Air Physical Exam General Appearance: no apparent distress Eyes: sclerae normal ENT: + pertinent finding (extremely GRINDSTONE) Neck: supple, no JVD, trachea midline Respiratory/Chest: lungs clear, no respiratory distress, no accessory muscle use Cardiovascular: + irregularly irregular Abdomen: normal bowel sounds, non tender, soft Extremities: + swelling (2+ pitting edema b/l lower extremities) Neurologic/Psychiatric: alert Skin: normal color, warm/dry Laboratory Results Last 24 Hours Test 08/05/17 16:34 08/05/17 20:04 08/06/17 06:24 08/06/17 07:23 Bedside Glucose 191 mg/dl 293 mg/dl 227 mg/dl White Blood Count 10.27 K/uL Red Blood Count 3.54 M/uL Hemoglobin 9.2 g/dL Hematocrit 30.1 % Mean Corpuscular Volume 85.0 fL Mean Corpuscular Hemoglobin 26.0 pg Mean Corpuscular Hemoglobin Concent 30.6 g/dl Platelet Count 297 K/uL Mean Platelet Volume 10.6 fL Neutrophils (%) (Auto) 77.8 % Lymphocytes (%) (Auto) 9.3 % Monocytes (%) (Auto) 11.4 % Eosinophils (%) (Auto) 1.0 % Basophils (%) (Auto) 0.2 % Neutrophils # (Auto) 8.00 K/uL Lymphocytes # (Auto) 0.95 K/uL Monocytes # (Auto) 1.17 K/uL Eosinophils # (Auto) 0.10 K/uL Basophils # (Auto) 0.02 K/uL RDW Standard Deviation 65.8 fL RDW Coefficient of Variation 21.4 % Immature Granulocyte % (Auto) 0.3 % Immature Granulocyte # (Auto) 0.03 K/uL Toxic Vacuolation 1+ Anisocytosis PRESENT Sodium Level 133 mmol/L Potassium Level 4.0 mmol/L Chloride Level 98 mmol/L Carbon Dioxide Level 22 mmol/L Anion Gap 12.0 mmol/L Blood Urea Nitrogen 53 mg/dl Creatinine 4.78 mg/dl Est Creatinine Clear Calc Drug Dose 13.2 ml/min Estimated GFR () 11.9 Estimated GFR (Non- 10.2 BUN/Creatinine Ratio 11.2 Random Glucose 177 mg/dl Calcium Level 7.7 mg/dl Magnesium Level 2.0 mg/dl Test 08/06/17 11:26 Bedside Glucose 185 mg/dl Assessment and Plan 87 y/o M readmitted July 21, 2017 because of fluid overload and CHF exacerbation was discharged from the hospital one day prior and returns with progressive SOB and weakness in his admission. C. Difficile: STABLE - Reporting still having 7-8 BM a day - Continue Vancomycin 125 mg Q6H Hematuria 2/2 Anti-Coagulation and Possible Cancerous Process: S/P TURBT and B/ L Stents - One urine cytology revealed suspicion of high-grade urothelial carcinoma however other samples are negative - Hemoglobin remains stable at 9.2 today; Some hematuria in Perez but likely traumatic given stents - Urology following - appreciate recommendations - plans to continue Perez at this time Liver Lesions and Bone Lesions: Suspicion for Metastatic Disease - Was seen by GI on previous admission and will be F/U as outpatient for EGD to assess source of this suggested metastatic lesions Acute on Chronic Distolic CHF and HLD: - Lasix 80 mg BID; Currently - 79518 cc balance - Atorvastatin 40 mg daily 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: S/P Perm Cath on 07/27 - Initially responded to Lasix however then had decreased UO - Due for dialysis today which will hopefully improve volume status - Nephrology following - appreciate assitance with dialysis; hopeful improvement with kidney function now that stents placed Persistent Atrial Fibrillation: - Continue Amiodarone 200 mg BID and plan for D/C on 200 mg daily per cardiology - Lopressor 25 mg BID - Eliquis and ASA on hold 2/2 hematuria and may need to hold this a bit longer given recent stent placement T2DM: A1c 8.1 - Is uncontrolled however given age would like to see a slow improvement with this given higher risk of adverse affect from hypoglycemia and falls [place] with plans to continue anticoagulation - Lantus 12 units SC BID and SSI Code Status: DO NOT RESUSCITATE Disposition: [facility] - if remains stable he would be optimal for D/C pending approval Continued [facility] stay due to: ambulation difficulties Discharge planning: rehab hospital
[2017-08-07] VITALS (10 sets, daily range): BP systolic 101–111; BP diastolic 53–68; PULSE 70–86; TEMP 36.3–37.2; O2SAT 93–95
[2017-08-07] MEDS: ALBUT/IPRATROP 3MG/0.5MG NEB 3 ML VIAL INH SCH ×4 (01:49→19:34)
[2017-08-07] MEDS: RASPBERRY SYRUP 5 ML UDP PO SCH ×4 (05:11→22:15)
[2017-08-07] MEDS: LEVOTHYROXINE 50 MCG TAB PO SCH (05:11)
[2017-08-07] MEDS: VANCOMYCIN HCL 125 MG/2.5ML SOLN PO SCH ×4 (05:11→22:15)
[2017-08-07 07:14] LABS: HEMATOCRIT 30.9 % (42-52); HEMOGLOBIN 9.7 g/dL (14.0-18.0); MEAN CELL VOLUME 84.4 fL (80-100); MEAN CORPUSCULAR HEMOGLOBIN 26.5 pg (25-34); MEAN CORPUSCULAR HGB CONC 31.4 g/dl (32-36); MEAN PLATELET VOLUME 9.8 fL (7.4-10.4); PLATELET COUNT 269 K/uL (130-400); RED CELL DISTRIBUTION WIDTH CV 21.3 % (11.5-14.5); WHITE BLOOD COUNT 9.54 K/uL (4.8-10.8)
[2017-08-07] MEDS: NEPHROCAPS PO SCH (07:43)
[2017-08-07] MEDS: METOPROLOL TARTRATE 25 MG TAB PO SCH ×2 (07:43→21:14)
[2017-08-07] MEDS: FERROUS GLUCONATE 324 MG TAB PO SCH (07:43)
[2017-08-07] MEDS: PANTOprazole SOD 40 MG TAB PO SCH (07:43)
[2017-08-07] MEDS: ATORVASTATIN 40 MG TAB PO SCH (07:43)
[2017-08-07] MEDS: FUROSEMIDE 80 MG TAB PO SCH ×2 (07:43→17:03)
[2017-08-07] MEDS: AMIODARONE 200 MG TAB PO SCH ×2 (07:44→21:14)
[2017-08-07 07:48] LABS: CALCIUM 8.1 mg/dl (8.5-10.1); CREATININE 3.8 mg/dl (0.60-1.40); POTASSIUM 4.1 mmol/L (3.5-5.1)
[2017-08-07] MEDS: INSULIN ASPART 100 UNITS/ML 3 ML PEN SC SCH ×4 (08:21→21:13)
[2017-08-07] MEDS: INSULIN GLARGINE SOLOSTAR 100 UNITS/ML 3 ML PEN SC SCH ×2 (08:21→21:14)
[2017-08-07] MEDS: ASPIRIN 81 MG ECTAB PO SCH (08:23)
--- NOTE | 2017-08-07 08:39 | Progress Note ---
Subjective Date of Service: Aug 07, 2017. Subjective Pt evaluation today including: conversation w/ patient, chart review, lab review Voiding: dickson catheter in place (patent, draining dark red urine ) 87 yo male s/p TURBT and bilateral ureteral stent placement. Pt denies pain today. Dickson draining dark red urine. Per nursing, needed irrigated overnight. H&H stable. Cr of 3.80 this morning. Pt had dialysis yesterday. Bladder bx pending. Cytologies from OR negative for high grade urothelial carcinoma. Problem List Medical Problems: (1) Anemia Status: Acute (2) CHF (congestive heart failure) Status: Acute (3) CHF (congestive heart failure) Status: Acute (4) Renal failure Status: Acute (5) Weakness Status: Acute Review of Systems Constitutional: No fever, No chills Respiratory: No shortness of breath Cardiac: No chest pain Abdomen: No pain, No nausea, No vomiting Male : + hematuria Heme: + abnormal bleeding/bruising Objective Vital Signs Date Time Temp Pulse Resp B/P (MAP) Pulse Ox O2 Delivery O2 Flow Rate FiO2 08/07/17 08:00 Room Air 08/07/17 07:31 36.3 78 20 111/68 (82) 95 Room Air 08/07/17 07:02 72 16 95 Room Air 08/07/17 01:50 79 20 95 Room Air 08/07/17 00:09 37.2 86 18 105/60 (75) 95 Room Air 08/07/17 00:00 Room Air 08/06/17 21:15 91 109/60 (76) 08/06/17 21:00 36.6 93 108/62 (77) 08/06/17 20:30 96 92/59 08/06/17 20:15 98 102/57 08/06/17 20:01 93 107/63 08/06/17 19:45 97 103/64 08/06/17 19:43 68 16 95 Room Air 08/06/17 19:30 89 90/63 08/06/17 19:15 99 102/57 08/06/17 19:00 93 98/56 08/06/17 18:45 83 110/58 08/06/17 18:30 84 99/54 08/06/17 18:15 90 98/58 08/06/17 18:00 91 95/51 08/06/17 17:45 84 95/58 08/06/17 17:30 99 82/61 08/06/17 17:15 97 84/49 08/06/17 16:59 81 100/65 08/06/17 16:45 36.6 76 107/65 (79) 08/06/17 16:00 Room Air 08/06/17 14:17 67 18 95 Room Air Physical Exam General Appearance: no apparent distress Eyes: normal inspection ENT: + pertinent finding (hard of hearing) Neck: no JVD Respiratory/Chest: no respiratory distress, no accessory muscle use Cardiovascular: no JVD Extremities: normal inspection Neurologic/Psychiatric: alert, normal mood/affect, oriented x 3 Skin: normal color Laboratory Results Last 24 Hours Test 08/06/17 11:26 08/06/17 16:19 08/06/17 20:05 08/07/17 06:57 Bedside Glucose 185 mg/dl 231 mg/dl 136 mg/dl White Blood Count 9.54 K/uL Red Blood Count 3.66 M/uL Hemoglobin 9.7 g/dL Hematocrit 30.9 % Mean Corpuscular Volume 84.4 fL Mean Corpuscular Hemoglobin 26.5 pg Mean Corpuscular Hemoglobin Concent 31.4 g/dl RDW Standard Deviation 65.0 fL RDW Coefficient of Variation 21.3 % Platelet Count 269 K/uL Mean Platelet Volume 9.8 fL Sodium Level 134 mmol/L Potassium Level 4.1 mmol/L Chloride Level 100 mmol/L Carbon Dioxide Level 24 mmol/L Anion Gap 9.0 mmol/L Blood Urea Nitrogen 36 mg/dl Creatinine 3.80 mg/dl Est Creatinine Clear Calc Drug Dose 15.3 ml/min Estimated GFR () 15.7 Estimated GFR (Non- 13.5 BUN/Creatinine Ratio 9.4 Random Glucose 150 mg/dl Calcium Level 8.1 mg/dl Magnesium Level 2.0 mg/dl Test 08/07/17 08:07 Bedside Glucose 186 mg/dl Assessment and Plan POD #4 s/p TURBT and bilateral ureteral stent placement Worsening hematuria. Will restart CBI per Dr. Glez. Bladder biopsies pending pathology. Continue to explore other etiology for liver lesions. If bladder biopsies less than T2 disease, would expect other etiology. Will continue to follow along with primary service. Continued [facility] stay due to: ambulation difficulties Discharge planning: rehab hospital
--- NOTE | 2017-08-07 08:50 | Medical Student: [facility] ---
Med Student Progress Note Date of Service Aug 07, 2017. Subjective Pt evaluation today including: conversation w/ patient, physical exam, chart review, lab review, review of studies, review of inpatient medication list Voiding: dickson catheter in place Jasvir is a 87y male, with CKD and gross hematuria s/p TURBT and bilateral ureteral stent placement on 08/03/17. Offers no complaints. No family at bedside at this time. Today patient has worsening gross hematuria, now trevizo-red with clots. Requiring hand irrigation overnight per nursing. Review of Systems Constitutional: No fever, No chills Abdomen: + diarrhea (+ c. diff being medically managed by hospitalist), No nausea, No vomiting Male : + see HPI (dickson catheter in place) Objective Vital Signs Date Time Temp Pulse Resp B/P (MAP) Pulse Ox O2 Delivery O2 Flow Rate FiO2 08/07/17 08:00 Room Air 08/07/17 07:31 36.3 78 20 111/68 (82) 95 Room Air 08/07/17 07:02 72 16 95 Room Air 08/07/17 01:50 79 20 95 Room Air 08/07/17 00:09 37.2 86 18 105/60 (75) 95 Room Air 08/07/17 00:00 Room Air 08/06/17 21:15 91 109/60 (76) 08/06/17 21:00 36.6 93 108/62 (77) 08/06/17 20:30 96 92/59 08/06/17 20:15 98 102/57 08/06/17 20:01 93 107/63 08/06/17 19:45 97 103/64 08/06/17 19:43 68 16 95 Room Air 08/06/17 19:30 89 90/63 08/06/17 19:15 99 102/57 08/06/17 19:00 93 98/56 08/06/17 18:45 83 110/58 08/06/17 18:30 84 99/54 08/06/17 18:15 90 98/58 08/06/17 18:00 91 95/51 08/06/17 17:45 84 95/58 08/06/17 17:30 99 82/61 08/06/17 17:15 97 84/49 08/06/17 16:59 81 100/65 08/06/17 16:45 36.6 76 107/65 (79) 08/06/17 16:00 Room Air 08/06/17 14:17 67 18 95 Room Air Physical Exam General Appearance: WD/WN, no apparent distress ENT: + pertinent finding (hard of hearing) Neck: no adenopathy Respiratory/Chest: no accessory muscle use, + wheezing (RN at bedside, states he will wheeze with activity and was just OOB to bathroom prior to encounter) Abdomen: soft Extremities: normal inspection Neurologic/Psychiatric: alert, normal mood/affect (pleasant and cooperative) Skin: normal color, warm/dry Laboratory Results Last 24 Hours Test 08/06/17 11:26 08/06/17 16:19 08/06/17 20:05 08/07/17 06:57 Bedside Glucose 185 mg/dl 231 mg/dl 136 mg/dl White Blood Count 9.54 K/uL Red Blood Count 3.66 M/uL Hemoglobin 9.7 g/dL Hematocrit 30.9 % Mean Corpuscular Volume 84.4 fL Mean Corpuscular Hemoglobin 26.5 pg Mean Corpuscular Hemoglobin Concent 31.4 g/dl RDW Standard Deviation 65.0 fL RDW Coefficient of Variation 21.3 % Platelet Count 269 K/uL Mean Platelet Volume 9.8 fL Sodium Level 134 mmol/L Potassium Level 4.1 mmol/L Chloride Level 100 mmol/L Carbon Dioxide Level 24 mmol/L Anion Gap 9.0 mmol/L Blood Urea Nitrogen 36 mg/dl Creatinine 3.80 mg/dl Est Creatinine Clear Calc Drug Dose 15.3 ml/min Estimated GFR () 15.7 Estimated GFR (Non- 13.5 BUN/Creatinine Ratio 9.4 Random Glucose 150 mg/dl Calcium Level 8.1 mg/dl Magnesium Level 2.0 mg/dl Test 08/07/17 08:07 Bedside Glucose 186 mg/dl Assessment and Plan Assessment and Plan: Jasvir is s/p TURBT POD Day #4: - Bladder biopsies- pending - URINE, RIGHT KIDNEY, ASPIRATION: 1. UROTHELIAL CELL ATYPIA CONSISTENT WITH REACTIVE CHANGE. 2. RED BLOOD CELLS AND NEUTROPHILS. 3. NEGATIVE FOR HIGH-GRADE UROTHELIAL CARCINOMA. - URINE, LEFT KIDNEY, ASPIRATION: 1. BENIGN UROTHELIAL CELLS. 2. NEGATIVE FOR HIGH-GRADE UROTHELIAL CARCINOMA. Liver Lesions: - Will follow with GI as outpatient per hospitalist note Gross Hematuria: - worsening today, trevizo red with large clots. Requiring hand irrigation overnight per nursing. - Discussed with Dr Glez - restart CBI. 3-way catheter already in place. - Nursing made aware. Original plan to discharge to [facility] on hold now for CBI therapy. Continued [facility] stay due to: voiding difficulties Discharge planning: rehab hospital (when medically suitable)
--- NOTE | 2017-08-07 09:12 | Nephrology Progress Note ---
Nephrology Progress Note Date of Service Aug 07, 2017. Chief Complaint Acute renal insufficiency Subjective No acute events overnight. No complaints this morning. Normal feels well. He tolerated HD yesterday without complications, UF 3 L. Appetite is good. Jasvir states that he feels well. No fevers or chills. No pain. Review of Systems A complete review of systems was performed. Pertinent positives are noted above. All other systems are negative. Vital Signs Last 8 Hrs Date Time Temp Pulse Resp B/P (MAP) Pulse Ox O2 Delivery O2 Flow Rate FiO2 08/07/17 08:00 Room Air 08/07/17 07:31 36.3 78 20 111/68 (82) 95 Room Air 08/07/17 07:02 72 16 95 Room Air 08/07/17 01:50 79 20 95 Room Air Last Recorded Weight Weight (Kilograms): 91.700 Physical Exam General Appearance: WD/WN, no apparent distress, + thin Head: normocephalic, atraumatic Eyes: normal inspection, sclerae normal ENT: normal ENT inspection, pharynx normal Neck: supple, no JVD, + pertinent finding (TDC with clean exit site) Respiratory/Chest: lungs clear, no respiratory distress, no accessory muscle use Cardiovascular: regular rate, rhythm, no gallop Back: no CVA tenderness Abdomen/GI: non tender, soft Genitourinary - Male: + pertinent finding (Perez draining trevizo colored urine , CBI restarted) Extremities/Musculoskelatal: normal inspection, no pedal edema Neurologic/Psych: alert, normal mood/affect Family History FHx: COPD (chronic obstructive pulmonary disease) FHx: diabetes mellitus Negative for CKD / ESRD Social History Drug Use: none Marital Status: Housing Status: lives with family Occupation: retired . Retired. Never a smoker Laboratory Results Past 24 Hours 08/07/17 06:57 08/07/17 06:57 Test 08/06/17 11:26 08/06/17 16:19 08/06/17 20:05 08/07/17 06:57 Bedside Glucose 185 mg/dl (70-99) 231 mg/dl (70-99) 136 mg/dl (70-99) Red Blood Count 3.66 M/uL (4.7-6.1) Mean Corpuscular Volume 84.4 fL (80-100) Mean Corpuscular Hemoglobin 26.5 pg (25-34) Mean Corpuscular Hemoglobin Concent 31.4 g/dl (32-36) RDW Standard Deviation 65.0 fL (36.4-46.3) RDW Coefficient of Variation 21.3 % (11.5-14.5) Mean Platelet Volume 9.8 fL (7.4-10.4) Anion Gap 9.0 mmol/L (3-11) Est Creatinine Clear Calc Drug Dose 15.3 ml/min Estimated GFR () 15.7 Estimated GFR (Non- 13.5 BUN/Creatinine Ratio 9.4 (10-20) Calcium Level 8.1 mg/dl (8.5-10.1) Magnesium Level 2.0 mg/dl (1.8-2.4) Test 08/07/17 08:07 Bedside Glucose 186 mg/dl (70-99) Allergies Coded Allergies: No Known Allergies (Verified , 07/21/17) Medications Current Inpatient Medications Medications (Trade) Dose Ordered Sig/Bg Route Start Time Stop Time Status Last Admin Dose Admin Amiodarone HCl (Cordarone Tab) 200 mg BID PO 07/22/17 09:00 08/21/17 08:59 08/07/17 07:44 200 MG Apixaban (Eliquis Tab) 2.5 mg BID PO 07/22/17 09:00 08/21/17 08:59 Future Hold 07/28/17 20:17 2.5 MG Aspirin (Ecotrin Tab) 81 mg QAM PO 07/22/17 09:00 08/21/17 08:59 Future hold 08/07/17 08:23 81 MG Atorvastatin Calcium (Lipitor Tab) 40 mg QAM PO 07/22/17 09:00 08/21/17 08:59 08/07/17 07:43 40 MG Ferrous Gluconate (Ferrous Gluconate Tab) 324 mg QAM PO 07/22/17 09:00 08/21/17 08:59 08/07/17 07:43 324 MG Levothyroxine Sodium (Synthroid Tab) 50 mcg DAILYBB PO 07/22/17 06:00 08/21/17 05:59 08/07/17 05:11 50 MCG Metoprolol Tartrate (Lopressor Tab) 25 mg BID PO 07/22/17 09:00 08/21/17 08:59 08/07/17 07:43 25 MG Pantoprazole Sodium (Protonix Tab) 40 mg QAM PO 07/22/17 09:00 08/21/17 08:59 08/07/17 07:43 40 MG Insulin Aspart (novoLOG ASPART) SLIDING SCALE G... ACHS SC 07/22/17 07:00 08/21/17 06:59 08/07/17 08:21 7 UNITS Acetaminophen (Tylenol Tab) 650 mg Q4H PRN PO 07/21/17 23:15 08/20/17 23:14 Al Hydrox/Mg Hydrox/Simethicone (Maalox Max Susp) 15 ml Q4H PRN PO 07/21/17 23:15 08/20/17 23:14 Magnesium Hydroxide (Milk Of Magnesia Susp) 30 ml Q12H PRN PO 07/21/17 23:15 08/20/17 23:14 Ondansetron HCl (Zofran Inj) 4 mg Q6H PRN IV 07/21/17 23:15 08/20/17 23:14 Polyethylene (Miralax Powder Packet) 17 gm DAILY PRN PO 07/21/17 23:15 08/20/17 23:14 Glucose (Glucose 40% Gel) 15-30 GRAMS 15 GRAMS... UD PRN PO 07/21/17 23:45 08/20/17 23:44 Glucose (Glucose Chew Tab) 4-8 Tablets 4 Tabl... UD PRN PO 07/21/17 23:45 08/20/17 23:44 Dextrose (Dextrose 50% 50ML Syringe) 25-50ML OF 50% DW IV FOR... UD PRN IV 07/21/17 23:45 08/20/17 23:44 Glucagon (Glucagon Inj) 1 mg UD PRN SQ 07/21/17 23:45 08/20/17 23:44 Albuterol/ Ipratropium (Duoneb) 3 ml Q6R INH 07/22/17 15:00 08/21/17 14:59 08/07/17 07:01 3 ML Albuterol/ Ipratropium (Duoneb) 3 ml Q2H PRN INH 07/22/17 10:15 08/21/17 10:14 08/04/17 18:23 3 ML Menthol (Nice Farida) 1 farida PRN PRN FARIDA 07/27/17 14:45 08/26/17 14:44 Phenazopyridine HCl (Pyridium Tab) 200 mg TID PRN PO 07/31/17 12:30 08/30/17 12:29 08/02/17 08:12 200 MG Vitamin B Complex/ Vit C/Folic Acid (Nephrocaps) 1 cap QAM PO 08/02/17 09:00 09/01/17 08:59 08/07/17 07:43 1 CAP Temazepam (Restoril Cap) 7.5 mg HS PRN PO 08/02/17 12:30 09/01/17 12:29 08/03/17 21:35 7.5 MG Insulin Glargine (Lantus Solostar Pen) 12 units BID SC 08/02/17 21:00 08/21/17 08:59 08/07/17 08:21 12 UNITS Vancomycin HCl (Vancomycin Oral Soln) 125 mg Q6H PO 08/04/17 23:00 08/14/17 22:59 08/07/17 05:11 125 MG Raspberry (Raspberry Syrup 5ml Cup) 5 ml Q6H PO 08/04/17 23:00 08/18/17 22:59 08/07/17 05:11 5 ML Furosemide (Lasix Tab) 80 mg BID17 PO 08/05/17 17:00 09/04/17 16:59 08/07/17 07:43 80 MG Impression (1) Acute kidney injury (2) CKD stage 3 due to type 2 diabetes mellitus (3) Diastolic CHF (4) Liver masses (5) Atrial fibrillation (6) Iron deficiency anemia (7) Diabetes Mr. Menjivar is an 87-year-old male with acute on chronic kidney disease requiring hemodialysis. He has advanced renal dysfunction associated with cardiorenal syndrome. Jasvir was started on hemodialysis on July 28. He is POD#4 s/p cystoscopy, TURBT and stent placement. He is non-oliguric. Creatinine continues to rise off dialysis. AM labs are pending. The patient remains dialysis dependent. Metabolic profile, volume status and blood pressure were checked and found to be appropriate. Furosemide 80 mg twice daily to encourage urine output. 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 He was also found to have liver lesion suggestive of metastatic disease, patient leaning toward not doing any further workup for that. Recommendations Acute on chronic renal dysfunction requiring hemodialysis: -- Patient has advanced CKD and cardiorenal syndrome, he has been dialysis dependent -- Continue HD per [facility] schedulee -- Outpatient HD arranged at [facility] at discharge -- If patient is discharged to [facility], please notify me to arrange dialysis and continued follow up Bladder cancer: -- Perez draining trevizo colored urine, CBI restarted Congestive heart failure: -- Volume status acceptable -- Continue furosemide 80 mg twice daily Atrial fibrillation -- Eliquis on hold Anemia: -- Venofer 100 mg q HD -- EPO [id number] q HD
--- NOTE | 2017-08-07 12:54 | Hospitalist Progress Note ---
Hospitalist Progress Note Date of Service Aug 07, 2017. (Radha Falk PA-C) Subjective Pt evaluation today including: conversation w/ patient, conversation w/ family , physical exam, lab review, review of inpatient medication list Patient seen and evaluated. Having more hematuria which ASA therapy was resumed yesterday. Currently having bladder irrigation. Reporting no pain and feeling well. Reports BMs are slowing down. Continues to agree to rehab vs SNF and did participate in therapy today. Currently diuresed for - 13.9 L Review of previous stays and EGD and EUS are scheduled for outpatient to further assess origination of the liver lesions Constitutional: No fever, No chills Respiratory: No cough, No shortness of breath Abdomen: + diarrhea, No pain, No nausea, No vomiting Musculoskeletal: + swelling (b/l lower extremities), No calf pain Male : + hematuria (Radha Falk, MILESC) Medications Current Inpatient Medications Medications (Trade) Dose Ordered Sig/Bg Route Start Time Stop Time Status Last Admin Dose Admin Amiodarone HCl (Cordarone Tab) 200 mg BID PO 07/22/17 09:00 08/21/17 08:59 08/07/17 07:44 200 MG Apixaban (Eliquis Tab) 2.5 mg BID PO 07/22/17 09:00 08/21/17 08:59 Future Hold 07/28/17 20:17 2.5 MG Aspirin (Ecotrin Tab) 81 mg QAM PO 07/22/17 09:00 08/21/17 08:59 Future hold 08/07/17 08:23 81 MG Atorvastatin Calcium (Lipitor Tab) 40 mg QAM PO 07/22/17 09:00 08/21/17 08:59 08/07/17 07:43 40 MG Ferrous Gluconate (Ferrous Gluconate Tab) 324 mg QAM PO 07/22/17 09:00 08/21/17 08:59 08/07/17 07:43 324 MG Levothyroxine Sodium (Synthroid Tab) 50 mcg DAILYBB PO 07/22/17 06:00 08/21/17 05:59 08/07/17 05:11 50 MCG Metoprolol Tartrate (Lopressor Tab) 25 mg BID PO 07/22/17 09:00 08/21/17 08:59 08/07/17 07:43 25 MG Pantoprazole Sodium (Protonix Tab) 40 mg QAM PO 07/22/17 09:00 08/21/17 08:59 08/07/17 07:43 40 MG Insulin Aspart (novoLOG ASPART) SLIDING SCALE G... ACHS SC 07/22/17 07:00 08/21/17 06:59 08/07/17 12:36 3 UNITS Acetaminophen (Tylenol Tab) 650 mg Q4H PRN PO 07/21/17 23:15 08/20/17 23:14 Al Hydrox/Mg Hydrox/Simethicone (Maalox Max Susp) 15 ml Q4H PRN PO 07/21/17 23:15 08/20/17 23:14 Magnesium Hydroxide (Milk Of Magnesia Susp) 30 ml Q12H PRN PO 07/21/17 23:15 08/20/17 23:14 Ondansetron HCl (Zofran Inj) 4 mg Q6H PRN IV 07/21/17 23:15 08/20/17 23:14 Polyethylene (Miralax Powder Packet) 17 gm DAILY PRN PO 07/21/17 23:15 08/20/17 23:14 Glucose (Glucose 40% Gel) 15-30 GRAMS 15 GRAMS... UD PRN PO 07/21/17 23:45 08/20/17 23:44 Glucose (Glucose Chew Tab) 4-8 Tablets 4 Tabl... UD PRN PO 07/21/17 23:45 08/20/17 23:44 Dextrose (Dextrose 50% 50ML Syringe) 25-50ML OF 50% DW IV FOR... UD PRN IV 07/21/17 23:45 08/20/17 23:44 Glucagon (Glucagon Inj) 1 mg UD PRN SQ 07/21/17 23:45 08/20/17 23:44 Albuterol/ Ipratropium (Duoneb) 3 ml Q6R INH 07/22/17 15:00 08/21/17 14:59 08/07/17 07:01 3 ML Albuterol/ Ipratropium (Duoneb) 3 ml Q2H PRN INH 07/22/17 10:15 08/21/17 10:14 08/04/17 18:23 3 ML Menthol (Nice Farida) 1 farida PRN PRN FARIDA 07/27/17 14:45 08/26/17 14:44 Phenazopyridine HCl (Pyridium Tab) 200 mg TID PRN PO 07/31/17 12:30 08/30/17 12:29 08/02/17 08:12 200 MG Vitamin B Complex/ Vit C/Folic Acid (Nephrocaps) 1 cap QAM PO 08/02/17 09:00 09/01/17 08:59 08/07/17 07:43 1 CAP Temazepam (Restoril Cap) 7.5 mg HS PRN PO 08/02/17 12:30 09/01/17 12:29 08/03/17 21:35 7.5 MG Insulin Glargine (Lantus Solostar Pen) 12 units BID SC 08/02/17 21:00 08/21/17 08:59 08/07/17 08:21 12 UNITS Vancomycin HCl (Vancomycin Oral Soln) 125 mg Q6H PO 08/04/17 23:00 08/14/17 22:59 08/07/17 12:12 125 MG Raspberry (Raspberry Syrup 5ml Cup) 5 ml Q6H PO 08/04/17 23:00 08/18/17 22:59 08/07/17 12:12 5 ML Furosemide (Lasix Tab) 80 mg BID17 PO 08/05/17 17:00 09/04/17 16:59 08/07/17 07:43 80 MG (Radha Falk PA-C) Objective Vital Signs Date Time Temp Pulse Resp B/P (MAP) Pulse Ox O2 Delivery O2 Flow Rate FiO2 08/07/17 08:00 Room Air 08/07/17 07:31 36.3 78 20 111/68 (82) 95 Room Air 08/07/17 07:02 72 16 95 Room Air 08/07/17 01:50 79 20 95 Room Air 08/07/17 00:09 37.2 86 18 105/60 (75) 95 Room Air 08/07/17 00:00 Room Air 08/06/17 21:15 91 109/60 (76) 08/06/17 21:00 36.6 93 108/62 (77) 08/06/17 20:30 96 92/59 4/2/18 20:15 98 102/57 08/06/17 20:01 93 107/63 08/06/17 19:45 97 103/64 08/06/17 19:43 68 16 95 Room Air 08/06/17 19:30 89 90/63 08/06/17 19:15 99 102/57 08/06/17 19:00 93 98/56 08/06/17 18:45 83 110/58 08/06/17 18:30 84 99/54 08/06/17 18:15 90 98/58 08/06/17 18:00 91 95/51 08/06/17 17:45 84 95/58 08/06/17 17:30 99 82/61 08/06/17 17:15 97 84/49 08/06/17 16:59 81 100/65 08/06/17 16:45 36.6 76 107/65 (79) 08/06/17 16:00 Room Air 08/06/17 14:17 67 18 95 Room Air (Radha Falk, PA-C) Physical Exam General Appearance: WD/WN, no apparent distress Neck: supple, no JVD, trachea midline Respiratory/Chest: lungs clear, no respiratory distress, no accessory muscle use, + decreased breath sounds (bases b/l) Cardiovascular: + irregularly irregular Abdomen: normal bowel sounds, non tender, soft Extremities: + swelling (b/l lower extremities) Neurologic/Psychiatric: alert Skin: normal color (Radha Falk, PA-C) Laboratory Results Last 24 Hours Test 08/06/17 16:19 08/06/17 20:05 08/07/17 06:57 08/07/17 08:07 Bedside Glucose 231 mg/dl 136 mg/dl 186 mg/dl White Blood Count 9.54 K/uL Red Blood Count 3.66 M/uL Hemoglobin 9.7 g/dL Hematocrit 30.9 % Mean Corpuscular Volume 84.4 fL Mean Corpuscular Hemoglobin 26.5 pg Mean Corpuscular Hemoglobin Concent 31.4 g/dl RDW Standard Deviation 65.0 fL RDW Coefficient of Variation 21.3 % Platelet Count 269 K/uL Mean Platelet Volume 9.8 fL Sodium Level 134 mmol/L Potassium Level 4.1 mmol/L Chloride Level 100 mmol/L Carbon Dioxide Level 24 mmol/L Anion Gap 9.0 mmol/L Blood Urea Nitrogen 36 mg/dl Creatinine 3.80 mg/dl Est Creatinine Clear Calc Drug Dose 15.3 ml/min Estimated GFR () 15.7 Estimated GFR (Non- 13.5 BUN/Creatinine Ratio 9.4 Random Glucose 150 mg/dl Calcium Level 8.1 mg/dl Magnesium Level 2.0 mg/dl (Radha Falk, PANgoc) Assessment and Plan 87 y/o M readmitted July 21, 2017 because of fluid overload and CHF exacerbation was discharged from the hospital one day prior and returns with progressive SOB and weakness in his admission. C. Difficile: STABLE - Reporting reduction in BM frequency - Continue Vancomycin 125 mg Q6H - full day treatment started on 08/05 Hematuria 2/2 Anti-Coagulation and Possible Cancerous Process: S/P TURBT and B/ L Stents - One urine cytology revealed suspicion of high-grade urothelial carcinoma however other samples are negative; awaiting bladder pathology; had increased hematuria today but ASA therapy was restarted yesterday and will hold at this time - Hemoglobin remains stable at 9.7 today - Urology following - appreciate recommendations - plans to continue Perez at this time and start CBI Liver Lesions and Bone Lesions: Suspicion for Metastatic Disease - Was seen by GI on previous admission and will be F/U as outpatient for EGD and EUS to assess source of this suggested metastatic lesions Acute on Chronic Diastolic CHF and HLD: - Lasix 80 mg BID; Currently - 13.9 L balance - Atorvastatin 40 mg daily 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: S/P Perm Cath on 07/27 - Initially responded to Lasix however then had decreased UO and now dialysis dependent - Nephrology following - appreciate assistance with dialysis; current MWF regimen at this time Persistent Atrial Fibrillation: - Continue Amiodarone 200 mg BID and plan for D/C on 200 mg daily per cardiology - Lopressor 25 mg BID - Eliquis and ASA on hold 2/2 hematuria and may need to hold this a bit longer given recent stent placement T2DM: A1c 8.1 - Is uncontrolled however given age would like to see a slow improvement with this given higher risk of adverse affect from hypoglycemia and falls [place] with plans to continue anticoagulation - Lantus 12 units SC BID and SSI Code Status: DO NOT RESUSCITATE Disposition: Plan for dialysis tomorrow; will apply for [facility] auth with SNFs as back up - [facility] D/C /Sunday pending auth Continued [facility] stay due to: ambulation difficulties, other (hematuria) Discharge planning: rehab hospital (Radha Falk, HANH) PA Physician Supervision Note: I interviewed and examined the patient. Discussed with Radha Falk PAC and agree with findings and plan as documented in the note. Any exceptions or clarifications are listed here: None This pt is improving, he has persistent hematuria, that has improved after anticoagulation for his afib was stopped, but with a biopsied bladder mass and ureteral stenting he has some persistent hematuria, his acute on chronic renal failure is improving, and he is agreeable to have rehab at discharge 36.3 78 20 111/68 Car is irregularly irregularly, lungs are clear, hematuria is present continue with treatment of C Diff, diabetes and follow hematuria without full anticoagulation for his A Fib, rate control remains, given his end stage renal disease his hemodialysis impacts his eventual placement for rehab Documented By: Asaf Mccoy (Asaf Mccoy M.D.)
[2017-08-08] VITALS (27 sets, daily range): BP systolic 106–127; BP diastolic 53–75; PULSE 58–96; TEMP 36.2–36.9; O2SAT 90–96
[2017-08-08] MEDS: ALBUT/IPRATROP 3MG/0.5MG NEB 3 ML VIAL INH SCH ×4 (01:47→18:53)
[2017-08-08] MEDS: RASPBERRY SYRUP 5 ML UDP PO SCH ×4 (05:08→21:25)
[2017-08-08] MEDS: VANCOMYCIN HCL 125 MG/2.5ML SOLN PO SCH ×4 (05:08→21:25)
[2017-08-08] MEDS: LEVOTHYROXINE 50 MCG TAB PO SCH (06:09)
[2017-08-08] MEDS: INSULIN ASPART 100 UNITS/ML 3 ML PEN SC SCH ×4 (06:30→21:20)
[2017-08-08] MEDS: FUROSEMIDE 80 MG TAB PO SCH ×2 (07:41→17:06)
[2017-08-08] MEDS: METOPROLOL TARTRATE 25 MG TAB PO SCH ×2 (07:41→21:19)
[2017-08-08] MEDS: PANTOprazole SOD 40 MG TAB PO SCH (10:17)
[2017-08-08] MEDS: INSULIN GLARGINE SOLOSTAR 100 UNITS/ML 3 ML PEN SC SCH ×2 (10:17→21:20)
[2017-08-08] MEDS: NEPHROCAPS PO SCH (10:18)
[2017-08-08] MEDS: ATORVASTATIN 40 MG TAB PO SCH (10:18)
[2017-08-08] MEDS: FERROUS GLUCONATE 324 MG TAB PO SCH (10:18)
[2017-08-08] MEDS: AMIODARONE 200 MG TAB PO SCH ×2 (10:18→21:18)
--- NOTE | 2017-08-08 10:58 | Progress Note ---
Subjective Date of Service: Aug 08, 2017. Subjective Pt evaluation today including: conversation w/ patient, chart review, lab review Voiding: dickson catheter in place (patent, draining yellow urine with slow CBI running) 87 yo male s/p TURBT and b/l ureteral stent placement. Dickson draining yellow urine this morning with very slow CBI running. Pt denies pain. Problem List Medical Problems: (1) Anemia Status: Acute (2) CHF (congestive heart failure) Status: Acute (3) CHF (congestive heart failure) Status: Acute (4) Renal failure Status: Acute (5) Weakness Status: Acute Review of Systems Constitutional: No fever, No chills Respiratory: No shortness of breath Cardiac: No chest pain Abdomen: No pain, No nausea, No vomiting Male : No hematuria Heme: No abnormal bleeding/bruising Objective Vital Signs Date Time Temp Pulse Resp B/P (MAP) Pulse Ox O2 Delivery O2 Flow Rate FiO2 08/08/17 10:08 36.2 81 118/67 (84) 08/08/17 10:00 75 111/64 08/08/17 09:45 89 116/58 08/08/17 09:30 85 110/57 08/08/17 09:15 96 115/71 08/08/17 09:00 86 123/64 08/08/17 08:45 87 127/68 08/08/17 08:30 79 114/67 08/08/17 08:15 84 117/58 08/08/17 08:00 94 109/67 08/08/17 08:00 Room Air 08/08/17 07:45 91 118/67 08/08/17 07:30 84 112/71 08/08/17 07:15 87 119/75 08/08/17 07:11 91 18 91 Room Air 08/08/17 07:00 83 121/57 08/08/17 06:45 86 117/61 08/08/17 06:30 81 115/62 08/08/17 06:15 58 108/60 08/08/17 06:00 61 117/57 08/08/17 05:50 36.4 91 116/74 (88) 08/08/17 00:00 Room Air 08/07/17 23:36 36.8 75 20 107/53 (71) 93 Room Air 08/07/17 21:15 79 105/61 (76) 08/07/17 19:34 70 18 95 Room Air 08/07/17 16:00 95 Room Air 08/07/17 15:28 36.4 78 20 101/58 (72) 95 Room Air 08/07/17 14:16 73 24 95 Room Air Physical Exam General Appearance: no apparent distress Eyes: normal inspection ENT: hearing grossly normal Neck: no JVD Respiratory/Chest: no respiratory distress, no accessory muscle use Cardiovascular: no JVD Extremities: normal inspection Neurologic/Psychiatric: alert, normal mood/affect, oriented x 3 Skin: normal color Laboratory Results Last 24 Hours Test 08/07/17 11:49 08/07/17 16:11 08/07/17 20:12 08/08/17 04:44 Bedside Glucose 147 mg/dl 213 mg/dl 252 mg/dl Test 08/08/17 07:25 Bedside Glucose 116 mg/dl Assessment and Plan POD #5 s/p TURBT and bilateral ureteral stent placement Hematuria improved. Will clamp CBI today. Resume only if bleeding restarts. Possible TOV prior to discharge if hematuria resolves. Will continue to follow along with primary service. Continued [facility] stay due to: ambulation difficulties, other (hematuria) Discharge planning: rehab hospital
[2017-08-08 11:27] LABS: HEMATOCRIT 32.1 % (42-52); HEMOGLOBIN 10.1 g/dL (14.0-18.0); MEAN CELL VOLUME 83.8 fL (80-100); MEAN CORPUSCULAR HEMOGLOBIN 26.4 pg (25-34); MEAN CORPUSCULAR HGB CONC 31.5 g/dl (32-36); MEAN PLATELET VOLUME 9.6 fL (7.4-10.4); PLATELET COUNT 297 K/uL (130-400); RED CELL DISTRIBUTION WIDTH CV 21.4 % (11.5-14.5); RED CELL DISTRIBUTION WIDTH SD 64.6 fL (36.4-46.3); WHITE BLOOD COUNT 9.88 K/uL (4.8-10.8)
[2017-08-08 11:48] LABS: CALCIUM 8.2 mg/dl (8.5-10.1); CREATININE 2.72 mg/dl (0.60-1.40); POTASSIUM 3.7 mmol/L (3.5-5.1)
--- NOTE | 2017-08-08 12:17 | Nephrology Progress Note ---
Nephrology Progress Note Date of Service Aug 08, 2017. Chief Complaint Acute renal insufficiency Subjective No acute events overnight. Patient was noted to be confused this morning by his son. Normal completed dialysis this morning without complications. Confusion noted prior to treatment. Net UF 2 L with HD. BP acceptable. Qb at goal. Normal was ambulating in the [place] with rolling walker this afternoon. He denied any complaints or concerns. CBI continues. Review of Systems A complete review of systems was performed. Pertinent positives are noted above. All other systems are negative. Vital Signs Last 8 Hrs Date Time Temp Pulse Resp B/P (MAP) Pulse Ox O2 Delivery O2 Flow Rate FiO2 08/08/17 10:08 36.2 81 118/67 (84) 08/08/17 10:00 75 111/64 08/08/17 09:45 89 116/58 08/08/17 09:30 85 110/57 08/08/17 09:15 96 115/71 08/08/17 09:00 86 123/64 08/08/17 08:45 87 127/68 08/08/17 08:30 79 114/67 08/08/17 08:15 84 117/58 08/08/17 08:00 94 109/67 08/08/17 08:00 Room Air 08/08/17 07:45 91 118/67 08/08/17 07:30 84 112/71 08/08/17 07:15 87 119/75 08/08/17 07:11 91 18 91 Room Air 08/08/17 07:00 83 121/57 08/08/17 06:45 86 117/61 08/08/17 06:30 81 115/62 08/08/17 06:15 58 108/60 08/08/17 06:00 61 117/57 08/08/17 05:50 36.4 91 116/74 (88) I & O 24-Hour Column 08/09/17 08:00 Output Total 4000 ml Balance -4000 ml Last Recorded Weight Weight (Kilograms): 92.200 Physical Exam General Appearance: WD/WN, no apparent distress Head: normocephalic, atraumatic Eyes: normal inspection, sclerae normal ENT: normal ENT inspection, pharynx normal Neck: supple, no JVD, + pertinent finding (TDC) Respiratory/Chest: lungs clear, no respiratory distress, no accessory muscle use Cardiovascular: regular rate, rhythm, no JVD Abdomen/GI: non tender, soft Extremities/Musculoskelatal: normal inspection, + pedal edema Neurologic/Psych: alert, normal mood/affect Family History FHx: COPD (chronic obstructive pulmonary disease) FHx: diabetes mellitus Negative for CKD / ESRD Social History Drug Use: none Marital Status: Housing Status: lives with family Occupation: retired . Retired. Never a smoker Laboratory Results Past 24 Hours 08/08/17 11:12 08/08/17 11:12 Test 08/07/17 16:11 08/07/17 20:12 08/08/17 07:25 08/08/17 11:12 Bedside Glucose 213 mg/dl (70-99) 252 mg/dl (70-99) 116 mg/dl (70-99) Red Blood Count 3.83 M/uL (4.7-6.1) Mean Corpuscular Volume 83.8 fL (80-100) Mean Corpuscular Hemoglobin 26.4 pg (25-34) Mean Corpuscular Hemoglobin Concent 31.5 g/dl (32-36) RDW Standard Deviation 64.6 fL (36.4-46.3) RDW Coefficient of Variation 21.4 % (11.5-14.5) Mean Platelet Volume 9.6 fL (7.4-10.4) Anion Gap 8.0 mmol/L (3-11) Est Creatinine Clear Calc Drug Dose 21.4 ml/min Estimated GFR () 23.5 Estimated GFR (Non- 20.2 BUN/Creatinine Ratio 8.0 (10-20) Calcium Level 8.2 mg/dl (8.5-10.1) Magnesium Level 1.9 mg/dl (1.8-2.4) Test 08/08/17 11:23 Bedside Glucose 104 mg/dl (70-99) Allergies Coded Allergies: No Known Allergies (Verified , 07/21/17) Medications Current Inpatient Medications Medications (Trade) Dose Ordered Sig/Bg Route Start Time Stop Time Status Last Admin Dose Admin Amiodarone HCl (Cordarone Tab) 200 mg BID PO 07/22/17 09:00 08/21/17 08:59 08/08/17 10:18 200 MG Apixaban (Eliquis Tab) 2.5 mg BID PO 07/22/17 09:00 08/21/17 08:59 Future Hold 07/28/17 20:17 2.5 MG Aspirin (Ecotrin Tab) 81 mg QAM PO 07/22/17 09:00 08/21/17 08:59 Future Hold 08/07/17 08:23 81 MG Atorvastatin Calcium (Lipitor Tab) 40 mg QAM PO 07/22/17 09:00 08/21/17 08:59 08/08/17 10:18 40 MG Ferrous Gluconate (Ferrous Gluconate Tab) 324 mg QAM PO 07/22/17 09:00 08/21/17 08:59 08/08/17 10:18 324 MG Levothyroxine Sodium (Synthroid Tab) 50 mcg DAILYBB PO 07/22/17 06:00 08/21/17 05:59 08/08/17 06:09 50 MCG Metoprolol Tartrate (Lopressor Tab) 25 mg BID PO 07/22/17 09:00 08/21/17 08:59 08/07/17 21:14 25 MG Pantoprazole Sodium (Protonix Tab) 40 mg QAM PO 07/22/17 09:00 08/21/17 08:59 08/08/17 10:17 40 MG Insulin Aspart (novoLOG ASPART) SLIDING SCALE G... ACHS SC 07/22/17 07:00 08/21/17 06:59 08/08/17 11:56 2 UNITS Acetaminophen (Tylenol Tab) 650 mg Q4H PRN PO 07/21/17 23:15 08/20/17 23:14 Al Hydrox/Mg Hydrox/Simethicone (Maalox Max Susp) 15 ml Q4H PRN PO 07/21/17 23:15 08/20/17 23:14 Magnesium Hydroxide (Milk Of Magnesia Susp) 30 ml Q12H PRN PO 07/21/17 23:15 08/20/17 23:14 Ondansetron HCl (Zofran Inj) 4 mg Q6H PRN IV 07/21/17 23:15 08/20/17 23:14 Polyethylene (Miralax Powder Packet) 17 gm DAILY PRN PO 07/21/17 23:15 08/20/17 23:14 Glucose (Glucose 40% Gel) 15-30 GRAMS 15 GRAMS... UD PRN PO 07/21/17 23:45 08/20/17 23:44 Glucose (Glucose Chew Tab) 4-8 Tablets 4 Tabl... UD PRN PO 07/21/17 23:45 08/20/17 23:44 Dextrose (Dextrose 50% 50ML Syringe) 25-50ML OF 50% DW IV FOR... UD PRN IV 07/21/17 23:45 08/20/17 23:44 Glucagon (Glucagon Inj) 1 mg UD PRN SQ 07/21/17 23:45 08/20/17 23:44 Albuterol/ Ipratropium (Duoneb) 3 ml Q6R INH 07/22/17 15:00 08/21/17 14:59 08/08/17 07:10 3 ML Albuterol/ Ipratropium (Duoneb) 3 ml Q2H PRN INH 07/22/17 10:15 08/21/17 10:14 08/04/17 18:23 3 ML Menthol (Nice Farida) 1 farida PRN PRN FARIDA 07/27/17 14:45 08/26/17 14:44 Phenazopyridine HCl (Pyridium Tab) 200 mg TID PRN PO 07/31/17 12:30 08/30/17 12:29 08/02/17 08:12 200 MG Vitamin B Complex/ Vit C/Folic Acid (Nephrocaps) 1 cap QAM PO 08/02/17 09:00 09/01/17 08:59 08/08/17 10:18 1 CAP Temazepam (Restoril Cap) 7.5 mg HS PRN PO 08/02/17 12:30 09/01/17 12:29 08/03/17 21:35 7.5 MG Insulin Glargine (Lantus Solostar Pen) 12 units BID SC 08/02/17 21:00 08/21/17 08:59 08/08/17 10:17 12 UNITS Vancomycin HCl (Vancomycin Oral Soln) 125 mg Q6H PO 08/04/17 23:00 08/14/17 22:59 08/08/17 11:56 125 MG Raspberry (Raspberry Syrup 5ml Cup) 5 ml Q6H PO 08/04/17 23:00 08/18/17 22:59 08/08/17 11:56 5 ML Furosemide (Lasix Tab) 80 mg BID17 PO 08/05/17 17:00 09/04/17 16:59 08/07/17 17:03 80 MG Impression (1) Acute kidney injury (2) CKD stage 3 due to type 2 diabetes mellitus (3) Diastolic CHF (4) Liver masses (5) Atrial fibrillation (6) Iron deficiency anemia (7) Diabetes Mr. Menjivar is an 87-year-old male with acute on chronic kidney disease requiring hemodialysis. He has advanced renal dysfunction associated with cardiorenal syndrome. Jasvir was started on hemodialysis on July 28. He is POD#5 s/p cystoscopy, TURBT and stent placement. He is non-oliguric. Creatinine continues to rise off dialysis. AM labs are pending. The patient remains dialysis dependent. Metabolic profile, volume status and blood pressure were checked and found to be appropriate. Furosemide 80 mg twice daily to encourage urine output. 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 He was also found to have liver lesion suggestive of metastatic disease, patient leaning toward not doing any further workup for that. Recommendations Acute on chronic renal dysfunction requiring hemodialysis: -- Patient has advanced CKD and cardiorenal syndrome, he has been dialysis dependent -- Continue HD per [facility] schedule -- Dialysis orders were entered and completed today -- No complications with HD -- Outpatient HD arranged at [facility] at discharge -- If patient is discharged to [facility], please notify me to arrange dialysis and continued follow up Bladder cancer: -- CBI per urology Congestive heart failure: -- Volume status acceptable -- Continue furosemide 80 mg twice daily Atrial fibrillation -- Eliquis on hold Anemia: -- Venofer 100 mg q HD -- EPO 11650 q HD
[2017-08-08] MEDS ORDERED: PHEN-1043 PO (14:55)
[2017-08-08] MEDS ORDERED: VANC5CAP PO (14:55)
[2017-08-08] MEDS ORDERED: B-COCAP20 PO (14:55)
[2017-08-08] MEDS ORDERED: INSDGIPEN SC (14:55)
[2017-08-08] MEDS ORDERED: AMIO200T4 PO (14:55)
--- NOTE | 2017-08-08 15:13 | Hospitalist Progress Note ---
Hospitalist Progress Note Date of Service Aug 08, 2017. (Radha Falk PA-C) Subjective Pt evaluation today including: conversation w/ patient, conversation w/ family , physical exam, chart review, lab review, review of studies, review of inpatient medication list Patient seen and evaluated. No acute events overnight. Had dialysis this AM and tolerated well. Planning TOV today. Plan for [facility] tomorrow. 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 Constitutional: No fever, No chills Respiratory: No cough, No shortness of breath Cardiovascular: No chest pain Abdomen: + diarrhea, No pain, No nausea, No vomiting Musculoskeletal: No calf pain Male : No dysuria (Radha Falk PA-C) Medications Current Inpatient Medications Medications (Trade) Dose Ordered Sig/Bg Route Start Time Stop Time Status Last Admin Dose Admin Amiodarone HCl (Cordarone Tab) 200 mg BID PO 07/22/17 09:00 08/21/17 08:59 08/08/17 10:18 200 MG Apixaban (Eliquis Tab) 2.5 mg BID PO 07/22/17 09:00 08/21/17 08:59 Future Hold 07/28/17 20:17 2.5 MG Aspirin (Ecotrin Tab) 81 mg QAM PO 07/22/17 09:00 08/21/17 08:59 Future Hold 08/07/17 08:23 81 MG Atorvastatin Calcium (Lipitor Tab) 40 mg QAM PO 07/22/17 09:00 08/21/17 08:59 08/08/17 10:18 40 MG Ferrous Gluconate (Ferrous Gluconate Tab) 324 mg QAM PO 07/22/17 09:00 08/21/17 08:59 08/08/17 10:18 324 MG Levothyroxine Sodium (Synthroid Tab) 50 mcg DAILYBB PO 07/22/17 06:00 08/21/17 05:59 08/08/17 06:09 50 MCG Metoprolol Tartrate (Lopressor Tab) 25 mg BID PO 07/22/17 09:00 08/21/17 08:59 08/07/17 21:14 25 MG Pantoprazole Sodium (Protonix Tab) 40 mg QAM PO 07/22/17 09:00 08/21/17 08:59 08/08/17 10:17 40 MG Insulin Aspart (novoLOG ASPART) SLIDING SCALE G... ACHS SC 07/22/17 07:00 08/21/17 06:59 08/08/17 11:56 2 UNITS Acetaminophen (Tylenol Tab) 650 mg Q4H PRN PO 07/21/17 23:15 08/20/17 23:14 Al Hydrox/Mg Hydrox/Simethicone (Maalox Max Susp) 15 ml Q4H PRN PO 07/21/17 23:15 08/20/17 23:14 Magnesium Hydroxide (Milk Of Magnesia Susp) 30 ml Q12H PRN PO 07/21/17 23:15 08/20/17 23:14 Ondansetron HCl (Zofran Inj) 4 mg Q6H PRN IV 07/21/17 23:15 08/20/17 23:14 Polyethylene (Miralax Powder Packet) 17 gm DAILY PRN PO 07/21/17 23:15 08/20/17 23:14 Glucose (Glucose 40% Gel) 15-30 GRAMS 15 GRAMS... UD PRN PO 07/21/17 23:45 08/20/17 23:44 Glucose (Glucose Chew Tab) 4-8 Tablets 4 Tabl... UD PRN PO 07/21/17 23:45 08/20/17 23:44 Dextrose (Dextrose 50% 50ML Syringe) 25-50ML OF 50% DW IV FOR... UD PRN IV 07/21/17 23:45 08/20/17 23:44 Glucagon (Glucagon Inj) 1 mg UD PRN SQ 07/21/17 23:45 08/20/17 23:44 Albuterol/ Ipratropium (Duoneb) 3 ml Q6R INH 07/22/17 15:00 08/21/17 14:59 08/08/17 14:30 3 ML Albuterol/ Ipratropium (Duoneb) 3 ml Q2H PRN INH 07/22/17 10:15 08/21/17 10:14 08/04/17 18:23 3 ML Menthol (Nice Farida) 1 farida PRN PRN FARIDA 07/27/17 14:45 08/26/17 14:44 Phenazopyridine HCl (Pyridium Tab) 200 mg TID PRN PO 07/31/17 12:30 08/30/17 12:29 08/02/17 08:12 200 MG Vitamin B Complex/ Vit C/Folic Acid (Nephrocaps) 1 cap QAM PO 08/02/17 09:00 09/01/17 08:59 08/08/17 10:18 1 CAP Temazepam (Restoril Cap) 7.5 mg HS PRN PO 08/02/17 12:30 09/01/17 12:29 08/03/17 21:35 7.5 MG Insulin Glargine (Lantus Solostar Pen) 12 units BID SC 08/02/17 21:00 08/21/17 08:59 08/08/17 10:17 12 UNITS Vancomycin HCl (Vancomycin Oral Soln) 125 mg Q6H PO 08/04/17 23:00 08/14/17 22:59 08/08/17 11:56 125 MG Raspberry (Raspberry Syrup 5ml Cup) 5 ml Q6H PO 08/04/17 23:00 08/18/17 22:59 08/08/17 11:56 5 ML Furosemide (Lasix Tab) 80 mg BID17 PO 08/05/17 17:00 09/04/17 16:59 08/07/17 17:03 80 MG (Radha Falk, HANH) Objective Vital Signs Date Time Temp Pulse Resp B/P (MAP) Pulse Ox O2 Delivery O2 Flow Rate FiO2 08/08/17 14:31 92 18 90 Room Air 08/08/17 10:08 36.2 81 118/67 (84) 08/08/17 10:00 75 111/64 08/08/17 09:45 89 116/58 08/08/17 09:30 85 110/57 08/08/17 09:15 96 115/71 08/08/17 09:00 86 123/64 08/08/17 08:45 87 127/68 08/08/17 08:30 79 114/67 08/08/17 08:15 84 117/58 08/08/17 08:00 94 109/67 08/08/17 08:00 Room Air 08/08/17 07:45 91 118/67 08/08/17 07:30 84 112/71 08/08/17 07:15 87 119/75 08/08/17 07:11 91 18 91 Room Air 08/08/17 07:00 83 121/57 08/08/17 06:45 86 117/61 08/08/17 06:30 81 115/62 08/08/17 06:15 58 108/60 08/08/17 06:00 61 117/57 08/08/17 05:50 36.4 91 116/74 (88) 08/08/17 00:00 Room Air 08/07/17 23:36 36.8 75 20 107/53 (71) 93 Room Air 08/07/17 21:15 79 105/61 (76) 08/07/17 19:34 70 18 95 Room Air 08/07/17 16:00 95 Room Air 08/07/17 15:28 36.4 78 20 101/58 (72) 95 Room Air (Radha Falk, PA-C) Physical Exam General Appearance: WD/WN, no apparent distress Neck: supple, no JVD, trachea midline Respiratory/Chest: lungs clear, normal breath sounds, no respiratory distress, no accessory muscle use Cardiovascular: + irregularly irregular Abdomen: normal bowel sounds, non tender, soft Extremities: + swelling Neurologic/Psychiatric: alert Skin: normal color, warm/dry (Radha Falk, PA-C) Laboratory Results Last 24 Hours Test 08/07/17 16:11 08/07/17 20:12 08/08/17 07:25 08/08/17 11:12 Bedside Glucose 213 mg/dl 252 mg/dl 116 mg/dl White Blood Count 9.88 K/uL Red Blood Count 3.83 M/uL Hemoglobin 10.1 g/dL Hematocrit 32.1 % Mean Corpuscular Volume 83.8 fL Mean Corpuscular Hemoglobin 26.4 pg Mean Corpuscular Hemoglobin Concent 31.5 g/dl RDW Standard Deviation 64.6 fL RDW Coefficient of Variation 21.4 % Platelet Count 297 K/uL Mean Platelet Volume 9.6 fL Sodium Level 135 mmol/L Potassium Level 3.7 mmol/L Chloride Level 101 mmol/L Carbon Dioxide Level 26 mmol/L Anion Gap 8.0 mmol/L Blood Urea Nitrogen 22 mg/dl Creatinine 2.72 mg/dl Est Creatinine Clear Calc Drug Dose 21.4 ml/min Estimated GFR () 23.5 Estimated GFR (Non- 20.2 BUN/Creatinine Ratio 8.0 Random Glucose 110 mg/dl Calcium Level 8.2 mg/dl Magnesium Level 1.9 mg/dl Test 08/08/17 11:23 Bedside Glucose 104 mg/dl (Radha Falk PA-C) Assessment and Plan 87 y/o M readmitted July 21, 2017 because of fluid overload and CHF exacerbation was discharged from the hospital one day prior and returns with progressive SOB and weakness in his admission. C. Difficile: STABLE - Reporting reduction in BM frequency - Continue Vancomycin 125 mg Q6H and will treat 14 days - course to finish on Hematuria 2/2 Anti-Coagulation and Possible Cancerous Process: S/P TURBT and B/ L Stents: RESOLVED - Bladder pathology revealing non-invasive papillary urothelial CA - Hemoglobin remains stable - Urology following - appreciate recommendations - planning for TOV today Liver Lesions and Bone Lesions: Suspicion for Metastatic Disease: - Was seen by GI on previous admission and will be F/U as outpatient for EGD and EUS to assess source of this suggested metastatic lesions Acute on Chronic Diastolic CHF and HLD: - Lasix 80 mg BID and likely continue home dosing on D/C; Currently - 18 L balance - Atorvastatin 40 mg daily 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: S/P Perm Cath on 07/27 - Initially responded to Lasix however then had decreased UO and now dialysis dependent - Nephrology following - appreciate assistance with dialysis; current MWF regimen at this time and will convert to TTS Persistent Atrial Fibrillation: - Continue Amiodarone 200 mg BID and plan for D/C on 200 mg daily per cardiology - Lopressor 25 mg BID - Eliquis and ASA on hold 2/2 hematuria and may need to hold this a bit longer given recent stent placement T2DM: A1c 8.1 - Is uncontrolled however given age would like to see a slow improvement with this given higher risk of adverse affect from hypoglycemia and falls [place] with plans to continue anticoagulation - Lantus 12 units SC BID and SSI; Can likely increase Lantus to 20 units daily and continue Januvia on D/C Code Status: DO NOT RESUSCITATE Disposition: Awaiting TOV; D/C to [facility] tomorrow Continued [facility] stay due to: ambulation difficulties Discharge planning: rehab hospital (Radha Falk PA-C) PA Physician Supervision Note: I interviewed and examined the patient. Discussed with Radha Falk and agree with findings and plan as documented in the note. Any exceptions or clarifications are listed here: None this pt is about his usual state, he is agreeable to go to rehab, not really comprehending the fact of the matter with urothelial cancer of bladder vitals reviewed and stable car is regular lungs are clear ESRD, new diagnosis of cancer, will look to continue HD for ESRD and move to rehab Documented By: Asaf Mccoy (Asaf Mccoy M.D.)
--- NOTE | 2017-08-08 15:21 | Discharge Instructions ---
Discharge Instructions Date of Service Aug 08, 2017. Admission Reason for Admission: Acute On Chronic Renal Failure, Chf Exacerbation Discharge Discharge Diagnosis / Problem: Acute on Chronic Renal Failure; CHF Exacerbation ; C. Diff Discharge Goals Goal(s): Decrease discomfort, Improve function, Increase independence Activity Recommendations Activity Level: Assistance Required Therapies: Physical Therapy, Occupational Therapy . Additional Information Patient informed of condition: Yes Advance Directives: Yes DNR: Yes Level of Care: Acute Rehab Communicable Disease: Yes (C. diff) Prognosis: Stable Instructions / Follow-Up Instructions / Follow-Up 87 y/o M readmitted July 21, 2017 because of fluid overload and CHF exacerbation was discharged from the hospital one day prior and returns with progressive SOB and weakness in his admission. C. Difficile: STABLE - Reporting reduction in BM frequency - Continue Vancomycin 125 mg Q6H x 14 days total - finishes therapy on 08/18 Hematuria 2/2 Anti-Coagulation and Possible Cancerous Process: S/P TURBT and B/ L Stents: RESOLVED - One urine cytology revealed suspicion of high-grade urothelial carcinoma however other samples are negative; bladder pathology reveals non-invasive papillary urothelial CA - Hemoglobin remains stable - Urology followed - performed trial of void with Perez removal - plan on outpatient F/U Liver Lesions and Bone Lesions: Suspicion for Metastatic Disease - Was seen by GI on previous admission and will be F/U as outpatient for EGD and EUS to assess source of this suggested metastatic lesions - Saw Dr Turner/ Dr. Skaggs Acute on Chronic Diastolic CHF and HLD: IMPROVING - Lasix 80 mg BID but will convert to 40 mg daily as previously prescribed but close monitoring of volume status; will have dialysis to assist with volume management - Recommend daily weights - Atorvastatin 40 mg daily 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: S/P Perm Cath on 07/27 - Initially responded to Lasix however then had decreased UO and now dialysis dependent - Nephrology followed - currently MWF with plans to convert to TTS when returning home and will have dialysis in [place] -- Dr. Phelps will assist with [facility] management of dialysis Persistent Atrial Fibrillation: - Amiodarone 200 mg daily. This was reduced from BID per cardiology recommendations - Lopressor 25 mg BID - Eliquis and ASA on hold 2/2 hematuria and may need to hold this a bit longer given recent stent placement -- In regards to Eliquis - may consider holding indefinitely given this is for atrial fibrillation but will need to reassess this in regards to stroke risk but currently hematuria may cause it to be held longer -- ASA therapy can be resumed in one week. Monitor for further hematuria and hold if returns T2DM: A1c 8.1 - Is uncontrolled however given age would like to see a slow improvement with this given higher risk of adverse affect from hypoglycemia and falls [place] if he is to return on his anticoagulation Code Status: DO NOT RESUSCITATE Disposition: - Dialysis MWF - eventual conversion to TTS in [place] when returning home - Recommend PCP F/U in next 7-10 days - Recommend Cardiology F/U in next 2-3 weeks Current Hospital Diet Patient's current hospital diet: Diabetes Type 2 Diet, Low Sodium Diet (2gm Na) Discharge Diet Recommended Diet: Low Sodium Diet (2gm Na), Diabetes Type 2 Diet Procedures Procedures Performed: Cystoscopy with Bilateral Retrograde Pyelogram. Bilateral Selective Cytology and bilateral stents. TURBT, Large, Pending Studies Studies pending at discharge: no Laboratory Results Hemoglobin A1c Test 08/02/17 07:09 Range/Units Estimated Average Glucose 192 mg/dl Hemoglobin A1c 8.3 H 4.5-5.6 % Lipid Panel Test 05/14/17 15:23 Range/Units Triglycerides Level 140 0-150 mg/dl Cholesterol Level 91 0-200 mg/dl HDL Cholesterol 57 mg/dl Cholesterol/HDL Ratio 1.6 LDL Cholesterol, Calculated 6 mg/dl Medical Emergencies . Who to Call and When: Medical Emergencies: If at any time you feel your situation is an emergency, please call 911 immediately. . Non-Emergent Contact Non-Emergency issues call your: Primary Care Provider Call Non-Emergent contact if: you have a fever, your pain is concerning you, you have any medication questions . . "Provider Documentation" section prepared by Radha Falk. . Core Measure Problem Core Measures: None
[2017-08-09] MEDS: ALBUT/IPRATROP 3MG/0.5MG NEB 3 ML VIAL INH SCH ×3 (03:00→14:09)
[2017-08-09] MEDS: RASPBERRY SYRUP 5 ML UDP PO SCH ×2 (05:04→11:49)
[2017-08-09] MEDS: LEVOTHYROXINE 50 MCG TAB PO SCH (05:04)
[2017-08-09] MEDS: VANCOMYCIN HCL 125 MG/2.5ML SOLN PO SCH ×2 (05:04→11:50)
[2017-08-09 06:55] LABS: HEMATOCRIT 31.5 % (42-52); HEMOGLOBIN 9.7 g/dL (14.0-18.0); MEAN CELL VOLUME 85.1 fL (80-100); MEAN CORPUSCULAR HEMOGLOBIN 26.2 pg (25-34); MEAN CORPUSCULAR HGB CONC 30.8 g/dl (32-36); PLATELET COUNT 338 K/uL (130-400); RED CELL DISTRIBUTION WIDTH CV 21.5 % (11.5-14.5); RED CELL DISTRIBUTION WIDTH SD 66.2 fL (36.4-46.3); WHITE BLOOD COUNT 10.74 K/uL (4.8-10.8)
[2017-08-09 07:04] VITALS: PULSE 87; O2SAT 96
[2017-08-09 07:32] LABS: CREATININE 4.14 mg/dl (0.60-1.40); POTASSIUM 4.5 mmol/L (3.5-5.1)
[2017-08-09 07:40] VITALS: BP 106/62; PULSE 72; TEMP 37.1; O2SAT 92
--- NOTE | 2017-08-09 08:27 | Medical Student: [facility] ---
Med Student Progress Note Date of Service Aug 09, 2017. Subjective Pt evaluation today including: conversation w/ patient, physical exam, chart review, lab review, review of studies Pain: 0/10 Voiding: voiding difficulty Jasvir is a 87 year old, POD day #6 - TURBT and bilateral ureteral stent placement. CBI clamped then catheter d/c'd yesterday afternoon. Patient has not voided since this time. Bladder scanning qshift per nursing ~100-150cc's overnight. This AM, PVR ~171cc. Patient denies any pain, bleeding or leaking. Review of Systems Constitutional: No fever, No chills Respiratory: No shortness of breath Cardiac: No chest pain Abdomen: No pain, No nausea, No vomiting Male : + see HPI, + problem reported (has not voided since catheter d/c'd yesterday afternoon) Objective Vital Signs Date Time Temp Pulse Resp B/P (MAP) Pulse Ox O2 Delivery O2 Flow Rate FiO2 08/09/17 07:40 37.1 72 18 106/62 (77) 92 Room Air 08/09/17 00:00 Room Air 08/08/17 23:47 36.9 77 20 113/61 (78) 96 Room Air 08/08/17 21:15 80 117/53 (74) 08/08/17 18:53 83 18 96 Room Air 08/08/17 18:00 94 Room Air 08/08/17 17:10 78 108/58 (75) 08/08/17 16:00 Room Air 08/08/17 15:40 36.9 91 20 106/62 (77) 90 Room Air 08/08/17 14:31 92 18 90 Room Air 08/08/17 10:08 36.2 81 118/67 (84) 08/08/17 10:00 75 111/64 08/08/17 09:45 89 116/58 08/08/17 09:30 85 110/57 08/08/17 09:15 96 115/71 08/08/17 09:00 86 123/64 08/08/17 08:45 87 127/68 08/08/17 08:30 79 114/67 08/08/17 08:15 84 117/58 Physical Exam General Appearance: WD/WN, no apparent distress ENT: + pertinent finding (hard of hearing) Respiratory/Chest: no respiratory distress, no accessory muscle use Cardiovascular: no JVD Abdomen: non tender, soft Neurologic/Psychiatric: alert (pleasant and cooperative), normal mood/affect, oriented x 3 Skin: normal color, warm/dry Lymphatic: no adenopathy Laboratory Results Last 24 Hours Test 08/08/17 11:12 08/08/17 11:23 08/08/17 16:14 08/08/17 20:16 White Blood Count 9.88 K/uL Red Blood Count 3.83 M/uL Hemoglobin 10.1 g/dL Hematocrit 32.1 % Mean Corpuscular Volume 83.8 fL Mean Corpuscular Hemoglobin 26.4 pg Mean Corpuscular Hemoglobin Concent 31.5 g/dl RDW Standard Deviation 64.6 fL RDW Coefficient of Variation 21.4 % Platelet Count 297 K/uL Mean Platelet Volume 9.6 fL Sodium Level 135 mmol/L Potassium Level 3.7 mmol/L Chloride Level 101 mmol/L Carbon Dioxide Level 26 mmol/L Anion Gap 8.0 mmol/L Blood Urea Nitrogen 22 mg/dl Creatinine 2.72 mg/dl Est Creatinine Clear Calc Drug Dose 21.4 ml/min Estimated GFR () 23.5 Estimated GFR (Non- 20.2 BUN/Creatinine Ratio 8.0 Random Glucose 110 mg/dl Calcium Level 8.2 mg/dl Magnesium Level 1.9 mg/dl Bedside Glucose 104 mg/dl 219 mg/dl 277 mg/dl Test 08/09/17 06:30 08/09/17 07:31 08/09/17 07:32 08/09/17 07:33 White Blood Count 10.74 K/uL Red Blood Count 3.70 M/uL Hemoglobin 9.7 g/dL Hematocrit 31.5 % Mean Corpuscular Volume 85.1 fL Mean Corpuscular Hemoglobin 26.2 pg Mean Corpuscular Hemoglobin Concent 30.8 g/dl RDW Standard Deviation 66.2 fL RDW Coefficient of Variation 21.5 % Platelet Count 338 K/uL Mean Platelet Volume 10.0 fL Sodium Level 133 mmol/L Potassium Level 4.5 mmol/L Chloride Level 101 mmol/L Carbon Dioxide Level 24 mmol/L Anion Gap 8.0 mmol/L Blood Urea Nitrogen 37 mg/dl Creatinine 4.14 mg/dl Est Creatinine Clear Calc Drug Dose 14.1 ml/min Estimated GFR () 14.1 Estimated GFR (Non- 12.2 BUN/Creatinine Ratio 8.8 Random Glucose 187 mg/dl Calcium Level 8.0 mg/dl Magnesium Level 2.1 mg/dl Bedside Glucose 305 mg/dl 172 mg/dl 185 mg/dl Assessment and Plan Assessment and Plan: Norm is POD #6 TURBT and bilateral stent placement. HD yesterday Has not voided since yesterday afternoon when dickson d/c'd PVR ~171cc, no pain, leaking or bleeding per patient Discussed with Dr. Glez, plan to straight cath q6h if unable to void. Plan for [facility] Discharge planning: rehab hospital
--- NOTE | 2017-08-09 08:29 | Progress Note ---
Subjective Date of Service: Aug 09, 2017. Subjective Pt evaluation today including: conversation w/ patient, chart review, lab review Voiding: voiding difficulty 87 yo male s/p TURBT and b/l ureteral stent placement. Perez catheter removed yesterday, and the pt has not yet voided. PVR of 171ml checked by myself this morning. Pt denies pain. Problem List Medical Problems: (1) Anemia Status: Acute (2) CHF (congestive heart failure) Status: Acute (3) CHF (congestive heart failure) Status: Acute (4) Renal failure Status: Acute (5) Weakness Status: Acute Review of Systems Constitutional: No fever, No chills Respiratory: No shortness of breath Cardiac: No chest pain Abdomen: No pain, No nausea, No vomiting Male : + problem reported (urinary retention ), No dysuria, No hematuria Heme: No abnormal bleeding/bruising Objective Vital Signs Date Time Temp Pulse Resp B/P (MAP) Pulse Ox O2 Delivery O2 Flow Rate FiO2 08/09/17 07:40 37.1 72 18 106/62 (77) 92 Room Air 08/09/17 00:00 Room Air 08/08/17 23:47 36.9 77 20 113/61 (78) 96 Room Air 08/08/17 21:15 80 117/53 (74) 08/08/17 18:53 83 18 96 Room Air 08/08/17 18:00 94 Room Air 08/08/17 17:10 78 108/58 (75) 08/08/17 16:00 Room Air 08/08/17 15:40 36.9 91 20 106/62 (77) 90 Room Air 08/08/17 14:31 92 18 90 Room Air 08/08/17 10:08 36.2 81 118/67 (84) 08/08/17 10:00 75 111/64 08/08/17 09:45 89 116/58 08/08/17 09:30 85 110/57 08/08/17 09:15 96 115/71 08/08/17 09:00 86 123/64 08/08/17 08:45 87 127/68 08/08/17 08:30 79 114/67 Physical Exam General Appearance: no apparent distress Eyes: normal inspection ENT: hearing grossly normal Neck: no JVD Respiratory/Chest: no respiratory distress, no accessory muscle use Cardiovascular: no JVD Extremities: normal inspection Neurologic/Psychiatric: alert, normal mood/affect, oriented x 3 Skin: normal color Laboratory Results Last 24 Hours Test 08/08/17 11:12 08/08/17 11:23 08/08/17 16:14 08/08/17 20:16 White Blood Count 9.88 K/uL Red Blood Count 3.83 M/uL Hemoglobin 10.1 g/dL Hematocrit 32.1 % Mean Corpuscular Volume 83.8 fL Mean Corpuscular Hemoglobin 26.4 pg Mean Corpuscular Hemoglobin Concent 31.5 g/dl RDW Standard Deviation 64.6 fL RDW Coefficient of Variation 21.4 % Platelet Count 297 K/uL Mean Platelet Volume 9.6 fL Sodium Level 135 mmol/L Potassium Level 3.7 mmol/L Chloride Level 101 mmol/L Carbon Dioxide Level 26 mmol/L Anion Gap 8.0 mmol/L Blood Urea Nitrogen 22 mg/dl Creatinine 2.72 mg/dl Est Creatinine Clear Calc Drug Dose 21.4 ml/min Estimated GFR () 23.5 Estimated GFR (Non- 20.2 BUN/Creatinine Ratio 8.0 Random Glucose 110 mg/dl Calcium Level 8.2 mg/dl Magnesium Level 1.9 mg/dl Bedside Glucose 104 mg/dl 219 mg/dl 277 mg/dl Test 08/09/17 06:30 08/09/17 07:31 08/09/17 07:32 08/09/17 07:33 White Blood Count 10.74 K/uL Red Blood Count 3.70 M/uL Hemoglobin 9.7 g/dL Hematocrit 31.5 % Mean Corpuscular Volume 85.1 fL Mean Corpuscular Hemoglobin 26.2 pg Mean Corpuscular Hemoglobin Concent 30.8 g/dl RDW Standard Deviation 66.2 fL RDW Coefficient of Variation 21.5 % Platelet Count 338 K/uL Mean Platelet Volume 10.0 fL Sodium Level 133 mmol/L Potassium Level 4.5 mmol/L Chloride Level 101 mmol/L Carbon Dioxide Level 24 mmol/L Anion Gap 8.0 mmol/L Blood Urea Nitrogen 37 mg/dl Creatinine 4.14 mg/dl Est Creatinine Clear Calc Drug Dose 14.1 ml/min Estimated GFR () 14.1 Estimated GFR (Non- 12.2 BUN/Creatinine Ratio 8.8 Random Glucose 187 mg/dl Calcium Level 8.0 mg/dl Magnesium Level 2.1 mg/dl Bedside Glucose 305 mg/dl 172 mg/dl 185 mg/dl Assessment and Plan POD #6 s/p TURBT and bilateral ureteral stent placement Urinary retention -Discussed with Dr. Glez this morning. Plan for straight cath q6hrs if unable to void. This can be [facility] at [facility] as well. Bladder pathology showing . NON-INVASIVE PAPILLARY UROTHELIAL CARCINOMA, LOW GRADE. Unlikely this is responsible for his liver lesions. F/u with GI and oncology for further evaluation. Will plan for the pt to f/u with Dr. Glez as an outpatient. Will arrange. Continued [facility] stay due to: ambulation difficulties Discharge planning: rehab hospital
[2017-08-09] MEDS: PANTOprazole SOD 40 MG TAB PO SCH (08:35)
[2017-08-09] MEDS: METOPROLOL TARTRATE 25 MG TAB PO SCH (08:35)
[2017-08-09] MEDS: AMIODARONE 200 MG TAB PO SCH (08:36)
[2017-08-09] MEDS: NEPHROCAPS PO SCH (08:37)
[2017-08-09] MEDS: FERROUS GLUCONATE 324 MG TAB PO SCH (08:37)
[2017-08-09] MEDS: FUROSEMIDE 80 MG TAB PO SCH (08:37)
[2017-08-09] MEDS: ATORVASTATIN 40 MG TAB PO SCH (08:37)
[2017-08-09] MEDS: INSULIN GLARGINE SOLOSTAR 100 UNITS/ML 3 ML PEN SC SCH (08:44)
[2017-08-09] MEDS: INSULIN ASPART 100 UNITS/ML 3 ML PEN SC SCH ×2 (08:45→12:21)
--- NOTE | 2017-08-09 10:39 | Nephrology Progress Note ---
Nephrology Progress Note Date of Service Aug 09, 2017. Chief Complaint Acute renal insufficiency Subjective No acute events overnight. Jasvir was seen and evaluated with his son at the bedside. The patient feels well. He tolerated HD well yesterday. He has been ambulating with rolling walker. Appetite is good. Unfortunately, Normal has not voided since Perez was removed. He denies any pain or discomfort. He is breathing comfortably. Review of Systems A complete review of systems was performed. Pertinent positives are noted above. All other systems are negative. Vital Signs Last 8 Hrs Date Time Temp Pulse Resp B/P (MAP) Pulse Ox O2 Delivery O2 Flow Rate FiO2 08/09/17 08:00 Room Air 08/09/17 07:40 37.1 72 18 106/62 (77) 92 Room Air Last Recorded Weight Weight (Kilograms): 90.700 Physical Exam General Appearance: WD/WN, no apparent distress Head: normocephalic, atraumatic Eyes: normal inspection, sclerae normal ENT: normal ENT inspection, pharynx normal Neck: supple, no JVD, + pertinent finding (TDC with clear exit site) Respiratory/Chest: lungs clear, no respiratory distress, no accessory muscle use Cardiovascular: regular rate, rhythm, no gallop Abdomen/GI: non tender, soft Extremities/Musculoskelatal: normal inspection, no pedal edema Neurologic/Psych: alert, normal mood/affect Family History FHx: COPD (chronic obstructive pulmonary disease) FHx: diabetes mellitus Negative for CKD / ESRD Social History Drug Use: none Marital Status: Housing Status: lives with family Occupation: retired . Retired. Never a smoker Laboratory Results Past 24 Hours 08/08/17 11:12 08/09/17 06:30 08/08/17 11:12 08/09/17 06:30 Test 08/08/17 11:12 08/08/17 11:23 08/08/17 16:14 08/08/17 20:16 Red Blood Count 3.83 M/uL (4.7-6.1) Mean Corpuscular Volume 83.8 fL (80-100) Mean Corpuscular Hemoglobin 26.4 pg (25-34) Mean Corpuscular Hemoglobin Concent 31.5 g/dl (32-36) RDW Standard Deviation 64.6 fL (36.4-46.3) RDW Coefficient of Variation 21.4 % (11.5-14.5) Mean Platelet Volume 9.6 fL (7.4-10.4) Anion Gap 8.0 mmol/L (3-11) Est Creatinine Clear Calc Drug Dose 21.4 ml/min Estimated GFR () 23.5 Estimated GFR (Non- 20.2 BUN/Creatinine Ratio 8.0 (10-20) Calcium Level 8.2 mg/dl (8.5-10.1) Magnesium Level 1.9 mg/dl (1.8-2.4) Bedside Glucose 104 mg/dl (70-99) 219 mg/dl (70-99) 277 mg/dl (70-99) Test 08/09/17 06:30 08/09/17 07:31 08/09/17 07:32 08/09/17 07:33 Red Blood Count 3.70 M/uL (4.7-6.1) Mean Corpuscular Volume 85.1 fL (80-100) Mean Corpuscular Hemoglobin 26.2 pg (25-34) Mean Corpuscular Hemoglobin Concent 30.8 g/dl (32-36) RDW Standard Deviation 66.2 fL (36.4-46.3) RDW Coefficient of Variation 21.5 % (11.5-14.5) Mean Platelet Volume 10.0 fL (7.4-10.4) Anion Gap 8.0 mmol/L (3-11) Est Creatinine Clear Calc Drug Dose 14.1 ml/min Estimated GFR () 14.1 Estimated GFR (Non- 12.2 BUN/Creatinine Ratio 8.8 (10-20) Calcium Level 8.0 mg/dl (8.5-10.1) Magnesium Level 2.1 mg/dl (1.8-2.4) Bedside Glucose 305 mg/dl (70-99) 172 mg/dl (70-99) 185 mg/dl (70-99) Allergies Coded Allergies: No Known Allergies (Verified , 07/21/17) Medications Current Inpatient Medications Medications (Trade) Dose Ordered Sig/Bg Route Start Time Stop Time Status Last Admin Dose Admin Amiodarone HCl (Cordarone Tab) 200 mg BID PO 07/22/17 09:00 08/21/17 08:59 08/09/17 08:36 200 MG Apixaban (Eliquis Tab) 2.5 mg BID PO 07/22/17 09:00 08/21/17 08:59 Future Hold 07/28/17 20:17 2.5 MG Aspirin (Ecotrin Tab) 81 mg QAM PO 07/22/17 09:00 08/21/17 08:59 Future Hold 08/07/17 08:23 81 MG Atorvastatin Calcium (Lipitor Tab) 40 mg QAM PO 07/22/17 09:00 08/21/17 08:59 08/09/17 08:37 40 MG Ferrous Gluconate (Ferrous Gluconate Tab) 324 mg QAM PO 07/22/17 09:00 08/21/17 08:59 08/09/17 08:37 324 MG Levothyroxine Sodium (Synthroid Tab) 50 mcg DAILYBB PO 07/22/17 06:00 08/21/17 05:59 08/09/17 05:04 50 MCG Metoprolol Tartrate (Lopressor Tab) 25 mg BID PO 07/22/17 09:00 08/21/17 08:59 08/09/17 08:35 25 MG Pantoprazole Sodium (Protonix Tab) 40 mg QAM PO 07/22/17 09:00 08/21/17 08:59 08/09/17 08:35 40 MG Insulin Aspart (novoLOG ASPART) SLIDING SCALE G... ACHS SC 07/22/17 07:00 08/21/17 06:59 08/09/17 08:45 6 UNITS Acetaminophen (Tylenol Tab) 650 mg Q4H PRN PO 07/21/17 23:15 08/20/17 23:14 Al Hydrox/Mg Hydrox/Simethicone (Maalox Max Susp) 15 ml Q4H PRN PO 07/21/17 23:15 08/20/17 23:14 Magnesium Hydroxide (Milk Of Magnesia Susp) 30 ml Q12H PRN PO 07/21/17 23:15 08/20/17 23:14 Ondansetron HCl (Zofran Inj) 4 mg Q6H PRN IV 07/21/17 23:15 08/20/17 23:14 Polyethylene (Miralax Powder Packet) 17 gm DAILY PRN PO 07/21/17 23:15 08/20/17 23:14 Glucose (Glucose 40% Gel) 15-30 GRAMS 15 GRAMS... UD PRN PO 07/21/17 23:45 08/20/17 23:44 Glucose (Glucose Chew Tab) 4-8 Tablets 4 Tabl... UD PRN PO 07/21/17 23:45 08/20/17 23:44 Dextrose (Dextrose 50% 50ML Syringe) 25-50ML OF 50% DW IV FOR... UD PRN IV 07/21/17 23:45 08/20/17 23:44 Glucagon (Glucagon Inj) 1 mg UD PRN SQ 07/21/17 23:45 08/20/17 23:44 Albuterol/ Ipratropium (Duoneb) 3 ml Q6R INH 07/22/17 15:00 08/21/17 14:59 08/09/17 07:04 3 ML Albuterol/ Ipratropium (Duoneb) 3 ml Q2H PRN INH 07/22/17 10:15 08/21/17 10:14 08/04/17 18:23 3 ML Menthol (Nice Farida) 1 farida PRN PRN FARIDA 07/27/17 14:45 08/26/17 14:44 Phenazopyridine HCl (Pyridium Tab) 200 mg TID PRN PO 07/31/17 12:30 08/30/17 12:29 08/02/17 08:12 200 MG Vitamin B Complex/ Vit C/Folic Acid (Nephrocaps) 1 cap QAM PO 08/02/17 09:00 09/01/17 08:59 08/09/17 08:37 1 CAP Temazepam (Restoril Cap) 7.5 mg HS PRN PO 08/02/17 12:30 09/01/17 12:29 08/03/17 21:35 7.5 MG Insulin Glargine (Lantus Solostar Pen) 12 units BID SC 08/02/17 21:00 08/21/17 08:59 08/09/17 08:44 12 UNITS Vancomycin HCl (Vancomycin Oral Soln) 125 mg Q6H PO 08/04/17 23:00 08/14/17 22:59 08/09/17 05:04 125 MG Raspberry (Raspberry Syrup 5ml Cup) 5 ml Q6H PO 08/04/17 23:00 08/18/17 22:59 08/09/17 05:04 5 ML Furosemide (Lasix Tab) 80 mg BID17 PO 08/05/17 17:00 09/04/17 16:59 08/09/17 08:37 80 MG Impression (1) Acute kidney injury (2) CKD stage 3 due to type 2 diabetes mellitus (3) Diastolic CHF (4) Liver masses (5) Atrial fibrillation (6) Iron deficiency anemia (7) Diabetes Mr. Menjivar is an 87-year-old male with acute on chronic kidney disease requiring hemodialysis. He has advanced renal dysfunction associated with cardiorenal syndrome. Jasvir was started on hemodialysis on July 28. He is POD#6 s/p cystoscopy, TURBT and stent placement. He is non-oliguric. Creatinine continues to rise off dialysis. The patient remains dialysis dependent. Metabolic profile, volume status and blood pressure were checked and found to be appropriate. Furosemide 80 mg twice daily to encourage urine output. Recommendations Acute on chronic renal dysfunction requiring hemodialysis: -- Patient has advanced CKD and cardiorenal syndrome, he has been dialysis dependent -- Continue HD per [facility] schedule -- BP and volume status are currently appropriate -- Outpatient HD arranged at [facility] at discharge -- If patient is discharged to [facility], please notify me to arrange dialysis and continued follow up Bladder cancer: -- CBI per urology Congestive heart failure: -- Volume status acceptable -- Continue furosemide 80 mg twice daily Atrial fibrillation -- Eliquis on hold Anemia: -- Venofer 100 mg q HD -- EPO [id number] q HD
[2017-08-09 14:09] VITALS: PULSE 66; O2SAT 96
[2017-08-09 15:18] VITALS: BP 106/62; PULSE 66; TEMP 37.1; O2SAT 96
--- NOTE | 2017-08-09 19:26 | Discharge Summary ---
Discharge Summary Date of Service Aug 09, 2017. Discharge Summary Admission Date: Jul 21, 2017 at 23:13 Discharge Date: Aug 09, 2017 Discharge Disposition: Rehab Principal Diagnosis: C diff, afib, urothelial cancer, esrd on new start Hemodialysis Immunizations: Have You Had Influenza Vaccine: Yes Influenza Vaccine Date: May 02, 2007 History of Tetanus Vaccine?: Unknown History of Pneumococcal: Unknown History of Hepatitis B Vaccine: Unknown Medication Reconciliation New Medications: B-Complex W/ C & Folic Acid (Renal) 1 Cap Cap 1 CAP PO QAM for 14 Days, #14 CAP Phenazopyridine HCl (Phenazopyridine HCl) 200 Mg Tab 200 MG PO TID PRN for Bladder pain for 7 Days, #21 TAB Vancomycin Hcl (Vancomycin) 125 Mg Cap 125 MG PO Q6H, #41 TABS Changed Medications: Amiodarone Hcl (Cordarone) 200 Mg Tab 200 MG PO DAILY for 30 Days, #30 TAB (Changed from: BID) Insulin Glargine (Lantus Solostar) 100 Unit/Ml Inj 20 UNITS SC DAILY for 30 Days, #1 PEN (Changed from: 15 UNITS) Continued Medications: Atorvastatin (Lipitor) 40 Mg Tab 40 MG PO QAM Ferrous Gluconate (Ferrous Gluconate) 324 Mg Tab 324 MG PO QAM Furosemide (Lasix) 20 Mg Tab 40 MG PO QAM, TAB Levothyroxine Sodium (Levothyroxine Sodium) 50 Mcg Tab 1 TAB PO QAM FAMILY STATES "NONE OF THIS MED AT HOME, DID NOT GIVE THIS AM". Metoprolol Tartrate (Lopressor) (Lopressor) 25 Mg Tab 25 MG PO BID, TAB Omeprazole (Prilosec) 20 Mg Capcr 40 MG PO QAM Potassium Ext Rel (Klor-Con) 20 Meq Tabcr 20 MEQ PO HS, TAB Sitagliptin (Januvia) 50 Mg Tab 50 MG PO HS, TAB Discontinued Medications: Apixaban (Eliquis) 2.5 Mg Tab 2.5 MG PO BID, TAB Aspirin (Aspirin Ec) 81 Mg Tab 81 MG PO QAM Discharge Exam Review of Systems: Constitutional: No fever, No chills Abdomen: No pain, No nausea Physical Exam: General Appearance: WD/WN, + mild distress Eyes: normal inspection, sclerae normal Hospital Course 87 y/o M readmitted July 21, 2017 because of fluid overload and CHF exacerbation was discharged from the hospital one day prior and returns with progressive SOB and weakness in his admission. C. Difficile: STABLE - Reporting reduction in BM frequency - Continue Vancomycin 125 mg Q6H x 14 days total - finishes therapy on 08/18 Hematuria 2/2 Anti-Coagulation and Possible Cancerous Process: S/P TURBT and B/ L Stents: RESOLVED - One urine cytology revealed suspicion of high-grade urothelial carcinoma however other samples are negative; bladder pathology reveals non-invasive papillary urothelial CA - Hemoglobin remains stable - Urology followed - they feel should have intermittent straight cath, will have q 12 h not clear how much urine the patients making with dialysis, only had <200 ml out with cath today Liver Lesions and Bone Lesions: Suspicion for Metastatic Disease - Was seen by GI on previous admission and will be F/U as outpatient for EGD and EUS to assess source of this suggested metastatic lesions - Saw Dr Turner/ Dr. Skaggs Acute on Chronic Diastolic CHF and HLD: IMPROVING - Lasix converted to 40 mg daily as previously prescribed but close monitoring of volume status; will have dialysis to assist with volume management - Recommend daily weights - Atorvastatin 40 mg daily 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: S/P Perm Cath on 07/27 - Initially responded to Lasix however then had decreased UO and now dialysis dependent - Nephrology followed - currently MWF with plans to convert to TTS when returning home and will have dialysis in [place] -- Dr. Phelps will assist with [facility] management of dialysis Persistent Atrial Fibrillation: - Amiodarone 200 mg daily. This was reduced from BID per cardiology recommendations - Lopressor 25 mg BID - Eliquis and ASA on hold 2/2 hematuria and may need to hold this a bit longer given recent stent placement -- In regards to Eliquis - may consider holding indefinitely given this is for atrial fibrillation but will need to reassess this in regards to stroke risk but currently hematuria may cause it to be held longer -- ASA therapy can be resumed in one week. Monitor for further hematuria and hold if returns T2DM: A1c 8.1 - Is uncontrolled however given age would like to see a slow improvement with this given higher risk of adverse affect from hypoglycemia and falls [place] if he is to return on his anticoagulation Code Status: DO NOT RESUSCITATE Disposition: - Dialysis MWF - eventual conversion to TTS in [place] when returning home - Recommend PCP F/U in next 7-10 days - Recommend Cardiology F/U in next 2-3 weeks I personally phoned Dr. Fred Hendrix at [facility] and gave him verbal sign out on this complicated patient he returned an understanding of the case was reviewed in the chart as we spoke Total Time Spent: Greater than 30 minutes This includes examination of the patient, discharge planning, medication reconciliation, and communication with other providers. Discharge Instructions Please refer to the electronic Patient Visit Report (Discharge Instructions) for additional information.
== END 2017-08-09 16:00 | DRG 668 ==
LOC: C.EDB 19:12 → UNDOADMIN 23:13 → C.2E 23:13 → CANRESERV 23:29 → ENRESERV 23:29 → C.2E 07-24 10:41 → C.MS2W 07-24 10:41
PROVIDERS: ADMIT Internal Medicine; ATTEND Internal Medicine
PROC: 02HV33Z Insertion of Infusion Device into Superior Vena Cava, Percutaneous Approach (ICD-10-PCS; 2017-07-27)
PROC: 0JH60WZ Insertion of Totally Implantable Vascular Access Device into Chest Subcutaneous Tissue and Fascia, Open Approach (ICD-10-PCS; 2017-07-27)
PROC: 0TBB8ZX Excision of Bladder, Via Natural or Artificial Opening Endoscopic, Diagnostic (ICD-10-PCS; principal; 2017-08-03 07:00)
PROC: BT14ZZZ Fluoroscopy of Kidneys, Ureters and Bladder (ICD-10-PCS; principal; 2017-08-03 07:00)
PROC: 0T784DZ Dilation of Bilateral Ureters with Intraluminal Device, Percutaneous Endoscopic Approach (ICD-10-PCS; principal; 2017-08-03 07:00)
DX: C67.8 Malignant neoplasm of overlapping sites of bladder (principal); I48.1 Persistent atrial fibrillation; I13.0 Hypertensive heart and chronic kidney disease with heart failure and stage 1 through stage 4 chronic kidney disease, or unspecified chronic kidney disease; I50.33 Acute on chronic diastolic (congestive) heart failure; A04.72 Enterocolitis due to Clostridium difficile, not specified as recurrent; N18.6 End stage renal disease; E11.65 Type 2 diabetes mellitus with hyperglycemia; E11.21 Type 2 diabetes mellitus with diabetic nephropathy; C78.7 Secondary malignant neoplasm of liver and intrahepatic bile duct; C79.51 Secondary malignant neoplasm of bone; E46 Unspecified protein-calorie malnutrition; N17.9 Acute kidney failure, unspecified; N13.30 Unspecified hydronephrosis; E78.5 Hyperlipidemia, unspecified; R31.9 Hematuria, unspecified; T45.515A Adverse effect of anticoagulants, initial encounter; Y92.019 Unspecified place in single-family (private) house as the place of occurrence of the external cause; Z66 Do not resuscitate; E03.9 Hypothyroidism, unspecified; E83.42 Hypomagnesemia; R33.9 Retention of urine, unspecified; Q63.1 Lobulated, fused and horseshoe kidney